=== PATIENT | male | born 1965 | race Caucasian/White ===

== ENCOUNTER 2020-07-18 07:54 | Emergency (ER) | payer OTHER, SELFPAY ==
--- NOTE | 2020-07-18 08:00 | PC.NURSE ---
awaiting barrel cutter for assist
[2020-07-18 08:05] VITALS: BP 145/79; PULSE 71; RESP 16; TEMP 35.9; O2SAT 97; BMI 26.5
--- NOTE | 2020-07-18 08:33 | ED.EXTPRO ---
HPI - Extremity Problem General Chief complaint: Extremity Problem Stated complaint: R ARM PAIN Time Seen by Provider: 07/18/20 08:12 Source: patient Mode of arrival: ambulatory History of Present Illness HPI Narrative: 54-year-old male with a PMHx right elbow bursitis currently on Bactrim c/o continued right elbow pain radiating to right shoulder/ right hand x2 weeks. Reports symptoms started after multiple repetitive motion/ lifting at work. admits pain with range of motion. Denies direct trauma/ falls, fever, chills, numbness /tingling Complaint: extremity pain Onset (ago): week(s) Pain Consistency: constant Location: right and upper extremity Radiation: proximal and distal Exacerbating factors: range of motion Related Data Home Medications Medication Instructions Recorded Confirmed aspirin 81 mg tablet,delayed 81 mg PO DAILY 07/13/20 release Previous Rx's Medication Instructions Recorded prednisone 20 mg tablet 20 mg PO DAILY 9 Days #9 tab 07/13/20 sulfamethoxazole 800 1 tab PO BID 10 Days #20 tab 07/13/20 mg-trimethoprim 160 mg tablet acetaminophen [Tylenol Extra 500 mg PO Q6H PRN 10 Days #20 tab 07/18/20 Strength] cyclobenzaprine 5 mg PO TID PRN #14 tab 07/18/20 lidocaine [Lidoderm] 1 patch TOPICAL DAILY #30 ea 07/18/20 naproxen 500 mg PO BID 7 Days #14 tab 07/18/20 Allergies Allergy/AdvReac Type Severity Reaction Status Date / Time tramadol [TRAMADOL] Allergy Unknown DIZZINESS, Verified 07/18/20 08:02 joint stiffness Review of Systems Review of Systems: Yes all other systems are reviewed and are negative Constitutional: Constitutional: Reports as per HPI, Denies chills and Denies fever(s) Cardiovascular: Cardiovascular: Reports as per HPI Respiratory: Respiratory: Reports no additional respiratory complaints Musculoskeletal: Musculoskeletal: Reports arthralgias, Reports muscle cramps, Reports muscle weakness, Denies numbness and Denies tingling Neurologic: Denies numbness and Denies tingling PMFSH Past Medical History Attestation statement: The following information was validated with the patient. Medical History (Updated 07/18/20 @ 08:41 by VICKIE Gauthier) No known health problems Surgical History (Updated 07/18/20 @ 08:11 by Peyton Jamison) H/O hemorrhoidectomy H/O lateral meniscus repair of left knee Social History Social History Smoking Status: Never smoker Use of substances other than those prescribed or required for medical reasons: No Advance Directives: No Advance Directives Information Provided: Yes Physical Exam Vital Signs and I&O and Narrative: Vital Signs and I&O: Vital Signs Temp 96.6 F L 07/18/20 08:05 Pulse 71 07/18/20 08:05 Resp 16 07/18/20 08:05 BP 145/79 H 07/18/20 08:05 Pulse Ox 97 07/18/20 08:05 Intake & Output 07/17/20 07/18/20 07/18/20 18:59 06:59 18:59 Weight 83.915 kg Body Mass Index 26.5 Const: General: cooperative and healthy appearing Chest: Chest palpation & inspection: normal inspection of the chest Resp: Effort & Inspection: normal respiratory effort and able to speak in complete sentences Cardio: Peripheral pulses: radial pulses present Extrem: Other: Right elbow tender to palpation. No erythema or swelling. no evidence of bursitis. Full range of motion intact. NV intact General: Yes full ROM Right upper extremity: shoulder/upper arm ( Right trapezius tenderness. No midline cervical spinous tenderness) MDM - Extremity (Nontraumatic) MDM Narrative Medical decision making narrative: likely MSK/ tendinitis. Low concern for fracture. Exam not consistent with bursitis at this time. Discussed with patient he should continue taking previously prescribed Bactrim to completion will give orthopedic follow-up for potential cortisone injections/if pain does not improve Discharge Plan Discharge Clinical Impression: Elbow pain, right Patient Disposition: Home, Self-Care Instructions: Arthralgia (ED) Additional Instructions: you likely have tendinitis of her elbow. Naproxen as an anti-inflammatory/pain medication, take with food. Flexeril as a muscle relaxer, take at night as it makes you drowsy, do not drive, drink alcohol, or operate machinery while taking it In addition Lidoderm patches or numbing patches, apply to painful area Follow-up with your doctor, as well you may follow-up with Orthopedics if pain persists and or worsens If you develop fever, redness, swelling, weakness, numbness/ tingling return to the ED Prescriptions: New cyclobenzaprine 5 mg tablet 5 mg PO TID PRN (Reason: pain) Qty: 14 RF: 0 naproxen 500 mg tablet 500 mg PO BID 7 Days Qty: 14 RF: 0 acetaminophen [Tylenol Extra Strength] 500 mg tablet 500 mg PO Q6H PRN (Reason: pain) 10 Days Qty: 20 RF: 0 lidocaine [Lidoderm] 5 % adhesive patch,medicated 1 patch topical DAILY Qty: 30 RF: 0 No Action sulfamethoxazole-trimethoprim [Bactrim DS] 800-160 mg tablet 1 tab PO BID 10 Days Qty: 20 RF: 0 prednisone 20 mg tablet 20 mg PO DAILY 9 Days Qty: 9 RF: 0 Referrals: Rustam Nascimento MD [Physician] - 1 week Stand Alone Forms: Work/School Release Print Language: Singaporean
== END 2020-07-18 08:56 | disposition home or self-care (01) ==
PROVIDERS: Emergency Provider Emergency Medicine; PCP Internal Medicine
DX: M25.521 Pain in right elbow (principal)
CPT/HCPCS: 99283; 99284

== ENCOUNTER 2020-08-02 15:13 | Outpatient (REF) | payer OTHER, SELFPAY ==
--- NOTE | 2020-08-02 15:20 | XR_ITS ---
EXAMINATION: XR CERVICAL SPINE CLINICAL INFORMATION: Pain right elbow. COMPARISON: None. TECHNIQUE: Cervical spine is imaged in 6 views: AP, odontoid, lateral, Fuchs, and bilateral oblique. FINDINGS: The cervical vertebral bodies are normal in height. There is no vertebral compression, spondylolisthesis, destructive process, or prevertebral soft tissue swelling. The odontoid appears intact. There is no focal disc narrowing or erosive changes. No cervical rib. Oblique views show no definite spurring towards the neural foramina. IMPRESSION: Unremarkable examination.
--- NOTE | 2020-08-02 15:21 | XR_ITS ---
EXAMINATION: XR ELBOW, RIGHT CLINICAL INFORMATION: Pain COMPARISON: None TECHNIQUE: AP, lateral, and oblique views of the right elbow. FINDINGS: The bones and soft tissues are normal. No fracture or joint effusion. Alignment is anatomic. Joint spaces are maintained. IMPRESSION: Normal radiograph.
== END 2020-08-02 15:14 | disposition home or self-care (01) ==
LOC: HO.XRAY 15:13
PROVIDERS: PCP Internal Medicine; Visit Provider Chiropractor
DX: M25.521 Pain in right elbow (principal)
CPT/HCPCS: 72040; 73080

== ENCOUNTER 2020-08-18 18:11 | Emergency (ER) | payer OTHER, SELFPAY ==
[2020-08-18 19:36] VITALS: BP 143/81; PULSE 69; RESP 16; TEMP 36.4; O2SAT 98; BMI 25.8
--- NOTE | 2020-08-18 19:56 | ED_ITS ---
HPI - Extremity Problem General Chief complaint: Extremity Injury, Upper Stated complaint: RIGHT ARM PAIN Time Seen by Provider: 08/18/20 19:30 Source: patient Mode of arrival: ambulatory Limitations: no limitations History of Present Illness HPI Narrative: Continuous pain on the right upper shoulder area neck area radiating down to the elbow and wrist for the past month and half for so seen in emergency room as well as primary care and now seeing physical therapy/binding folder machine had imaging done. Pain Consistency: intermittent Location: right Radiation: distal Relieving factors: nothing Exacerbating factors: nothing Associated symptoms: denies other symptoms Context: recent travel Related Data Home Medications Medication Instructions Recorded Confirmed aspirin 81 mg tablet,delayed 81 mg PO DAILY 07/13/20 release Previous Rx's Medication Instructions Recorded acetaminophen [Tylenol Extra 500 mg PO Q6H PRN 10 Days #20 tab 07/18/20 Strength] cyclobenzaprine 5 mg PO TID PRN #14 tab 07/18/20 lidocaine [Lidoderm] 1 patch TOPICAL DAILY #30 ea 07/18/20 naproxen 500 mg PO BID 7 Days #14 tab 07/18/20 cyclobenzaprine 10 mg PO TID PRN #20 tab 08/18/20 oxycodone 5 mg PO BID PRN #7 tab 08/18/20 prednisone 40 mg PO DAILY #7 tab 08/18/20 Allergies Allergy/AdvReac Type Severity Reaction Status Date / Time tramadol [TRAMADOL] Allergy Unknown DIZZINESS, Verified 07/18/20 08:02 joint stiffness Review of Systems Review of Systems: Constitutional: No Weight loss, No Fever, No Chills, No Night Sweats, No Fatigue, No Malaise ENT/Mouth: No Hearing loss, No Ear Pain, No Nasal Congestion, No Sinus Pain, No Hoarseness, No sore throat, No Rhinorrhea, No Swallowing Difficulty Eyes: No Eye Pain, No Swelling, No Redness, No Foreign Body, No Discharge, No Vision Changes Cardiovascular: No Chest Pain, No SOB, No Dyspnea on Exertion, No Orthopnea, No Edema, No Palpitations Respiratory: No Cough, No Sputum, No Wheezing, No Dyspnea Gastrointestinal: No Nausea, No Vomiting, No Diarrhea, No Constipation, No abdominal Pain, No Hematochezia, No Melena Genitourinary: no irregular bleeding, No Dysuria, No Urinary Frequency, No Hematuria, No Urinary Incontinence, No Urgency, No Flank Pain, No Urinary Flow Changes, No Hesitancy Musculoskeletal: No joint pain, No Myalgias, No Joint Swelling Skin: No Skin Lesions, No rash Neuro: No Weakness, No Numbness, No Paresthesias, No Loss of Consciousness, No Dizziness, No Headache Psych: No Anxiety/Panic, No Depression, No SI/HI/AH/VH, No Social Issues Heme/Lymph: No Bruising, No Bleeding,No Lymphadenopathy Endocrine: No Polyuria, No Polydipsia, No Temperature Intolerance Yes all other systems are reviewed and are negative [facility] Past Medical History Medical History (Updated 08/18/20 @ 20:02 by Cy Verdin NP) No known health problems Surgical History (Updated 07/18/20 @ 08:11 by Peyton Jamison) H/O hemorrhoidectomy H/O lateral meniscus repair of left knee Social History Social History Smoking Status: Never smoker Use of substances other than those prescribed or required for medical reasons: No Advance Directives: No Advance Directives Information Provided: No Physical Exam Vital Signs: Vital Signs: Last Vital Signs Temp 97.6 F 08/18/20 19:36 Pulse 69 08/18/20 19:36 Resp 16 08/18/20 19:36 BP 143/81 H 08/18/20 19:36 Pulse Ox 98 08/18/20 19:36 Body Mass Index 25.8 Reviewed Const: General: cooperative and healthy appearing; No acute distress or intoxicated appearing Nutritional Appearance: average body habitus Orientation/consciousness: patient oriented x3 HENMT: Head: Yes normal to inspection Ears: hearing grossly normal bilaterally Eyes: General: appearance normal, both eyes and all related structures Visual Nelson: normal visual nelson by confrontation Neck: Other: Negative Spurling test Neck: Yes normal visual inspection, No positive Brudzinski's sign, No positive Kernig's sign and No tender Thyroid: Thyroid normal Chest: Chest palpation & inspection: normal inspection of the chest Resp: Effort & Inspection: normal respiratory effort Cardio: Jugular venous distension: no JVD : General: Yes no CVA tenderness Back/Spine/Pelvis: Back: no CVA tenderness Skin: General skin exam: no rashes or lesions noted Neuro: General: patient oriented x3 Extrem: General: Yes normal to inspection Discharge Plan Discharge Clinical Impression: Radiculopathy affecting upper extremity Patient Disposition: Home, Self-Care Instructions: Cervical Radiculopathy (ED) Prescriptions: New prednisone 20 mg tablet 40 mg PO DAILY Qty: 7 RF: 0 oxycodone 5 mg tablet 5 mg PO BID PRN (Reason: pain) Qty: 7 RF: 0 cyclobenzaprine 10 mg tablet 10 mg PO TID PRN (Reason: muscle spasm) Qty: 20 RF: 0 No Action cyclobenzaprine 5 mg tablet 5 mg PO TID PRN (Reason: pain) Qty: 14 RF: 0 naproxen 500 mg tablet 500 mg PO BID 7 Days Qty: 14 RF: 0 acetaminophen [Tylenol Extra Strength] 500 mg tablet 500 mg PO Q6H PRN (Reason: pain) 10 Days Qty: 20 RF: 0 lidocaine [Lidoderm] 5 % adhesive patch,medicated 1 patch topical DAILY Qty: 30 RF: 0 Referrals: Luzma Marcelo MD [Primary Care Provider] - 3 days
[2020-08-18] MEDS: Lidocaine 4 % Patch ADH..PATCH 1 PATCH TRANSDERMA (20:27)
[2020-08-18] MEDS: Ketorolac Tromethamine 60 MG/2 ML VIAL IM (20:28)
== END 2020-08-18 20:55 | disposition home or self-care (01) ==
PROVIDERS: Emergency Provider Internal Medicine; PCP Internal Medicine
DX: M54.10 Radiculopathy, site unspecified (principal); M54.2 Cervicalgia; M79.601 Pain in right arm; Z79.899 Other long term (current) drug therapy; Z79.82 Long term (current) use of aspirin
CPT/HCPCS: 96372; 99283; 99284; J1885

== ENCOUNTER 2020-08-26 23:05 | Inpatient (IN) | payer OTHER, SELFPAY ==
[2020-08-26 23:10] VITALS: BP 118/83; PULSE 69; RESP 14; TEMP 35.7; O2SAT 100; BMI 25.9
--- NOTE | 2020-08-26 23:37 | ED.ABDPAIN ---
HPI - Abdominal Pain General Chief Complaint: Abdominal Pain Stated Complaint: Abd pain Time Seen by Provider: 08/26/20 23:25 Source: patient Mode of arrival: ambulatory Limitations: no limitations History of Present Illness HPI narrative: Patient comes to emergency room complaining of epigastric pain starting approximately 6 hours ago. Patient states earlier today he had a large breakfast consisting of mostly fruits. then at 17:00 he started having epigastric pain. Patient states this pain is familiar to him, he has a prescription for Bentyl, patient took 2 tablets with no relief. Patient states it is sharp, nonradiating, initially the pain was intermittent but this time it is constant. Related Data Home Medications Medication Instructions Recorded Confirmed aspirin 81 mg tablet,delayed 81 mg PO DAILY 07/13/20 release Previous Rx's Medication Instructions Recorded acetaminophen [Tylenol Extra 500 mg PO Q6H PRN 10 Days #20 tab 07/18/20 Strength] cyclobenzaprine 5 mg PO TID PRN #14 tab 07/18/20 lidocaine [Lidoderm] 1 patch TOPICAL DAILY #30 ea 07/18/20 naproxen 500 mg PO BID 7 Days #14 tab 07/18/20 cyclobenzaprine 10 mg PO TID PRN #20 tab 08/18/20 oxycodone 5 mg PO BID PRN #7 tab 08/18/20 prednisone 40 mg PO DAILY #7 tab 08/18/20 Allergies Allergy/AdvReac Type Severity Reaction Status Date / Time tramadol [TRAMADOL] Allergy Unknown DIZZINESS, Verified 07/18/20 08:02 joint stiffness Review of Systems Review of Systems Constitutional : No Weight loss, No Fever, No Chills, No Night Sweats, No Fatigue, No Malaise ENT/Mouth : No Hearing loss, No Ear Pain, No Nasal Congestion, No Sinus Pain, No Hoarseness, No sore throat, No Rhinorrhea, No Swallowing Difficulty Eyes: No Eye Pain, No Swelling, No Redness, No Foreign Body, No Discharge, No Vision Changes Cardiovascular : No Chest Pain, No SOB, No Dyspnea on Exertion, No Orthopnea, No Edema, No Palpitations Respiratory : No Cough, No Sputum, No Wheezing, No Smoke Exposure, No Dyspnea Gastrointestinal : No Nausea, No Vomiting, patient complaining of epigastric pain, nonradiating Genitourinary : no irregular bleeding, No Dysuria, No Urinary Frequency, No Hematuria, No Urinary Incontinence, No Urgency, No Flank Pain, No Urinary Flow Changes, No Hesitancy Musculoskeletal : No joint pain, No Myalgias, No Joint Swelling Skin : No Skin Lesions, No rash Neuro : No Weakness, No Numbness, No Paresthesias, No Loss of Consciousness, No Dizziness, No Headache Psych : No Anxiety/Panic, No Depression, No SI/HI/AH/VH, No Social Issues, Heme/Lymph: No Bruising, No Bleeding,No Lymphadenopathy Endocrine : No Polyuria, No Polydipsia, No Temperature Intolerance Physical Exam Vital Signs: Vital Signs: Last Vital Signs Temp 96.2 F L 08/26/20 23:10 Pulse 60 08/27/20 00:17 Resp 18 08/27/20 00:17 BP 119/82 08/27/20 00:17 Pulse Ox 8 L 08/27/20 00:17 Body Mass Index 25.9 Course Course Course Narrative: patient's pain is not relieved with morphine. I discussed with the patient that his CT scan showed an early small bowel 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 Patient agrees to plan to be hospitalized. I discussed the patient with our hospitalist, patient being admitted. MDM - Abdominal Pain Lab Data Result diagrams: 08/26/20 23:43 08/26/20 23:43 Labs: Lab Results 08/26/20 08/26/20 08/26/20 Range/Units 23:43 23:43 23:43 WBC 8.7 (4.8-10.8) X10*3/uL RBC 5.76 (4.60-5.80) X10*6/uL Hgb 16.2 (14.0-18.0) g/dl Hct 48.2 (42-52) % MCV 83.7 (80-98) fL MCH 28.1 (27.0-33.0) pg MCHC 33.6 (31.0-36.0) g/dl RDW 13.1 (11.0-16.0) % Plt Count 215 (160-400) X10*3/uL MPV 9.3 L (9.4-12.4) fL Immature Gran % (Auto) 0.3 (0.0-0.4) % Neut % (Auto) 57.9 (45-73) % Lymph % (Auto) 33.2 (20-40) % [place] % (Auto) 5.7 (2-11) % Eos % (Auto) 2.4 (0-4) % Baso % (Auto) 0.5 (0-2) % Lymph # (Auto) 2.9 (1.2-4.9) X10*3/uL [place] # (Auto) 0.5 (0.1-1.2) X10*3/uL Eos # (Auto) 0.2 (0.0-0.4) X10*3/uL Baso # (Auto) 0.0 (0.0-0.2) X10*3/uL Abs Immat Gran (auto) 0.03 (0.00-0.03) X10*3/uL Absolute Neuts (auto) 5.1 (2.0-8.3) X10*3/uL Absolute Nucleated RBC 0.000 (0.0-0.012) X10*3/uL Nucleated RBC % (auto) 0.0 (0.0-0.2) /100WBC Sodium 140 (135-145) mmol/L Potassium 4.6 (3.3-5.1) mmol/l Chloride 102 (96-108) mmol/L Carbon Dioxide 29 (22-29) mmol/L Anion Gap 14 (12-20) BUN 19 H (9-16) mg/dL Creatinine 0.87 (0.5-1.4) mg/dL Estim Creat Clear Calc 97.8 Estimated GFR > 60 Random Glucose 90 (60-115) mg/dL Calcium 9.0 (8.4-10.2) mg/dL Total Bilirubin 0.9 (0.0-1.0) mg/dL Direct Bilirubin 0.3 (0.0-0.5) mg/dL AST 24 (5-37) U/L ALT 32 (0-40) U/L Alkaline Phosphatase 49 (39-117) U/L Troponin I High Sens < 3.5 (<3.5-35.0) ng/L Total Protein 6.6 (6.5-8.0) g/dL Albumin 4.3 (3.5-5.0) g/dL Lipase 11 (8-78) U/L Imaging Data CT scan - abdomen: Radiologist's impression: The visualized lung bases are clear. The visualized portions of the heart are unremarkable. The liver is of normal size and attenuation without focal lesions nor intrahepatic biliary ductal dilation. There is a calculus within the gallbladder lumen. There is no wall thickening or discernible pericholecystic fluid. The spleen, pancreas, adrenal glands are unremarkable. Both kidneys are of normal size and attenuation without hydronephrosis or nephrolithiasis. Following the administration of IV contrast, prompt symmetric nephrograms are displayed. There is no abdominal free fluid. There is neither mesenteric nor retroperitoneal lymphadenopathy. There are moderately dilated loops of mid small bowel, some contain stool. There is a distal small bowel transition point to decompressed small bowel. Otherwise, unremarkable unopacified loops of small and large bowel are identified. A normal appendix is identified. There is no pelvic free fluid. The urinary bladder is unremarkable. There is neither pelvic nor inguinal lymphadenopathy. Bone windows: Neither sclerotic nor lytic bone lesions are identified. CT/CT abdomen pelvis w con IMPRESSION: Moderately dilated loops of mid small bowel territory service representative of a partial small bowel 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 Discharge Plan Discharge Clinical Impression: Small bowel obstruction Patient Disposition: Admitted As Inpatient Prescriptions: No Action cyclobenzaprine 5 mg tablet 5 mg PO TID PRN (Reason: pain) Qty: 14 RF: 0 naproxen 500 mg tablet 500 mg PO BID 7 Days Qty: 14 RF: 0 acetaminophen [Tylenol Extra Strength] 500 mg tablet 500 mg PO Q6H PRN (Reason: pain) 10 Days Qty: 20 RF: 0 lidocaine [Lidoderm] 5 % adhesive patch,medicated 1 patch topical DAILY Qty: 30 RF: 0 prednisone 20 mg tablet 40 mg PO DAILY Qty: 7 RF: 0 oxycodone 5 mg tablet 5 mg PO BID PRN (Reason: pain) Qty: 7 RF: 0 cyclobenzaprine 10 mg tablet 10 mg PO TID PRN (Reason: muscle spasm) Qty: 20 RF: 0 PMFSH Past Medical History Medical History (Updated 08/27/20 @ 01:21 by Nohemy Currie MD) No known health problems Surgical History (Updated 07/18/20 @ 08:11 by Peyton Jamison) H/O hemorrhoidectomy H/O lateral meniscus repair of left knee Social History Social History Alcohol intake: never Smoking Status: Never smoker Use of substances other than those prescribed or required for medical reasons: No Advance Directives: No Advance Directives Information Provided: No
[2020-08-26 23:48] LABS: Basophils Percent Auto 0.5 % (0-2); Eosinophils Absolute Auto 0.2 X10*3/uL (0.0-0.4); Eosinophils Percent Auto 2.4 % (0-4); Hematocrit 48.2 % (42-52); Hemoglobin 16.2 g/dl (14.0-18.0); Imm Gran Abs Auto 0.03 X10*3/uL (0.00-0.03); Imm Gran Pct Auto 0.3 % (0.0-0.4); Lymphocytes Absolute Auto 2.9 X10*3/uL (1.2-4.9); Lymphocytes Percent Auto 33.2 % (20-40); MANUAL DIFF FLAG NO; Mean Corpuscular HGB Conc 33.6 g/dl (31.0-36.0); Mean Corpuscular Hemoglobin 28.1 pg (27.0-33.0); Mean Corpuscular Volume 83.7 fL (80-98); Mean Platelet Volume 9.3 fL (9.4-12.4); Monocytes Absolute Auto 0.5 X10*3/uL (0.1-1.2); Monocytes Percent Auto 5.7 % (2-11); Neutrophils Absolute Auto 5.1 X10*3/uL (2.0-8.3); Neutrophils Percent Auto 57.9 % (45-73); Platelet Count 215 X10*3/uL (160-400); Red Blood Count 5.76 X10*6/uL (4.60-5.80); Red Cell Distribution Width 13.1 % (11.0-16.0); White Blood Count 8.7 X10*3/uL (4.8-10.8)
--- NOTE | 2020-08-26 23:53 | PC.NURSE ---
20g right ac pt briseida well no complications labs drawn and sent.
[2020-08-26 23:55] VITALS: RESP 18
[2020-08-26] MEDS: Morphine Sulfate 2 MG/ML CARTRIDGE IVPUSH (23:55)
[2020-08-26 23:59] VITALS: BP 131/83; PULSE 60; RESP 18; O2SAT 97
[2020-08-27] VITALS (12 sets, daily range): BP systolic 90–142; BP diastolic 50–84; PULSE 48–88; RESP 16–20; TEMP 36.2–36.7; O2SAT 8–100
--- NOTE | 2020-08-27 | CT_ITS ---
EXAMINATION: CT ABDOMEN AND PELVIS WITH CONTRAST CLINICAL INFORMATION: Epigastric pain. COMPARISON: Multiple prior exams are reviewed. The most recent is from 04/22/2020. TECHNIQUE: Contiguous axial thin section helical images of the abdomen and pelvis were performed following the administration of 85 mL of intravenous Omnipaque 350. The data set was reformatted in the coronal and sagittal planes and reviewed on an independent workstation. DLP: 566 mGy-cm. FINDINGS: The visualized lung bases are clear. The visualized portions of the heart are unremarkable. The liver is of normal size and attenuation without focal lesions nor intrahepatic biliary ductal dilation. There is a calculus within the gallbladder lumen. There is no wall thickening or discernible pericholecystic fluid. The spleen, pancreas, adrenal glands are unremarkable. Both kidneys are of normal size and attenuation without hydronephrosis or nephrolithiasis. Following the administration of IV contrast, prompt symmetric nephrograms are displayed. There is no abdominal free fluid. There is neither mesenteric nor retroperitoneal lymphadenopathy. There are moderately dilated loops of mid small bowel, some contain stool. There is a distal small bowel transition point to decompressed small bowel. Otherwise, unremarkable unopacified loops of small and large bowel are identified. A normal appendix is identified. There is no pelvic free fluid. The urinary bladder is unremarkable. There is neither pelvic nor inguinal lymphadenopathy. Bone windows: Neither sclerotic nor lytic bone lesions are identified. CT/CT abdomen pelvis w con IMPRESSION: Moderately dilated loops of mid small bowel inbound sales representative of a partial small bowel 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 Automated exposure control (Care Dose) Adjustment of the mA and/or kv according to patient size (this includes techniques or standardized protocols for targeted exams where dose is matched to indication / reason for exam; i.e. extremities or head).
--- NOTE | 2020-08-27 00:04 | PC.NURSE ---
pt resting comfortably waiting ct and urine results.
[2020-08-27 00:14] LABS: Alanine Aminotransferase 32 U/L (0-40); Albumin Level 4.3 g/dL (3.5-5.0); Alkaline Phosphatase 49 U/L (39-117); Anion Gap 14 (12-20); Aspartate Amino Transferase 24 U/L (5-37); Bilirubin Direct 0.3 mg/dL (0.0-0.5); Bilirubin Total 0.9 mg/dL (0.0-1.0); Blood Urea Nitrogen 19 mg/dL (9-16); Carbon Dioxide 29 mmol/L (22-29); Chloride 102 mmol/L (96-108); Creatinine Clr Calc Pharmacy 97.8; Estimated Glomerular Filt Rate > 60; Glucose Random 90 mg/dL (60-115); Lipase 11 U/L (8-78); Potassium 4.6 mmol/l (3.3-5.1); Sodium 140 mmol/L (135-145); Total Protein 6.6 g/dL (6.5-8.0)
[2020-08-27 00:20] LABS: Troponin-I High Sensitivity < 3.5 ng/L (<3.5-35.0)
--- NOTE | 2020-08-27 00:20 | PC.NURSE ---
PT TAKEN TO CT VIA STRETCHER,
[2020-08-27] MEDS: iohexoL 350 MG/ML 100 ML INFUS..BTL 85 ML IV (00:25)
--- NOTE | 2020-08-27 01:29 | PC.NURSE ---
pt sleeping sitter present, needs met. skin pink warm and dry.
[2020-08-27] MEDS: Morphine Sulfate 4 MG/ML CARTRIDGE IVPUSH (01:35)
--- NOTE | 2020-08-27 02:24 | PC.NURSE ---
pt had a brief period of nausea that resolved on its own, vitals stable. skin warm and dry.
--- NOTE | 2020-08-27 02:36 | P.HPHOSP_ITS ---
History of Present Illness Date of Service: 08/27/20 Chief Complaint: Abdominal pain 54 y/o male who presents from home due to abdominal pain. Per history provided by the patient, since 5 pm yesterday afternoon, has been having an on and off severe discomfort in the epigastric region, 10/10 in intensity, pressure like, none radiating, relieved by over the counter anti-spasmodic and rest. Patient denies any chest pain, SOB, nausea, vomiting, diarrhea or constipation. On presentation to the ED, vitals show BP mildly elevated, Blood work unremarkable. CT abdomen consistent with partial SBO. Given ongoing pain with minimal relieve on IV pain meds, decision for admission given. Patient seen and evaluated at the bedside, laying down in bed in no acute distress. ROS as above otherwise negative. Physical exam unremarkable. PMHX: Diverticulosis, gastritis, cellulitis, anxiety, abdominal pain, colitis, vomiting, tinea capitis, Dizziness PSx: none Toxic habits: No hx of alcohol abuse, smoking or IVDA Review of Systems Gastrointestinal: Gastrointestinal: Reports abdominal pain [facility] Medical History (Updated 08/27/20 @ 01:21 by Nohemy Currie MD) No known health problems Functional capacity: independent ambulation Family history: reviewed and not pertinent Surgical History H/O hemorrhoidectomy H/O lateral meniscus repair of left knee Social History Alcohol intake: never Smoking Status: Never smoker Use of substances other than those prescribed or required for medical reasons: No Advance Directives: No Advance Directives Information Provided: No Meds Allergies Allergy/AdvReac Type Severity Reaction Status Date / Time tramadol [TRAMADOL] Allergy Unknown DIZZINESS, Verified 07/18/20 08:02 joint stiffness Home Medications Medication Instructions Recorded Confirmed Type No Known Home Meds 08/27/20 08/27/20 History Physical Exam Vital Signs and Narrative: Vital Signs: Last Vital Signs Temp 96.2 F L 08/26/20 23:10 Pulse 48 L 08/27/20 01:52 Resp 18 08/27/20 01:52 BP 142/84 H 08/27/20 01:52 Pulse Ox 99 08/27/20 01:52 Body Mass Index 25.9 Const: General: cooperative, comfortable and no acute distress Orientation/consciousness: oriented to person, oriented to place and oriented to time HENMT: Head: Yes normal to inspection Eyes: General: appearance normal, both eyes and all related structures Neck: Yes normal visual inspection Chest: Chest palpation & inspection: normal inspection of the chest Resp: Effort & Inspection: normal respiratory effort Cardio: Jugular venous distension: no JVD Rate: regular rate Rhythm: regular rhythm Heart sounds: S1 normal heart sound present and S2 normal heart sound present GI: Inspection: Yes normal to inspection Percussion: Yes normal to percussion Auscultation: normal bowel sounds Skin: General skin exam: no rashes or lesions noted Neuro: General: oriented to person, oriented to place and oriented to time Cognition (Neuro): normal cognition Gait exam (Neuro): Normal gait present Motor exam (neuro): 5/5 motor strength present throughout Extrem: General: Yes normal to inspection Psych: Appearance: grossly normal Results Labs CBC and Chem 7: 08/26/20 23:43 08/26/20 23:43 Labs: Laboratory Results - last 24 hr 08/26/20 08/26/20 08/26/20 23:43 23:43 23:43 MCV 83.7 MCH 28.1 MCHC 33.6 RDW 13.1 Plt Count 215 MPV 9.3 L Immature Gran % (Auto) 0.3 Neut % (Auto) 57.9 Lymph % (Auto) 33.2 [place] % (Auto) 5.7 Eos % (Auto) 2.4 Baso % (Auto) 0.5 Lymph # (Auto) 2.9 [place] # (Auto) 0.5 Eos # (Auto) 0.2 Baso # (Auto) 0.0 Abs Immat Gran (auto) 0.03 Absolute Neuts (auto) 5.1 Absolute Nucleated RBC 0.000 Nucleated RBC % (auto) 0.0 Anion Gap 14 Estim Creat Clear Calc 97.8 Estimated GFR > 60 Random Glucose 90 Calcium 9.0 Total Bilirubin 0.9 Direct Bilirubin 0.3 AST 24 ALT 32 Alkaline Phosphatase 49 Troponin I High Sens < 3.5 Total Protein 6.6 Albumin 4.3 Lipase 11 Imaging Radiologist's Impressions: Impressions Abdomen/Pelvis CT 08/27/20 00:00 IMPRESSION: 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 Automated exposure control (Care Dose) Adjustment of the mA and/or kv according to patient size (this includes techniques or standardized protocols for targeted exams where dose is matched to indication / reason for exam; i.e. extremities or head). Assessment and Plan (1) Small bowel obstruction: Status: Acute Observation Advance diet as tolerated Keep Mag >2 and K>4 Pain control Serial abdominal exams General surgery consult in the am
[2020-08-27 04:08] LABS: COVID-19 Test Negative (Negative)
--- NOTE | 2020-08-27 04:11 | PC.NURSE ---
pt blood pressure is 92/53. pt head of bed lowered and pt felt nausea and upon rising hob pt nausea resolved. pt denies pain abd soft and non tender to touch.
--- NOTE | 2020-08-27 04:18 | PC.NURSE ---
hospitalist made aware of pt soft blood pressures and intermittent nausea. orders received.
[2020-08-27] MEDS: 0.9 % Sodium Chloride 500 ML 999 ML IVCONT (04:39)
--- NOTE | 2020-08-27 07:08 | PC.NURSE ---
report taken from [facility]os [facility] pt awaiting inpt admission, dx w sbo on ct scan. pt sts having 5/10 pain to abd att. provider aware.
[2020-08-27] MEDS: fentaNYL citrate/PF 100 MCG/2 ML VIAL 25 MCG IVPUSH (07:22)
--- NOTE | 2020-08-27 11:32 | PM.CNGS ---
History of Present Illness Consult details Consult date: 08/27/20 <VICKIE Peoples Last Filed: 08/27/20 12:28> Reason for consult: abdominal pain <VICKIE Peoples Last Filed: 08/27/20 12:28> Requesting physician: Elizabeth Cool <VICKIE Peoples - Last Filed: 08/27/20 12:28> Narrative: 54 yo somali speaking male with no PMHX, surgical hx of colon polyps, hemrroidectomy and umbilical hernia repair presents for 1 day of ABD pain. He states that he has chronic ABD pain like this that has been episodic for ~20 years. Usually the pain resolves in a day or so. He recently had similar pain about 2-3 months ago and presented to the [place] ED. He was treated for pain and was discharge, no admission. He states that this current pain felt worsen and did not improve with home medication. He states the pain is sharp and cholicky. In the ED he received pain medication and this helps however once it wears off his pain returns. He also reports nausea but no vomiting. He states he continues to pass gas. CT perfromed while in the ED showed evidence of a partial SBO. VSS. Labs He was examineed at bed-side in the ED. He is sitting up in no acute distress. Currently having a NGT placed. <VICKIE Peoples Last Filed: 08/27/20 12:28> Review of Systems Review of Systems: Yes all other systems are reviewed and are negative <VICKIE Peoples Last Filed: 08/27/20 12:28> Gastrointestinal: Gastrointestinal: Reports abdominal pain and Reports nausea <VICKIE Peoples Last Filed: 08/27/20 12:28> [facility] Past Medical History Medical History: Medical History (Updated 08/27/20 @ 01:21 by Nohemy Currie MD) No known health problems <VICKIE Peoples Last Filed: 08/27/20 12:28> Functional capacity: independent ambulation <VICKIE Peoples Last Filed: 08/27/20 12:28> Family History Family history: reviewed and not pertinent <VICKIE Peoples Last Filed: 08/27/20 12:28> Surgical History Surgical History: Surgical History H/O hemorrhoidectomy H/O lateral meniscus repair of left knee <VICKIE Peoples - Last Filed: 08/27/20 12:28> Social History Social History: Social History Alcohol intake: never Smoking Status: Never smoker Use of substances other than those prescribed or required for medical reasons: No Advance Directives: No Advance Directives Information Provided: No <VICKIE Peoples - Last Filed: 08/27/20 12:28> Meds Allergies/Adverse reactions: Allergies Allergy/AdvReac Type Severity Reaction Status Date / Time tramadol [TRAMADOL] Allergy Unknown DIZZINESS, Verified 07/18/20 08:02 joint stiffness <VICKIE Peoples - Last Filed: 08/27/20 12:28> Home medications: Home Medications Medication Instructions Recorded Confirmed Type No Known Home Meds 08/27/20 08/27/20 History <VICKIE Peoples - Last Filed: 08/27/20 12:28> Physical Exam Vital Signs: Vital Signs: Last Vital Signs Temp 96.2 F L 08/26/20 23:10 Pulse 63 08/27/20 05:19 Resp 16 08/27/20 04:49 BP 91/50 L 08/27/20 05:19 Pulse Ox 98 08/27/20 05:19 Body Mass Index 25.9 <VICKIE Peoples - Last Filed: 08/27/20 12:28> Const: General: healthy appearing and no acute distress <VICKIE Peoples - Last Filed: 08/27/20 12:28> Resp: Effort & Inspection: normal respiratory effort <VICKIE Peoples - Last Filed: 08/27/20 12:28> Auscultation: clear to auscultation bilaterally <VICKIE Peoples - Last Filed: 08/27/20 12:28> GI: Inspection: Yes normal to inspection <VICKIE Peoples - Last Filed: 08/27/20 12:28> Palpation (GI): Soft to palpation and Tenderness to palpation present (GI) in the epigastrum <VICKIE Peoples - Last Filed: 08/27/20 12:28> Auscultation: normal bowel sounds <VICKIE Peoples Last Filed: 08/27/20 12:28> Results Labs Result diagrams: : 08/26/20 23:43 08/26/20 23:43 <VICKIE Peoples - Last Filed: 08/27/20 12:28> Labs: Abnormal lab results 08/26/20 08/26/20 Range/Units 23:43 23:43 MPV 9.3 L (9.4-12.4) fL BUN 19 H (9-16) mg/dL Short CBC 08/26/20 Range/Units 23:43 WBC 8.7 (4.8-10.8) X10*3/uL Hgb 16.2 (14.0-18.0) g/dl Hct 48.2 (42-52) % Plt Count 215 (160-400) X10*3/uL BMP 08/26/20 23:43 Sodium 140 Potassium 4.6 Chloride 102 Carbon Dioxide 29 BUN 19 H Creatinine 0.87 Calcium 9.0 Liver Function 08/26/20 Range/Units 23:43 Total Bilirubin 0.9 (0.0-1.0) mg/dL Direct Bilirubin 0.3 (0.0-0.5) mg/dL AST 24 (5-37) U/L ALT 32 (0-40) U/L Alkaline Phosphatase 49 (39-117) U/L Albumin 4.3 (3.5-5.0) g/dL All other labs normal. <VICKIE Peoples - Last Filed: 08/27/20 12:28> Imaging Abdomen CT scan report/results: report reviewed and image reviewed <VICKIE Peoples - Last Filed: 08/27/20 12:28> Assessment and Plan (1) Small bowel obstruction: Status: Acute <VICKIE Peoples Last Filed: 08/27/20 12:28> 54 yo male with 1 day of ABD pain and evidence or PSBO. No emergent surgical intervention needed at this time as he continue to pass flatus. His ABD exam is also benign >> Patient being admitted to Medicine Service >> NGT >> Pain mgmt >> Surgery will follow along. >> GI consult <VICKIE Peoples - Last Filed: 08/27/20 12:28> . General Surgery Attending - Peggy Steve M.D. Patient was evaluated and examined at the bedside with Mr. Michael Roberson PA-C. I confirm above findings and plan as documented. He has a long history of similar abdominal pain. He is currently passing flatus. CT shows SB distension with transition point in ileum. Based on above, he has partial SBO and should be managed with NGT, IVF. We will follow. <Darius Steve MD - Last Filed: 08/27/20 13:38> Procedures Abscess I/D Date of Service: 08/27/20 <Darius Steve MD - Last Filed: 08/27/20 13:38>
[2020-08-27] MEDS: Lactated Ringers 1,000 ML 100 ML IVCONT ×2 (11:49→23:59)
[2020-08-27] MEDS: Lidocaine HCl 4 % Laryng-O-Jet 4 ML 1 APPL TOPICAL (11:49)
[2020-08-27] MEDS: Famotidine/PF 20 MG/2 ML VIAL IVPUSH ×2 (11:49→19:37)
--- NOTE | 2020-08-27 11:57 | PC.NURSE ---
ng tube placed, no significant drainage noted at this time. general sx at bedside w interpretter for consult.
--- NOTE | 2020-08-27 12:51 | PC.NURSE ---
medicated for nausea. awaiting bed assignment.
--- NOTE | 2020-08-27 15:08 | PC.NURSE ---
PT REPORT GIVEN TO OMAYRA MCGREGOR
--- NOTE | 2020-08-27 15:13 | PM.EVENT ---
Event Note Date of Service: 08/27/20 Event Note: 54-year-old Togolese-speaking gentleman with past medical history significant for umbilical hernia repair in [place] long-time ago with history of recurrent abdominal pain, presented to [facility] with abdominal pain without associated fever chills his last bowel movement was 24 hours ago normal he has been passing flatus in the ER a CT scan of the abdomen showed partial small-bowel obstruction patient admitted to our service for further monitoring and treatment. On exam patient awake alert in no distress is still complaining of persistent mild abdominal discomfort abdomen soft nontender bowel sounds are audible extremities without edema assessment and plan partial small-bowel obstruction with chronic intermittent abdominal pain resolved by itself but pain persists during this episode and NG tube placed in the emergency room had no output since patient is having difficulty keeping with the NG tube will remove it will treat patient with IV fluid, IV morphine and IV Pepcid, patient evaluated by surgery no surgical intervention plan will continue current management monitor electrolytes and renal function and follow clinical course.
[2020-08-27] MEDS: 0.9 % Sodium Chloride Flush 3 ML SYRINGE IVFLUSH ×2 (17:48→23:58)
[2020-08-27] MEDS: Heparin Sodium,Porcine 5,000 UNIT/ML VIAL 5000 UNIT SUBCUT (17:49)
[2020-08-27 18:11] LABS: MANUAL DIFF FLAG NO
[2020-08-27 18:16] LABS: Basophils Percent Auto 0.2 % (0-2); Eosinophils Percent Auto 0.4 % (0-4); Hematocrit 48.6 % (42-52); Imm Gran Abs Auto 0.02 X10*3/uL (0.00-0.03); Imm Gran Pct Auto 0.2 % (0.0-0.4); Lymphocytes Absolute Auto 1.7 X10*3/uL (1.2-4.9); Lymphocytes Percent Auto 18.1 % (20-40); Mean Corpuscular HGB Conc 32.9 g/dl (31.0-36.0); Mean Corpuscular Hemoglobin 27.9 pg (27.0-33.0); Mean Corpuscular Volume 84.7 fL (80-98); Mean Platelet Volume 9.4 fL (9.4-12.4); Monocytes Absolute Auto 0.5 X10*3/uL (0.1-1.2); Monocytes Percent Auto 4.8 % (2-11); Neutrophils Absolute Auto 7.1 X10*3/uL (2.0-8.3); Neutrophils Percent Auto 76.3 % (45-73); Platelet Count 196 X10*3/uL (160-400); Red Blood Count 5.74 X10*6/uL (4.60-5.80); Red Cell Distribution Width 13.5 % (11.0-16.0); White Blood Count 9.3 X10*3/uL (4.8-10.8)
[2020-08-27 18:36] LABS: Anion Gap 14 (12-20); Blood Urea Nitrogen 18 mg/dL (9-16); Calcium 8.5 mg/dL (8.4-10.2); Carbon Dioxide 23 mmol/L (22-29); Chloride 106 mmol/L (96-108); Creatinine Clr Calc Pharmacy 110.6; Estimated Glomerular Filt Rate > 60; Glucose Random 80 mg/dL (60-115); Potassium 4.1 mmol/l (3.3-5.1); Sodium 139 mmol/L (135-145)
[2020-08-28] VITALS (7 sets, daily range): BP systolic 113–153; BP diastolic 71–85; PULSE 65–92; RESP 16–20; TEMP 36.2–37; O2SAT 97–99
[2020-08-28] MEDS: Heparin Sodium,Porcine 5,000 UNIT/ML VIAL 5000 UNIT SUBCUT ×3 (00:03→18:50)
--- NOTE | 2020-08-28 07:36 | P.CNGI_ITS ---
History of Present Illness Data of Consult Service Date: 08/28/20 Requesting physician: Elizabeth Cool Primary Care Provider: Luzma Riddle MD HPI Reason for consult: small bowel obstruction 54 y/o male who I am asked to see for assessment for SBO. He presented from home due to sudden onset abdominal pain after he had been having an on and off severe discomfort in the epigastric region, 10/10 in intensity, pressure like, none radiating, relieved by over the counter anti- spasmodic and rest. He has bouts of similar episodic pain for ~20 years with pain usu spontaneously resolving within 1-2 days. Patient denies any chest pain, SOB, nausea, vomiting, diarrhea or constipation. Labs were unremarkable. CT abdomen consistent with partial SBO with distal small bowel transition point. Today he is keen to eat and feels much better, not passed any stool but passing flatus. Minimal abdominal pain compared to admission. Denies nausea. He had EGD,colonoscopy 11/2019 for abdo pain, bloating and constipation revealed gastritis and several polyps removed, ileum was not intubated. path with h pylori gastritis and tubular adenomas. he was given triple therapy for h pylori by dr Mayorga (amoxil,clarithro and PPI) Review of Systems Review of Systems: Yes all other systems are reviewed and are negative PMFSH Past Medical History Medical History (Updated 08/28/20 @ 12:52 by Elizabeth Cool MD) No known health problems Functional capacity: independent ambulation Family History Family history: reviewed and not pertinent Surgical History Surgical History (Updated 08/28/20 @ 20:31 by Yolanda Loomis MD) H/O hemorrhoidectomy H/O lateral meniscus repair of left knee H/O umbilical hernia repair Social History Social History Alcohol intake: never Smoking Status: Never smoker Use of substances other than those prescribed or required for medical reasons: No Advance Directives: No Advance Directives Information Provided: No service: No Current occupational status: employed Meds Allergies Allergy/AdvReac Type Severity Reaction Status Date / Time tramadol [TRAMADOL] Allergy Unknown DIZZINESS, Verified 07/18/20 08:02 joint stiffness Home Medications Medication Instructions Recorded Confirmed Type ascorbic acid (vitamin C) [Vitamin 500 mg PO DAILY 08/27/20 08/27/20 History C] aspirin 81 mg PO DAILY 08/27/20 08/27/20 History omega-3 fatty acids [[place]-3] 1,000 mg PO DAILY 08/27/20 08/27/20 History Physical Exam Vital Signs: Vital Signs: Last Vital Signs Temp 98.6 F 08/28/20 06:57 Pulse 78 08/28/20 06:57 Resp 18 08/28/20 06:57 BP 132/72 08/28/20 06:57 Pulse Ox 99 08/28/20 06:57 Body Mass Index 25.9 Const: General: cooperative, healthy appearing, comfortable and no acute distress Orientation/consciousness: oriented to person, oriented to place and oriented to time HENMT: Head: Yes normal to inspection Eyes: General: appearance normal, both eyes and all related structures Neck: Neck: Yes normal visual inspection Chest: Chest palpation & inspection: normal inspection of the chest Resp: Effort & Inspection: normal respiratory effort Auscultation: clear to auscultation bilaterally Cardio: Other: Last Vital Signs Temp 97.9 F 08/28/20 10:59 Pulse 92 08/28/20 10:59 Resp 18 08/28/20 10:59 BP 153/82 H 08/28/20 10:59 Pulse Ox 99 08/28/20 10:59 Body Mass Index 25.9 Jugular venous distension: no JVD Rate: regular rate Rhythm: regular rhythm Heart sounds: S1 normal heart sound present and S2 normal heart sound present GI: Other: nondistended, no guarding or rebound Inspection: Yes normal to inspection Palpation (GI): Soft to palpation and Tenderness to palpation present (GI) in the epigastrum Percussion: Yes normal to percussion Auscultation: normal bowel sounds Skin: General skin exam: no rashes or lesions noted Neuro: General: oriented to person, oriented to place and oriented to time Cognition (Neuro): normal cognition Gait exam (Neuro): Normal gait present Motor exam (neuro): 5/5 motor strength present throughout Extrem: General: Yes normal to inspection Psych: Appearance: grossly normal Results Labs CBC & Chem 7: 08/27/20 18:06 08/28/20 13:38 Labs: Short CBC 08/27/20 Range/Units 18:06 WBC 9.3 (4.8-10.8) X10*3/uL Hgb 16.0 (14.0-18.0) g/dl Hct 48.6 (42-52) % Plt Count 196 (160-400) X10*3/uL BMP 08/27/20 18:06 Sodium 139 Potassium 4.1 Chloride 106 Carbon Dioxide 23 BUN 18 H Creatinine 0.77 Calcium 8.5 Assessment and Plan (1) Small bowel obstruction: Status: Acute (2) Abdominal pain: Status: Acute 1/ Partial SBO, resolving, may be due to adhesions from prior umbilical hernia repair, ddx; small bowel mass, polyp, stricture or ulcer, 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 if he regresses prior to discharge then would do inpatient assessment, can give trial of clears and advance diet. 2/ Unclear if has had test of cure for h pylori again can be done as o/p Procedures Abscess I/D Date of Service: 08/28/20
--- NOTE | 2020-08-28 08:53 | PM.PNGS ---
Subjective Subjective Interval history: says he does not have pain anymore passing flatus feels well Physical Exam Vital Signs: Vital Signs: Last Vital Signs Temp 98.6 F 08/28/20 06:57 Pulse 78 08/28/20 06:57 Resp 18 08/28/20 06:57 BP 132/72 08/28/20 06:57 Pulse Ox 99 08/28/20 06:57 Body Mass Index 25.9 Const: General: comfortable and no acute distress Cardio: Rhythm: regular rhythm GI: Other: nondistended, no guarding or rebound Progress Note: A&P Assessment and plan (1) Small bowel obstruction: Status: Acute Assessment and Plan: CT scan does not show incision point Currently asymptomatic No tenderness, no pain Abdomen soft nondistended Passing flatus Symptoms completely resolved Clear liquids, advance diet as tolerated Fall Risk Details Current Medications: Current Medications Generic Name Dose Route Start Last Admin Trade Name Freq PRN Reason Stop Dose Admin Famotidine 20 mg 08/27/20 10:45 08/27/20 19:37 Famotidine/Pf 20 Mg/2 Ml Vial IVPUSH 20 mg BID VANCE Administration Heparin Sodium (Porcine) 5,000 unit 08/27/20 18:00 08/28/20 00:03 Heparin Sodium,Porcine 5,000 Unit/Ml Vial SUBCUT 5,000 unit Q8H VANCE Administration Lactated Ringer's 1,000 mls @ 100 mls/hr 08/27/20 10:34 08/28/20 05:04 Lr IVCONT Not Given .Q10H VANCE Morphine Sulfate 3 mg 08/27/20 10:34 Morphine Sulfate 4 Mg/Ml Cartridge IVPUSH Q4H PRN pain Sodium Chloride 3 ml 08/27/20 16:02 08/27/20 23:58 0.9 % Sodium Chloride Flush 3 Ml Syringe IVFLUSH 3 ml QSHIFT VANCE Administration Time Spent With Patient Time: Total time spent is greater than 50% in coordination of care (as documented) at patient's floor/unit and/or counseling patient: Time with patient: 15 - 24 minutes Procedures Abscess I/D Date of Service: 08/28/20
[2020-08-28] MEDS: Lactated Ringers 1,000 ML 100 ML IVCONT ×2 (09:09→18:50)
[2020-08-28] MEDS: Famotidine/PF 20 MG/2 ML VIAL IVPUSH ×2 (09:09→21:17)
[2020-08-28] MEDS: 0.9 % Sodium Chloride Flush 3 ML SYRINGE IVFLUSH (09:10)
--- NOTE | 2020-08-28 12:48 | P.PNIM_ITS ---
Subjective Subjective Date of Service: 08/28/20 Interval History: admitted with abdominal pain and diagnosed to have partial small-bowel obstruction this a.m. patient offers no complaints of abdominal pain no nausea no vomiting passing flatus had no bowel movement since admission. Patient wishes to eat. Review of Systems General no headache, no dizziness no fever chills. CVS no chest pain, no palpitation. Respiratory no cough , no shortness of breath. Gastrointestinal no nausea no vomiting, no abdominal pain Physical Exam Vital Signs: Vital Signs: Last Vital Signs Temp 97.9 F 08/28/20 10:59 Pulse 92 08/28/20 10:59 Resp 18 08/28/20 10:59 BP 153/82 H 08/28/20 10:59 Pulse Ox 99 08/28/20 10:59 Body Mass Index 25.9 General patient resting comfortably in no acute distress. Neck supple no JVD. CVS regular rate rhythm, Respiratory lungs clear to auscultation, no respiratory distress, no wheeze, no rhonchi. Gastrointestinal abdomen soft, nontender, bowel sounds audible, no guarding , no rigidity. Extremities no clubbing ,cyanosis or edema. Neuro nonfocal . Skin no rash Objective Data Current Medications Generic Name Dose Route Start Last Admin Trade Name Freq PRN Reason Stop Dose Admin Famotidine 20 mg 08/27/20 10:45 08/28/20 09:09 Famotidine/Pf 20 Mg/2 Ml Vial IVPUSH 20 mg BID VANCE Administration Heparin Sodium (Porcine) 5,000 unit 08/27/20 18:00 08/28/20 09:09 Heparin Sodium,Porcine 5,000 Unit/Ml Vial SUBCUT 5,000 unit Q8H VANCE Administration Lactated Ringer's 1,000 mls @ 100 mls/hr 08/27/20 10:34 08/28/20 09:09 Lr IVCONT 100 mls/hr .Q10H VANCE Administration Morphine Sulfate 3 mg 08/27/20 10:34 Morphine Sulfate 4 Mg/Ml Cartridge IVPUSH Q4H PRN pain Ondansetron HCl 4 mg 08/28/20 12:47 Ondansetron Hcl 4 Mg/2 Ml Vial IVPUSH Q6H PRN Nausea Sodium Chloride 3 ml 08/27/20 16:02 08/28/20 09:10 0.9 % Sodium Chloride Flush 3 Ml Syringe IVFLUSH 3 ml QSHIFT VANCE Administration Labs CBC & Chem 7: 08/27/20 18:06 08/27/20 18:06 Assessment and Plan (1) Small bowel obstruction: Status: Acute (2) Abdominal pain: Status: Acute Assessment and Plan: Abdominal pain/Partial small-bowel obstruction abdominal pain completely resolved this a.m., passing flatus, no nausea no vomiting patient seen by General surgery they recommend to start clear liquid diet and advanced diet as tolerated, case discussed with Dr. Chambers from Gastroenterology he agreed with clear liquid diet and advanced as tolerated but if patient is unable to tolerate diet than he recommend small-bowel follow-through started clear liquids,continue IV fluid, IV morphine ,IV Pepcid, and IV antiemetics stable electrolytes, magnesium and renal function will discontinue IV fluid if tolerating diet, observe patient closely. 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
[2020-08-28] MEDS: ondansetron HCL 4 MG/2 ML VIAL IVPUSH (13:13)
[2020-08-28] MEDS: Morphine Sulfate 4 MG/ML CARTRIDGE 3 MG IVPUSH (13:13)
[2020-08-28 14:27] LABS: Anion Gap 13 (12-20); Blood Urea Nitrogen 16 mg/dL (9-16); Calcium 8.1 mg/dL (8.4-10.2); Carbon Dioxide 24 mmol/L (22-29); Chloride 104 mmol/L (96-108); Creatinine Clr Calc Pharmacy 103.8; Estimated Glomerular Filt Rate > 60; Glucose Random 121 mg/dL (60-115); Potassium 3.6 mmol/l (3.3-5.1); Sodium 137 mmol/L (135-145)
--- NOTE | 2020-08-28 14:43 | PM.EVENT ---
Event Note Date of Service: 08/28/20 Event Note: Patient seen on afternoon rounds Says he had some pain when drinking liquids earlier Abdomen remained soft, nondistended Exam benign CT reviewed -question of transition point in mid abdomen small bowel but note of good air distally Patient passing flatus If he continues to have symptoms -well order for small-bowel series
--- NOTE | 2020-08-28 16:29 | MHC.CM.PN ---
CM met with pt with the assistance of a jewel stripper. Pt reports he lives at home with his and is fully independent with all care and mobility. Pt does not have services or DME in the home. Pt has a HCP that he reports the nurse made a copy of on admission. Pt confirms his PCP is Luzma Riddle. Obs notice delivered current DC plan is home with no services pt to self arrange transport
--- NOTE | 2020-08-28 23:29 | ECG_ITS ---
Test Reason : EPIGASTRIC PAIN Blood Pressure : / mmHG Vent. Rate : 066 BPM Atrial Rate : 066 BPM P-R Int : 166 ms QRS Dur : 142 ms QT Int : 408 ms P-R-T Axes : 017 -26 035 degrees QTc Int : 427 ms Normal sinus rhythm Right bundle branch block Abnormal ECG When compared with ECG of 21-OCT-2019 19:38, No significant change was found Referred By: Nohemy Currie Electronically Signed By:THIEN VERMA MD
[2020-08-29] MEDS: Heparin Sodium,Porcine 5,000 UNIT/ML VIAL 5000 UNIT SUBCUT ×3 (03:10→17:29)
[2020-08-29 03:18] VITALS: BP 114/70; PULSE 61; RESP 16; TEMP 36.4; O2SAT 98
[2020-08-29] MEDS: Lactated Ringers 1,000 ML 100 ML IVCONT ×3 (04:49→23:27)
[2020-08-29 07:21] LABS: Thyroid Stimulating Hormone 2.13 uIU/mL (0.32-4.0)
[2020-08-29 08:00] VITALS: BP 134/71; PULSE 75; RESP 19; TEMP 36.2; O2SAT 99
[2020-08-29] MEDS: Famotidine/PF 20 MG/2 ML VIAL IVPUSH ×2 (08:04→20:27)
--- NOTE | 2020-08-29 08:14 | PM.PNGS ---
Subjective Subjective Interval history: says he feels better passing flatus denies abdl pain Physical Exam Vital Signs: Vital Signs: Last Vital Signs Temp 97.6 F 08/29/20 03:18 Pulse 61 08/29/20 03:18 Resp 16 08/29/20 03:18 BP 114/70 08/29/20 03:18 Pulse Ox 98 08/29/20 03:18 Body Mass Index 25.9 Chemistry 08/26/20 08/27/20 08/28/20 23:43 18:06 13:38 Sodium 140 139 137 Potassium 4.6 4.1 3.6 Carbon Dioxide 29 23 24 BUN 19 H 18 H 16 Creatinine 0.87 0.77 0.82 Calcium 9.0 8.5 8.1 L Hematology 08/26/20 08/27/20 23:43 18:06 WBC 8.7 9.3 Hgb 16.2 16.0 Plt Count 215 196 Const: General: comfortable and no acute distress Cardio: Rhythm: regular rhythm GI: Other: soft, nondistended, no guarding or rebound, nontender Progress Note: A&P Assessment and plan (1) Small bowel obstruction: Status: Acute Assessment and Plan: looks well much improved seems to be asymptomatic tolerating clears possibly advance diet later Fall Risk Details Current Medications: Current Medications Generic Name Dose Route Start Last Admin Trade Name Freq PRN Reason Stop Dose Admin Famotidine 20 mg 08/27/20 10:45 08/29/20 08:04 Famotidine/Pf 20 Mg/2 Ml Vial IVPUSH 20 mg BID VANCE Administration Heparin Sodium (Porcine) 5,000 unit 08/27/20 18:00 08/29/20 03:10 Heparin Sodium,Porcine 5,000 Unit/Ml Vial SUBCUT 5,000 unit Q8H VANCE Administration Lactated Ringer's 1,000 mls @ 100 mls/hr 08/27/20 10:34 08/29/20 04:49 Lr IVCONT 100 mls/hr .Q10H VANCE Administration Morphine Sulfate 3 mg 08/27/20 10:34 08/28/20 13:13 Morphine Sulfate 4 Mg/Ml Cartridge IVPUSH 3 mg Q4H PRN Administration pain Ondansetron HCl 4 mg 08/28/20 12:47 08/28/20 13:13 Ondansetron Hcl 4 Mg/2 Ml Vial IVPUSH 4 mg Q6H PRN Administration Nausea Sodium Chloride 3 ml 08/27/20 16:02 08/29/20 08:07 0.9 % Sodium Chloride Flush 3 Ml Syringe IVFLUSH Not Given QSHIFT [facility] Time Spent With Patient Time: Total time spent is greater than 50% in coordination of care (as documented) at patient's floor/unit and/or counseling patient: Time with patient: 15 - 24 minutes Procedures Abscess I/D Date of Service: 08/29/20
--- NOTE | 2020-08-29 09:08 | P.PNIM_ITS ---
Subjective Subjective Date of Service: 08/29/20 Interval History: seen and examined this AM doing better this AM denies pain, denies n/v no BM but passing flatus General - no fevers or chills Cardiovascular - no chest pain Respiratory - no shortness of breath or cough Abdominal- no abdominal pain, nausea, vomiting, no BM, +Flatus Physical Exam Vital Signs: Vital Signs: Last Vital Signs Temp 97.1 F 08/29/20 08:00 Pulse 75 08/29/20 08:00 Resp 19 08/29/20 08:00 BP 134/71 08/29/20 08:00 Pulse Ox 99 08/29/20 08:00 Body Mass Index 25.9 General - no acute distress, appears comfortable Cardiovascular - regular rate and rhythm, S1-S2 Lungs - normal respiratory effort, clear to auscultation bilaterally, no wh eezing Abdomen - soft, nontender, no rebound regarding Extremities - no edema bilaterally Neuro - awake and alert, no focal deficits Objective Data Current Medications Generic Name Dose Route Start Last Admin Trade Name Jorge Aq PRN Reason Stop Dose Admin Famotidine 20 mg 08/27/20 10:45 08/29/20 08:04 Famotidine/Pf 20 Mg/2 Ml Vial IVPUSH 20 mg BID VANCE Administration Heparin Sodium (Porcine) 5,000 unit 08/27/20 18:00 08/29/20 03:10 Heparin Sodium,Porcine 5,000 Unit/Ml Vial SUBCUT 5,000 unit Q8H VANCE Administration Lactated Ringer's 1,000 mls @ 100 mls/hr 08/27/20 10:34 08/29/20 04:49 Lr IVCONT 100 mls/hr .Q10H VANCE Administration Morphine Sulfate 3 mg 08/27/20 10:34 08/28/20 13:13 Morphine Sulfate 4 Mg/Ml Cartridge IVPUSH 3 mg Q4H PRN Administration pain Ondansetron HCl 4 mg 08/28/20 12:47 08/28/20 13:13 Ondansetron Hcl 4 Mg/2 Ml Vial IVPUSH 4 mg Q6H PRN Administration Nausea Sodium Chloride 3 ml 08/27/20 16:02 08/29/20 08:07 0.9 % Sodium Chloride Flush 3 Ml Syringe IVFLUSH Not Given QSHIFT [facility] Labs CBC & Chem 7: 08/27/20 18:06 08/28/20 13:38 Assessment and Plan (1) Small bowel obstruction: Status: Acute Assessment and Plan: This is a 54 yo M who presented with abodminal pain and was dignosed with PSBO. 1. PSBO clinically resolving tolerating clears, passing flatus but no BM continue other supportive care advance diet per gent surg recs continue IVF monitor lytes Full Code DVT pptx, subcut. heparin
[2020-08-29 11:14] VITALS: BP 148/89; PULSE 64; RESP 18; TEMP 36; O2SAT 99
[2020-08-29 16:00] VITALS: BP 131/82; PULSE 71; RESP 18; TEMP 35.7; O2SAT 99
[2020-08-29 19:18] VITALS: BP 141/90; PULSE 69; RESP 17; TEMP 35.6; O2SAT 98
[2020-08-29] MEDS: 0.9 % Sodium Chloride Flush 3 ML SYRINGE IVFLUSH (20:28)
[2020-08-29] MEDS: ondansetron HCL 4 MG/2 ML VIAL IVPUSH (20:28)
[2020-08-29 23:47] VITALS: BP 117/69; PULSE 56; RESP 16; TEMP 36.4; O2SAT 97
[2020-08-30] MEDS: Heparin Sodium,Porcine 5,000 UNIT/ML VIAL 5000 UNIT SUBCUT ×2 (01:53→15:47)
[2020-08-30 03:32] VITALS: BP 126/77; PULSE 60; RESP 16; TEMP 35.9; O2SAT 97
[2020-08-30 07:12] VITALS: BP 140/92; PULSE 69; RESP 18; TEMP 35.9; O2SAT 98
--- NOTE | 2020-08-30 08:04 | PM.PNGS ---
Subjective Subjective Interval history: Continues to feel well Denies abdominal pain Passing flatus Says he tolerated full liquids last night Physical Exam Vital Signs: Vital Signs: Last Vital Signs Temp 96.7 F L 08/30/20 07:12 Pulse 69 08/30/20 07:12 Resp 18 08/30/20 07:12 BP 140/92 H 08/30/20 07:12 Pulse Ox 98 08/30/20 07:12 Body Mass Index 25.9 Chemistry 08/27/20 08/28/20 18:06 13:38 Sodium 139 137 Potassium 4.1 3.6 Carbon Dioxide 23 24 BUN 18 H 16 Creatinine 0.77 0.82 Calcium 8.5 8.1 L Hematology 08/27/20 18:06 WBC 9.3 Hgb 16.0 Plt Count 196 Const: General: comfortable and no acute distress Cardio: Rhythm: regular rhythm GI: Other: Abdomen soft, no guarding, no rebound, no tenderness, nondistended Progress Note: A&P Assessment and plan (1) Partial small bowel obstruction: Status: Acute Assessment and Plan: Continues to feel well Currently asymptomatic Good GI function Looks well Regular diet for lunch If he tolerates this, okay to DC home Fall Risk Details Current Medications: Current Medications Generic Name Dose Route Start Last Admin Trade Name Freq PRN Reason Stop Dose Admin Famotidine 20 mg 08/27/20 10:45 08/29/20 20:27 Famotidine/Pf 20 Mg/2 Ml Vial IVPUSH 20 mg BID VANCE Administration Heparin Sodium (Porcine) 5,000 unit 08/27/20 18:00 08/30/20 01:53 Heparin Sodium,Porcine 5,000 Unit/Ml Vial SUBCUT 5,000 unit Q8H VANCE Administration Lactated Ringer's 1,000 mls @ 100 mls/hr 08/27/20 10:34 08/29/20 23:27 Lr IVCONT 100 mls/hr .Q10H VANCE Administration Morphine Sulfate 3 mg 08/27/20 10:34 08/28/20 13:13 Morphine Sulfate 4 Mg/Ml Cartridge IVPUSH 3 mg Q4H PRN Administration pain Ondansetron HCl 4 mg 08/28/20 12:47 08/29/20 20:28 Ondansetron Hcl 4 Mg/2 Ml Vial IVPUSH 4 mg Q6H PRN Administration Nausea Sodium Chloride 3 ml 08/27/20 16:02 08/30/20 07:29 0.9 % Sodium Chloride Flush 3 Ml Syringe IVFLUSH Not Given QSHIFT [facility] Time Spent With Patient Time: Total time spent is greater than 50% in coordination of care (as documented) at patient's floor/unit and/or counseling patient: Time with patient: 15 - 24 minutes Procedures Abscess I/D Date of Service: 08/30/20
[2020-08-30] MEDS: Famotidine/PF 20 MG/2 ML VIAL IVPUSH (08:06)
[2020-08-30] MEDS: Lactated Ringers 1,000 ML 100 ML IVCONT (08:11)
[2020-08-30] MEDS: ondansetron HCL 4 MG/2 ML VIAL IVPUSH (09:23)
--- NOTE | 2020-08-30 10:03 | HO.PM.IMPN ---
Subjective Subjective Date of Service: 08/30/20 Interval History: seen and examined tolerating solids for bfast this AM passing flatus no pain, nvd General - no fevers or chills Cardiovascular - no chest pain Respiratory - no shortness of breath or cough Abdominal- no abdominal pain, nausea, vomiting, diarrhea Physical Exam Vital Signs: Vital Signs: Last Vital Signs Temp 97.1 F 08/29/20 08:00 Pulse 75 08/29/20 08:00 Resp 19 08/29/20 08:00 BP 134/71 08/29/20 08:00 Pulse Ox 99 08/29/20 08:00 Body Mass Index 25.9 General - no acute distress, appears comfortable Cardiovascular - regular rate and rhythm, S1-S2 Lungs - normal respiratory effort, clear to auscultation bilaterally, no wheezing Abdomen - soft, nontender, no rebound regarding Extremities - no edema bilaterally Neuro - awake and alert, no focal deficits Objective Data Current Medications Generic Name Dose Route Start Last Admin Trade Name Freq PRN Reason Stop Dose Admin Famotidine 20 mg 08/27/20 10:45 08/30/20 08:06 Famotidine/Pf 20 Mg/2 Ml Vial IVPUSH 20 mg BID VANCE Administration Heparin Sodium (Porcine) 5,000 unit 08/27/20 18:00 08/30/20 08:12 Heparin Sodium,Porcine 5,000 Unit/Ml Vial SUBCUT Not Given Q8H [facility] Lactated Ringer's 1,000 mls @ 100 mls/hr 08/27/20 10:34 08/30/20 08:11 Lr IVCONT 100 mls/hr .Q10H VANCE Administration Morphine Sulfate 3 mg 08/27/20 10:34 08/28/20 13:13 Morphine Sulfate 4 Mg/Ml Cartridge IVPUSH 3 mg Q4H PRN Administration pain Ondansetron HCl 4 mg 08/28/20 12:47 08/30/20 09:23 Ondansetron Hcl 4 Mg/2 Ml Vial IVPUSH 4 mg Q6H PRN Administration Nausea Sodium Chloride 3 ml 08/27/20 16:02 08/30/20 07:29 0.9 % Sodium Chloride Flush 3 Ml Syringe IVFLUSH Not Given QSHIFT [facility] Labs CBC & Chem 7: 08/27/20 18:06 08/28/20 13:38 Assessment and Plan (1) Small bowel obstruction: Status: Acute Assessment and Plan: This is a 54 yo M who presented with abodminal pain and was dignosed with PSBO. 1. PSBO clinically resolving tolerated full liquids, no on regular diet -- d/c home per gen surg recs continue other supportive care stop iv pepcid and ivf Full Code DVT pptx, subcut. heparin dispo: anticipate home this afternoon
[2020-08-30 11:43] VITALS: BP 119/86; PULSE 63; RESP 16; TEMP 36.3; O2SAT 99
[2020-08-30] MEDS: 0.9 % Sodium Chloride Flush 3 ML SYRINGE IVFLUSH (14:28)
[2020-08-30 15:14] VITALS: BP 140/78; PULSE 59; RESP 17; TEMP 36; O2SAT 100
--- NOTE | 2020-08-30 15:49 | MHC.CM.NN ---
PER CONVERSATION WITH PHYSICIAN, NO PLAN FOR DISCHARGE TODAY. DIET DOWNGRADED. CASE MANAGEMENT FOLLOWING FOR ANY DISCHARGE NEEDS.
[2020-08-30] MEDS: Morphine Sulfate 4 MG/ML CARTRIDGE 3 MG IVPUSH (15:51)
--- NOTE | 2020-08-30 15:56 | PM.EVENT ---
Event Note Date of Service: 08/30/20 Event Note: Patient seen on afternoon rounds He says he has had nausea after breakfast Passing flatus A little bit of epigastric pain Abdomen remained soft nondistended no guarding or rebound I put him back on clear liquids Re-evaluate tomorrow If he remains symptomatic -possible small bowel series or CT scan Patient aware of plan
[2020-08-30] MEDS: Dextrose 5 % and 0.9 % NaCl 1,000 ML 80 ML IVCONT (19:26)
[2020-08-30 19:57] VITALS: BP 120/73; PULSE 66; RESP 17; TEMP 36.4; O2SAT 96
[2020-08-30 23:17] VITALS: BP 92/65; PULSE 54; RESP 16; TEMP 36.2; O2SAT 99
--- NOTE | 2020-08-31 | FL_ITS ---
EXAMINATION: FL SMALL BOWEL SERIES CLINICAL INFORMATION: Partial small bowel obstruction COMPARISON: CT 08/27/2020 TECHNIQUE: Following a cook dessert image of the abdomen, contrast was administered orally, and interval abdominal radiographs were performed to assess for contrast progression through the small bowel. FINDINGS: Real Estate Teacher image of the abdomen demonstrates a normal bowel gas pattern. Stool throughout the colon. There is normal transit time of contrast material through the small bowel, with contrast present in the colon by 75 minutes. Small bowel loops are of normal caliber throughout the abdomen and pelvis. The jejunal and ileal fold patterns are normal, without evidence of abnormal thickening. No fixed regions of luminal narrowing are seen to suggest stricturing. The distal ileum demonstrates a normal appearance. FLUOROSCOPY TIME: None DOSE AREA PRODUCT: No fluoroscopy FL/FL small bowel follow through IMPRESSION: Normal small bowel series. Normal transit to the colon with no bowel dilatation.
[2020-08-31] MEDS: Heparin Sodium,Porcine 5,000 UNIT/ML VIAL 5000 UNIT SUBCUT ×2 (02:38→11:03)
[2020-08-31 04:07] VITALS: BP 116/76; PULSE 54; RESP 16; TEMP 36.7; O2SAT 98
[2020-08-31] MEDS: Dextrose 5 % and 0.9 % NaCl 1,000 ML 80 ML IVCONT ×2 (07:11→19:40)
[2020-08-31 07:35] VITALS: BP 137/89; PULSE 59; RESP 18; TEMP 36.3; O2SAT 98
--- NOTE | 2020-08-31 08:00 | P.PNGS_ITS ---
Subjective Subjective Interval history: feels ok today but says he has some epig pain mild nausea passing flatus he states he did not want to advance diet - very anxious about recurrent nausea yesterday Physical Exam Vital Signs: Vital Signs: Last Vital Signs Temp 97.3 F 08/31/20 07:35 Pulse 59 08/31/20 07:35 Resp 18 08/31/20 07:35 BP 137/89 08/31/20 07:35 Pulse Ox 98 08/31/20 07:35 Body Mass Index 25.9 Const: General: comfortable, alert and awake Cardio: Rhythm: regular rhythm GI: Other: abd soft, nondistended, no guarding or rebound, mild tenderness epig area Progress Note: A&P Assessment and plan (1) Partial small bowel obstruction: Status: Acute Assessment and Plan: looks well pt very anxious about having recurrence of nausea - does not want to advance diet will order for small bowel series - if this is good, ok for regular diet exam otherwise very benign Fall Risk Details Current Medications: Current Medications Generic Name Dose Route Start Last Admin Trade Name Freq PRN Reason Stop Dose Admin Heparin Sodium (Porcine) 5,000 unit 08/27/20 18:00 08/31/20 02:38 Heparin Sodium,Porcine 5,000 Unit/Ml Vial SUBCUT 5,000 unit Q8H VANCE Administration Dextrose/Sodium Chloride 1,000 mls @ 80 mls/hr 08/30/20 18:45 08/31/20 07:11 D5ns IVCONT 80 mls/hr .[id number] VANCE Administration Morphine Sulfate 3 mg 08/27/20 10:34 08/30/20 15:51 Morphine Sulfate 4 Mg/Ml Cartridge IVPUSH 3 mg Q4H PRN Administration pain Ondansetron HCl 4 mg 08/28/20 12:47 08/30/20 09:23 Ondansetron Hcl 4 Mg/2 Ml Vial IVPUSH 4 mg Q6H PRN Administration Nausea Sodium Chloride 3 ml 08/27/20 16:02 08/31/20 07:11 0.9 % Sodium Chloride Flush 3 Ml Syringe IVFLUSH Not Given QSHIFT [facility] Time Spent With Patient Time: Total time spent is greater than 50% in coordination of care (as documented) at patient's floor/unit and/or counseling patient: Time with patient: 15 - 24 minutes Procedures Abscess I/D Date of Service: 08/31/20
[2020-08-31 11:35] VITALS: BP 133/92; PULSE 71; RESP 18; TEMP 36.9; O2SAT 99
--- NOTE | 2020-08-31 13:19 | HO.PM.IMPN ---
Subjective Subjective Date of Service: 08/31/20 Interval History: seen and examine anxious about his abdominal symptoms passing flatus no abd pain or nausea at this time ROS General - no fevers or chills Cardiovascular - no chest pain Respiratory - no shortness of breath or cough Abdominal- no abdominal pain, nausea, vomiting, diarrhea Physical Exam Vital Signs: Vital Signs: Last Vital Signs Temp 97.1 F 08/29/20 08:00 Pulse 75 08/29/20 08:00 Resp 19 08/29/20 08:00 BP 134/71 08/29/20 08:00 Pulse Ox 99 08/29/20 08:00 Body Mass Index 25.9 General - no acute distress, appears comfortable Cardiovascular - regular rate and rhythm, S1-S2 Lungs - normal respiratory effort, clear to auscultation bilaterally, no wheezing Abdomen - soft, nontender, no rebound regarding Extremities - no edema bilaterally Neuro - awake and alert, no focal deficits Objective Data Current Medications Generic Name Dose Route Start Last Admin Trade Name Freq PRN Reason Stop Dose Admin Heparin Sodium (Porcine) 5,000 unit 08/27/20 18:00 08/31/20 11:03 Heparin Sodium,Porcine 5,000 Unit/Ml Vial SUBCUT 5,000 unit Q8H VANCE Administration Dextrose/Sodium Chloride 1,000 mls @ 80 mls/hr 08/30/20 18:45 08/31/20 07:11 D5ns IVCONT 80 mls/hr .[id number] VANCE Administration Morphine Sulfate 3 mg 08/27/20 10:34 08/30/20 15:51 Morphine Sulfate 4 Mg/Ml Cartridge IVPUSH 3 mg Q4H PRN Administration pain Ondansetron HCl 4 mg 08/28/20 12:47 08/30/20 09:23 Ondansetron Hcl 4 Mg/2 Ml Vial IVPUSH 4 mg Q6H PRN Administration Nausea Sodium Chloride 3 ml 08/27/20 16:02 08/31/20 07:11 0.9 % Sodium Chloride Flush 3 Ml Syringe IVFLUSH Not Given QSHIFT [facility] Labs CBC & Chem 7: 08/27/20 18:06 08/28/20 13:38 Assessment and Plan (1) Small bowel obstruction: Status: Acute Assessment and Plan: This is a 54 yo M who presented with abodminal pain and was dignosed with PSBO. 1. PSBO Small Bowel series done -- normal d/w surgery -- diet advanced Patient anxious about advancing his diet -- reassured continue pepcid and ivf for the time being if tolerates today, d/c home this evening or early tomorrow AM Full Code DVT pptx, subcut. heparin
[2020-08-31 15:45] VITALS: BP 133/83; PULSE 67; RESP 18; TEMP 36.1; O2SAT 99
--- NOTE | 2020-08-31 15:59 | MHC.CM.PN ---
Met with patient. Feels well. All testing negative. MD will increase diet. Pt concerned about eating and resumption of nausea and pain. Dr. Cuello to see patient again this afternoon. Pt has some questions for MD. Transportation home from neighbor. Pt. to arrange. D/C plan is home without services. Will follow for D/C needs.
[2020-08-31] MEDS: Docusate Sodium 100 MG CAPSULE PO (19:41)
[2020-08-31 19:50] VITALS: BP 151/98; PULSE 70; RESP 18; TEMP 36; O2SAT 97
[2020-08-31 23:26] VITALS: BP 111/84; PULSE 67; RESP 14; TEMP 36.4; O2SAT 99
[2020-09-01] MEDS: Heparin Sodium,Porcine 5,000 UNIT/ML VIAL 5000 UNIT SUBCUT (02:14)
[2020-09-01 03:48] VITALS: BP 125/81; PULSE 69; RESP 14; TEMP 36.9; O2SAT 97
[2020-09-01] MEDS: Dextrose 5 % and 0.9 % NaCl 1,000 ML 80 ML IVCONT (06:36)
[2020-09-01 07:52] VITALS: BP 118/82; PULSE 85; RESP 18; O2SAT 97
--- NOTE | 2020-09-01 08:36 | PM.PNGS ---
Subjective Subjective Interval history: feels well tolerating diet good BMs and flatus denies abdl pain small bowel series - no obstruction Physical Exam Vital Signs: Vital Signs: Last Vital Signs Temp 98.5 F 09/01/20 03:48 Pulse 85 09/01/20 07:52 Resp 18 09/01/20 07:52 BP 118/82 09/01/20 07:52 Pulse Ox 97 09/01/20 07:52 Body Mass Index 25.9 Laboratory Results WBC 9.3 X10*3/uL (4.8 -10.8) 08/27/20 18:06 RBC 5.74 X10*6/uL (4. 60-5.80) 08/27/20 18:06 Hgb 16.0 g/dl (14.0-1 8.0) 08/27/20 18:06 Hct 48.6 % (42-52) 08/27/20 18:06 MCV 84.7 fL (80-98) 08/27/20 18:06 MCH 27.9 pg (27.0-33. 0) 08/27/20 18:06 MCHC 32.9 g/dl (31.0-3 6.0) 08/27/20 18:06 RDW 13.5 % (11.0-16.0 ) 08/27/20 18:06 Plt Count 196 X10*3/uL (160 -400) 08/27/20 18:06 MPV 9.4 fL (9.4-12.4) 08/27/20 18:06 Immature Gran % (A uto) 0.2 % (0.0-0.4) 08/27/20 18:06 Neut % (Auto) 76.3 % (45-73) H 08/27/20 18:06 Lymph % (Auto) 18.1 % (20-40) L 08/27/20 18:06 [place] % (Auto) 4.8 % (2-11) 08/27/20 18:06 Eos % (Auto) 0.4 % (0-4) 08/27/20 18:06 Baso % (Auto) 0.2 % (0-2) 08/27/20 18:06 Lymph # (Auto) 1.7 X10*3/uL (1.2 -4.9) 08/27/20 18:06 [place] # (Auto) 0.5 X10*3/uL (0.1 -1.2) 08/27/20 18:06 Eos # (Auto) 0.0 X10*3/uL (0.0 -0.4) 08/27/20 18:06 Baso # (Auto) 0.0 X10*3/uL (0.0 -0.2) 08/27/20 18:06 Abs Immat Gran (au to) 0.02 X10*3/uL (0. 00-0.03) 08/27/20 18:06 Absolute Neuts (au to) 7.1 X10*3/uL (2.0 -8.3) 08/27/20 18:06 Absolute Nucleated RBC 0.000 X10*3/uL (0 .0-0.012) 08/27/20 18:06 Nucleated RBC % (a uto) 0.0 /100WBC (0.0- 0.2) 08/27/20 18:06 Sodium 137 mmol/L (135-1 45) 08/28/20 13:38 Potassium 3.6 mmol/l (3.3-5 .1) 08/28/20 13:38 Chloride 104 mmol/L (96-10 8) 08/28/20 13:38 Carbon Dioxide 24 mmol/L (22-29) 08/28/20 13:38 Anion Gap 13 (12-20) 08/28/20 13:38 BUN 16 mg/dL (9-16) 08/28/20 13:38 Creatinine 0.82 mg/dL (0.5-1 .4) 08/28/20 13:38 Estim Creat Clear Calc 103.8 08/28/20 13:38 Estimated GFR > 60 08/28/20 13:38 Random Glucose 121 mg/dL (60-115 ) H D 08/28/20 13:38 Calcium 8.1 mg/dL (8.4-10 .2) L 08/28/20 13:38 Total Bilirubin 0.9 mg/dL (0.0-1. 0) 08/26/20 23:43 Direct Bilirubin 0.3 mg/dL (0.0-0. 5) 08/26/20 23:43 AST 24 U/L (5-37) 08/26/20 23:43 ALT 32 U/L (0-40) 08/26/20 23:43 Alkaline Phosphata se 49 U/L (39-117) 08/26/20 23:43 Troponin I High Se ns < 3.5 ng/L (<3.5- 35.0) 08/26/20 23:43 Total Protein 6.6 g/dL (6.5-8.0 ) 08/26/20 23:43 Albumin 4.3 g/dL (3.5-5.0 ) 08/26/20 23:43 Lipase 11 U/L (8-78) 08/26/20 23:43 TSH 2.13 uIU/mL (0.32 -4.0) 08/29/20 06:07 COVID-19 (OLY) Negative (Negati ve) 08/27/20 03:49 COVID-19 Clin Com See Note 08/27/20 03:49 Impressions Abdomen/Pelvis CT 08/27/20 00:00 IMPRESSION: Moderately dilated loops of mid small bowel ocean import representative of a partial small bowel 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 Automated exposure control (Care Dose) Adjustment of the mA and/or kv according to patient size (this includes techniques or standardized protocols for targeted exams where dose is matched to indication / reason for exam; i.e. extremities or head). Upper GI and Small Bowel X-Ray 08/31/20 00:00 IMPRESSION: Normal small bowel series. Normal transit to the colon with no bowel dilatation. Const: General: comfortable and no acute distress Cardio: Rate: regular rate Rhythm: regular rhythm GI: Inspection: No distended Palpation (GI): Soft to palpation, nontender and no guarding Progress Note: A&P Assessment and plan (1) Partial small bowel obstruction: Status: Acute Assessment and Plan: clinically resolved no pain or tenderness good GI function small bowel series - no eveidence of obstruction pt ready to go home note for work given to pt Fall Risk Details Current Medications: Current Medications Generic Name Dose Route Start Last Admin Trade Name Freq PRN Reason Stop Dose Admin Docusate Sodium 100 mg 08/31/20 21:00 08/31/20 19:41 Docusate Sodium 100 Mg Capsule PO 100 mg BID VANCE Administration Heparin Sodium (Porcine) 5,000 unit 08/27/20 18:00 09/01/20 02:14 Heparin Sodium,Porcine 5,000 Unit/Ml Vial SUBCUT 5,000 unit Q8H [facility] Administration Dextrose/Sodium Chloride 1,000 mls @ 80 mls/hr 08/30/20 18:45 09/01/20 06:36 D5ns IVCONT 80 mls/hr .[id number] VANCE Administration Morphine Sulfate 3 mg 08/27/20 10:34 08/30/20 15:51 Morphine Sulfate 4 Mg/Ml Cartridge IVPUSH 3 mg Q4H PRN Administration pain Ondansetron HCl 4 mg 08/28/20 12:47 08/30/20 09:23 Ondansetron Hcl 4 Mg/2 Ml Vial IVPUSH 4 mg Q6H PRN Administration Nausea Sodium Chloride 3 ml 08/27/20 16:02 09/01/20 07:08 0.9 % Sodium Chloride Flush 3 Ml Syringe IVFLUSH Not Given QSHIFT [facility] Time Spent With Patient Time: Total time spent is greater than 50% in coordination of care (as documented) at patient's floor/unit and/or counseling patient: Time with patient: 15 - 24 minutes Procedures Abscess I/D Date of Service: 09/01/20
--- NOTE | 2020-09-01 09:28 | PM.DS ---
DS: Providers Provider Date of admission: 08/29/20 10:33 Primary care physician: Luzma Riddle MD Consults: 08/27/20 10:34 Consult to General Surgery Routine Consulting Provider: [facility] [place] General Surgeons Reason for consultation: partial SBO Has provider been notified: No 08/27/20 12:28 Consult to Gastroenterology Routine Consulting Provider: [facility] [place] Gastroenterology Services Reason for consultation: Recurrent ABD pain. PSBO DS: Diagnosis Discharge Diagnosis (1) Partial small bowel obstruction: Status: Acute (2) Abdominal pain: Status: Acute DS: Medications Discharge Medications Home Medications: Home Medications Medication Instructions Recorded Confirmed ascorbic acid (vitamin C) [Vitamin 500 mg PO DAILY 08/27/20 08/27/20 C] aspirin 81 mg PO DAILY 08/27/20 08/27/20 omega-3 fatty acids 1,000 mg PO DAILY 08/27/20 08/27/20 Previous Rx's Medication Instructions Recorded docusate sodium 100 mg PO BID #60 cap 09/01/20 DS: Summary Hospital Course Hospital Course: patient's CT scan in the emergency room was consistent with partial small-bowel 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 An NG tube was placed for decompression but did not have any output and the patient was unable to tolerate this so it was subsequently removed. He was admitted under medicine and was treated conservatively. He was made NPO and general surgery was consulted. Over the course of his 1st few days of hospitalization his symptoms subsided and his diet was slowly advanced from clears to the solids. However with solids he had some nausea and subsequently underwent a small bowel series which did not show any signs of 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 He was treated with clear liquids for an additional 24 hours and again subsequently advanced the solids. This time, fortunately patient was able to tolerate solid food. He had his 1st bowel movement and after 24 more hours of observation he was discharged home in stable condition. Time Spent with Patient Time attestation: Total time spent providing and/or coordinating discharge services: Physical Exam Vital Signs: Vital Signs: Last Vital Signs Temp 98.5 F 09/01/20 03:48 Pulse 85 09/01/20 07:52 Resp 18 09/01/20 07:52 BP 118/82 09/01/20 07:52 Pulse Ox 97 09/01/20 07:52 Body Mass Index 25.9 General - no acute distress, appears comfortable Cardiovascular - regular rate and rhythm, S1-S2 Lungs - normal respiratory effort, clear to auscultation bilaterally, no wheezing Abdomen - soft, nontender, no rebound or guarding Extremities - no edema bilaterally Neuro - awake and alert, no focal deficits DS: Data Data Completed and Pending Labs on day of discharge: Laboratory Last Values WBC 9.3 X10*3/uL (4.8-10.8) 08/27/20 18:06 RBC 5.74 X10*6/uL (4.60-5.80) 08/27/20 18:06 Hgb 16.0 g/dl (14.0-18.0) 08/27/20 18:06 Hct 48.6 % (42-52) 08/27/20 18:06 MCV 84.7 fL (80-98) 08/27/20 18:06 MCH 27.9 pg (27.0-33.0) 08/27/20 18:06 MCHC 32.9 g/dl (31.0-36.0) 08/27/20 18:06 RDW 13.5 % (11.0-16.0) 08/27/20 18:06 Plt Count 196 X10*3/uL (160-400) 08/27/20 18:06 MPV 9.4 fL (9.4-12.4) 08/27/20 18:06 Immature Gran % (Auto) 0.2 % (0.0-0.4) 08/27/20 18:06 Neut % (Auto) 76.3 % (45-73) H 08/27/20 18:06 Lymph % (Auto) 18.1 % (20-40) L 08/27/20 18:06 Hale % (Auto) 4.8 % (2-11) 08/27/20 18:06 Eos % (Auto) 0.4 % (0-4) 08/27/20 18:06 Baso % (Auto) 0.2 % (0-2) 08/27/20 18:06 Lymph # (Auto) 1.7 X10*3/uL (1.2-4.9) 08/27/20 18:06 Hale # (Auto) 0.5 X10*3/uL (0.1-1.2) 08/27/20 18:06 Eos # (Auto) 0.0 X10*3/uL (0.0-0.4) 08/27/20 18:06 Baso # (Auto) 0.0 X10*3/uL (0.0-0.2) 08/27/20 18:06 Abs Immat Gran (auto) 0.02 X10*3/uL (0.00-0.03) 08/27/20 18:06 Absolute Neuts (auto) 7.1 X10*3/uL (2.0-8.3) 08/27/20 18:06 Absolute Nucleated RBC 0.000 X10*3/uL (0.0-0.012) 08/27/20 18:06 Nucleated RBC % (auto) 0.0 /100WBC (0.0-0.2) 08/27/20 18:06 Sodium 137 mmol/L (135-145) 08/28/20 13:38 Potassium 3.6 mmol/l (3.3-5.1) 08/28/20 13:38 Chloride 104 mmol/L (96-108) 08/28/20 13:38 Carbon Dioxide 24 mmol/L (22-29) 08/28/20 13:38 Anion Gap 13 (12-20) 08/28/20 13:38 BUN 16 mg/dL (9-16) 08/28/20 13:38 Creatinine 0.82 mg/dL (0.5-1.4) 08/28/20 13:38 Estim Creat Clear Calc 103.8 08/28/20 13:38 Estimated GFR > 60 08/28/20 13:38 Random Glucose 121 mg/dL (60-115) H D 08/28/20 13:38 Calcium 8.1 mg/dL (8.4-10.2) L 08/28/20 13:38 Total Bilirubin 0.9 mg/dL (0.0-1.0) 08/26/20 23:43 Direct Bilirubin 0.3 mg/dL (0.0-0.5) 08/26/20 23:43 AST 24 U/L (5-37) 08/26/20 23:43 ALT 32 U/L (0-40) 08/26/20 23:43 Alkaline Phosphatase 49 U/L (39-117) 08/26/20 23:43 Troponin I High Sens < 3.5 ng/L (<3.5-35.0) 08/26/20 23:43 Total Protein 6.6 g/dL (6.5-8.0) 08/26/20 23:43 Albumin 4.3 g/dL (3.5-5.0) 08/26/20 23:43 Lipase 11 U/L (8-78) 08/26/20 23:43 TSH 2.13 uIU/mL (0.32-4.0) 08/29/20 06:07 COVID-19 (OLY) Negative (Negative) 08/27/20 03:49 COVID-19 Clin Com See Note 08/27/20 03:49 Discharge Plan Discharge Patient Disposition: Home, Self-Care Referrals: Luzma Marcelo MD [Primary Care Provider] - Discharge Medications: New docusate sodium 100 mg Capsule 100 mg PO BID Qty: 60 RF: 0 Continued ascorbic acid (vitamin C) [Vitamin C] 500 mg Tablet 500 mg PO DAILY RF: 0 aspirin 81 mg Tablet 81 mg PO DAILY RF: 0 omega-3 fatty acids Capsule 1,000 mg PO DAILY RF: 0 Discharge Orders: Discharge Order (Routine); Ordered 09/01/20 Ordered By: Gama Gonzales Diet: advance to usual diet Activity on Discharge: As tolerated Visit Report Forms: Patient Portal Discharge page Care Plan Goals: To stay healthy and out of the hospital. Health Concerns: Bowel Obstruction Plan of Treatment: Bowel Obstruction - this has resolved. If you starting have symptoms (Nausea/vomiting/ not passing gas/not moving bowel/abdominal pain) please return to the emergency room.
--- NOTE | 2020-09-01 09:36 | MHC.CM.PN ---
nurse child care ntoe electronic medical record reviewed along with case discussed with staff nurse , met with patient he is to be discharged home today discharge p[michael home no services 'pcp patient instructed to call pcp for follow up post hospital discharge transportation patient to self arrange
== END 2020-09-01 09:41 | disposition home or self-care (01) | DRG 247 ==
LOC: HO.ED 08-27 01:21 → HO.S3 08-27 15:00
PROVIDERS: Hospitalist; Admitting Provider Internal Medicine; Emergency Provider Emergency Medicine; PCP Internal Medicine; Visit Provider Family Medicine
DX: K56.600 Partial intestinal obstruction, unspecified as to cause (principal); Z20.828 Contact with and (suspected) exposure to other viral communicable diseases; Z79.82 Long term (current) use of aspirin; Z88.5 Allergy status to narcotic agent; Z79.899 Other long term (current) drug therapy
CPT/HCPCS: 36415; 74177; 74250; 80048; 80076; 83690; 84443; 84484; 85025; 87635; 93005; 96374; 96375; 96376; 99282; 99285; J2270; J2405; J3010; Q9967

== ENCOUNTER 2020-10-21 06:59 | Outpatient (REF) | payer OTHER, SELFPAY ==
[2020-10-21 07:37] LABS: Basophils Percent Auto 0.4 % (0-2); Eosinophils Absolute Auto 0.2 X10*3/uL (0.0-0.4); Eosinophils Percent Auto 3.5 % (0-4); Hematocrit 48.1 % (42-52); Hemoglobin 16.2 g/dl (14.0-18.0); Imm Gran Abs Auto 0.01 X10*3/uL (0.00-0.03); Imm Gran Pct Auto 0.2 % (0.0-0.4); Lymphocytes Percent Auto 35.2 % (20-40); Mean Corpuscular HGB Conc 33.7 g/dl (31.0-36.0); Mean Corpuscular Hemoglobin 28.1 pg (27.0-33.0); Mean Corpuscular Volume 83.4 fL (80-98); Mean Platelet Volume 9.3 fL (9.4-12.4); Monocytes Absolute Auto 0.4 X10*3/uL (0.1-1.2); Monocytes Percent Auto 6.3 % (2-11); Neutrophils Absolute Auto 3.1 X10*3/uL (2.0-8.3); Neutrophils Percent Auto 54.4 % (45-73); Platelet Count 205 X10*3/uL (160-400); Red Blood Count 5.77 X10*6/uL (4.60-5.80); White Blood Count 5.7 X10*3/uL (4.8-10.8)
[2020-10-21 07:38] LABS: MANUAL DIFF FLAG NO
[2020-10-21 07:48] LABS: Estimated Average Glucose 108 mg/dL; Hemoglobin A1c % 5.4 %
[2020-10-21 07:59] LABS: Alanine Aminotransferase 40 U/L (0-40); Aspartate Amino Transferase 27 U/L (5-37); C Reactive Protein 0.16 mg/dL (< or = 0.50); Estimated Glomerular Filt Rate > 60
[2020-10-21 08:19] LABS: TSH reflex Free T4 2.28 mIU/mL (0.32-4.0)
[2020-10-21 08:51] LABS: Erythrocyte Sedimentation Rate 2 MM/HR (0-15)
[2020-10-23 04:03] LABS: Syphilis Screen Nonreactive (Nonreactive)
[2020-10-23 04:07] LABS: ~HepC Num1 0.07 S/CO (0.00-0.79); ~Hepatitis C Antibody Nonreactive (Nonreactive)
[2020-10-23 04:21] LABS: HBsAGNum1 0.16 S/CO (0.00-0.99); Hepatitis B Surface Antigen Negative (Negative)
== END 2020-10-21 07:00 | disposition home or self-care (01) ==
LOC: HO.LAB 06:59
PROVIDERS: PCP Internal Medicine; Visit Provider Internal Medicine Infectious Disease
DX: M25.521 Pain in right elbow (principal); R53.83 Other fatigue
CPT/HCPCS: 36415; 82565; 83036; 84443; 84450; 84460; 85025; 85652; 86140; 86780; 86803; 87040; 87340

== ENCOUNTER → 2020-11-03 10:28 | Outpatient (BNVA) | payer OTHER, SELFPAY | PROVIDERS: PCP Internal Medicine; Visit Provider Surgery | DX: M19.021 Primary osteoarthritis, right elbow (principal); M77.8 Other enthesopathies, not elsewhere classified; M70.30 Other bursitis of elbow, unspecified elbow | CPT/HCPCS: 99202 ==

== ENCOUNTER → 2020-11-06 15:01 | Outpatient (BNVA) | payer OTHER, SELFPAY | PROVIDERS: PCP Internal Medicine; Visit Provider Internal Medicine Cardiovascular Disease | DX: R07.9 Chest pain, unspecified (principal) | CPT/HCPCS: 93005; 99212 ==

== ENCOUNTER → 2020-11-07 13:05 | Outpatient (BNVA) | payer OTHER, SELFPAY | PROVIDERS: PCP Internal Medicine; Visit Provider Orthopaedic Surgery | DX: M77.11 Lateral epicondylitis, right elbow (principal) | CPT/HCPCS: 20551; 99202; J1020 ==

== ENCOUNTER → 2021-04-10 10:04 | Outpatient (BNVA) | payer OTHER, SELFPAY | PROVIDERS: Visit Provider Orthopaedic Surgery | DX: M77.11 Lateral epicondylitis, right elbow (principal) | CPT/HCPCS: 99212 ==

== ENCOUNTER → 2021-04-30 11:14 | Outpatient (BNVA) | payer OTHER, SELFPAY | PROVIDERS: Visit Provider Internal Medicine Gastroenterology | DX: R10.10 Upper abdominal pain, unspecified (principal); R14.0 Abdominal distension (gaseous); K59.09 Other constipation; Z87.19 Personal history of other diseases of the digestive system; Z86.010 Personal history of colon polyps | CPT/HCPCS: 99212 ==

== ENCOUNTER 2021-05-18 08:39 | Outpatient (REF) | payer OTHER, SELFPAY ==
--- NOTE | ~2021-05-18 | MR_ITS ---
EXAMINATION: MR ABDOMEN WITHOUT AND WITH CONTRAST MR PELVIS WITHOUT AND WITH CONTRAST CLINICAL INFORMATION: Z87.19 - Personal history of other diseases of the digestive tract. R14.0 - Abdominal distension (gaseous). Question of partial distal small bowel obstruction on CT 08/27/2020. Normal subsequent small bowel series. COMPARISON: CT abdomen and pelvis 08/27/2020, 04/22/2020, small bowel series 08/31/2020 TECHNIQUE: MR abdomen and MR pelvis are performed without and with use of 8.5 mL intravenous Gadavist gadolinium contrast. Imaging is performed in 3 planes. Patient had 1.5L of oral Breeza prior to imaging. FINDINGS: LUNG BASES: The visualized lung bases are unremarkable. LIVER, GALLBLADDER, AND BILIARY TREE: The liver is normal in size, smooth in contour, and normal in signal. There is no signal loss on out of phase imaging to suggest hepatic steatosis. A subcentimeter cyst is present in the inferior right lobe segment 6, uniform high signal on T2 and without enhancement following contrast. There is no enhancing hepatic parenchymal lesion. No intrahepatic ductal dilatation. There is a solitary gallstone 0.6 cm again seen similar to prior CT. There is no gallbladder dilatation or wall thickening or pericholecystic inflammatory changes. Common duct unremarkable. PANCREAS: Unremarkable. SPLEEN: Normal. ADRENAL GLANDS: Normal. KIDNEYS AND URETERS: The kidneys are normal in size and contour and enhance symmetrically. There is incidental cyst upper pole left kidney measuring 2.1 cm, uniformly high signal on T2 and with no enhancement. No additional follow-up required. GASTROINTESTINAL TRACT: There is no bowel obstruction or inflammatory changes present in the bowel or mesentery. No bowel focal wall thickening or abnormal enhancement. The appendix is normal. There is no ascites or fluid collection. ABDOMINAL WALL: Small fat-containing umbilical hernia, or approximately 2 cm. LYMPH NODES: There is a 0.5 cm node medial to the proximal ascending colon, stable. No mesenteric, retroperitoneal, or pelvic lymphadenopathy. VASCULAR: Unremarkable. PELVIS: Unremarkable. No additional findings. OSSEOUS STRUCTURES: Marrow signal normal. MR/MR abdomen wo/w con IMPRESSION: 1. No bowel obstruction or focal inflammatory changes in bowel or mesentery. 2. Incidental cyst upper pole left kidney 2.1 cm. No additional imaging required. 3. Tiny cyst right hepatic lobe 0.6 cm. 4. Small solitary gallstone. No gallbladder wall thickening or ductal dilatation..
== END 2021-05-18 08:40 | disposition home or self-care (01) ==
LOC: HO.MRI 08:39
PROVIDERS: Visit Provider Internal Medicine Gastroenterology
DX: R14.0 Abdominal distension (gaseous) (principal); R10.10 Upper abdominal pain, unspecified; Z87.19 Personal history of other diseases of the digestive system
CPT/HCPCS: 72197; 74183; A9585

== ENCOUNTER 2021-05-21 10:30 | Outpatient (RCR) | payer OTHER, SELFPAY ==
--- NOTE | 2021-05-24 08:18 | MHC.OT.DC ---
[address] [phone] F: [phone] Occupational Therapy Discharge Note Provider: Dr Peterson Diagnosis: Right Lateral Epicondylitis Date of Surgery: 05/21/21 Date of Evaluation: 04/26/21 Treatments to Date: 7 Discharge Status: Recommend MD Follow-up Discharge Summary: Tanner continues to report pain in right lateral elbow, he has decreased home activities and wears CFB, and has god follow through w/ joint protection recommendations and HEP. He does report some relief w/ tape to lateral epicondyle. S+S of possible anconeus compression syndrome, may benefit from elbow rest at 90 deg. We have given nighttime resting wrist orthosis in the meantime to decrease stress on extensors. Will benefit from re assessment by MD. Electronically Signed By: YVES Sewell/Kendal Reviewed/agree with student documentation: N/A Therapist: Please Sign and return to therapist, thank you for your referral.
== END 2021-05-21 15:00 | disposition home or self-care (01) ==
LOC: HO.OT 10:30
PROVIDERS: PCP Internal Medicine; Visit Provider Orthopaedic Surgery
DX: M77.11 Lateral epicondylitis, right elbow (principal)
CPT/HCPCS: 29125; 97033; 97035; 97110; 97140; 97165; 97760

== ENCOUNTER → 2021-05-23 09:28 | Outpatient (BNVA) | payer OTHER, SELFPAY | PROVIDERS: Visit Provider Orthopaedic Surgery | DX: M77.11 Lateral epicondylitis, right elbow (principal) | CPT/HCPCS: 20605; 99212; J1020 ==

== ENCOUNTER 2021-06-13 07:48 | Outpatient (REF) | payer OTHER, SELFPAY ==
--- NOTE | ~2021-06-13 | MM_ITS ---
EXAMINATION: MM DIAGNOSTIC DIGITAL BREAST TOMOSYNTHESIS, BILATERAL US DIAGNOSTIC ULTRASOUND BREAST, LEFT CLINICAL INFORMATION: 55-year-old male with palpable area 7:00 position left breast 2 cm from nipple, present for approximately 5 months. No discharge. Family history breast cancer, mother. No prior breast imaging. No history left breast trauma. COMPARISON: None (current study represents initial baseline exam). TECHNIQUE: Digital breast tomosynthesis is performed in both the craniocaudal and mediolateral oblique views along with computer-aided detection (CAD). Synthesized 2D images are generated from the tomosynthesis. Additional left MLO and exaggerated left CC views are obtained. Ultrasound left breast is targeted to the area of clinical concern using grayscale imaging and color Doppler without and with harmonics. Patient is able to directly point to the area of palpable concern at time of imaging. FINDINGS: The breasts are almost entirely fatty (ACR BI-RADS breast composition Category a). There is no mass or architectural abnormality. No abnormal calcifications. No duct ectasia. The skin contours are smooth. No skin thickening. No coarsening of the stromal markings. There is uniform fatty attenuation in the area of palpable concern, due noted by symptom marker. Some deodorant artifact is present as well as a fine linear artifact on the skin left axilla, not present on repeat MLO view after washing axilla. Ultrasound left breast demonstrates oval hyperechoic fat lobule just beneath the skin at site of palpable concern, 7:00 position 2 cm from nipple with overall dimensions 0.5 x 1.3 x 1.5 cm. There is no corresponding claw skin or overlying skin thickening or edema in the soft tissue planes. This area shows normal fatty attenuation on mammography. Lipoma may have similar appearance, although no circumferential capsule is visible on mammography. There is no cystic or solid mass. No duct ectasia. No architectural abnormality. Results are discussed with the patient at time of visit, using an official court interpreter. Patient should be managed based on the clinical impression. If clinically indicated, further evaluation may be considered with surgical consult. Decision to proceed with biopsy should be based on clinical grounds and degree of clinical concern. MM/MM tomosynthesis diagnostic BI IMPRESSION: 1. No mammographic evidence of malignancy. 2. Ultrasound demonstrates oval fat lobule just beneath skin 7:00 position left breast at site of palpable concern measuring 0.5 x 1.3 x 1.5 cm. Lipoma may have similar appearance, although no visible circumferential capsule is visible on mammography. ASSESSMENT: BI-RADS 2: Benign RECOMMENDATION: Patient should be managed based on the clinical impression. If clinically indicated, further evaluation may be considered with surgical consult. Decision to proceed with biopsy should be based on clinical grounds and degree of clinical concern. .
== END 2021-06-13 07:49 | disposition home or self-care (01) ==
LOC: HO.MAMMO 07:48
PROVIDERS: Visit Provider Internal Medicine
DX: N63.25 Unspecified lump in the left breast, overlapping quadrants (principal)
CPT/HCPCS: 76642; 77062; 77066

== ENCOUNTER → 2021-06-21 09:03 | Outpatient (BNVA) | payer OTHER, SELFPAY | PROVIDERS: PCP Internal Medicine; Visit Provider Internal Medicine Gastroenterology ==

== ENCOUNTER → 2021-10-09 09:56 | Outpatient (BNVA) | payer OTHER, SELFPAY | PROVIDERS: PCP Internal Medicine; Referring Provider Internal Medicine; Visit Provider Surgery | DX: L72.0 Epidermal cyst (principal) | CPT/HCPCS: 99212 ==

== ENCOUNTER 2021-10-19 07:25 | Outpatient (REF) | payer OTHER, SELFPAY ==
--- NOTE | ~2021-10-19 | US_ITS ---
EXAMINATION: US RETROPERITONEAL LIMITED (RENAL ONLY) CLINICAL INFORMATION: Calculus of kidney. COMPARISON: MR abdomen without and with contrast 05/18/2021. CT abdomen and pelvis 08/27/2020. Renal ultrasound 04/01/2018. TECHNIQUE: Real-time imaging of the kidneys. FINDINGS: RIGHT KIDNEY: 10.2 x 4.5 x 5.0 cm (SAG x AP x TRV). The kidney is normal in size, contour, and echogenicity. Renal cortical thickness is normal. 2 mm nonobstructing lower pole calculus. No hydronephrosis. LEFT KIDNEY: 11.8 x 5.6 x 6.1 cm (SAG x AP x TRV). The kidney is normal in size, contour, and echogenicity. Renal cortical thickness is normal. 2.4 cm midpole cyst which contains a possible thin septation. 3 mm echogenic focus within the midpole is nonspecific but may represent a vascular calcification. There is no hydronephrosis. US/US renal BI IMPRESSION: -2 mm nonobstructing right renal calculus. -No hydronephrosis of either kidney.
== END 2021-10-19 07:26 | disposition home or self-care (01) ==
LOC: HO.US 07:25
PROVIDERS: PCP Internal Medicine; Visit Provider Internal Medicine
DX: N20.0 Calculus of kidney (principal)
CPT/HCPCS: 76775

== ENCOUNTER 2021-10-23 03:17 | Emergency (ER) | payer OTHER, SELFPAY ==
--- NOTE | ~2021-10-23 | CT_ITS ---
EXAMINATION: CT ABDOMEN AND PELVIS WITHOUT CONTRAST CLINICAL INFORMATION: Left lower quadrant pain. COMPARISON: None TECHNIQUE: Multidetector volumetric imaging was performed from the superior aspect of the liver through the pubic symphysis. Sagittal and coronal reformatted images were obtained on the technologist's workstation. This CT examination was performed using dose optimization techniques as appropriate, variously including the following: *Automated exposure control *Adjustment of mA and/or kV according to patient size (this includes techniques or standardized protocols for targeted exams where dose is matched to indication/reason for exam; i.e. extremities or head) *Use of iterative reconstruction technique DLP: 592 mGy-cm FINDINGS: LUNG BASES: There is dependent bibasilar atelectasis. The heart size is normal. LIVER, GALLBLADDER, AND BILIARY TREE: The liver is normal in size, shape, and attenuation. No focal hepatic lesion or biliary ductal dilatation is present. There is an 8 mm radiopaque gallstone without any wall thickening. PANCREAS: Unremarkable. SPLEEN: Unremarkable. ADRENAL GLANDS: Unremarkable. KIDNEYS AND URETERS: The kidneys are normal in size, shape, and attenuation. There are tumor punctate radiopaque calculi mid pole and lower pole right kidney without caliectasis. There is no hydronephrosis. No radiopaque calculus seen in left kidney. BLADDER: Unremarkable. GASTROINTESTINAL TRACT: There is scattered stool and gas seen throughout the colon without any significant distention. The small bowel loops are normal caliber. Appendix is normal caliber. There is no free air or free fluid. ABDOMINAL WALL: A small umbilical hernia containing fat is noted. LYMPH NODES: Normal. VASCULAR: Unremarkable. PELVIC VISCERA: The prostate gland is mildly enlarged with central gland calcification. The periprostatic fat planes are preserved. OSSEOUS STRUCTURES: No lytic or sclerotic process seen. CT/CT abdomen pelvis wo con IMPRESSION: No acute intra-abdominal process seen. Nonobstructive radiopaque calculi mid pole and lower pole left kidney. Mild prostate enlargement with central gland calcification. Small umbilical hernia containing fat. Fleischner guidelines were followed.
[2021-10-23 03:23] VITALS: BP 155/98; PULSE 71; RESP 16; TEMP 35.6; O2SAT 96; BMI 27.2
[2021-10-23 03:41] LABS: Basophils Percent Auto 0.4 % (0-2); Eosinophils Absolute Auto 0.3 X10*3/uL (0.0-0.4); Eosinophils Percent Auto 3.5 % (0-4); Hemoglobin 15.1 g/dl (14.0-18.0); Imm Gran Abs Auto 0.03 X10*3/uL (0.00-0.03); Imm Gran Pct Auto 0.4 % (0.0-0.4); Lymphocytes Percent Auto 42.4 % (20-40); MANUAL DIFF FLAG NO; Mean Corpuscular HGB Conc 33.6 g/dl (31.0-36.0); Mean Corpuscular Hemoglobin 27.9 pg (27.0-33.0); Mean Corpuscular Volume 83.2 fL (80.0-98.0); Monocytes Absolute Auto 0.6 X10*3/uL (0.1-1.2); Monocytes Percent Auto 8.1 % (2-11); Neutrophils Absolute Auto 3.2 x10*3/uL (2.0-8.3); Neutrophils Percent Auto 45.2 % (45-73); Platelet Count 251 X10*3/uL (160-400); Red Blood Count 5.41 X10*6/uL (4.60-5.80); White Blood Count 7.2 X10*3/uL (4.8-10.8)
[2021-10-23 03:44] LABS: Appearance Urine CLEAR; Color Urine YELLOW; Glucose Urine UA NEG (NEG); Leukocyte Esterase Urine NEG (NEG); Nitrite Urine NEG (NEG); Specific Gravity - Urine 1.025 (1.005-1.025); Urine Blood NEG (NEG); Urine Ketones NEG (NEG); Urine Protein NEG (NEG-TRACE)
[2021-10-23 04:04] LABS: Alanine Aminotransferase 44 U/L (0-40); Alkaline Phosphatase 56 U/L (39-117); Anion Gap 11 (12-20); Aspartate Amino Transferase 23 U/L (5-37); Bilirubin Total 0.6 mg/dL (0.0-1.0); Blood Urea Nitrogen 19 mg/dL (9-16); Calcium 9.4 mg/dL (8.4-10.2); Carbon Dioxide 27 mmol/L (22-29); Chloride 106 mmol/L (96-108); Creatinine Clr Calc Pharmacy 83.1; Estimated Glomerular Filt Rate > 60; Glucose Random 96 mg/dL (60-115); Lipase 17 U/L (8-78); Potassium 4.1 mmol/L (3.3-5.1); Sodium 140 mmol/L (135-145)
[2021-10-23 04:13] LABS: Total Protein 6.5 g/dL (6.5-8.0)
--- NOTE | 2021-10-23 07:23 | ED_ITS ---
HPI - Abdominal Pain General Chief Complaint: Abdominal Pain Stated Complaint: abd pain Time Seen by Provider: 10/23/21 06:59 Source: patient Mode of arrival: ambulatory Limitations: no limitations History of Present Illness HPI narrative: THE PT PRESENTED TO THE ED C/O LEFT FLANK PAIN SINCE LAST NIGH,DENIES FEVE ,VOMITING,HE HAS NO COMORBIDITY HE DOES NOT TAKE ANY MEDS MD elicited complaint: flank pain Onset (ago): day(s) (1) Pain Consistency: constant Location: L flank Severity: moderate Migration to: no migration Exacerbating factors: nothing Relieving factors: nothing Associated symptoms: denies other symptoms Related Data Home Medications Medication Instructions Recorded Confirmed ascorbic acid (vitamin C) 500 mg 500 mg PO DAILY 08/27/20 06/21/21 tablet (Vitamin C) aspirin 81 mg tablet 81 mg PO DAILY 08/27/20 06/21/21 omega-3 fatty acids 1,000 mg PO DAILY 08/27/20 06/21/21 Previous Rx's Medication Instructions Recorded sennosides 8.6 mg-docusate sodium 1 tab-cap PO BEDTIME 60 Days #60 04/30/21 50 mg tablet (Senna with Docusate tab Sodium) omeprazole 20 mg capsule,delayed 20 mg PO DAILY 90 Days #90 cap 07/24/21 release oxycodone 5 mg tablet 5 mg PO BID PRN #10 tab 10/23/21 Allergies Allergy/AdvReac Type Severity Reaction Status Date / Time tramadol [From Ultram] Allergy Mild nervous Verified 10/23/21 03:29 system Review of Systems Review of Systems Yes all other systems are reviewed and are negative Constitutional: Reports no additional constitutional complaints Reports system reviewed and no additional complaints, except as documented Cardiovascular: Reports no additional cardiovascular complaints Musculoskeletal: Reports no additional musculoskeletal complaints Physical Exam Vital Signs: Vital Signs: Last Vital Signs Temp 97.5 F 10/23/21 07:28 Pulse 61 10/23/21 07:28 Resp 18 10/23/21 07:28 BP 133/83 10/23/21 07:28 Pulse Ox 96 10/23/21 07:28 BMI result Body Mass Index 27.2 LOOKS WELL NON TOXIC Const: General: cooperative and comfortable HENMT: Head: Yes normal to inspection Face and sinus: Yes normal facial exam Neck: Neck: Yes normal visual inspection and Yes full ROM Chest: Chest palpation & inspection: normal inspection of the chest Resp: Effort & Inspection: normal respiratory effort Auscultation: clear to auscultation bilaterally Cardio: Jugular venous distension: no JVD Rate: regular rate Rhythm: regular rhythm GI: Inspection: Yes normal to inspection Palpation (GI): Soft to palpation and Tenderness to palpation present (GI) (LEFT LOWER QUADRANT) Skin: General skin exam: no rashes or lesions noted Course Reevaluation(s) Reevaluation #1: labs wnl,ua normal,ct stone left pole kidney but no uretheral stone,no hematuria,i do not think the stone is the reason of the pain. Anyway is pain free now OK to d/c home MDM - Abdominal Pain Lab Data Result diagrams: 10/23/21 03:35 10/23/21 03:35 Labs: Lab Results 10/23/21 10/23/21 10/23/21 Range/Units 03:35 03:35 03:35 WBC 7.2 (4.8-10.8) X10*3/uL RBC 5.41 (4.60-5.80) X10*6/uL Hgb 15.1 (14.0-18.0) g/dl Hct 45.0 (42.0-52.0) % MCV 83.2 (80.0-98.0) fL MCH 27.9 (27.0-33.0) pg MCHC 33.6 (31.0-36.0) g/dl RDW 13.0 (11.0-16.0) % Plt Count 251 (160-400) X10*3/uL MPV 9.0 L (9.4-12.4) fL Immature Gran % (Auto) 0.4 (0.0-0.4) % Neut % (Auto) 45.2 (45-73) % Lymph % (Auto) 42.4 H (20-40) % Hampton % (Auto) 8.1 (2-11) % Eos % (Auto) 3.5 (0-4) % Baso % (Auto) 0.4 (0-2) % Lymph # (Auto) 3.0 (1.2-4.9) X10*3/uL [place] # (Auto) 0.6 (0.1-1.2) X10*3/uL Eos # (Auto) 0.3 (0.0-0.4) X10*3/uL Baso # (Auto) 0.0 (0.0-0.2) X10*3/uL Abs Immat Gran (auto) 0.03 (0.00-0.03) X10*3/uL Absolute Neuts (auto) 3.2 (2.0-8.3) x10*3/uL Absolute Nucleated RBC 0.000 (0.0-0.012) X10*3/uL Nucleated RBC % (auto) 0.0 (0.0-0.2) /100WBC Sodium 140 (135-145) mmol/L Potassium 4.1 (3.3-5.1) mmol/L Chloride 106 (96-108) mmol/L Carbon Dioxide 27 (22-29) mmol/L Anion Gap 11 L (12-20) BUN 19 H (9-16) mg/dL Creatinine 1.00 (0.5-1.4) mg/dL Estim Creat Clear Calc 83.1 Estimated GFR > 60 Random Glucose 96 (60-115) mg/dL Calcium 9.4 D (8.4-10.2) mg/dL Total Bilirubin 0.6 (0.0-1.0) mg/dL AST 23 (5-37) U/L ALT 44 H (0-40) U/L Alkaline Phosphatase 56 (39-117) U/L Total Protein 6.5 (6.5-8.0) g/dL Albumin 4.0 (3.5-5.0) g/dL Lipase 17 (8-78) U/L Urine Color YELLOW Urine Appearance CLEAR Urine pH 6.0 (5.0-8.0) Ur Specific Rodney 1.025 (1.005-1.025) Urine Protein NEG (NEG-TRACE) MG/DL Urine Glucose (UA) NEG (NEG) MG/DL Urine Ketones NEG (NEG) MG/DL Urine Blood NEG (NEG) Urine Nitrite NEG (NEG) Ur Leukocyte Esterase NEG (NEG) Imaging Data CT scan - abdomen: Radiologist's impression: ABDOMINAL WALL: A small umbilical hernia containing fat is noted.? LYMPH NODES: Normal. VASCULAR: Unremarkable. PELVIC VISCERA: The prostate gland is mildly enlarged with central gland calcification. The periprostatic fat planes are preserved.? OSSEOUS STRUCTURES: No lytic or sclerotic process seen.? CT/CT abdomen pelvis wo con IMPRESSION: No acute intra-abdominal process seen. ? Nonobstructive radiopaque calculi mid pole and lower pole left kidney. ? Mild prostate enlargement with central gland calcification. ? Small umbilical hernia containing fat.? ? Fleischner guidelines were followed. Dictated By: Sohail Bernabe MD Signed By: <Electronically signed by Sohail Bernabe MD in OV> 10/23/21843 DD/ 4 TD/TT:? 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: [facility] [place] Discharge Plan Discharge Clinical Impression: Acute flank pain Patient Disposition: Home, Self-Care Instructions: Flank Pain (ED) Prescriptions: New oxycodone 5 mg tablet 5 mg PO BID PRN (Reason: pain) Qty: 10 RF: 0 No Action omeprazole 20 mg capsule,delayed release(DR/EC) 20 mg PO DAILY 90 Days Qty: 90 RF: 1 ascorbic acid (vitamin C) [Vitamin C] 500 mg Tablet 500 mg PO DAILY RF: 0 aspirin 81 mg Tablet 81 mg PO DAILY RF: 0 omega-3 fatty acids Capsule 1,000 mg PO DAILY RF: 0 sennosides-docusate sodium [Senna with Docusate Sodium] 8.6-50 mg tablet 1 tab-cap PO BEDTIME 60 Days Qty: 60 RF: 1 Referrals: Luzma Marcelo MD [Primary Care Provider] - 2 days [facility] Past Medical History Medical History Left breast mass Mass of right elbow No known health problems Partial small bowel obstruction Renal calculi Surgical History H/O hemorrhoidectomy H/O lateral meniscus repair of left knee H/O umbilical hernia repair History of esophagogastroduodenoscopy (EGD) Hx of colonoscopy Family History Family History Father CAD (coronary artery disease) Mother Breast cancer Social History Social History Alcohol intake: current Alcohol intake frequency: does not drink Alcohol type: beer and wine Patient Tobacco Use Status: Never used Tobacco e-Cigarette/Vaping Use: Never Used Second Hand Smoke Exposure: No Use of substances other than those prescribed or required for medical reasons: No Advance Directives: Yes Advance Directives on File: Yes Advance Directives Date on File: 09/02/20 service: No Current occupational status: employed Current occupation: [employer]
[2021-10-23 07:28] VITALS: BP 133/83; PULSE 61; RESP 18; TEMP 36.4; O2SAT 96
== END 2021-10-23 09:29 | disposition home or self-care (01) ==
PROVIDERS: Emergency Provider Emergency Medicine; PCP Internal Medicine
DX: R10.9 Unspecified abdominal pain (principal); Z79.899 Other long term (current) drug therapy
CPT/HCPCS: 36415; 74176; 80053; 81003; 83690; 85025; 99284

== ENCOUNTER 2021-10-25 10:48 | Outpatient (REF) | payer OTHER, SELFPAY ==
[2021-10-25 10:57] VITALS: BP 165/94; PULSE 79; RESP 18; TEMP 36.3; O2SAT 97; BMI 25.8
[2021-10-25 11:46] VITALS: BP 129/88; PULSE 75; RESP 16; O2SAT 99
--- NOTE | 2021-10-25 11:48 | P.OP_ITS ---
Operative Note Operative Note Date of Service: 10/25/21 Narrative: Preoperative diagnosis: Lipoma right upper arm, left forearm Postoperative diagnosis: Same Procedure: Excision of lipoma right upper arm, left forearm Surgeon: Junior Tello MD Aircraft Technician: None Anesthesia: Local Indications for procedure: Enlarging soft tissue mass in the right upper arm and left forearm Operative findings: 2 cm lipoma right upper arm, 1 cm lipoma left forearm Specimen: Lipoma x2 Estimated blood loss: 2 mL Complications: None Procedure details: Patient was brought to the minor surgery suite placed in a supine position. After assuring informed consent and confirming the site of surgery in the right upper arm and left forearm skin was prepped with Betadine and draped in a sterile fashion on both sides. Beginning on the right upper arm skin was anesthetized using lidocaine 1% with epinephrine. A longitudinal incision was then created with a scalpel carried out through subcutaneous tissue. A lipoma was easily identified and grasped with an Allis clamp. The lipoma was easily removed with blunt dissection. Dermis was then reapproximated using interrupted 3-0 Polysorb sutures. Skin was closed using a running subcuticular 4-0 Polysorb suture. Attention was then directed to the left forearm which again was anesthetized using the lidocaine 1% with epi. Incision was then made with a scalpel carried out through subcutaneous tissue. Lipoma was grasped with an Allis clamp and gently dissected free using a Metzenbaum scissors. This was passed off table to pathology for further examination. Skin was then closed using interrupted subcuticular 4-0 Polysorb sutures. Both incisions were dressed with Steri-Strips 2 x 2 gauze and Tegaderm. The patient tolerated the procedure well and was discharged to home in stable condition.
== END 2021-10-25 10:49 | disposition home or self-care (01) ==
LOC: HO.MS 10:48
PROVIDERS: PCP Internal Medicine; Visit Provider Surgery
PROC: (CPT 24075; principal; 2021-10-25 11:20)
DX: D17.21 Benign lipomatous neoplasm of skin and subcutaneous tissue of right arm (principal); D17.22 Benign lipomatous neoplasm of skin and subcutaneous tissue of left arm
CPT/HCPCS: 24075; 25075; 88304

== ENCOUNTER 2021-10-25 19:08 | Emergency (ER) | payer OTHER, SELFPAY ==
[2021-10-25 20:34] VITALS: BP 149/109; PULSE 65; RESP 19; TEMP 36.4; O2SAT 100; BMI 27.2
[2021-10-25 21:01] LABS: MANUAL DIFF FLAG NO
[2021-10-25 21:02] LABS: Basophils Percent Auto 0.4 % (0-2); Eosinophils Absolute Auto 0.2 X10*3/uL (0.0-0.4); Hemoglobin 15.6 g/dl (14.0-18.0); Imm Gran Abs Auto 0.02 X10*3/uL (0.00-0.03); Imm Gran Pct Auto 0.3 % (0.0-0.4); Lymphocytes Absolute Auto 2.8 X10*3/uL (1.2-4.9); Lymphocytes Percent Auto 35.8 % (20-40); Mean Corpuscular HGB Conc 33.9 g/dl (31.0-36.0); Mean Corpuscular Hemoglobin 28.3 pg (27.0-33.0); Mean Corpuscular Volume 83.5 fL (80.0-98.0); Monocytes Absolute Auto 0.6 X10*3/uL (0.1-1.2); Monocytes Percent Auto 7.5 % (2-11); Neutrophils Absolute Auto 4.1 x10*3/uL (2.0-8.3); Platelet Count 244 X10*3/uL (160-400); Red Blood Count 5.51 X10*6/uL (4.60-5.80); White Blood Count 7.7 X10*3/uL (4.8-10.8)
[2021-10-25 21:19] LABS: Alanine Aminotransferase 38 U/L (0-40); Albumin Level 4.3 g/dL (3.5-5.0); Alkaline Phosphatase 59 U/L (39-117); Anion Gap 10 (12-20); Aspartate Amino Transferase 25 U/L (5-37); Bilirubin Total 0.3 mg/dL (0.0-1.0); Blood Urea Nitrogen 16 mg/dL (9-16); Calcium 9.4 mg/dL (8.4-10.2); Carbon Dioxide 28 mmol/L (22-29); Chloride 105 mmol/L (96-108); Creatinine Clr Calc Pharmacy 89.3; Estimated Glomerular Filt Rate > 60; Glucose Random 107 mg/dL (60-115); Potassium 4.1 mmol/L (3.3-5.1); Sodium 139 mmol/L (135-145); Total Protein 7.1 g/dL (6.5-8.0)
--- NOTE | 2021-10-26 03:48 | ED_ITS ---
HPI - General Adult General Chief complaint: General Medical Stated complaint: surgery 10/25 left arm is swollen Time Seen by Provider: 10/26/21 03:48 History of Present Illness HPI narrative: Patient had surgery to left and right arm. Now with left forearm swelling. Onset (ago): hour(s) Severity: mild Pain Consistency: constant Relieving factors: none Exacerbating factors: none Associated symptoms: denies other symptoms Related Data Home Medications Medication Instructions Recorded Confirmed ascorbic acid (vitamin C) 500 mg 500 mg PO DAILY 08/27/20 06/21/21 tablet (Vitamin C) aspirin 81 mg tablet 81 mg PO DAILY 08/27/20 06/21/21 omega-3 fatty acids 1,000 mg PO DAILY 08/27/20 06/21/21 Previous Rx's Medication Instructions Recorded sennosides 8.6 mg-docusate sodium 1 tab-cap PO BEDTIME 60 Days #60 04/30/21 50 mg tablet (Senna with Docusate tab Sodium) omeprazole 20 mg capsule,delayed 20 mg PO DAILY 90 Days #90 cap 07/24/21 release oxycodone 5 mg tablet 5 mg PO BID PRN #10 tab 10/23/21 Allergies Allergy/AdvReac Type Severity Reaction Status Date / Time tramadol [From Ultram] Allergy Mild nervous Verified 10/23/21 03:29 system Review of Systems Constitutional: Constitutional: Reports no additional constitutional complaints Eyes: Eyes: Reports no additional eye complaints ENT: Denies dizziness Cardiovascular: Cardiovascular: Reports no additional cardiovascular complaints Respiratory: Respiratory: Reports as per HPI Gastrointestinal: Gastrointestinal: Reports no additional gastrointestinal complaints Musculoskeletal: Musculoskeletal: Reports no additional musculoskeletal complaints Integumentary/Breasts: Skin/Breast: Denies rash Neurologic: Reports system reviewed and no additional complaints, except as documented, Denies dizziness and Denies Sensory deficit (Neuro) Psychiatric: Psychiatric: Denies anxiety [facility] Past Medical History Medical History Left breast mass Mass of right elbow No known health problems Partial small bowel obstruction Renal calculi Surgical History H/O hemorrhoidectomy H/O lateral meniscus repair of left knee H/O umbilical hernia repair History of esophagogastroduodenoscopy (EGD) Hx of colonoscopy Family History Family History Father CAD (coronary artery disease) Mother Breast cancer Social History Social History Alcohol intake: current Alcohol intake frequency: does not drink Alcohol type: beer and wine Patient Tobacco Use Status: Never used Tobacco e-Cigarette/Vaping Use: Never Used Second Hand Smoke Exposure: No Advance Directives: Yes Advance Directives on File: Yes Advance Directives Date on File: 09/02/20 service: No Current occupational status: employed Current occupation: [employer] - Right Handed Physical Exam Vital Signs: Vital Signs: Last Vital Signs Temp 97.6 F 10/25/21 20:34 Pulse 65 10/25/21 20:34 Resp 19 10/25/21 20:34 BP 149/109 H 10/25/21 20:34 Pulse Ox 100 10/25/21 20:34 BMI result Body Mass Index 27.2 Const: General: healthy appearing Nutritional Appearance: average body habitus Orientation/consciousness: oriented to person and patient oriented x3 Limitations: no limitations HENMT: Head: Yes normal to inspection Ears: external ears normal General nose exam: Normal external nose present Mouth: Normal oral and palatal mucosa present and oropharynx normal Throat: Yes posterior oropharynx normal Eyes: General: appearance normal, both eyes and all related structures Neck: Other: supple Neck: Yes normal visual inspection Chest: Chest palpation & inspection: normal inspection of the chest Resp: Auscultation: clear to auscultation bilaterally Cardio: Jugular venous distension: no JVD Rate: regular rate Rhythm: regular rhythm Heart sounds: S1 normal heart sound present and S2 normal heart sound present GI: Inspection: Yes normal to inspection Palpation (GI): Soft to palpation, nontender and No hepatosplenomegaly present Auscultation: normal bowel sounds : General: Yes no CVA tenderness Back/Spine/Pelvis: Back: no CVA tenderness Skin: Other: left forearm with swelling and ecchymosis, right bicep with slight swelling Neuro: General: oriented to person and patient oriented x3 Cranial nerves: Yes CN's II-XII intact bilaterally Motor exam (neuro): 5/5 motor strength present throughout Sensory Exam: No Sensory deficit (Neuro) Extrem: General: Yes normal to inspection Psych: Appearance: grossly normal Course Reevaluation(s) Reevaluation #1: patient with normal hematoma developement after surgery, no evidence of infection or abnormal bleeding Time: 04:46 Medical Decision Making Lab Data Result diagrams: 10/25/21 20:57 10/25/21 20:57 Labs: Lab Results 10/25/21 10/25/21 Range/Units 20:57 20:57 WBC 7.7 (4.8-10.8) X10*3/uL RBC 5.51 (4.60-5.80) X10*6/uL Hgb 15.6 (14.0-18.0) g/dl Hct 46.0 (42.0-52.0) % MCV 83.5 (80.0-98.0) fL MCH 28.3 (27.0-33.0) pg MCHC 33.9 (31.0-36.0) g/dl RDW 13.0 (11.0-16.0) % Plt Count 244 (160-400) X10*3/uL MPV 9.0 L (9.4-12.4) fL Immature Gran % (Auto) 0.3 (0.0-0.4) % Neut % (Auto) 53.0 (45-73) % Lymph % (Auto) 35.8 (20-40) % Bradford % (Auto) 7.5 (2-11) % Eos % (Auto) 3.0 (0-4) % Baso % (Auto) 0.4 (0-2) % Lymph # (Auto) 2.8 (1.2-4.9) X10*3/uL Bradford # (Auto) 0.6 (0.1-1.2) X10*3/uL Eos # (Auto) 0.2 (0.0-0.4) X10*3/uL Baso # (Auto) 0.0 (0.0-0.2) X10*3/uL Abs Immat Gran (auto) 0.02 (0.00-0.03) X10*3/uL Absolute Neuts (auto) 4.1 (2.0-8.3) x10*3/uL Absolute Nucleated RBC 0.000 (0.0-0.012) X10*3/uL Nucleated RBC % (auto) 0.0 (0.0-0.2) /100WBC Sodium 139 (135-145) mmol/L Potassium 4.1 (3.3-5.1) mmol/L Chloride 105 (96-108) mmol/L Carbon Dioxide 28 (22-29) mmol/L Anion Gap 10 L (12-20) BUN 16 (9-16) mg/dL Creatinine 0.93 (0.5-1.4) mg/dL Estim Creat Clear Calc 89.3 Estimated GFR > 60 Random Glucose 107 (60-115) mg/dL Calcium 9.4 (8.4-10.2) mg/dL Total Bilirubin 0.3 (0.0-1.0) mg/dL AST 25 (5-37) U/L ALT 38 (0-40) U/L Alkaline Phosphatase 59 (39-117) U/L Total Protein 7.1 (6.5-8.0) g/dL Albumin 4.3 (3.5-5.0) g/dL Discharge Plan Discharge Clinical Impression: Hematoma Patient Disposition: Home, Self-Care Additional Instructions: watchout for redness, swelling or pus and fever Prescriptions: No Action omeprazole 20 mg capsule,delayed release(DR/EC) 20 mg PO DAILY 90 Days Qty: 90 RF: 1 ascorbic acid (vitamin C) [Vitamin C] 500 mg Tablet 500 mg PO DAILY RF: 0 aspirin 81 mg Tablet 81 mg PO DAILY RF: 0 omega-3 fatty acids Capsule 1,000 mg PO DAILY RF: 0 oxycodone 5 mg tablet 5 mg PO BID PRN (Reason: pain) Qty: 10 RF: 0 sennosides-docusate sodium [Senna with Docusate Sodium] 8.6-50 mg tablet 1 tab-cap PO BEDTIME 60 Days Qty: 60 RF: 1 Referrals: Junior Tello MD [Physician] - 5 days
--- NOTE | 2021-10-26 04:52 | PC.NURSE ---
provider in to assess area of concern. positive cms , a marked for future assessment. pt reports improvement since he got here. Plan is for patient to be discharge home. reviewed discharge plan. Pt verbalized understanding.
== END 2021-10-26 05:00 | disposition home or self-care (01) ==
PROVIDERS: Emergency Provider Emergency Medicine; PCP Internal Medicine
DX: L76.32 Postprocedural hematoma of skin and subcutaneous tissue following other procedure (principal)
CPT/HCPCS: 36415; 80053; 85025; 99283; 99284

== ENCOUNTER → 2021-11-02 10:55 | Outpatient (BNVA) | payer OTHER, SELFPAY | PROVIDERS: PCP Internal Medicine; Visit Provider Surgery | DX: Z48.817 Encounter for surgical aftercare following surgery on the skin and subcutaneous tissue (principal); Z87.2 Personal history of diseases of the skin and subcutaneous tissue | CPT/HCPCS: 99212 ==

== ENCOUNTER → 2021-11-06 14:55 | Outpatient (BNVA) | payer OTHER, SELFPAY | PROVIDERS: PCP Internal Medicine; Referring Provider Internal Medicine; Visit Provider Surgery | DX: Z48.817 Encounter for surgical aftercare following surgery on the skin and subcutaneous tissue (principal); Z87.2 Personal history of diseases of the skin and subcutaneous tissue | CPT/HCPCS: 99212 ==

== ENCOUNTER → 2021-11-07 15:00 | Outpatient (BNVA) | payer OTHER, SELFPAY | PROVIDERS: PCP Internal Medicine; Referring Provider Internal Medicine; Visit Provider Internal Medicine Cardiovascular Disease | DX: R07.9 Chest pain, unspecified (principal) | CPT/HCPCS: 99212 ==

== ENCOUNTER 2021-12-18 06:03 | Outpatient (REF) | payer OTHER, SELFPAY ==
[2021-12-18 08:03] LABS: Alanine Aminotransferase 53 U/L (0-40); Albumin Level 4.2 g/dL (3.5-5.0); Alkaline Phosphatase 55 U/L (39-117); Anion Gap 9 (12-20); Aspartate Amino Transferase 30 U/L (5-37); Bilirubin Total 0.6 mg/dL (0.0-1.0); Blood Urea Nitrogen 17 mg/dL (9-16); Calcium 9.3 mg/dL (8.4-10.2); Carbon Dioxide 31 mmol/L (22-29); Chloride 104 mmol/L (96-108); Cholesterol 187 mg/dL; Estimated Glomerular Filt Rate > 60; Glucose Fasting 92 mg/dL (60-99); HDL Cholesterol 40 mg/dL; LDL Cholesterol Calculated 127 mg/dl; Potassium 4.4 mmol/L (3.3-5.1); Sodium 140 mmol/L (135-145); Total Protein 6.5 g/dL (6.5-8.0); Triglycerides 104 mg/dL
[2021-12-22 13:26] LABS: Vitamin D 25-OH, D2 <4 ng/mL; Vitamin D 25-OH, D3 51 ng/mL; Vitamin D 25-OH, Total 51 ng/mL (30-100)
== END 2021-12-18 06:04 | disposition home or self-care (01) ==
LOC: HO.LAB 06:03
PROVIDERS: PCP Internal Medicine; Visit Provider Internal Medicine
DX: E78.5 Hyperlipidemia, unspecified (principal); R14.0 Abdominal distension (gaseous); E55.9 Vitamin D deficiency, unspecified
CPT/HCPCS: 36415; 80053; 80061; 82306

== ENCOUNTER → 2021-12-24 13:27 | Outpatient (BNVA) | payer OTHER, SELFPAY | PROVIDERS: PCP Internal Medicine; Visit Provider Physician Assistant | DX: M77.11 Lateral epicondylitis, right elbow (principal) | CPT/HCPCS: 20551; 99212; J1020 ==

== ENCOUNTER 2022-01-21 09:04 | Outpatient (REF) | payer OTHER, SELFPAY ==
--- NOTE | ~2022-01-21 | XR_ITS ---
EXAMINATION: XR knee LT 2V, XR knee standing BI CLINICAL INFORMATION: Pain COMPARISON: None TECHNIQUE: 2 views of the left knee: Standing view of the bilateral knees XR/XR knee standing BI FINDINGS/IMPRESSION: No acute fracture or dislocation. Joint spaces are maintained bilaterally. No left suprapatellar joint effusion. Soft tissues are unremarkable.
--- NOTE | ~2022-01-21 | XR_ITS ---
EXAMINATION: XR knee LT 2V, XR knee standing BI CLINICAL INFORMATION: Pain COMPARISON: None TECHNIQUE: 2 views of the left knee: Standing view of the bilateral knees XR/XR knee LT 2V FINDINGS/IMPRESSION: No acute fracture or dislocation. Joint spaces are maintained bilaterally. No left suprapatellar joint effusion. Soft tissues are unremarkable.
== END 2022-01-21 09:05 | disposition home or self-care (01) ==
LOC: HO.HOSX 09:04
PROVIDERS: Visit Provider Physician Assistant
DX: M17.12 Unilateral primary osteoarthritis, left knee (principal); S83.8X2D Sprain of other specified parts of left knee, subsequent encounter
CPT/HCPCS: 20610; 73560; 73565; 99212; J1040

== ENCOUNTER → 2022-02-12 14:30 | Outpatient (BNVA) | payer OTHER, SELFPAY | PROVIDERS: PCP Internal Medicine | DX: N20.0 Calculus of kidney (principal) | CPT/HCPCS: 99202 ==

== ENCOUNTER → 2022-02-14 14:49 | Outpatient (BNVA) | payer OTHER, SELFPAY | PROVIDERS: PCP Internal Medicine; Referring Provider Internal Medicine; Visit Provider Surgery | DX: K42.9 Umbilical hernia without obstruction or gangrene (principal); D17.1 Benign lipomatous neoplasm of skin and subcutaneous tissue of trunk | CPT/HCPCS: 99212 ==

== ENCOUNTER 2022-03-07 07:41 | Outpatient (REF) | payer OTHER, SELFPAY ==
[2022-03-07 07:43] VITALS: BP 157/99; PULSE 87; RESP 16; TEMP 36.8; O2SAT 98
[2022-03-07 07:44] VITALS: BMI 26.8
[2022-03-07 08:35] VITALS: BP 125/91; PULSE 72; RESP 16; O2SAT 98
--- NOTE | 2022-03-07 10:02 | W.PM.OPN ---
Operative Note Operative Note Date of Service: 03/07/22 Narrative: Preoperative diagnosis: Lipoma right flank x3 Postoperative diagnosis: Lipoma right flank x3 Procedure: Excision of lipoma right flank x3 Surgeon: Junior Tello MD Window Shade Ring Coverer: None Anesthesia: Local Indications for procedure: 56-year-old male patient with multiple lipomas presenting for excision of 3 lipomas of the right flank. Operative findings: Lipoma x3 measuring approximately 2 cm Specimen: Lipoma x3 Estimated blood loss: Less than 1 mL Complications: None Procedure details: Patient was brought to the minor surgery suite and placed in a supine position. He was then placed in a left lateral decubitus position. Two lipomas or located in the posterior right flank in the 3rd is located anterior right flank. The skin was prepped with Betadine and draped in a sterile fashion. After assuring confirming the site of surgery and assuring informed consent, the skin over each lesion was anesthetized using lidocaine 1% with epinephrine. Beginning in the most posterior lesion incision was made with a scalpel carried out through subcutaneous tissue. Lipomas was immediately identified. A combination of sharp and blunt dissection was then used to dissect the lipoma free from the surrounding subcutaneous tissue. This was passed off the table and sent to pathology for further examination. Skin was then closed using a running subcuticular 4-0 Polysorb suture. And is similar fashion the more anterior posterior flank lipoma was incised in a transverse fashion directly over the lipoma. This was carried out through subcutaneous tissue up to the upper surface of the lipoma. Sharp dissection was then used to dissect the lesion from the surrounding subcutaneous tissue. Skin was then closed using a running subcuticular 4-0 Polysorb suture. Attention was then directed to the anterior right flank lipoma. Once again this was anesthetized using lidocaine 1% with epinephrine. Incision was then made a transverse fashion directly over the lipoma. The lipoma was then dissected free from the surrounding subcutaneous tissue using Metzenbaum scissors. Skin was then closed using a running subcuticular 4-0 Polysorb suture. Sterile dressings consisting of Steri-Strips, 2 x 2 gauze and Tegaderm were then applied to all 3 lesions. The patient tolerated the procedure well was discharged to home in stable condition.
== END 2022-03-07 07:42 | disposition home or self-care (01) ==
LOC: HO.MS 07:41
PROVIDERS: PCP Internal Medicine; Visit Provider Surgery
PROC: (CPT 11402; principal; 2022-03-07 08:00)
DX: D17.1 Benign lipomatous neoplasm of skin and subcutaneous tissue of trunk (principal); Z87.19 Personal history of other diseases of the digestive system; N40.0 Benign prostatic hyperplasia without lower urinary tract symptoms; Z79.899 Other long term (current) drug therapy; Z88.8 Allergy status to other drugs, medicaments and biological substances
CPT/HCPCS: 11402 ×3; 88304

== ENCOUNTER → 2022-03-14 14:25 | Outpatient (BNVA) | payer OTHER, SELFPAY | PROVIDERS: PCP Internal Medicine; Visit Provider Surgery | DX: Z09 Encounter for follow-up examination after completed treatment for conditions other than malignant neoplasm (principal); D17.1 Benign lipomatous neoplasm of skin and subcutaneous tissue of trunk | CPT/HCPCS: 99212 ==

== ENCOUNTER 2022-03-14 15:04 | Emergency (ER) | payer OTHER, SELFPAY ==
--- NOTE | ~2022-03-14 | CT_ITS ---
EXAMINATION: CT ABDOMEN AND PELVIS WITHOUT CONTRAST CLINICAL INFORMATION: Pain and bloating. COMPARISON: None TECHNIQUE: Multidetector volumetric imaging was performed from the superior aspect of the liver through the pubic symphysis. Sagittal and coronal reformatted images were obtained on the technologist's workstation. This CT examination was performed using dose optimization techniques as appropriate, variously including the following: *Automated exposure control *Adjustment of mA and/or kV according to patient size (this includes techniques or standardized protocols for targeted exams where dose is matched to indication/reason for exam; i.e. extremities or head) *Use of iterative reconstruction technique DLP: 565 mGy-cm FINDINGS: LUNG BASES: There is bibasilar atelectasis. The heart size is normal. LIVER, GALLBLADDER, AND BILIARY TREE: The liver is normal in size, shape, and attenuation. No focal hepatic lesion or biliary ductal dilatation is present. There are radiopaque gallstones without wall thickening. PANCREAS: Unremarkable. SPLEEN: Unremarkable. ADRENAL GLANDS: Unremarkable. KIDNEYS AND URETERS: The kidneys are normal in size, shape, and attenuation. There is a 2 mm radiopaque calculi upper/midpole and 3 mm radiopaque calculi lower pole calyx right kidney. There is a 1 minute nonobstructive calculi lower pole calyx left kidney. BLADDER: Unremarkable. GASTROINTESTINAL TRACT: There is scattered stool and gas seen throughout the colon without significant distention. The small bowel loops are normal caliber. Appendix is normal caliber. No free air or free fluid seen. ABDOMINAL WALL: There is a small umbilical hernia containing fat. LYMPH NODES: Normal. VASCULAR: Unremarkable. PELVIC VISCERA: The prostate gland is mildly prominent with central gland calcification. No abnormal size inguinal or pelvic lymph nodes seen. OSSEOUS STRUCTURES: Unremarkable. CT/CT abdomen pelvis wo con IMPRESSION: No acute intra-abdominal process seen. Normal appendix. 2 mm upper/midpole and 3 mm lower pole radiopaque calculi right kidney without caliectasis or hydronephrosis. Fleischner guidelines were followed.
[2022-03-14 15:22] VITALS: BP 138/91; PULSE 76; RESP 18; TEMP 36.8; O2SAT 98; BMI 26.4
[2022-03-14] MEDS: Ondansetron ODT 4 MG TAB.RAPDIS TRANSLINGU (15:25)
[2022-03-14 15:34] LABS: Hematocrit 45.6 % (42.0-52.0); Hemoglobin 15.3 g/dl (14.0-18.0); Mean Corpuscular HGB Conc 33.6 g/dl (31.0-36.0); Mean Corpuscular Volume 83.5 fL (80.0-98.0); Mean Platelet Volume 9.4 fL (9.4-12.4); Platelet Count 223 X10*3/uL (160-400); Red Blood Count 5.46 X10*6/uL (4.60-5.80); Red Cell Distribution Width 13.7 % (11.0-16.0)
[2022-03-14 15:54] LABS: Anion Gap 11 (12-20); Blood Urea Nitrogen 16 mg/dL (9-16); Calcium 9.6 mg/dL (8.4-10.2); Carbon Dioxide 26 mmol/L (22-29); Chloride 104 mmol/L (96-108); Creatinine Clr Calc Pharmacy 93.4; Estimated Glomerular Filt Rate > 60; Glucose Random 103 mg/dL (60-115); Lipase 9 U/L (8-78); Potassium 3.9 mmol/L (3.3-5.1); Sodium 137 mmol/L (135-145)
--- NOTE | 2022-03-14 20:54 | ED_ITS ---
HPI - General Adult General Chief complaint: Abdominal Pain Stated complaint: abd pain Time Seen by Provider: 03/14/22 20:29 Source: patient Limitations: no limitations History of Present Illness HPI narrative: This is a 56-year-old male with history of known gallstones, who complains of abdominal discomfort and bloating for a few weeks, worse recently. The patient has seen his measurement department chief clerk who is going to do some tests. The patient has tried Zofran and Bentyl. The patient denies any fever. The pain is constant, not worse after eating. He denies any constipation or diarrhea, last had a bowel movement yesterday. He denies any urinary symptoms. Pain does not radiate through to his back. He does not use alcohol. He notes he has not have much appetite, has not eaten much today Related Data Home Medications Medication Instructions Recorded Confirmed ascorbic acid (vitamin C) 500 mg 500 mg PO DAILY 08/27/20 03/07/22 tablet (Vitamin C) omega-3 fatty acids 1,000 mg PO DAILY 08/27/20 03/07/22 cholecalciferol (vitamin D3) 25 25 mcg PO DAILY 01/21/22 03/07/22 mcg (1,000 unit) capsule Previous Rx's Medication Instructions Recorded pyridoxine (vitamin B6) 50 mg 50 mg PO DAILY 90 Days #90 cap 02/12/22 capsule dicyclomine 20 mg tablet 20 mg PO TID PRN 30 Days #60 tab 03/07/22 ondansetron 4 mg disintegrating 4 mg PO Q8H PRN 30 Days #60 tab 03/07/22 tablet polyethylene glycol 3350 17 17 g PO .COMPLEX 30 Days #238 g 03/07/22 gram/dose oral powder (Miralax) Allergies Allergy/AdvReac Type Severity Reaction Status Date / Time tramadol [From Ultram] Allergy Mild nervous Verified 03/14/22 14:52 system Review of Systems Review of Systems: Yes all other systems are reviewed and are negative Constitutional: Constitutional: Reports as per HPI and Denies fever(s) Eyes: Eyes: Reports as per HPI and Reports no additional eye complaints ENT: Reports system reviewed and no additional complaints, except as documented, Reports as per HPI, Denies nasal congestion, Denies nasal discharge and Denies sore throat Cardiovascular: Cardiovascular: Reports as per HPI, Denies chest pain and De nies dyspnea Respiratory: Respiratory: Reports as per HPI, Denies cough and Denies dyspnea Gastrointestinal: Gastrointestinal: Reports as per HPI, Reports abdominal pain, Reports bloating, Denies diarrhea, Reports nausea and Denies vomiting Genitourinary: Genitourinary: Reports as per HPI, Denies hematuria, Denies dysuria and Denies urinary frequency Musculoskeletal: Musculoskeletal: Reports no additional musculoskeletal complaints and Denies numbness Integumentary/Breasts: Skin/Breast: Reports as per HPI and Denies rash Neurologic: Reports as per HPI, Denies focal weakness and Denies numbness Psychiatric: Psychiatric: Reports no additional psychiatric complaints and Reports as per HPI Endocrine: Endocrine: Reports no additional endocrine complaints and Reports as per HPI Hematologic/Lymphatic: Hematologic/Lymphatic: Reports no additional hematologic/lymphatic complaints, Reports as per HPI and Reports other (No peripheral edema) [facility] Past Medical History Medical History (Updated 03/15/22 @ 00:03 by Eugene Durham) BPH without urinary obstruction Left breast mass Left knee pain Mass of right elbow Nephrolithiasis No known health problems Partial small bowel obstruction Physical exam Renal calculi Umbilical hernia Surgical History H/O hemorrhoidectomy H/O lateral meniscus repair of left knee H/O umbilical hernia repair History of esophagogastroduodenoscopy (EGD) History of excision of mass (03/07/22) Hx of colonoscopy Family History Family History Father CAD (coronary artery disease) Mother Breast cancer Social History Social History Housing: House Alcohol intake: current Alcohol intake frequency: does not drink Alcohol type: beer and wine Patient Tobacco Use Status: Never used Tobacco e-Cigarette/Vaping Use: Never Used Second Hand Smoke Exposure: No Advance Directives: Yes Advance Directives on File: Yes Advance Directives Date on File: 09/02/20 service: No Current occupational status: employed Current occupation: [employer] - Right Handed Physical Exam ED Vital Signs: Vital Signs - 24 hr 03/14/22 15:22 03/14/22 21:47 03/14/22 23:42 Temperature 98.2 F 98.4 F Pulse Rate 76 64 Respiratory Rate 18 16 18 Blood Pressure 138/91 H 135/84 Pulse Oximetry 98 99 BMI result Body Mass Index 26.4 Const General: no acute distress Orientation/consciousness: patient oriented x3 HENMT Head: Yes normal to inspection General nose exam: Normal external nose present Mouth: moist mucous membranes Throat: Yes posterior oropharynx normal, Yes tonsils normal and Yes uvula midline Eyes Eyelids: Yes eyelids normal Conjunctivae: conjunctivae normal Pupils: Equal, round and reactive pupils present Neck Neck: Yes supple Resp Effort & Inspection: normal respiratory effort Auscultation: clear to auscultation bilaterally Cardio Rate: regular rate Rhythm: regular rhythm Heart sounds: S1 normal heart sound present, S2 normal heart sound present, no gallops, no murmurs and no rubs GI Inspection: No distended (No increased tympany to percussion) Palpation (GI): Soft to palpation and nontender Auscultation: normal bowel sounds Skin General skin exam: other (Warm and dry) Neuro General: patient oriented x3 and CN's II-XI intact bilaterally Cranial nerves: Yes Equal, round and reactive pupils present Extrem General: Yes no pedal edema Psych Affect: normal affect Attitude: cooperative Medical Decision Making [facility] Narrative Medical decision making narrative: Patient with abdominal discomfort and bloating for a few weeks. Patient not ill appearing. Only mild tenderness on exam. Labs unremarkable. CT scan of the abdomen and pelvis without IV contrast showed no concerning findings. Patient is safe for outpatient follow-up with his measurement department chief clerk Lab Data Lab results reviewed: Yes I reviewed the patient's lab results. Result diagrams: 03/14/22 15:27 03/14/22 15:27 Labs: Lab Results 03/14/22 03/14/22 Range/Units 15:27 15:27 WBC 9.0 (4.8-10.8) X10*3/uL RBC 5.46 (4.60-5.80) X10*6/uL Hgb 15.3 (14.0-18.0) g/dl Hct 45.6 (42.0-52.0) % MCV 83.5 (80.0-98.0) fL MCH 28.0 (27.0-33.0) pg MCHC 33.6 (31.0-36.0) g/dl RDW 13.7 (11.0-16.0) % Plt Count 223 (160-400) X10*3/uL MPV 9.4 (9.4-12.4) fL Absolute Nucleated RBC 0.000 (0.0-0.012) X10*3/uL Nucleated RBC % (auto) 0.0 (0.0-0.2) /100WBC Sodium 137 (135-145) mmol/L Potassium 3.9 (3.3-5.1) mmol/L Chloride 104 (96-108) mmol/L Carbon Dioxide 26 (22-29) mmol/L Anion Gap 11 L (12-20) BUN 16 (9-16) mg/dL Creatinine 0.89 (0.5-1.4) mg/dL Estim Creat Clear Calc 93.4 Estimated GFR > 60 Random Glucose 103 (60-115) mg/dL Calcium 9.6 (8.4-10.2) mg/dL Lipase 9 (8-78) U/L Imaging Data CT abdomen and pelvis without contrast: Radiologist's impression: IMPRESSION: No acute intra-abdominal process seen. ? Normal appendix. ? 2 mm upper/midpole and 3 mm lower pole radiopaque calculi right kidney without caliectasis or hydronephrosis.? ? Discharge Plan Discharge Clinical Impression: Abdominal discomfort Patient Disposition: Home, Self-Care Instructions: Abdominal Pain (ED) Additional Instructions: Follow-up with your primary care physician or measurement department chief clerk. Continue current medicines. Return for any new or worsened symptoms Prescriptions: No Action ascorbic acid (vitamin C) [Vitamin C] 500 mg Tablet 500 mg PO DAILY 0RF omega-3 fatty acids Capsule 1,000 mg PO DAILY 0RF pyridoxine (vitamin B6) 50 mg capsule 50 mg PO DAILY 90 Days Qty: 90 0RF dicyclomine 20 mg tablet 20 mg PO TID PRN (Reason: abdominal pain) 30 Days Qty: 60 3RF ondansetron 4 mg tablet,disintegrating 4 mg PO Q8H PRN (Reason: nausea and vomiting) 30 Days Qty: 60 3RF polyethylene glycol 3350 [Miralax] 17 gram/dose powder 17 g PO .COMPLEX 30 Days Qty: 238 3RF Rx Instructions: 17 grams PO three times a week; cholecalciferol (vitamin D3) 25 mcg (1,000 unit) capsule 25 mcg PO DAILY 0RF Interventions: ED Discharge Assessment Last Done: 03/14/22 23:42 Discharge Date/Time: 03/14/22 23:43
[2022-03-14 21:47] VITALS: RESP 16
[2022-03-14] MEDS: ondansetron HCL 4 MG/2 ML VIAL IVPUSH (21:47)
[2022-03-14] MEDS: Morphine Sulfate 4 MG/ML CARTRIDGE IVPUSH (21:47)
[2022-03-14] MEDS: 0.9 % Sodium Chloride 1,000 ML 999 ML IV (21:47)
[2022-03-14 23:42] VITALS: BP 135/84; PULSE 64; RESP 18; TEMP 36.9; O2SAT 99
== END 2022-03-14 23:43 | disposition home or self-care (01) ==
PROVIDERS: Emergency Provider Emergency Medicine; PCP Internal Medicine
DX: R10.9 Unspecified abdominal pain (principal); R14.0 Abdominal distension (gaseous)
CPT/HCPCS: 36415; 74176; 80048; 83690; 85027; 96361; 96374; 96375; 99283; 99284; J2270; J2405

== ENCOUNTER 2022-04-09 07:45 | Outpatient (REF) | payer OTHER, SELFPAY ==
--- NOTE | ~2022-04-09 | US_ITS ---
EXAMINATION: US RETROPERITONEAL LIMITED (RENAL ONLY) CLINICAL INFORMATION: Calculus of kidney. COMPARISON: CT abdomen and pelvis without contrast 03/14/2022. US retroperitoneal limited (renal only) 10/19/2021 and 04/01/2018. MR abdomen without and with contrast 05/18/2021. TECHNIQUE: Real-time imaging of the kidneys. FINDINGS: RIGHT KIDNEY: 9.8 x 5.0 x 5.6 cm (SAG x AP x TRV). The kidney is normal in size, contour, and echogenicity. Renal cortical thickness is normal. There is a 1.5 x 1.9 x 1.5 cm cyst in the midpole. There is a 4 mm stone in the midpole. No hydronephrosis. LEFT KIDNEY: 12.1 x 5.2 x 7.1 cm (SAG x AP x TRV). The kidney is normal in size, contour, and echogenicity. Renal cortical thickness is normal. There is a 1.8 x 2.4 x 2 cm cyst in the upper pole. No renal calculi or hydronephrosis. US/US renal BI IMPRESSION: Small right renal stone. Bilateral renal cysts.
[2022-04-09 09:37] LABS: Prostate Specific Antigen 0.22 ng/mL (<0.05-4.0)
== END 2022-04-09 07:46 | disposition home or self-care (01) ==
LOC: HO.US 07:45
PROVIDERS: PCP Internal Medicine
DX: N40.0 Benign prostatic hyperplasia without lower urinary tract symptoms (principal); N20.0 Calculus of kidney; Z12.5 Encounter for screening for malignant neoplasm of prostate
CPT/HCPCS: 36415; 76775; 84153

== ENCOUNTER → 2022-05-02 07:31 | Outpatient (REF) | payer OTHER, SELFPAY ==
--- NOTE | ~2022-05-02 | NM_ITS ---
EXAMINATION: NM RADIONUCLIDE SOLID FOOD GASTRIC EMPTYING 4-HOUR STUDY CLINICAL INFORMATION: Abdominal distention. Nausea. COMPARISON: None TECHNIQUE: A standard meal consisting of 4 oz of Egg Beaters brand tagged with 1000 microcuries Tc-99m Sulfur Colloid, 8 oz water and 2 slices of toast with jelly was administered orally to the patient. Images were obtained using a dual head gamma camera in the anterior and posterior projections over of the stomach immediately post ingestion and at hourly intervals up to 4 hours post ingestion. The anterior and posterior counts at each time interval were averaged using the geometric mean and expressed as percentage of the immediate post ingestion counts. FINDINGS: There is good visualization of activity in the stomach immediately post ingestion. As the study progresses, there is good clearance of activity from the stomach and visualization of progressively increasing small bowel activity. By the end of the study, there is almost no retention noted in the stomach. Retention in the stomach at each time interval was: 1 hour 63% (normal 37%-90%) 2 hours 28% (normal 30%-60%) 3 hours 5% 4 hours 0% (normal 0%-10%) NM/OH gastric emptying study IMPRESSION: Normal 4-hour solid food gastric emptying study.
== END ==
LOC: HO.NUCMED 07:31
PROVIDERS: PCP Internal Medicine; Visit Provider Internal Medicine Gastroenterology
DX: R14.0 Abdominal distension (gaseous) (principal); R11.0 Nausea
CPT/HCPCS: 78264; A9541

== ENCOUNTER 2022-08-08 08:58 | Outpatient (AMB) | payer OTHER, SELFPAY ==
--- NOTE | 2022-08-08 09:40 | MHC.OFFVIS ---
Intake Vital Signs 08/08/22 09:42 Height 5 ft 10 in Weight 179 lb BMI 25.7 BP 107/76 Blood Pressure Location Lt brachial Position Sitting Pulse 61 Intake Visit Reasons: 5 month follow up Intake Note: Patient follow up for abdominal bloating and Gastric emptying test results. Patient cc: nauseas, abdominal pain on and off. Denies any other GI issues. 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 Patient was hospitalized with small bowel obstruction in 08/2020 which resolved with conservative management. IMAGING STUDIES:? 05/18/21 MR ENTEROGRAPHY SHOWED: 1. No bowel obstruction or focal inflammatory changes in bowel or mesentery. 2. Incidental cyst upper pole left kidney 2.1 cm. No additional imaging required. 3. Tiny cyst right hepatic lobe 0.6 cm. 4. Small solitary gallstone. No gallbladder wall thickening or ductal dilatation..? 08/26/[address] SCAN SHOWED: There are moderately dilated loops of mid small bowel, some contain stool. There is a distal small bowel transition point to decompressed small bowel. Otherwise, unremarkable unopacified loops of small and large bowel are identified. A normal appendix is identified. There is no pelvic free fluid. The urinary bladder is unremarkable. There is neither pelvic nor inguinal lymphadenopathy. Bone windows: Neither sclerotic nor lytic bone lesions are identified. IMPRESSION: ? 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 08/31/21 UGI WITH SBFT SHOWED: There is normal transit time of contrast material through the small bowel, with contrast present in the colon by 75 minutes. Small bowel loops are of normal caliber throughout the abdomen and pelvis. The jejunal and ileal fold patterns are normal, without evidence of abnormal thickening. No fixed regions of luminal narrowing are seen to suggest stricturing. The distal ileum demonstrates a normal appearance. ENDOSCOPIC STUDIES:? 11/26/19 EGD AND COLONOSCOPY SHOWED: ? STOMACH: Diffuse gastritis with prominent and hemorrhagic appearing folds ? Colonoscopy Findings: Three polyps removed. ? Patchy erythema from 50 to 65 cms likely resolving ischemic or infectious colitis - biopsied ? Moderate diverticulosis seen in the sigmoid colon ? Moderate hemorrhoids on retroflexed exam. ? Rectal bleeding likely self limited diverticular bleed or from ischemic colitis - appears to be resolving. ? Plan: ? Await pathology results ? Patient has an appointment on 12/30/19 in the GI Clinic with Turner Mayorga M.D.- ? Repeat Colonoscopy interval based on path results - in 3-5 years if ? polyps are adenomatous and 10 years if polyps are hyperplastic. ? Above findings were reviewed with the patient and Gastritis, Colon polyps and ? Diverticulosis handouts were provided to the patient ? BIOPSIES SHOWED: ? A. Small bowel, biopsy: Small intestinal mucosa within normal limits. ? B. Stomach, antrum, biopsy: ? - Antral-type mucosa with severe chronic active inflammation. ? - Positive for H. pylori. ? C. Stomach, folds, biopsy: ? - Oxyntic mucosa with moderate chronic active inflammation. ? - No atrophy seen. ? - Positive for H. pylori. ? D. Colon, ascending, polypectomies: ? - Tubular adenoma(s); no high grade dysplasia or carcinoma seen. ? - Colonic mucosa with prominent lymphoid aggregate; no dysplasia seen. ? E. Colon, descending, polypectomies: Hyperplastic mucosal polyps with inflammatory changes. ? F. Rectum, polypectomy: Hyperplastic mucosal polyp. TODAY'S VISIT: Patient cc: nauseas on and off and abdominal bloating. Denies any other GI issues. 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 Notes intense nausea after eating certain foods - greasy foods. Noted upper abdominal pain with nausea a week ago and concerned if his symptoms are related to gallstones. Denies radiation to the back or shoulder. Pain resolved after an hour. Bloating has improved. Has a good BM once a day - usually in the morning PAST VISITS: Even if I dont eat much, I feel like I am bloated. I have been having nausea - mostly when I eat Has a BM at least once a day. BMs are soft and without straining. Takes Bentyl 20 mg prn for intestinal spasms and is requesting a refill. MRE results were reviewed with the patient. Notes post prandial nausea which is rare. Complains of post prandial upper abdominal pain, nausea and burning sensation for the past 2 months. When I eat my stomach feels full My digestion seems to be very slow. Notes abdominal pain 5 to 10 min after he starts eating, also notes abd bloating, distension and excessive gas. Feels full for several hrs after he eats breakfast. Admits to heartburn and denies dysphagia. Decreased appetite since he feels full for several hours. Wt loss of 2-3 lbs.? Has a BM every with passage of small amounts of stools with incomplete evacuation. Taking an enema once a week for the past 2 weeks with good results and is feeling a little better. Denies diarrhea, black stools or rectal bleeding. Denies problems with anesthesia in the past, loud snoring or sleep apnea (has intermittent mild snoring). ? Denies major cardiac or pulmonary problems. ? Seen by Cardiographer 2 months ago for chest pain and had a stress test which was negative. ? Denies known FH of colon polyps or colon cancer or GI malignancy. ? Mom had breast cancer. ? Dad had skin ca [facility] Medical History (Updated 08/14/23 @ 08:47 by Turner Mayorga MD) Gallstones BPH without urinary obstruction Nephrolithiasis Umbilical hernia Left knee pain Renal calculi Left breast mass Mass of right elbow Partial small bowel obstruction Surgical History H/O lithotripsy History of laparoscopic cholecystectomy (10/16/22) History of excision of mass (03/07/22) History of esophagogastroduodenoscopy (EGD) Hx of colonoscopy H/O umbilical hernia repair H/O hemorrhoidectomy H/O lateral meniscus repair of left knee Family History Father CAD (coronary artery disease) Mother Breast cancer Social History Household Members: Spouse Housing: House Do you presently have visiting nurse or other home services: No Alcohol intake: never Patient Tobacco Use Status: Never used Tobacco e-Cigarette/Vaping Use: Never Used Second Hand Smoke Exposure: No Advance Directives Date on File: 09/02/20 service: No Current occupational status: employed Current occupation: [employer] - Right Handed Current occupational exposures/hazards: No Cognitive needs: No Hearing needs: No Vision needs: Yes Review of Systems Const All systems reviewed & are unremarkable except as noted in HPI and below Physical Exam Vital Signs: Last Vital Signs Pulse 61 08/08/22 09:42 BP 107/76 08/08/22 09:42 BMI result Body Mass Index 25.7 Const General: healthy appearing and no acute distress Nutritional Appearance: average body habitus Orientation/consciousness: patient oriented x3 Limitations: language barrier HEENT Head: Yes normal to inspection Ears: hearing grossly normal bilaterally Eyes Sclerae: sclerae normal Pupils: Equal, round and reactive pupils present Neck Neck: Yes normal visual inspection Chest Chest palpation & inspection: normal inspection of the chest Resp Effort & Inspection: normal respiratory effort Auscultation: clear to auscultation bilaterally Cardio Palpation: normal PMI Rate: regular rate Rhythm: regular rhythm Heart sounds: S1 normal heart sound present, S2 normal heart sound present and no murmurs GI Palpation (GI): Soft to palpation, nontender and No hepatosplenomegaly present Auscultation: normal bowel sounds Rectal Exam - Male: Yes deferred Skin General skin exam: no rashes or lesions noted Neuro General: patient oriented x3, gait normal and moves all extremities Cranial nerves: Yes Equal, round and reactive pupils present Psych Appearance: grossly normal Mental Status: mental status grossly normal Assessment & Plan Assessment & Plan (1) Abdominal bloating: Code(s): R14.0 - Abdominal distension (gaseous) (2) Nausea: Code(s): R11.0 - Nausea (3) History of colon polyps: Comment: Colonoscopy in December 02 showed diverticulosis and a 10 mm adenomatous polyp was removed from the ascending colon. 05/06/23 colonoscopy was performed and two polyps were removed. Repeat colon advised in 3 years. (due 04/2026). Code(s): Z86.010 - Personal history of colonic polyps (4) Hx of small bowel obstruction: Code(s): Z87.19 - Personal history of other diseases of the digestive system (5) Chronic constipation: Code(s): K59.09 - Other constipation (6) Upper abdominal pain: Code(s): R10.10 - Upper abdominal pain, unspecified (7) Abdominal bloating: Code(s): R14.0 - Abdominal distension (gaseous) (8) Gallstones: Code(s): K80.20 - Calculus of gallbladder without cholecystitis without obstruction Plan 56 YM with hyperlipidemia, kidney stones and lumbar spine disc herniation in [place] 10 yrs ago seen for evaluation nausea and left-sided abdominal pain for the past month. Patient has noted recent constipation followed by rectal bleeding after taking a laxative. 10/21/[address] scan showed moderate to large volume of stool in the colon, cholelithiasis and bilateral small nonobstructing renal stones. Patient is on a baby aspirin daily. Nausea and left upper quadrant pain can be related to peptic ulcer disease, gastritis or erosive esophagitis. Symptoms of constipation are more recent and likely related to decreased p.o. intake due to nausea. Rectal bleeding is likely due to rectal irritation from passage of hard stools after patient took a laxative. EGD showed Diffuse gastritis with prominent and hemorrhagic appearing folds, gastric biopsies were positive for Helicobacter pylori and patient was treated with triple therapy. He notes resolution of nausea and improvement in abdominal pain. A stool test for H pylori antigen was ordered and pt did not complete it. Same-day colonoscopy showed: Three polyps removed. Patchy erythema from 50 to 65 cms likely resolving ischemic or infectious colitis - biopsied Moderate diverticulosis seen in the sigmoid colon Moderate hemorrhoids on retroflexed exam. Past episode of small-bowel obstruction can be related to adhesions from prior hernia surgery.? MR enterography was normal. Patient was advised to take Zofran for nausea and Miralax three times a week for abdominal bloating 08/08/23 Continues to have nausea Abdominal bloating is better. Notes intense nausea after eating certain foods - greasy foods. Noted upper abdominal pain with nausea a week ago and concerned if his symptoms are related to gallstones. Pt scheduled for a HIDA scan and referred to general surgery to discuss lap huseyin Orders: Orders NM hepatobiliary w pharm 08/08/22 R10.10 - Upper abdominal pain, unspecified, K80.20 - Calculus of gallbladder without cholecystitis without obstruction Referrals General Surgery Referral K80.20 - Calculus of gallbladder without cholecystitis without obstruction, R10.10 - Upper abdominal pain, unspecified Coding Level of Care Code Est Pt Level 4 (48313) Diagnoses Abdominal bloating R14.0 Nausea R11.0 History of colon polyps Z86.010 Hx of small bowel obstruction Z87.19 Chronic constipation K59.09 Upper abdominal pain R10.10 Gallstones K80.20 Time Spent (min) 20
[2022-08-08 09:42] VITALS: BP 107/76; PULSE 61; BMI 25.7
== END 2022-08-08 10:17 | disposition home or self-care (01) ==
LOC: HO.HGI 08:58
PROVIDERS: PCP Internal Medicine; Visit Provider Internal Medicine Gastroenterology
DX: R14.0 Abdominal distension (gaseous) (principal); R11.0 Nausea; Z86.010 Personal history of colon polyps; Z87.19 Personal history of other diseases of the digestive system; K59.09 Other constipation; R10.10 Upper abdominal pain, unspecified; K80.20 Calculus of gallbladder without cholecystitis without obstruction
CPT/HCPCS: 99214

== ENCOUNTER → 2022-08-08 08:58 | Outpatient (BNVA) | payer OTHER, SELFPAY | PROVIDERS: PCP Internal Medicine; Visit Provider Internal Medicine Gastroenterology | DX: R14.0 Abdominal distension (gaseous) (principal); R11.0 Nausea; R10.10 Upper abdominal pain, unspecified; K59.09 Other constipation; K80.20 Calculus of gallbladder without cholecystitis without obstruction; Z87.19 Personal history of other diseases of the digestive system; Z86.010 Personal history of colon polyps | CPT/HCPCS: 99212 ==

== ENCOUNTER → 2022-08-23 07:26 | Outpatient (REF) | payer OTHER, SELFPAY ==
--- NOTE | ~2022-08-23 | NM_ITS ---
EXAMINATION: BILIARY TRACT IMAGING STUDY WITH CCK CLINICAL INFORMATION: Upper abdominal pain, calculus of gallbladder.. COMPARISON: No previous biliary scan is available for comparison. The diagnostic CT scan of the abdomen and pelvis, dated 03/14/2022, is available for comparison.. TECHNIQUE: Serial gamma scintillation camera images were obtained over the abdomen for a total observation period of 90 minutes following the intravenous administration of 5 mCi Tc-99m Mebrofenin. FINDINGS: There is good concentration of activity in the liver by 5 minutes post injection. Biliary activity is visualized by 10 minutes. The gallbladder is well visualized by 25 minutes. Small bowel is well visualized by 77 minutes. At 60 minutes post radiopharmaceutical injection, a 30-minute infusion of 1.6 micrograms Sincalide was then begun and an additional 30 minutes of images were obtained. There is prompt and good gallbladder emptying following the sincalide infusion. At the end of the study some activity is still seen within the gallbladder but this is much less intense than initial activity. There is also essentially complete clearance of activity from the liver and visualization of diffuse small bowel activity. The calculated gallbladder ejection fraction is 63% (normal gallbladder ejection fraction is greater than 35%). NM/NM hepatobiliary w pharm IMPRESSION: Visualization of the gallbladder is evidence of a patent cystic duct and strong evidence against the diagnosis of acute cholecystitis. The common bile duct is patent. Gallbladder emptying and ejection fraction are normal. Liver function appears normal.
== END ==
LOC: HO.NUCMED 07:26
PROVIDERS: Visit Provider Internal Medicine Gastroenterology
DX: R10.10 Upper abdominal pain, unspecified (principal); K80.20 Calculus of gallbladder without cholecystitis without obstruction
CPT/HCPCS: 78227; A9537; J2805

== ENCOUNTER 2022-08-28 11:19 | Outpatient (REF) | payer OTHER, SELFPAY ==
--- NOTE | ~2022-08-28 | MR_ITS ---
EXAMINATION: MR BRAIN WITHOUT CONTRAST CLINICAL INFORMATION: Headache COMPARISON: CT head without contrast 06/11/2018 TECHNIQUE: Multiplanar multisequence MR imaging of the brain was obtained without intravenous contrast. FINDINGS: There is no acute infarct on diffusion-weighted imaging. There is no intracranial hemorrhage on iron-sensitive imaging. No extra-axial collection or mass effect/herniation. Normal parenchymal signal characteristics. No hydrocephalus. The ventricles are normal in morphology and size. The major flow voids at the skull base are preserved. The midline structures are normal. The cerebellar tonsils are normally positioned. The craniocervical junction is normal. Marrow signal is within normal limits. The visualized soft tissues are without significant abnormality. No signal abnormality within the paranasal sinuses or within the mastoid air cells. MR/MR head/brain wo con IMPRESSION: Unremarkable noncontrast MRI of the brain.
== END 2022-08-28 11:20 | disposition home or self-care (01) ==
LOC: HO.MRI 11:19
PROVIDERS: Visit Provider Internal Medicine
DX: R51.9 Headache, unspecified (principal)
CPT/HCPCS: 70551

== ENCOUNTER → 2022-09-12 14:15 | Outpatient (BNVA) | payer OTHER, SELFPAY | PROVIDERS: PCP Internal Medicine; Visit Provider Surgery | DX: K80.20 Calculus of gallbladder without cholecystitis without obstruction (principal); K80.50 Calculus of bile duct without cholangitis or cholecystitis without obstruction | CPT/HCPCS: 99212 ==

== ENCOUNTER 2022-10-16 08:02 | Day surgery (SDC) | payer OTHER, SELFPAY ==
[2022-10-10 10:02] VITALS: BMI 26.5
--- NOTE | 2022-10-15 10:12 | HO.ANESPROP2 ---
Documented by User: Tory Zheng NP 10/15/22 10:15 HPI - Anesthesia Eval Consult details Narrative: 57yo M for Cholecystectomy Laparoscopic,possible open PMFSH Active Problems Active Problems: All Active Problems (Updated 09/12/22 @ 15:13 by Junior Tello MD) Bursitis of elbow (Acute) Right elbow tendinitis (Acute) Arthritis of right elbow (Acute) Chest pain (Acute) Lateral epicondylitis, right elbow (Acute) Upper abdominal pain (Acute) Chronic constipation (Acute) Abdominal bloating (Acute) Hx of small bowel obstruction (Acute) History of colon polyps (Acute) Epidermal inclusion cyst (Acute) Osteoarthritis of right knee (Acute) Acute lateral meniscal injury of left knee (Acute) Acute lateral meniscal injury of right knee (Acute) Osteoarthritis of left knee (Acute) Lipoma of torso (Acute) Nausea (Acute) Abdominal bloating (Acute) Gallstones (Acute) Frequent headaches (Acute) Biliary colic (Acute) BPH without urinary obstruction (Acute) Physical exam (Acute) Nephrolithiasis (Acute) Umbilical hernia (Acute) Left knee pain (Acute) Renal calculi (Acute) Left breast mass (Acute) Past Medical History Medical History BPH without urinary obstruction Left breast mass Left knee pain Mass of right elbow Nephrolithiasis No known health problems Partial small bowel obstruction Physical exam Renal calculi Umbilical hernia Family History Family History Father CAD (coronary artery disease) Mother Breast cancer Surgical History Surgical History H/O hemorrhoidectomy H/O lateral meniscus repair of left knee H/O umbilical hernia repair History of esophagogastroduodenoscopy (EGD) History of excision of mass (03/07/22) Hx of colonoscopy Social History Social History Housing: House Alcohol intake: current Alcohol intake frequency: does not drink Alcohol type: beer and wine Patient Tobacco Use Status: Never used Tobacco e-Cigarette/Vaping Use: Never Used Second Hand Smoke Exposure: No Are you DNR?: No Advance Directives: Yes Advance Directives on File: Yes Advance Directives Date on File: 09/02/20 Recently lost weight without trying: No service: No Current occupational status: employed Current occupation: [email or web address] - Right Handed Meds Allergies Allergy/AdvReac Type Severity Reaction Status Date / Time tramadol [From Ultram] Allergy Mild nervous Verified 09/12/22 14:46 system Active Medications: Current Medications Lactated Ringer's (Lr) 1,000 mls @ 100 mls/hr IVCONT .Q10H VANCE Cefotetan Disodium 2 gm/ (Sodium Chloride) 50 mls @ 100 mls/hr IV PREOP ONE Stop: 10/15/22 10:39 Home Medications Medication Instructions Recorded Confirmed Last Taken Type ascorbic acid (vitamin C) 500 mg 500 mg PO DAILY 08/27/20 09/12/22 08/26/20 History tablet (Vitamin C) omega-3 fatty acids 1,000 mg PO DAILY 08/27/20 09/12/22 08/26/20 History cholecalciferol (vitamin D3) 25 25 mcg PO DAILY 01/21/22 09/12/22 Unknown History mcg (1,000 unit) capsule Exam Exam Date and Time: October 15, 2022 1013 Height,Weight and Vital Signs: Height 5 ft 10 in Weight 83.915 kg Pertinent Lab Results Pertinent Lab Results: Laboratory Tests 03/14/22 03/14/22 15:27 15:27 WBC 9.0 Hgb 15.3 Hct 45.6 Plt Count 223 Sodium 137 Potassium 3.9 Chloride 104 Carbon Dioxide 26 BUN 16 Creatinine 0.89 Assessment and Plan Assessment Anesthesia Assessment: Chart Reviewed Documented by User: Deanna Bowser MD 10/16/22 10:36 [facility] Past Medical History Medical History BPH without urinary obstruction Left breast mass Left knee pain Mass of right elbow Nephrolithiasis No known health problems Partial small bowel obstruction Physical exam Renal calculi Umbilical hernia Family History Family History Father CAD (coronary artery disease) Mother Breast cancer Surgical History Surgical History H/O hemorrhoidectomy H/O lateral meniscus repair of left knee H/O umbilical hernia repair History of esophagogastroduodenoscopy (EGD) History of excision of mass (03/07/22) Hx of colonoscopy History of Problems with Anesthesia: No Social History Social History Housing: House Alcohol intake: current Alcohol intake frequency: does not drink Alcohol type: beer and wine Patient Tobacco Use Status: Never used Tobacco e-Cigarette/Vaping Use: Never Used Second Hand Smoke Exposure: No Are you DNR?: No Advance Directives: Yes Advance Directives on File: Yes Advance Directives Date on File: 09/02/20 Recently lost weight without trying: No service: No Current occupational status: employed Current occupation: [email or web address] - Right Handed Meds Allergies Allergy/AdvReac Type Severity Reaction Status Date / Time tramadol [From Ultram] Allergy Mild nervous Verified 09/12/22 14:46 system Home Medications Medication Instructions Recorded Confirmed Last Taken Type ascorbic acid (vitamin C) 500 mg 500 mg PO DAILY 08/27/20 09/12/22 08/26/20 History tablet (Vitamin C) omega-3 fatty acids 1,000 mg PO DAILY 08/27/20 09/12/22 08/26/20 History cholecalciferol (vitamin D3) 25 25 mcg PO DAILY 01/21/22 09/12/22 Unknown History mcg (1,000 unit) capsule Exam Airway Mallampati Class: II TM Dist: >3cm Neck ROM: Full Loose/Missing/Broken Teeth: No Heart: RRR Lungs: CTA Assessment and Plan Assessment Anesthesia Assessment: Anesthesia Plan Discussed Final Anesthetic Review History of Problems with Anesthesia: No NPO: Yes ASA Class: II Final Preanesthetic Review: Meds/Allgs Chart Reviewed, Consent Obtained/Reviewed and Anes Risks/Benef Reviewed Patient Risk: Low Procedure Risk: Intermediate Anesthetic Plan Anesthetic Plan: GA Disposition: Standard PACU
[2022-10-16] VITALS (11 sets, daily range): BP systolic 105–127; BP diastolic 65–78; PULSE 67–92; RESP 15–20; TEMP 36.3–36.6; O2SAT 95–100
--- NOTE | 2022-10-16 08:16 | PC.NURSE ---
no meds taken today
[2022-10-16] MEDS: Acetaminophen 325 MG TABLET 650 MG PO (08:27)
[2022-10-16] MEDS: Lactated Ringers 1,000 ML 100 ML IVCONT (08:27)
--- NOTE | 2022-10-16 09:44 | MHC.SHP ---
Pre-Procedural Eval Section A Date of Service: 10/16/22 The patient is an INPATIENT: No Changes since office visit: Yes Patient answered all questions; No Cold of Flu in the past 2 weeks, No New Medical Problems and No Changes in Medication The History & Physical has been completed within 30 days and I have reviewed it.: No Section B Chief Complaint: Calculus of gallbladder,Calculus of bile duct Details of Present Illness: Abdominal pain has improved since his last visit to the office. Relevant Family History (Specify if Yes): No Relevant Social History: None Present Medications: see Short Stay Collaborative assessment Medical History: No relevant PMH History of Previous Operations: No relevant previous surgery Allergies: Allergies Allergy/AdvReac Type Severity Reaction Status Date / Time tramadol [From Ultram] Allergy Mild nervous Verified 09/12/22 14:46 system Review of Systems Sugical H&P ROS: Negative: Constitution, Cardiovascular, Respiratory, Neurological, Psychiatric, Hem-Onc, Allergic/Immunologic, Gastrointestinal, Genitourinary, Musculoskeletal, Integumentary, Endocrine and Eyes/Ears/Nose/Throat Exam Surgical H&P Exam: Normal: HEENT, Normal: Heart, Normal: Lungs, Normal: Extremities, Normal: Abdomen, Normal: Skin and Normal: Neurological Plan Diagnosis/Plan: Unchanged I have reviewed the history and physical and performed a pertinent physical examination on my patient. No changes have occurred unless specified. Time Spent With Patient Time: Total time managing care of this patient today __5__ minutes.
--- NOTE | 2022-10-16 11:08 | P.OP_ITS ---
Operative Note Operative Note Date of Service: 10/16/22 Narrative: Preoperative diagnosis: Chronic cholecystitis, cholelithiasis Postoperative diagnosis: Same Procedure: Laparoscopic cholecystectomy Surgeon: Junior Tello MD Career Coach: ARTUR Stephens Anesthesia: General endotracheal Indications for procedure: 57-year-old patient presenting with recurring episodes of abdominal pain epigastrium right upper quadrant regions found to have gallstones within the gallbladder. Operative findings: Chronically inflamed gallbladder with dense adhesions to the undersurface of the gallbladder and gallstones within the gallbladder. Specimen: gallbladder Estimated blood loss: Less than 2 mL Complications: none Procedure details: Patient was brought to the OR and placed in a supine position. After administering general anesthesia the patient's abdomen was p repped with ChloraPrep and draped in a sterile fashion. Local anesthesia consisting of 0.5% Sensorcaine without epinephrine was infiltrated in a periumbilical region. A 5 mm incision was made above the umbilicus in a transverse fashion. The Veress needle was then inserted while elevating abdominal cavity with towel clips. After positive drop test the abdomen was insufflated to a pressure of 15 mm of mercury. The Veress needle was then removed and a 5 mm trocar inserted. The camera was inserted in the abdomen explored. A 12 mm trocar was then placed in the epigastrium. Two 5 mm trocars placed in the right upper quadrant by the human services assistant. The patient was placed in reverse Trendelenburg positioning and rotated to the left. The gallbladder was grasped with the fundus and retracted cephalad by the human services assistant. The infundibulum was then grasped and retracted away from the liver bed, also by the human services assistant. The Dolphin dissected was then used by the surgeon to dissect the peritoneum off the infundibulum to reveal the junction with the cystic duct. Cystic artery was noted slightly medial and posterior to the cystic duct. After obtaining a critical view the cystic duct was doubly clipped and divided. The cystic artery was then doubly clipped and divided. The gallbladder was then dissected off the liver bed using electrocautery with an L hook. Hemostasis was assured all times using the electrocautery. When the gallbladder is completely dissected off the liver bed was placed in an Endo-Catch bag and brought out through the epigastric incision. The gallbladder was sent to pathology for further examination. The abdomen was then re-examined. The liver bed was irrigated and suctioned dry. No bleeding or bile leak could be identified. CO2 was then evacuated and all trocars removed. Fascia was closed at the epigastric incision using a [id number] 0 Polysorb suture. Skin was closed in all incisions using a subcuticular 4 0 Polysorb suture by both the surgeon and human services assistant. Sterile dressings consisting of Steri-Strips, 2 x 2 gauze, and Tegaderm were then applied. The patient tolerated the procedure well. Sponge instrument and needle counts reported as correct. The patient was transferred to PACU in stable condition.
[2022-10-16] MEDS: ondansetron HCL 4 MG/2 ML VIAL IVPUSH (12:00)
[2022-10-16] MEDS: oxyCODONE HCl Immed Release 5 MG TABLET PO (12:01)
[2022-10-16] MEDS: fentaNYL citrate/PF 100 MCG/2 ML VIAL 50 MCG IVPUSH (12:02)
== END 2022-10-16 13:25 | disposition home or self-care (01) ==
PROVIDERS: PCP Internal Medicine; Visit Provider Surgery
PROC: 0FT44ZZ Resection of Gallbladder, Percutaneous Endoscopic Approach (ICD-10-PCS; CPT 47562; principal; 2022-10-16 10:00)
DX: K80.20 Calculus of gallbladder without cholecystitis without obstruction (principal); K80.10 Calculus of gallbladder with chronic cholecystitis without obstruction; K82.8 Other specified diseases of gallbladder; N40.0 Benign prostatic hyperplasia without lower urinary tract symptoms; Z87.442 Personal history of urinary calculi; Z79.899 Other long term (current) drug therapy; Z88.8 Allergy status to other drugs, medicaments and biological substances
CPT/HCPCS: 47562; 88304; J1100; J2250; J2405; J3010

== ENCOUNTER → 2022-10-24 08:59 | Outpatient (BNVA) | payer OTHER, SELFPAY | PROVIDERS: PCP Internal Medicine; Visit Provider Surgery | DX: Z13.89 Encounter for screening for other disorder (principal) ==

== ENCOUNTER 2023-01-22 05:46 | Emergency (ER) | payer OTHER, SELFPAY ==
--- NOTE | ~2023-01-22 | CT_ITS ---
EXAMINATION: CT HEAD WITHOUT CONTRAST CLINICAL INFORMATION: Headache COMPARISON: Previous brain MRI August [address] May 2018 TECHNIQUE: Contiguous axial imaging was performed from the skull base to vertex without intravenous administration of contrast. This CT examination was performed using dose optimization techniques as appropriate, variously including the following: *Automated exposure control *Adjustment of mA and/or kV according to patient size (this includes techniques or standardized protocols for targeted exams where dose is matched to indication/reason for exam; i.e. extremities or head) *Use of iterative reconstruction technique DLP: 802 mGy-cm FINDINGS: There is no evidence of an extra-axial collection. There is no evidence of intra or extra-axial hemorrhage. The ventricles and extra-axial CSF spaces are appropriate. Guo-white matter differentiation is normal. No mass, mass effect or infarct. Review of bone windows is normal. No skull fracture. Visualized paranasal sinuses, mastoid air cells and middle ears are clear. CT/CT head/brain wo IV con IMPRESSION: Unremarkable exam.
[2023-01-22 05:52] VITALS: BP 128/95; PULSE 81; RESP 16; BMI 25.8
[2023-01-22 06:19] VITALS: BP 156/82; PULSE 70; RESP 18; TEMP 36.7; O2SAT 94
[2023-01-22 06:24] LABS: Baso%MD 0.4 %; Eos%MD 2.8 %; Hematocrit 45.8 % (42.0-52.0); Hemoglobin 15.6 g/dl (14.0-18.0); IG%MD 0.3 %; Lymph%MD 22.9 %; Mean Corpuscular HGB Conc 34.1 g/dl (31.0-36.0); Mean Corpuscular Hemoglobin 27.9 pg (27.0-33.0); Mean Corpuscular Volume 81.9 fL (80.0-98.0); Mean Platelet Volume 9.3 fL (9.4-12.4); Mono%MD 6.7 %; Neut%MD 66.9 %; Platelet Count 207 X10*3/uL (160-400); Red Blood Count 5.59 X10*6/uL (4.60-5.80); Red Cell Distribution Width 13.2 % (11.0-16.0); White Blood Count 7.8 X10*3/uL (4.8-10.8)
[2023-01-22 06:37] LABS: Anion Gap 10 (12-20); Blood Urea Nitrogen 14 mg/dL (9-16); Calcium 9.1 mg/dL (8.4-10.2); Carbon Dioxide 28 mmol/L (22-29); Chloride 107 mmol/L (96-108); Creatinine Clr Calc Pharmacy 102.6; Estimated Glomerular Filt Rate > 60; Glucose Random 97 mg/dL (60-115); Potassium 4.4 mmol/L (3.3-5.1); Sodium 141 mmol/L (135-145)
[2023-01-22 07:02] LABS: Band Neutrophils Percent 0 % (3-5); Eosinophils Absolute Manual 0.6 X10*3/uL (0.0-0.4); Eosinophils Percent Manual 8 % (0-4); Lymphocytes Absolute Manual 2.1 X10*3/uL (1.2-4.9); Lymphocytes Percent Manual 27 % (20-40); Monocytes Absolute Manual 0.3 X10*3/uL (0.1-1.2); Monocytes Percent Manual 4 % (2-11); Neutrophils Absolute Manual 4.8 X10*3/uL (2.0-8.3); Neutrophils Percent Manual 61 % (45-73)
[2023-01-22 07:04] LABS: Platelet Estimate NORMAL (NORMAL); Platelet Morphology Comment NORMAL; RBC Morphology NORMAL
--- NOTE | 2023-01-22 07:51 | ED.EPISTAXIS ---
History of Present Illness General Chief Complaint: Epistaxis Stated Complaint: Nosebleeds/Headache Time Seen by Provider: 01/22/23 07:34 Source: patient and family History of Present Illness HPI Narrative: Lesion with epistaxis intermittently over the last year so. He complains of some headaches and some general sinus pressure which is constant. Recently he has had an increase an URI symptoms with increased rhinorrhea, cough, sore throat. No fevers or chills however. He states over the last few days he has had multiple episodes of bleeding sometimes copious. Typically spontaneous. He is seen your nose and throat several times over the past year. He has been cauterized once. He has never had his nose packed. He is concerned he may have a tumor. Bleeding is always from his left naris Related Data Home Medications Medication Instructions Recorded Confirmed ascorbic acid (vitamin C) 500 mg 500 mg PO DAILY 08/27/20 10/24/22 tablet (Vitamin C) omega-3 fatty acids 1,000 mg PO DAILY 08/27/20 10/24/22 cholecalciferol (vitamin D3) 25 25 mcg PO DAILY 01/21/22 10/24/22 mcg (1,000 unit) capsule Previous Rx's Medication Instructions Recorded ondansetron 4 mg disintegrating 4 mg PO Q8H PRN nausea and 03/07/22 tablet vomiting 30 days #60 tabs dicyclomine 20 mg tablet 20 mg PO TID PRN for abdominal 06/04/22 pain #180 tabs amoxicillin 500 mg tablet 500 mg PO TID #15 tabs 01/22/23 Allergies Allergy/AdvReac Type Severity Reaction Status Date / Time tramadol [From Ultra] Allergy Mild nervous Verified 10/24/22 09:20 system Review of Systems Constitutional: Comments: No fevers or chills ENT: Comments: Epistaxis and. Rhinorrhea. Sinus congestion. Cardiovascular: Comments: No chest pain. Respiratory: Comments: Cough without sputum Gastrointestinal: Comments: No nausea vomiting diarrhea constipation PMFSH Past Medical History Medical History BPH without urinary obstruction Left breast mass Left knee pain Mass of right elbow Nephrolithiasis No known health problems Partial small bowel obstruction Physical exam Renal calculi Umbilical hernia Surgical History H/O hemorrhoidectomy H/O lateral meniscus repair of left knee H/O umbilical hernia repair History of esophagogastroduodenoscopy (EGD) History of excision of mass (03/07/22) History of laparoscopic cholecystectomy (10/16/22) Hx of colonoscopy Family History Family History Father CAD (coronary artery disease) Mother Breast cancer Social History Social History Housing: House Alcohol intake: never Patient Tobacco Use Status: Never used Tobacco Smoked in Last 30 Days: No e-Cigarette/Vaping Use: Never Used Second Hand Smoke Exposure: No Use of substances other than those prescribed or required for medical reasons: No Advance Directives: Yes Advance Directives on File: Yes Advance Directives Date on File: 09/02/20 service: No Current occupational status: employed Current occupation: [employer] - Right Handed Physical Exam Vital Signs: Vital Signs: Last Vital Signs Temp 98.1 F 01/22/23 06:19 Pulse 66 01/22/23 08:26 Resp 14 01/22/23 08:26 BP 123/81 01/22/23 08:26 Pulse Ox 96 01/22/23 08:26 O2 Del Method Room Air 01/22/23 08:26 BMI result Body Mass Index 25.8 Const: Other: Awake alert, no acute distress HEENT: Other: No active bleeding. Right near normal. Left knee err with adhered scab approximately 4 x 5 mm. No polyps or other abnormalities noted. Oropharynx with mild erythema but without exudate Neck: Other: No lymphadenopathy Resp: Other: Or respiratory distress Skin: Other: Warm pink and dry Medications Administered Discontinued Medications Generic Name Dose Route Start Last Admin Trade Name Freq PRN Reason Stop Dose Admin Oxymetazoline HCl 2 spray 01/22/23 07:50 01/22/23 08:10 Oxymetazoline Hcl 0.05 % Nasal 15 Ml [place] NOSTRIL-B 01/22/23 07:51 2 spray ONCE ONE Administration Medical Decision Making Medical Decision Making MDM Narrative: Patient with epistaxis, intermittent for over a year. Likely with vessel or AVM. Areas too large to cauterize and has well adhered scab at the moment. Symptoms are probably were secondary to viral URI symptoms. Symptoms may also be allergic, environmental. Discussed treatment options including rhino rocket packing. Patient would like to proceed with packing as he is very concerned the bleeding will return which is very likely. Oxymetazoline ordered and will pre treat. Will also order CT scan secondary to patient's headaches and sinus pressure. 09:17. Patient tolerated rhino rocket packing well. Gription sent. CT scan of head shows no evidence of intracranial abnormalities or significant sinusitis. Lab work shows normal CBC. Normal chemistries. Anion gap is 10 but this is at his baseline. Stable for discharge home Lab Data 01/22/23 06:19 01/22/23 06:19 Labs: Lab Results 01/22/23 01/22/23 Range/Units 06:19 06:19 WBC 7.8 (4.8-10.8) X10*3/uL RBC 5.59 (4.60-5.80) X10*6/uL Hgb 15.6 (14.0-18.0) g/dl Hct 45.8 (42.0-52.0) % MCV 81.9 (80.0-98.0) fL MCH 27.9 (27.0-33.0) pg MCHC 34.1 (31.0-36.0) g/dl RDW 13.2 (11.0-16.0) % Plt Count 207 (160-400) X10*3/uL MPV 9.3 L (9.4-12.4) fL Absolute Nucleated RBC 0.000 (0.0-0.012) X10*3/uL Nucleated RBC % (auto) 0.0 (0.0-0.2) /100WBC Neutrophils % (Manual) 61 (45-73) % Band Neutrophils % 0 L (3-5) % Lymphocytes % (Manual) 27 (20-40) % Monocytes % (Manual) 4 (2-11) % Eosinophils % (Manual) 8 H (0-4) % Abs Neuts (Manual) 4.8 (2.0-8.3) X10*3/uL Lymphocytes # (Manual) 2.1 (1.2-4.9) X10*3/uL Monocytes # (Manual) 0.3 (0.1-1.2) X10*3/uL Eosinophils # (Manual) 0.6 H (0.0-0.4) X10*3/uL Platelet Estimate NORMAL (NORMAL) Plt Morphology Comment NORMAL RBC Morphology NORMAL Sodium 141 (135-145) mmol/L Potassium 4.4 (3.3-5.1) mmol/L Chloride 107 (96-108) mmol/L Carbon Dioxide 28 (22-29) mmol/L Anion Gap 10 L (12-20) BUN 14 (9-16) mg/dL Creatinine 0.80 (0.5-1.4) mg/dL Estim Creat Clear Calc 102.6 Estimated GFR > 60 Random Glucose 97 (60-115) mg/dL Calcium 9.1 (8.4-10.2) mg/dL Procedures Epistaxis Control Time Out Performed: Yes Nostril: Yes left Nose prepped with: Yes oxymetazoline Direct inspection: Yes anterior source identified Direct inspection method: Yes otoscope Epistaxis treatment: Yes inflatable pack Results of treatment: Yes bleeding controlled Complications: Yes none Discharge Plan Discharge Clinical Impression: Anterior epistaxis Patient Disposition: Home, Self-Care Instructions: Nosebleed (ED) Additional Instructions: Call your here Nose and Throat office today to arrange follow-up within the next 2-3 days. Return if worse Taken oxacillin to prevent sinus infection Prescriptions: New amoxicillin 500 mg tablet 500 mg PO TID Qty: 15 0RF No Action dicyclomine 20 mg tablet 20 mg PO TID PRN (Reason: for abdominal pain) Qty: 180 1RF ascorbic acid (vitamin C) [Vitamin C] 500 mg Tablet 500 mg PO DAILY omega-3 fatty acids Capsule 1,000 mg PO DAILY ondansetron 4 mg tablet,disintegrating 4 mg PO Q8H PRN (Reason: nausea and vomiting) 30 Days Qty: 60 3RF cholecalciferol (vitamin D3) 25 mcg (1,000 unit) capsule 25 mcg PO DAILY Referrals: Kevin Savage MD [Physician] - Stand Alone Forms: Work/School Release
[2023-01-22] MEDS: Oxymetazoline HCl 0.05 % Nasal 15 ML SPRAY 2 SPRAY NOSTRIL-B (08:10)
[2023-01-22 08:26] VITALS: BP 123/81; PULSE 66; RESP 14; O2SAT 96
[2023-01-22 09:26] VITALS: BP 145/97; PULSE 63; RESP 18; O2SAT 98
[2023-01-22] MEDS: Amoxicillin 500 MG CAPSULE PO (09:28)
== END 2023-01-22 09:31 | disposition home or self-care (01) ==
PROVIDERS: Emergency Provider Emergency Medicine; PCP Internal Medicine
DX: R04.0 Epistaxis (principal); R51.9 Headache, unspecified
CPT/HCPCS: 36415; 70450; 80048; 85007; 85027; 99284

== ENCOUNTER 2023-01-22 12:17 | Emergency (ER) | payer OTHER, SELFPAY ==
[2023-01-22 12:34] VITALS: BP 138/88; PULSE 87; RESP 20; TEMP 36.4; O2SAT 98; BMI 27.8
--- NOTE | 2023-01-22 12:34 | ED.EPISTAXIS ---
History of Present Illness General Chief Complaint: Epistaxis <Sharla Ames NP - Last Filed: 01/22/23 12:38> Stated Complaint: Nose Pain S/P Procedure 01/22/23 <Sharla Ames NP - Last Filed: 01/22/23 12:38> Time Seen by Provider: 01/22/23 13:34 <Sharla Ames NP - Last Filed: 01/22/23 12:38> Source: patient <VICKIE Martell - Last Filed: 01/22/23 14:38> Mode of arrival: ambulatory <VICKIE Martell Last Filed: 01/22/23 14:38> History of Present Illness HPI Narrative: 57-year-old male with a past medical history renal stones, left nare epistaxis s/p rhinorocket placement this morning in our ED presenting to the ED for packing removal due to discomfort. Denies bleeding around the rhino rocket, fever/chills, nausea/vomiting lightheadedness, dizziness. Packing was removed in triage by triage provider, sprayed with Afrin now to be observed <VICKIE Martell Last Filed: 01/22/23 14:38> Location: Yes left naris <VICKIE Martell Last Filed: 01/22/23 14:38> Related Data Home Medications: Home Medications Medication Instructions Recorded Confirmed ascorbic acid (vitamin C) 500 mg 500 mg PO DAILY 08/27/20 10/24/22 tablet (Vitamin C) omega-3 fatty acids 1,000 mg PO DAILY 08/27/20 10/24/22 cholecalciferol (vitamin D3) 25 25 mcg PO DAILY 01/21/22 10/24/22 mcg (1,000 unit) capsule Previous Rx's Medication Instructions Recorded ondansetron 4 mg disintegrating 4 mg PO Q8H PRN nausea and 03/07/22 tablet vomiting 30 days #60 tabs dicyclomine 20 mg tablet 20 mg PO TID PRN for abdominal 06/04/22 pain #180 tabs amoxicillin 500 mg tablet 500 mg PO TID #15 tabs 01/22/23 <JALYN Griffin Last Filed: 01/22/23 12:38> Allergies/Adverse Reactions: Allergies Allergy/AdvReac Type Severity Reaction Status Date / Time tramadol [From Ultram] Allergy Mild nervous Verified 10/24/22 09:20 system <Sharla Ames NP - Last Filed: 01/22/23 12:38> Review of Systems Review of Systems: Constitutional: No Fever, No Chills ENT/Mouth: + epistaxis, No Ear Pain, No Nasal Congestion, No Sinus Pain, No sore throat, No Rhinorrhea, No Swallowing Difficulty Cardiovascular: No Chest Pain, No SOB Respiratory: No Cough, No Sputum Gastrointestinal: No Nausea, No Vomiting, No Diarrhea, No Constipation, No Abdominal pain Musculoskeletal: No joint pain, No Myalgias, No Joint Swelling Skin: No Skin Lesions, No rash Neuro: No Weakness, No Numbness, No Paresthesias <VICKIE Martell - Last Filed: 01/22/23 14:38> Yes all other systems are reviewed and are negative <VICKIE Martell - Last Filed: 01/22/23 14:38> Constitutional: Constitutional: Reports as per HPI <VICKIE Martell - Last Filed: 01/22/23 14:38> [facility] Past Medical History Attestation statement: The following information was validated with the patient. <VICKIE Martell - Last Filed: 01/22/23 14:38> Medical History: Medical History BPH without urinary obstruction Left breast mass Left knee pain Mass of right elbow Nephrolithiasis No known health problems Partial small bowel obstruction Physical exam Renal calculi Umbilical hernia <Sharla Ames NP - Last Filed: 01/22/23 12:38> Surgical History: Surgical History H/O hemorrhoidectomy H/O lateral meniscus repair of left knee H/O umbilical hernia repair History of esophagogastroduodenoscopy (EGD) History of excision of mass (03/07/22) History of laparoscopic cholecystectomy (10/16/22) Hx of colonoscopy <JALYN Griffin Last Filed: 01/22/23 12:38> Family History Family History: Family History Father CAD (coronary artery disease) Mother Breast cancer <Sharla Ames NP - Last Filed: 01/22/23 12:38> Social History Social History: Social History Housing: House Alcohol intake: never Patient Tobacco Use Status: Never used Tobacco e-Cigarette/Vaping Use: Never Used Second Hand Smoke Exposure: No Advance Directives: Yes Advance Directives on File: Yes Advance Directives Date on File: 09/02/20 service: No Current occupational status: employed Current occupation: [employer] - Right Handed <Sharla Ames NP - Last Filed: 01/22/23 12:38> Physical Exam Vital Signs: Vital Signs: Last Vital Signs Temp 97.6 F 01/22/23 12:34 Pulse 87 01/22/23 12:34 Resp 20 01/22/23 12:34 BP 138/88 01/22/23 12:34 Pulse Ox 98 01/22/23 12:34 O2 Del Method Room Air 01/22/23 12:34 BMI result Body Mass Index 27.8 <Sharla Ames NP - Last Filed: 01/22/23 12:38> Vital Signs: Last Vital Signs Temp 97.6 F 01/22/23 12:34 Pulse 87 01/22/23 12:34 Resp 20 01/22/23 12:34 BP 138/88 01/22/23 12:34 Pulse Ox 98 01/22/23 12:34 O2 Del Method Room Air 01/22/23 12:34 BMI result Body Mass Index 27.8 <VICKIE Martell - Last Filed: 01/22/23 14:38> Const: General: cooperative, healthy appearing and no acute distress <VICKIE Martell - Last Filed: 01/22/23 14:38> Orientation/consciousness: patient oriented x3 <VICKIE Martell - Last Filed: 01/22/23 14:38> Limitations: no limitations <VICKIE Martell - Last Filed: 01/22/23 14:38> HEENT: Other: No septal hematoma <VICKIE Martell - Last Filed: 01/22/23 14:38> Head: Yes normal to inspection and Yes atraumatic <Samantha Claudio PA - Last Filed: 01/22/23 14:38> Ears: hearing grossly normal bilaterally <Samantha Claudio PA - Last Filed: 01/22/23 14:38> General nose exam: Normal external nose present, Normal nares present, Normal septum present, nasal discharge present, no epistaxis and no foreign body in nares <Samantha Claudio PA - Last Filed: 01/22/23 14:38> Face and sinus: Yes normal facial exam <Samantha Claudio PA - Last Filed: 01/22/23 14:38> Throat: Yes posterior oropharynx normal, Yes tonsils normal and No uvula laterally displaced <Samantha Claudio PA - Last Filed: 01/22/23 14:38> Eyes: General: appearance normal, both eyes and all related structures <Samantha Claudio PA - Last Filed: 01/22/23 14:38> EOM: EOMs intact bilaterally <Samantha Claudio PA - Last Filed: 01/22/23 14:38> Neck: Neck: Yes normal visual inspection and Yes no meningeal signs <Samantha Claudio PA - Last Filed: 01/22/23 14:38> Resp: Effort & Inspection: normal respiratory effort and no respiratory distress <Samantha Claudio PA - Last Filed: 01/22/23 14:38> Cardio: Rate: regular rate <Samantha Claudio PA - Last Filed: 01/22/23 14:38> Skin: Rashes: no rashes <Samantha Claudio PA - Last Filed: 01/22/23 14:38> Wounds: no wounds <Samantha Claudio PA - Last Filed: 01/22/23 14:38> Neuro: General: patient oriented x3, tone normal and no meningeal signs <Samantha Claudio PA - Last Filed: 01/22/23 14:38> Gait exam (Neuro): Normal gait present <Samantha Claudio PA - Last Filed: 01/22/23 14:38> Extrem: General: Yes normal to inspection <VICKIE Martell - Last Filed: 01/22/23 14:38> Course Course Course Narrative: This is a rapid medical exam. Defer additional HPI, ROS, PE primary provider. Patient was seen here this morning for epistaxis. He had nasal packing placed. He was discharged home on amoxicillin with recommendations to follow-up with your nose and throat. Patient returns today because he would like the packing removed due to discomfort. I removed the packing from the left nare per the patient's wishes. There was some slight bleeding noted along the septal wall anteriorly. This was sprayed with Afrin. Patient will be monitored in the waiting room and reassessed to see if there is any resumption of bleeding. He is aware he may need to have packing replaced if there is continued bleeding. VSS <Sharla Ames NP - Last Filed: 01/22/23 12:38> Medications Administered Discontinued Medications Generic Name Dose Route Start Last Admin Trade Name Freq PRN Reason Stop Dose Admin Oxymetazoline HCl 2 spray 01/22/23 12:37 01/22/23 12:39 Oxymetazoline Hcl 0.05 % Nasal 15 Ml [place] NOSTRIL-B 01/22/23 12:38 2 spray ONCE ONE Administration <Sharla Ames NP - Last Filed: 01/22/23 12:38> Medications Administered Discontinued Medications Generic Name Dose Route Start Last Admin Trade Name Freq PRN Reason Stop Dose Admin Oxymetazoline HCl 2 spray 01/22/23 12:37 01/22/23 12:39 Oxymetazoline Hcl 0.05 % Nasal 15 Ml [place] NOSTRIL-B 01/22/23 12:38 2 spray ONCE ONE Administration <VICKIE Martell - Last Filed: 01/22/23 14:38> Medical Decision Making Medical Decision Making MDM Narrative: 57-year-old male with a past medical history renal stones, left nare epistaxis s/p rhinorocket placement this morning in our ED presenting to the ED for packing removal due to discomfort. On exam vital signs stable, NAD, nontoxic appearing, rhino rocket removed in triage, patient has been in the ED for over 2 hours without evidence of rebleed. No appreciable septal hematoma Discussed with patient strict return precautions. Reports he has follow-up with ENT in 5 days Please refer to course for remaining clinical decision making, interpretation of labs/imaging results, and discussions with consultants and/or family members. <VICKIE Martell - Last Filed: 01/22/23 14:38> Differential Diagnosis Differential Diagnoses: The differential diagnosis associated with the presentation includes <VICKIE Martell - Last Filed: 01/22/23 14:38> As above <VICKIE Martell - Last Filed: 01/22/23 14:38> Admission/Observation Consideration of admission/observation: Escalation of care including admission/observation considered <VICKIE Martell - Last Filed: 01/22/23 14:38> Lab Data MDM Lab Attestation statement: I reviewed the patient's lab results. <VICKIE Martell - Last Filed: 01/22/23 14:38> Radiology Impression Discussion of test interpretation with radiology: I have reviewed the radiologist's reading. <VICKIE Martell - Last Filed: 01/22/23 14:38> External Record Review External record reviewed: Inpatient record, Office record, Outpatient record, Prior outpatient labs, Prior outpatient radiology, Primary care record and Outside ED record <VICKIE Martell - Last Filed: 01/22/23 14:38> Discharge Plan Discharge Clinical Impression: Encounter for removal of nasal packing <Sharla Ames NP - Last Filed: 01/22/23 12:38> Patient Disposition: Home, Self-Care <Sharla Ames NP - Last Filed: 01/22/23 12:38> Instructions: Nosebleed (ED) <Sharla Ames NP - Last Filed: 01/22/23 12:38> Additional Instructions: Avoid increased pressure to her face. Do not blow your nose. Please follow-up with ENT specialist. Do not pick her nose. If symptoms persist/worsen, he developed nose bleed again 1st hold direct pressure for 15 straight minutes without letting go you may try Afrin at home if pressure doesn't work, if these do not work return to the ED <Sharla Ames NP - Last Filed: 01/22/23 12:38> Prescriptions: No Action dicyclomine 20 mg tablet 20 mg PO TID PRN (Reason: for abdominal pain) Qty: 180 1RF ascorbic acid (vitamin C) [Vitamin C] 500 mg Tablet 500 mg PO DAILY omega-3 fatty acids Capsule 1,000 mg PO DAILY amoxicillin 500 mg tablet 500 mg PO TID Qty: 15 0RF ondansetron 4 mg tablet,disintegrating 4 mg PO Q8H PRN (Reason: nausea and vomiting) 30 Days Qty: 60 3RF cholecalciferol (vitamin D3) 25 mcg (1,000 unit) capsule 25 mcg PO DAILY <Sharla Ames NP - Last Filed: 01/22/23 12:38> Referrals: Hipolito Moreno [Physician] - Luzma Marcelo MD [Primary Care Provider] - <Sharla Ames NP - Last Filed: 01/22/23 12:38>
[2023-01-22] MEDS: Oxymetazoline HCl 0.05 % Nasal 15 ML SPRAY 2 SPRAY NOSTRIL-B (12:39)
--- NOTE | 2023-01-22 13:32 | PC.NURSE ---
PT AMBULATORY TO EXAM ROOM WITH SON AT BEDSIDE, NO RHINO ROCKET PRESENT, PT STS THAT HIS NOSE HAS NOT BEEN BLEEDING WHILE IN WAITING ROOM- PT A&O X3 ESTONIAN SPEAKING
== END 2023-01-22 14:40 | disposition home or self-care (01) ==
PROVIDERS: Emergency Provider Emergency Medicine; PCP Internal Medicine
DX: R04.0 Epistaxis (principal)
CPT/HCPCS: 99283

== ENCOUNTER → 2023-02-03 07:10 | Outpatient (BNVA) | payer OTHER, SELFPAY | PROVIDERS: PCP Internal Medicine; Visit Provider Internal Medicine Gastroenterology | DX: K59.09 Other constipation (principal); K80.20 Calculus of gallbladder without cholecystitis without obstruction; R10.10 Upper abdominal pain, unspecified; R14.0 Abdominal distension (gaseous); Z87.19 Personal history of other diseases of the digestive system; Z86.010 Personal history of colon polyps | CPT/HCPCS: 99212 ==

== ENCOUNTER 2023-04-07 07:43 | Outpatient (REF) | payer OTHER, SELFPAY ==
--- NOTE | ~2023-04-07 | US_ITS ---
EXAMINATION: US RETROPERITONEAL LIMITED (RENAL ONLY) CLINICAL INFORMATION: Calculus of kidney. COMPARISON: Ultrasound retroperitoneal limited (renal only) 04/09/2022. CT abdomen and pelvis without contrast 03/14/2022. Ultrasound retroperitoneal limited (renal only) 10/19/2021. MR abdomen without and with contrast 05/18/2021. TECHNIQUE: Real-time imaging of the kidneys. FINDINGS: RIGHT KIDNEY: 11.1 x 5.2 x 4.7 cm (SAG x AP x TRV). The kidney is normal in size, contour, and echogenicity. Renal cortical thickness is normal. No focal parenchymal lesions. There is pelviectasis, without idalmis hydronephrosis. At the interpolar aspect, a 3 mm nonobstructing calculus is seen. LEFT KIDNEY: 12.1 x 5.5 x 5.4 cm (SAG x AP x TRV). The kidney is normal in size, contour, and echogenicity. Renal cortical thickness is normal. No hydronephrosis. At the lower pole, a 2 mm nonobstructing calculus is seen. At the upper pole, a 2.5 cm benign, simple cyst is seen. US/US renal BI IMPRESSION: 1. There are nonobstructing bilateral renal calculi. There is right pelviectasis. No idalmis hydronephrosis is seen bilaterally. 2. A 2.5 cm benign, simple left renal upper pole cyst is seen, for which no imaging follow-up is recommended.
== END 2023-04-07 07:44 | disposition home or self-care (01) ==
LOC: HO.US 07:43
PROVIDERS: PCP Internal Medicine; Visit Provider Urology
DX: N20.0 Calculus of kidney (principal)
CPT/HCPCS: 76775

== ENCOUNTER 2023-04-29 22:49 | Emergency (ER) | payer OTHER, SELFPAY ==
--- NOTE | ~2023-04-29 | CT_ITS ---
EXAMINATION: CT ABDOMEN AND PELVIS WITHOUT CONTRAST CLINICAL INFORMATION: Left flank pain, blood in urine, rule out ureter stone COMPARISON: 03/14/2022 TECHNIQUE: Multidetector volumetric imaging was performed from the superior aspect of the liver through the pubic symphysis. Sagittal and coronal reformatted images were obtained on the technologist's workstation. This CT examination was performed using dose optimization techniques as appropriate, variously including the following: *Automated exposure control *Adjustment of mA and/or kV according to patient size (this includes techniques or standardized protocols for targeted exams where dose is matched to indication/reason for exam; i.e. extremities or head) *Use of iterative reconstruction technique DLP: 570 mGy-cm FINDINGS: LUNG BASES: The visualized lung bases are unremarkable. LIVER, GALLBLADDER, AND BILIARY TREE: The liver is normal in size, shape, and attenuation. No focal hepatic lesion or biliary ductal dilatation is identified on this noncontrast exam. Patient is status post cholecystectomy. PANCREAS: Unremarkable. SPLEEN: Unremarkable. ADRENAL GLANDS: Unremarkable. KIDNEYS AND URETERS: There is a 6 mm mid right ureteral calculus with mild hydronephrosis. No left hydronephrosis. A few tiny bilateral renal calculi are noted measuring up to 3 mm. There is a left upper pole renal cyst; no follow-up recommended. BLADDER: Minimally distended and grossly unremarkable. GASTROINTESTINAL TRACT: No evidence of bowel obstruction or significant wall thickening. The appendix is unremarkable. No free fluid or free air is seen. ABDOMINAL WALL: No significant hernia is appreciated. LYMPH NODES: Normal. VASCULAR: Unremarkable. PELVIC VISCERA: Unremarkable. OSSEOUS STRUCTURES: Unremarkable. CT/CT abdomen pelvis wo IV con IMPRESSION: 1. Mid right ureteral calculus measuring 6 mm with mild hydronephrosis. 2. Few tiny bilateral renal calculi.
[2023-04-29 22:59] VITALS: BP 150/83; PULSE 66; RESP 18; TEMP 36.9; O2SAT 99; BMI 26.1
--- NOTE | 2023-04-29 23:23 | MHC.EDTECH ---
This tech obtained labs and a urine in triage and sent to lab
[2023-04-29 23:30] LABS: Basophils Percent Auto 0.3 % (0-2); Eosinophils Absolute Auto 0.2 X10*3/uL (0.0-0.4); Eosinophils Percent Auto 3.1 % (0-4); Hematocrit 43.8 % (42.0-52.0); Hemoglobin 14.7 g/dl (14.0-18.0); Imm Gran Abs Auto 0.03 X10*3/uL (0.00-0.03); Imm Gran Pct Auto 0.5 % (0.0-0.4); Lymphocytes Absolute Auto 2.1 X10*3/uL (1.2-4.9); Lymphocytes Percent Auto 34.9 % (20-40); MANUAL DIFF FLAG NO; Mean Corpuscular HGB Conc 33.6 g/dl (31.0-36.0); Mean Corpuscular Hemoglobin 27.5 pg (27.0-33.0); Mean Corpuscular Volume 81.9 fL (80.0-98.0); Mean Platelet Volume 9.4 fL (9.4-12.4); Monocytes Absolute Auto 0.4 X10*3/uL (0.1-1.2); Neutrophils Absolute Auto 3.3 x10*3/uL (2.0-8.3); Neutrophils Percent Auto 54.2 % (45-73); Platelet Count 205 X10*3/uL (160-400); Red Blood Count 5.35 X10*6/uL (4.60-5.80); Red Cell Distribution Width 13.2 % (11.0-16.0)
[2023-04-29 23:39] LABS: Appearance Urine Clear; Color Urine Yellow; Glucose Urine UA Negative (Negative); Leukocyte Esterase Urine Negative (Negative); Nitrite Urine Negative (Negative); UMIC TRIGGER UACC YES; Urine Blood Moderate (2+) (Negative); Urine Ketones Negative (Negative); Urine Protein Negative (Neg-Trace)
[2023-04-29 23:44] LABS: Alanine Aminotransferase 33 U/L (0-40); Alkaline Phosphatase 57 U/L (39-117); Anion Gap 11 (12-20); Aspartate Amino Transferase 23 U/L (5-37); Bilirubin Total 0.4 mg/dL (0.0-1.0); Blood Urea Nitrogen 18 mg/dL (9-16); Calcium 9.6 mg/dL (8.4-10.2); Carbon Dioxide 26 mmol/L (22-29); Chloride 102 mmol/L (96-108); Creatinine Clr Calc Pharmacy 78.2; Estimated Glomerular Filt Rate > 60; Glucose Random 133 mg/dL (60-115); Sodium 135 mmol/L (135-145); Total Protein 6.6 g/dL (6.5-8.0)
[2023-04-29 23:44] LABS: Bacteria Urine None Seen (None Seen); Hyaline Casts Urine 0-2 /LPF (0-2); RBC Urine >20 /HPF (0-2); Squamous Epithelial Cell Urine 0-2 /HPF (0-2); WBC Urine 0-5 /HPF (0-5)
[2023-04-30] MEDS: Ketorolac Tromethamine 30 MG/ML VIAL IVPUSH (00:59)
--- NOTE | 2023-04-30 01:46 | ED.ABDPAIN ---
HPI - Abdominal Pain General Chief Complaint: Abdominal Pain Stated Complaint: kidney pain/abd pain Time Seen by Provider: 04/30/23 00:45 Source: patient and family Mode of arrival: ambulatory Limitations: no limitations History of Present Illness HPI narrative: Patient comes to the emergency room accompanied by his son. Patient states that since this morning, patient has been having right-sided flank pain intermittently. Patient denies hematuria or dysuria. Patient states that he has history of kidney stones on the left side which occurred +10 years ago. Patient denies fever chills Related Data Home Medications Medication Instructions Recorded Confirmed ascorbic acid (vitamin C) 500 mg 500 mg PO DAILY 08/27/20 02/03/23 tablet (Vitamin C) omega-3 fatty acids 1,000 mg PO DAILY 08/27/20 02/03/23 cholecalciferol (vitamin D3) 25 25 mcg PO DAILY 01/21/22 02/03/23 mcg (1,000 unit) capsule Previous Rx's Medication Instructions Recorded dicyclomine 20 mg tablet 20 mg PO TID PRN for abdominal 06/04/22 pain #180 tabs bisacodyl 5 mg tablet,delayed 10 mg PO ONCE 1 day #2 tabs 02/03/23 release (Dulcolax (bisacodyl)) polyethylene glycol 3350 17 17 g PO DAILY 1 day #238 grams 02/03/23 gram/dose oral powder (Miralax) polyethylene glycol 3350 17 238 g PO ONCE 1 day #238 grams 04/29/23 gram/dose oral powder (Miralax) ketorolac 10 mg tablet 10 mg PO TID PRN pain #10 tabs 04/30/23 ondansetron HCl 4 mg tablet 4 mg PO Q6H PRN nausea and 04/30/23 vomiting #14 tabs oxycodone 5 mg tablet 5 mg PO BID PRN pain #4 tabs 04/30/23 tamsulosin 0.4 mg capsule (Flomax) 0.4 mg PO DAILY #14 caps 04/30/23 Allergies Allergy/AdvReac Type Severity Reaction Status Date / Time tramadol [From Ultram] Allergy Mild nervous Verified 02/03/23 07:15 system Review of Systems Review of Systems Constitutional : No Weight loss, No Fever, No Chills, No Night Sweats, No Fatigue, No Malaise ENT/Mouth : No Hearing loss, No Ear Pain, No Nasal Congestion, No Sinus Pain, No Hoarseness, No sore throat, No Rhinorrhea, No Swallowing Difficulty Eyes: No Eye Pain, No Swelling, No Redness, No Foreign Body, No Discharge, No Vision Changes Cardiovascular : No Chest Pain, No SOB, No Dyspnea on Exertion, No Orthopnea, No Edema, No Palpitations Respiratory : No Cough, No Sputum, No Wheezing, No Smoke Exposure, No Dyspnea Gastrointestinal : No Nausea, No Vomiting, No Diarrhea, No Constipation, No abdominal Pain, No Hematochezia, No Melena Genitourinary : no irregular bleeding, No Dysuria, No Urinary Frequency, No Hematuria, No Urinary Incontinence, No Urgency, complaining of right-sided Flank Pain, No Urinary Flow Changes, No Hesitancy Musculoskeletal : No joint pain, No Myalgias, No Joint Swelling Skin : No Skin Lesions, No rash Neuro : No Weakness, No Numbness, No Paresthesias, No Loss of Consciousness, No Dizziness, No Headache Psych : No Anxiety/Panic, No Depression, No SI/HI/AH/VH, No Social Issues, Heme/Lymph: No Bruising, No Bleeding,No Lymphadenopathy Endocrine : No Polyuria, No Polydipsia, No Temperature Intolerance PMFSH Past Medical History Medical History BPH without urinary obstruction Left breast mass Left knee pain Mass of right elbow Nephrolithiasis No known health problems Partial small bowel obstruction Physical exam Renal calculi Umbilical hernia Surgical History H/O hemorrhoidectomy H/O lateral meniscus repair of left knee H/O umbilical hernia repair History of esophagogastroduodenoscopy (EGD) History of excision of mass (03/07/22) History of laparoscopic cholecystectomy (10/16/22) Hx of colonoscopy Family History Family History Father CAD (coronary artery disease) Mother Breast cancer Social History Social History Housing: House Alcohol intake: never Patient Tobacco Use Status: Never used Tobacco Smoked in Last 30 Days: No e-Cigarette/Vaping Use: Never Used Second Hand Smoke Exposure: No Use of substances other than those prescribed or required for medical reasons: No Advance Directives: Yes Advance Directives on File: Yes Advance Directives Date on File: 09/02/20 service: No Current occupational status: employed Current occupation: [employer] - Right Handed Physical Exam ED Vital Signs: Vital Signs - 24 hr 04/29/23 22:59 Temperature 98.4 F Pulse Rate 66 Respiratory Rate 18 Blood Pressure 150/83 H Pulse Oximetry 99 Oxygen Delivery Method Room Air BMI result Body Mass Index 26.1 Const Other: Appearance: Alert. Oriented X3. Seems uncomfortable Eyes: Pupils equal, round and reactive to light. ENT: Pharynx normal. Neck: Normal inspection. Neck supple. No lymph nodes noted. No crepitus CVS: Normal heart rate and rhythm. Pulses normal. Normal S1 and S2 Respiratory: No respiratory distress. Breath sounds normal. No Wheezing. No rales Abdomen: Soft and nontender. No rigidity. No distention. Positive CVA tenderness on the right Skin: Skin warm and dry. Normal skin color. Normal skin turgor. Extremities: No lower extremity edema. No Lacerations. No Rash Neuro: Oriented X 3. No motor deficit. No sensory deficit. Moving all extremities. No slurred speech. CN 2 through 12 grossly intact Psych: calm, cooperative, normal affect Medical Decision Making Medical Decision Making [facility] Narrative: -my interpretation of CT scan of the abdomen pelvis: There is approximately a 5 mm kidney stone in the right ureter approximately midway between the kidney and the bladder -patient was giving IV ketorolac. Patient states that he feels much better but would like a bit more pain medication, then patient was given a dose of morphine. -I discussed with the patient that this kidney stone is 6 mm and there is a chance that it might not pass by itself and might need lithotripsy. Differential Diagnosis Differential Diagnoses: The differential diagnosis associated with the presentation includes (Kidney stone, diverticulitis, functional abdominal pain, SBO) Admission/Observation Consideration of admission/observation: Escalation of care including admission/observation considered (Patient has a 6 mm stone. Initially in significant pain, after couple of doses of medication patient feeling better) Lab Data [facility] Lab Attestation statement: I reviewed the patient's lab results. (White blood cell count normal, creatinine normal) 04/29/23 23:23 04/29/23 23:23 Labs: Lab Results 04/29/23 04/29/2323 Range/Units 23:13 23:23 23:23 WBC 6.0 (4.8-10.8) X10*3/uL RBC 5.35 (4.60-5.80) X10*6/uL Hgb 14.7 (14.0-18.0) g/dl Hct 43.8 (42.0-52.0) % MCV 81.9 (80.0-98.0) fL MCH 27.5 (27.0-33.0) pg MCHC 33.6 (31.0-36.0) g/dl RDW 13.2 (11.0-16.0) % Plt Count 205 (160-400) X10*3/uL MPV 9.4 (9.4-12.4) fL Immature Gran % (Auto) 0.5 H (0.0-0.4) % Neut % (Auto) 54.2 (45-73) % Lymph % (Auto) 34.9 (20-40) % [place] % (Auto) 7.0 (2-11) % Eos % (Auto) 3.1 (0-4) % Baso % (Auto) 0.3 (0-2) % Lymph # (Auto) 2.1 (1.2-4.9) X10*3/uL [place] # (Auto) 0.4 (0.1-1.2) X10*3/uL Eos # (Auto) 0.2 (0.0-0.4) X10*3/uL Baso # (Auto) 0.0 (0.0-0.2) X10*3/uL Abs Immat Gran (auto) 0.03 (0.00-0.03) X10*3/uL Absolute Neuts (auto) 3.3 (2.0-8.3) x10*3/uL Absolute Nucleated RBC 0.000 (0.0-0.012) X10*3/uL Nucleated RBC % (auto) 0.0 (0.0-0.2) /100WBC Sodium 135 (135-145) mmol/L Potassium 4.0 (3.3-5.1) mmol/L Chloride 102 (96-108) mmol/L Carbon Dioxide 26 (22-29) mmol/L Anion Gap 11 L (12-20) BUN 18 H (9-16) mg/dL Creatinine 1.05 (0.5-1.4) mg/dL Estim Creat Clear Calc 78.2 Estimated GFR > 60 Random Glucose 133 H (60-115) mg/dL Calcium 9.6 (8.4-10.2) mg/dL Total Bilirubin 0.4 (0.0-1.0) mg/dL AST 23 (5-37) U/L ALT 33 (0-40) U/L Alkaline Phosphatase 57 (39-117) U/L Total Protein 6.6 (6.5-8.0) g/dL Albumin 4.0 (3.5-5.0) g/dL Urine Color Yellow Urine Appearance Clear Urine pH 6.0 (5.0-9.0) Ur Specific [place] 1.020 (1.005-1.025) Urine Protein Negative (Neg-Trace) mg/dL Urine Glucose (UA) Negative (Negative) mg/dL Urine Ketones Negative (Negative) mg/dL Urine Blood Moderate (2+) H (Negative) Urine Nitrite Negative (Negative) Ur Leukocyte Esterase Negative (Negative) Urine RBC >20 H (0-2) /HPF Urine WBC 0-5 (0-5) /HPF Ur Squamous Epith Cells 0-2 (0-2) /HPF Urine Bacteria None Seen (None Seen) Hyaline Casts 0-2 (0-2) /LPF Independent Interpretation I performed an independent interpretation of an: CT Scan Radiology Impression Discussion of test interpretation with radiology: I have reviewed the radiologist's reading. Radiologist Impression: FINDINGS: LUNG BASES: The visualized lung bases are unremarkable.? LIVER, GALLBLADDER, AND BILIARY TREE: The liver is normal in size, shape, and attenuation. No focal hepatic lesion or biliary ductal dilatation is identified on this noncontrast exam. Patient is status post cholecystectomy.? PANCREAS: Unremarkable.? SPLEEN: Unremarkable.? ADRENAL GLANDS: Unremarkable.? KIDNEYS AND URETERS: There is a 6 mm mid right ureteral calculus with mild hydronephrosis. No left hydronephrosis. A few tiny bilateral renal calculi are noted measuring up to 3 mm. There is a left upper pole renal cyst; no follow-up recommended. BLADDER: Minimally distended and grossly unremarkable.? GASTROINTESTINAL TRACT: No evidence of bowel obstruction or significant wall thickening. The appendix is unremarkable. No free fluid or free air is seen.? ABDOMINAL WALL: No significant hernia is appreciated.? LYMPH NODES: Normal. VASCULAR: Unremarkable. PELVIC VISCERA: Unremarkable.? OSSEOUS STRUCTURES: Unremarkable.? CT/CT abdomen pelvis wo IV con IMPRESSION: 1.? Mid right ureteral calculus measuring 6 mm with mild hydronephrosis. 2.? Few tiny bilateral renal calculi. ? Independent Historian Clinical information obtained from an independent historian. History obtained from or confirmed by: Other (Son) Medications Administered Discontinued Medications Generic Name Dose Route Start Last Admin Trade Name Freq PRN Reason Stop Dose Admin Ketorolac Tromethamine 30 mg 04/30/23 00:57 04/30/23 00:59 Ketorolac Tromethamine 30 Mg/Ml Vial IVPUSH 04/30/23 00:58 30 mg ONCE ONE Administration Critical Care Time Critical Care Time Critical Care Time: Yes Total Critical Care Time: 30 Attestation: I have personally provided critical care time. Time includes review of lab data, radiology results, discussion with consultants, and monitoring for potential decompensation. Intervention performed as documented. Discharge Plan Discharge Clinical Impression: Ureterolithiasis Patient Disposition: Home, Self-Care Instructions: Kidney Stones (ED) Additional Instructions: Please follow-up with your primary care physician tomorrow. If you have any worsening or new symptoms, please return to the emergency room or call 911 Prescriptions: New tamsulosin [Flomax] 0.4 mg capsule 0.4 mg PO DAILY Qty: 14 0RF ketorolac 10 mg tablet 10 mg PO TID PRN (Reason: pain) Qty: 10 0RF Rx Instructions: Do not use this medication with ibuprofen ondansetron HCl 4 mg tablet 4 mg PO Q6H PRN (Reason: nausea and vomiting) Qty: 14 0RF oxycodone 5 mg tablet 5 mg PO BID PRN (Reason: pain) Qty: 4 0RF Rx Instructions: Partial Fill upon patient request. P.r.n. severe pain No Action dicyclomine 20 mg tablet 20 mg PO TID PRN (Reason: for abdominal pain) Qty: 180 1RF polyethylene glycol 3350 [Miralax] 17 gram/dose powder 238 g PO ONCE 1 Days Qty: 238 0RF Rx Instructions: Take as directed by mouth the day before your procedure. ascorbic acid (vitamin C) [Vitamin C] 500 mg Tablet 500 mg PO DAILY omega-3 fatty acids Capsule 1,000 mg PO DAILY bisacodyl [Dulcolax (bisacodyl)] 5 mg tablet,delayed release (DR/EC) 10 mg PO ONCE 1 Days Qty: 2 0RF Rx Instructions: Take 2 tablets at 12 pm daily starting 1 day before colonoscopy appointment polyethylene glycol 3350 [Miralax] 17 gram/dose powder 17 g PO DAILY 1 Days Qty: 238 0RF Rx Instructions: Mix Miralax with 64 oz(8 cups) of Crystal light. Take 2 tablets of Dulcolax qt 12 pm. Wait to have your 1st bowel movement, then begin drinking Miralax. Drink a glass of Miralax every 10-15 minutes until you are finished. You will drink at least another 4 cups of clear liquid of your choice over the next 2 hours. Please drink as many clear liquids as possible You may have clear liquids up to four hours before your procedure cholecalciferol (vitamin D3) 25 mcg (1,000 unit) capsule 25 mcg PO DAILY Referrals: Manuel Owens MD [Physician] - 05/05/23
[2023-04-30 01:47] VITALS: BP 125/80; PULSE 60; RESP 16; TEMP 36.6; O2SAT 93
[2023-04-30] MEDS: Morphine Sulfate 4 MG/ML CARTRIDGE IVPUSH (01:50)
[2023-04-30] MEDS: Mag&Al/Sim/Diphenhyd/Lidocaine 10 ML ORAL.SUSP PO (01:51)
== END 2023-04-30 02:14 | disposition home or self-care (01) ==
PROVIDERS: Emergency Provider Emergency Medicine; PCP Internal Medicine
DX: N13.2 Hydronephrosis with renal and ureteral calculous obstruction (principal); R10.9 Unspecified abdominal pain; Z79.899 Other long term (current) drug therapy; Z87.442 Personal history of urinary calculi
CPT/HCPCS: 36415; 74176; 80053; 81001; 85025; 96374; 96375; 99284; J1885; J2270

== ENCOUNTER 2023-05-06 11:06 | Day surgery (SDC) | payer OTHER, SELFPAY ==
--- NOTE | 2023-05-05 10:47 | P.CONAN_ITS ---
Documented by User: Tory Zheng NP 05/05/23 10:48 HPI - Anesthesia Eval Consult details Narrative: 57yo [place] [facility] [place]29/23 [facility] Active Problems Active Problems: All Active Problems (Updated 05/01/23 @ 00:03 by Eugene Durham) Blurry vision (Acute) Bursitis of elbow (Acute) Right elbow tendinitis (Acute) Arthritis of right elbow (Acute) Chest pain (Acute) Lateral epicondylitis, right elbow (Acute) Upper abdominal pain (Acute) Chronic constipation (Acute) Abdominal bloating (Acute) Hx of small bowel obstruction (Acute) History of colon polyps (Acute) Epidermal inclusion cyst (Acute) Osteoarthritis of right knee (Acute) Acute lateral meniscal injury of left knee (Acute) Acute lateral meniscal injury of right knee (Acute) Osteoarthritis of left knee (Acute) Lipoma of torso (Acute) Nausea (Acute) Abdominal bloating (Acute) Gallstones (Acute) Frequent headaches (Acute) Biliary colic (Acute) BPH without urinary obstruction (Acute) Physical exam (Acute) Nephrolithiasis (Acute) Umbilical hernia (Acute) Left knee pain (Acute) Renal calculi (Acute) Left breast mass (Acute) Past Medical History Medical History (Updated 05/06/23 @ 13:40 by Gin Palma MD) BPH without urinary obstruction Left breast mass Left knee pain Mass of right elbow Nephrolithiasis Partial small bowel obstruction Renal calculi Umbilical hernia Family History Family History Father CAD (coronary artery disease) Mother Breast cancer Surgical History Surgical History H/O hemorrhoidectomy H/O lateral meniscus repair of left knee H/O umbilical hernia repair History of esophagogastroduodenoscopy (EGD) History of excision of mass (03/07/22) History of laparoscopic cholecystectomy (10/16/22) Hx of colonoscopy History of Problems with Anesthesia: No Social History Social History Housing: House Alcohol intake: never Patient Tobacco Use Status: Never used Tobacco e-Cigarette/Vaping Use: Never Used Second Hand Smoke Exposure: No Use of substances other than those prescribed or required for medical reasons: No Are you DNR?: No Advance Directives: No Advance Directives Information Provided: Yes Advance Directives Date on File: 09/02/20 service: No Current occupational status: employed Current occupation: [employer] - Right Handed Meds Allergies Allergy/AdvReac Type Severity Reaction Status Date / Time tramadol [From Ultram] Allergy Mild nervous Verified 02/03/23 07:15 system Home Medications Medication Instructions Recorded Confirmed Last Taken Type ascorbic acid (vitamin C) 500 mg 500 mg PO DAILY 08/27/20 05/06/23 08/26/20 History tablet (Vitamin C) omega-3 fatty acids 1,000 mg PO DAILY 08/27/20 05/06/23 04/28/23 History cholecalciferol (vitamin D3) 25 25 mcg PO DAILY 01/21/22 05/06/23 Unknown History mcg (1,000 unit) capsule Exam Exam Date and Time: May 05, 2023 1047 Pertinent Lab Results Pertinent Lab Results: Laboratory Tests 04/29/23 04/29/23 23:23 23:23 WBC 6.0 Hgb 14.7 Hct 43.8 Plt Count 205 Sodium 135 Potassium 4.0 Chloride 102 Carbon Dioxide 26 BUN 18 H Creatinine 1.05 Assessment and Plan Assessment Anesthesia Assessment: Chart Reviewed Final Anesthetic Review History of Problems with Anesthesia: No Documented by User: Gin Palma MD 05/06/23 14:49 [facility] Active Problems Active Problems: All Active Problems (Updated 05/06/23 @ 13:38 by Gin Palma MD) Blurry vision (Acute) Bursitis of elbow (Acute) Right elbow tendinitis (Acute) Arthritis of right elbow (Acute) Chest pain (Acute)- patient denies Lateral epicondylitis, right elbow (Acute) Upper abdominal pain (Acute) Chronic constipation (Acute) Abdominal bloating (Acute) Hx of small bowel obstruction (Acute) History of colon polyps (Acute) Epidermal inclusion cyst (Acute) Osteoarthritis of right knee (Acute) Acute lateral meniscal injury of left knee (Acute) Acute lateral meniscal injury of right knee (Acute) Osteoarthritis of left knee (Acute) Lipoma of torso (Acute) Nausea (Acute) Abdominal bloating (Acute) Gallstones (Acute) Frequent headaches (Acute) Biliary colic (Acute) BPH without urinary obstruction (Acute) Nephrolithiasis (Acute) Umbilical hernia (Acute) Left knee pain (Acute) Renal calculi (Acute) Left breast mass (Acute) Past Medical History Medical History (Updated 05/06/23 @ 13:40 by Gin Palma MD) BPH without urinary obstruction Left breast mass Left knee pain Mass of right elbow Nephrolithiasis Partial small bowel obstruction Renal calculi Umbilical hernia Family History Family History Father CAD (coronary artery disease) Mother Breast cancer Family history of problems with anesthesia: No Surgical History Surgical History H/O hemorrhoidectomy H/O lateral meniscus repair of left knee H/O umbilical hernia repair History of esophagogastroduodenoscopy (EGD) History of excision of mass (03/07/22) History of laparoscopic cholecystectomy (10/16/22) Hx of colonoscopy Social History Social History Housing: House Alcohol intake: never Patient Tobacco Use Status: Never used Tobacco e-Cigarette/Vaping Use: Never Used Second Hand Smoke Exposure: No Use of substances other than those prescribed or required for medical reasons: No Are you DNR?: No Advance Directives: No Advance Directives Information Provided: Yes Advance Directives Date on File: 09/02/20 service: No Current occupational status: employed Current occupation: [employer] - Right [employer] Meds Allergies Allergy/AdvReac Type Severity Reaction Status Date / Time tramadol [From Ultra] Allergy Mild nervous Verified 02/03/23 07:15 system Home Medications Medication Instructions Recorded Confirmed Last Taken Type ascorbic acid (vitamin C) 500 mg 500 mg PO DAILY 08/27/20 05/06/23 08/26/20 History tablet (Vitamin C) omega-3 fatty acids 1,000 mg PO DAILY 08/27/20 05/06/23 04/28/23 History cholecalciferol (vitamin D3) 25 25 mcg PO DAILY 01/21/22 05/06/23 Unknown History mcg (1,000 unit) capsule Exam Height,Weight and Vital Signs: Height 5 ft 10 in Weight 82.554 kg Vital Signs Temp Pulse Resp BP Pulse Ox O2 Del Method 05/06/23 12:06 97.0 F 69 18 144/96 H 97 Room Air Airway Mallampati Class: II TM Dist: >3cm Neck ROM: Full Loose/Missing/Broken Teeth: Yes (Missing 1 tooth left back) Heart: RRR Lungs: CTAB Assessment and Plan Assessment Anesthesia Assessment: Anesthesia Plan Discussed Final Anesthetic Review Family History of Problems with Anesthesia: No NPO: Yes ASA Class: II Final Preanesthetic Review: No Changes in Pt Med Stat, Meds/Allgs Chart Reviewed, Consent Obtained/Reviewed and Anes Risks/Benef Reviewed Patient Risk: Low Procedure Risk: Low Assessment/Block/Sedation in SS: Assess/Block/Sedation-SS Anesthetic Plan Anesthetic Plan: MAC: Disposition: Standard PACU
[2023-05-06 11:54] VITALS: BMI 26.1
[2023-05-06 12:06] VITALS: BP 144/96; PULSE 69; RESP 18; TEMP 36.1; O2SAT 97
[2023-05-06] MEDS: Lactated Ringers 1,000 ML 100 ML IVCONT (12:07)
--- NOTE | 2023-05-06 13:07 | MHC.SHP ---
Pre-Procedural Eval Section A Date of Service: 05/06/23 The patient is an INPATIENT: No The History & Physical has been completed within 30 days and I have reviewed it.: No Section B Chief Complaint: Screening, hx of colon polyps, constipation Relevant Family History (Specify if Yes): No Relevant Social History: None Present Medications: see Short Stay Collaborative assessment Medical History: Significant History (Left breast mass Left knee pain Mass of right elbow Nephrolithiasis No known health problems Partial small bowel obstruction Physical exam Renal calculi Umbilical hernia) History of Previous Operations: Relevant previous surgery/procedure and date(s) (H/O hemorrhoidectomy H/O lateral meniscus repair of left knee H/O umbilical hernia repair History of esophagogastroduodenoscopy (EGD) History of excision of mass (03/07/22) History of laparoscopic cholecystectomy (10/16/22) Hx of colonoscopy) Allergies: Allergies Allergy/AdvReac Type Severity Reaction Status Date / Time tramadol [From Ultram] Allergy Mild nervous Verified 02/03/23 07:15 system Review of Systems Sugical H&P ROS: Negative: Constitution, Cardiovascular, Respiratory and Gastrointestinal Exam Surgical H&P Exam: Normal: Heart, Normal: Lungs, Normal: Extremities and Normal: Abdomen Plan Diagnosis/Plan: Unchanged I have reviewed the history and physical and performed a pertinent physical examination on my patient. No changes have occurred unless specified. Time Spent With Patient Time: Total time managing care of this patient today ____ minutes.
--- NOTE | 2023-05-06 14:02 | W.PM.OPN ---
Operative Note Operative Note Date of Service: 05/06/23 Narrative: COLONOSCOPY TILL CECUM WITH BIOPSIES AND SNARE POLYPECTOMY Pre-op diagnosis: colon cancer screening, history of colon polyps Post-op diagnosis:? colon polyps, diverticulosis, hemorrhoids Endoscopist:? Turner Mayorga MD Anesthesia:?MAC Consent: Indications for the procedure and potential complications of bleeding, perforation, reaction to medications and missed diagnosis were discussed with the patient and informed consent was obtained. Instrument: Olympus PCF H 190 L variable stiffness pediatric colonoscope Monitoring: Vital signs and clinical assessment, intermittent blood pressure monitoring, continuous EKG monitoring, Pulse oximetry and Carbon Dioxide monitoring were done throughout the procedure. Please see anesthesia flowsheet. Colon withdrawl time was 23 minutes. Procedure: The patient was placed in the left lateral decubitis position and pre-procedure medications were administered. After a digital rectal examination of the ano-rectum, the video colonoscope was inserted into the rectum and advanced through the colon to the cecum. The colonoscope was slowly withdrawn in a retrograde panoramic fashion and the colon mucosa was carefully examined including a retroflexed view of the rectum. Findings and interventions are described below. Procedure Difficulty: Without difficulty Findings: Terminal Ileum: Not evaluated Cecum: Normal Ascending Colon: A 10-12 mm sessile polyp in the proximal AC - removed with a cold snare Transverse Colon: A 4-5 mm sessile polyp - removed with a cold bx Descending Colon: Normal Sigmoid Colon: Moderate diverticulosis Rectum: Normal Ano-rectum: Moderate internal hemorrhoids Colon preparation: Good Impression and Post Procedure Diagnosis: Colonoscopy Findings: One medium sized and one small polyps removed Moderate diverticulosis seen in the sigmoid colon Moderate hemorrhoids on retroflexed exam. Plan: Await pathology results Patient has an appointment on 08/14/23 in the [facility] with Turner Mayorga M.D.. Repeat Colonoscopy interval based on path results - in 3-5 years if polyps are adenomatous and 10 years if polyps are hyperplastic. Above findings were reviewed with the patient and colon polyps and diverticulosis handouts were given in the discharge area
[2023-05-06 15:05] VITALS: BP 117/79; PULSE 58; RESP 16; TEMP 36.3; O2SAT 98
[2023-05-06 15:20] VITALS: BP 127/83; PULSE 54; RESP 16; TEMP 36.2; O2SAT 99
== END 2023-05-06 15:29 | disposition home or self-care (01) ==
PROVIDERS: PCP Internal Medicine; Visit Provider Internal Medicine Gastroenterology
PROC: 0DJD8ZZ Inspection of Lower Intestinal Tract, Via Natural or Artificial Opening Endoscopic (ICD-10-PCS; CPT 45378; principal; 2023-05-06 15:30)
DX: Z12.11 Encounter for screening for malignant neoplasm of colon (principal); D12.2 Benign neoplasm of ascending colon; D12.3 Benign neoplasm of transverse colon; K57.30 Diverticulosis of large intestine without perforation or abscess without bleeding; K64.8 Other hemorrhoids; R14.0 Abdominal distension (gaseous); K59.09 Other constipation; R10.10 Upper abdominal pain, unspecified; Z86.010 Personal history of colon polyps; Z90.49 Acquired absence of other specified parts of digestive tract; E78.5 Hyperlipidemia, unspecified
CPT/HCPCS: 45380; 45385; 88305

== ENCOUNTER → 2023-05-06 11:06 | Outpatient (BNV) | payer OTHER, SELFPAY | PROVIDERS: PCP Internal Medicine; Visit Provider Internal Medicine Gastroenterology | DX: Z12.11 Encounter for screening for malignant neoplasm of colon (principal); Z86.010 Personal history of colon polyps; K57.30 Diverticulosis of large intestine without perforation or abscess without bleeding; K64.8 Other hemorrhoids; D12.2 Benign neoplasm of ascending colon; D12.3 Benign neoplasm of transverse colon | CPT/HCPCS: 45380; 45385 ==

== ENCOUNTER 2023-05-09 01:21 | Emergency (ER) | payer OTHER, SELFPAY ==
--- NOTE | ~2023-05-09 | CT_ITS ---
EXAMINATION: CT ABDOMEN AND PELVIS WITHOUT CONTRAST CLINICAL INFORMATION: Right mid ureteral stone. Flank pain. COMPARISON: 04/30/2023 TECHNIQUE: Multidetector volumetric imaging was performed from the superior aspect of the liver through the pubic symphysis. Sagittal and coronal reformatted images were obtained on the technologist's workstation. This CT examination was performed using dose optimization techniques as appropriate, variously including the following: *Automated exposure control *Adjustment of mA and/or kV according to patient size (this includes techniques or standardized protocols for targeted exams where dose is matched to indication/reason for exam; i.e. extremities or head) *Use of iterative reconstruction technique DLP: 601 mGy-cm FINDINGS: LUNG BASES: Bibasilar atelectasis. Normal heart size. LIVER, GALLBLADDER, AND BILIARY TREE: The liver is normal in size, shape, and attenuation. No focal hepatic lesion or biliary ductal dilatation is present. Cholecystectomy. PANCREAS: Unremarkable. SPLEEN: Unremarkable. ADRENAL GLANDS: Unremarkable. KIDNEYS AND URETERS: The kidneys are normal in size, shape, and attenuation. Mild right hydroureteronephrosis. This is similar to prior with increased perinephric and periureteral fat stranding. There is progression of the ureteral calculus into the distal ureter. The calculus measures 0.4 cm and is now approximately 2 cm proximal to the ureterovesicular junction. 0.2 cm right midpole renal calculus is 7.5 cm from the posterior axillary line. 0.2 cm left lower pole renal calculus is 9 cm from the posterior axillary line. BLADDER: Unremarkable. GASTROINTESTINAL TRACT: The stomach is unremarkable. Normal caliber small bowel. No 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 Normal appendix. No colonic wall thickening or acute inflammation. No free air or free fluid. ABDOMINAL WALL: No significant hernia is appreciated. LYMPH NODES: Normal. VASCULAR: Unremarkable. PELVIC VISCERA: The prostate and seminal vesicles are unremarkable. OSSEOUS STRUCTURES: No acute or suspicious osseous abnormality. Mild degenerative changes in the spine. CT/CT abdomen pelvis wo IV con IMPRESSION: 1. Mild right hydroureteronephrosis with increased perinephric and periureteral fat stranding. Progression of the distal ureteral calculus into the distal ureter. 2. Additional nonobstructing bilateral renal calculi. Fleischner guidelines were followed.
[2023-05-09 01:34] VITALS: BP 154/88; PULSE 70; RESP 17; TEMP 36.4; O2SAT 97; BMI 26.1
[2023-05-09 02:29] LABS: Basophils Percent Auto 0.3 % (0-2); Eosinophils Absolute Auto 0.2 X10*3/uL (0.0-0.4); Eosinophils Percent Auto 3.1 % (0-4); Hematocrit 42.7 % (42.0-52.0); Hemoglobin 14.4 g/dl (14.0-18.0); Imm Gran Abs Auto 0.01 X10*3/uL (0.00-0.03); Imm Gran Pct Auto 0.2 % (0.0-0.4); Lymphocytes Absolute Auto 2.1 X10*3/uL (1.2-4.9); Lymphocytes Percent Auto 31.8 % (20-40); MANUAL DIFF FLAG NO; Mean Corpuscular HGB Conc 33.7 g/dl (31.0-36.0); Mean Corpuscular Hemoglobin 27.8 pg (27.0-33.0); Mean Corpuscular Volume 82.4 fL (80.0-98.0); Mean Platelet Volume 8.9 fL (9.4-12.4); Monocytes Absolute Auto 0.4 X10*3/uL (0.1-1.2); Monocytes Percent Auto 6.5 % (2-11); Neutrophils Absolute Auto 3.7 x10*3/uL (2.0-8.3); Neutrophils Percent Auto 58.1 % (45-73); Platelet Count 180 X10*3/uL (160-400); Red Blood Count 5.18 X10*6/uL (4.60-5.80); White Blood Count 6.4 X10*3/uL (4.8-10.8)
[2023-05-09 02:45] LABS: Anion Gap 15 (12-20); Blood Urea Nitrogen 18 mg/dL (9-16); Calcium 9.1 mg/dL (8.4-10.2); Carbon Dioxide 22 mmol/L (22-29); Chloride 104 mmol/L (96-108); Creatinine Clr Calc Pharmacy 83.8; Estimated Glomerular Filt Rate > 60; Glucose Random 99 mg/dL (60-115); Potassium 4.3 mmol/L (3.3-5.1); Sodium 137 mmol/L (135-145)
--- NOTE | 2023-05-09 03:27 | ED.MALEGU ---
HPI - Male Genitourinary General Chief complaint: Urogenital-Male Stated complaint: Kidney Stone? Time Seen by Provider: 05/09/23 03:06 Source: patient Mode of arrival: ambulatory Limitations: no limitations History of Present Illness HPI Narrative: 57-year-old male was seen last week for right flank pain due to 5 mm med right ureter stone, patient was sent home on oxycodone, Flomax, prednisone, returned today for increased pain. No fever, no chills. Patient is scheduled to see urologist on 05/23. Related Data Home Medications Medication Instructions Recorded Confirmed ascorbic acid (vitamin C) 500 mg 500 mg PO DAILY 08/27/20 05/06/23 tablet (Vitamin C) omega-3 fatty acids 1,000 mg PO DAILY 08/27/20 05/06/23 cholecalciferol (vitamin D3) 25 25 mcg PO DAILY 01/21/22 05/06/23 mcg (1,000 unit) capsule Previous Rx's Medication Instructions Recorded dicyclomine 20 mg tablet 20 mg PO TID PRN for abdominal 06/04/22 pain #180 tabs ketorolac 10 mg tablet 10 mg PO TID PRN pain #10 tabs 04/30/23 ondansetron HCl 4 mg tablet 4 mg PO Q6H PRN nausea and 04/30/23 vomiting #14 tabs oxycodone 5 mg tablet 5 mg PO BID PRN pain #4 tabs 04/30/23 tamsulosin 0.4 mg capsule (Flomax) 0.4 mg PO DAILY #14 caps 04/30/23 Allergies Allergy/AdvReac Type Severity Reaction Status Date / Time tramadol [From Ultram] Allergy Mild nervous Verified 05/09/23 01:34 system Review of Systems Review of Systems: All other systems are reviewed and are negative Constitutional: Reports as per HPI and Reports no additional constitutional complaints Eyes: Reports as per HPI and Reports no additional eye complaints Reports system reviewed and no additional complaints, except as documented Cardiovascular: Reports as per HPI and Reports no additional cardiovascular complaints Respiratory: Reports as per HPI and Reports no additional respiratory complaints Gastrointestinal: Reports as per HPI and Reports no additional gastrointestinal complaints Genitourinary: Reports no additional female genitourinary complaints Musculoskeletal: Reports no additional musculoskeletal complaints Skin/Breast: Reports system reviewed and no additional complaints, except as docu Psychiatric: Reports no additional psychiatric complaints Endocrine: Reports no additional endocrine complaints Hematologic/Lymphatic: Reports no additional hematologic/lymphatic complaints Allergic/Immunologic: Reports no additional allergic/immunologic complaints Reports system reviewed and no additional complaints, except as documented and Reports Abnormal speech present [facility] Past Medical History Medical History BPH without urinary obstruction Left breast mass Left knee pain Mass of right elbow Nephrolithiasis Partial small bowel obstruction Renal calculi Umbilical hernia Surgical History H/O hemorrhoidectomy H/O lateral meniscus repair of left knee H/O umbilical hernia repair History of esophagogastroduodenoscopy (EGD) History of excision of mass (03/07/22) History of laparoscopic cholecystectomy (10/16/22) Hx of colonoscopy Family History Family History Father CAD (coronary artery disease) Mother Breast cancer Social History Social History Housing: House Alcohol intake: never Patient Tobacco Use Status: Never used Tobacco Smoked in Last 30 Days: No e-Cigarette/Vaping Use: Never Used Second Hand Smoke Exposure: No Use of substances other than those prescribed or required for medical reasons: No Advance Directives: Yes Advance Directives on File: Yes Advance Directives Date on File: 09/02/20 service: No Current occupational status: employed Current occupation: [employer] - Right Handed Physical Exam Vital Signs: Vital Signs: Last Vital Signs Temp 97.9 F 05/09/23 06:09 Pulse 55 05/09/23 06:09 Resp 14 05/09/23 06:09 BP 106/68 05/09/23 06:09 Pulse Ox 96 05/09/23 06:09 O2 Del Method Room Air 05/09/23 06:09 BMI result Body Mass Index 26.1 Vital signs have been reviewed as appeared to be correct. Blood pressure normal. Heart rate normal. Respiration rate normal. Temperature normal. Oxygen saturation normal. Appearance: Alert. Oriented X3. No acute distress. Head: Normal external exam. Normocephalic. Atraumatic. No Hidalgo signs noted. No raccoon eyes noted Eyes: PERRLA. EOMI. Conjunctiva and sclera normal. Eyelids normal. ENT: TM's Normal. Pharynx normal. Uvula midline. Moist mucous membranes. No trismus noted. No drooling noted. No muffled voice noted. Neck: Normal inspection. Neck supple. FROM. No adenopathy. Thyroid Normal. No meningeal signs. No neck mass noted. CVS: Normal heart rate and rhythm. Heart sound normal. No murmurs noted. Pulses normal throughout. Respiratory: No respiratory distress. Painless inspiration. Breath sounds normal. No wheezes/rales/rhonchi noted. Chest nontender. No accessory muscle usage noted or decreased air movement noted. Abdomen: Soft and nontender. Bowel sounds normal in all 4 quadrants. No distention noted. No organomegaly noted. No visible injury noted. Back: R CVA tenderness. Full range of motion noted. Skin: Skin warm and dry. Normal skin color. Normal skin turgor. No rashes/lesions/lacerations noted. Extremities: No lower extremity edema. Extremities exhibit normal range of motion. Extremities nontender. Neuro: Oriented X 3. Cranial nerve exam: II-XII are grossly intact No motor deficit. No sensory deficit. Reflexes normal. Course Course Course Narrative: Right ureteric stone that is moving from previous CT, patient's pain is under good control, no fever, no chills, no nausea, no vomiting. Patient was instructed to take her prednisone/Flomax/oxycodone and keep his appointment with Urology next week. Medications Administered Discontinued Medications Generic Name Dose Route Start Last Admin Trade Name Freq PRN Reason Stop Dose Admin Hydromorphone HCl 1 mg 05/09/23 03:25 05/09/23 04:10 Hydromorphone Hcl 1 Mg/Ml Syringe IVPUSH 05/09/23 03:26 1 mg ONCE ONE Administration Protocol Sodium Chloride 1,000 mls @ 999 mls/hr 05/09/23 03:25 05/09/23 05:39 Ns IV 05/09/23 04:25 Infused .Q1H1M ONE Infusion Ketorolac Tromethamine 15 mg 05/09/23 03:25 05/09/23 04:08 Ketorolac Tromethamine 15 Mg/Ml Vial IVPUSH 05/09/23 03:26 15 mg ONCE ONE Administration Medical Decision Making Differential Diagnosis Differential Diagnoses: The differential diagnosis associated with the presentation includes Admission/Observation Consideration of admission/observation: Escalation of care including admission/observation considered Lab Data MDM Lab Attestation statement: I reviewed the patient's lab results. 05/09/23 02:25 05/09/23 02:25 Labs: Lab Results 05/09/23 05/09/23 05/09/23 Range/Units 02:25 02:25 03:50 WBC 6.4 (4.8-10.8) X10*3/uL RBC 5.18 (4.60-5.80) X10*6/uL Hgb 14.4 (14.0-18.0) g/dl Hct 42.7 (42.0-52.0) % MCV 82.4 (80.0-98.0) fL MCH 27.8 (27.0-33.0) pg MCHC 33.7 (31.0-36.0) g/dl RDW 13.0 (11.0-16.0) % Plt Count 180 (160-400) X10*3/uL MPV 8.9 L (9.4-12.4) fL Immature Gran % (Auto) 0.2 (0.0-0.4) % Neut % (Auto) 58.1 (45-73) % Lymph % (Auto) 31.8 (20-40) % Burt % (Auto) 6.5 (2-11) % Eos % (Auto) 3.1 (0-4) % Baso % (Auto) 0.3 (0-2) % Lymph # (Auto) 2.1 (1.2-4.9) X10*3/uL Burt # (Auto) 0.4 (0.1-1.2) X10*3/uL Eos # (Auto) 0.2 (0.0-0.4) X10*3/uL Baso # (Auto) 0.0 (0.0-0.2) X10*3/uL Abs Immat Gran (auto) 0.01 (0.00-0.03) X10*3/uL Absolute Neuts (auto) 3.7 (2.0-8.3) x10*3/uL Absolute Nucleated RBC 0.000 (0.0-0.012) X10*3/uL Nucleated RBC % (auto) 0.0 (0.0-0.2) /100WBC Sodium 137 (135-145) mmol/L Potassium 4.3 (3.3-5.1) mmol/L Chloride 104 (96-108) mmol/L Carbon Dioxide 22 (22-29) mmol/L Anion Gap 15 (12-20) BUN 18 H (9-16) mg/dL Creatinine 0.98 (0.5-1.4) mg/dL Estim Creat Clear Calc 83.8 Estimated GFR > 60 Random Glucose 99 (60-115) mg/dL Calcium 9.1 (8.4-10.2) mg/dL Total Bilirubin 0.5 (0.0-1.0) mg/dL Direct Bilirubin 0.2 (0.0-0.5) mg/dL AST 24 (5-37) U/L ALT 28 (0-40) U/L Alkaline Phosphatase 57 (39-117) U/L Total Protein 6.6 (6.5-8.0) g/dL Albumin 4.1 (3.5-5.0) g/dL Lipase 20 (8-78) U/L Urine Color Yellow Urine Appearance Clear Urine pH 7.0 (5.0-9.0) Ur Specific Holliday 1.015 (1.005-1.025) Urine Protein Negative (Neg-Trace) mg/dL Urine Glucose (UA) Negative (Negative) mg/dL Urine Ketones Negative (Negative) mg/dL Urine Blood Small (1+) H (Negative) Urine Nitrite Negative (Negative) Ur Leukocyte Esterase Negative (Negative) Urine RBC >20 H (0-2) /HPF Urine WBC 0-5 (0-5) /HPF Ur Squamous Epith Cells 0-2 (0-2) /HPF Urine Bacteria None Seen (None Seen) Hyaline Casts 0-2 (0-2) /LPF Independent Interpretation I performed an independent interpretation of an: CT Scan (Right hydronephrosis) Radiology Impression Discussion of test interpretation with radiology: I have reviewed the radiologist's reading. (1. Mild right hydroureteronephrosis with increased perinephric and periureteral fat stranding. Progression of the distal ureteral calculus into the distal ureter. 2. Additional nonobstructing bilateral renal calculi. ) Discharge Plan Discharge Clinical Impression: Renal calculi, Renal colic Patient Disposition: Home, Self-Care Instructions: Renal Colic (ED) Additional Instructions: Drink plenty of water, take the medicine as prescribed to help the stone to moved down. Prescriptions: No Action dicyclomine 20 mg tablet 20 mg PO TID PRN (Reason: for abdominal pain) Qty: 180 1RF ascorbic acid (vitamin C) [Vitamin C] 500 mg Tablet 500 mg PO DAILY omega-3 fatty acids Capsule 1,000 mg PO DAILY tamsulosin [Flomax] 0.4 mg capsule 0.4 mg PO DAILY Qty: 14 0RF ketorolac 10 mg tablet 10 mg PO TID PRN (Reason: pain) Qty: 10 0RF Rx Instructions: Do not use this medication with ibuprofen ondansetron HCl 4 mg tablet 4 mg PO Q6H PRN (Reason: nausea and vomiting) Qty: 14 0RF oxycodone 5 mg tablet 5 mg PO BID PRN (Reason: pain) Qty: 4 0RF Rx Instructions: Partial Fill upon patient request. P.r.n. severe pain cholecalciferol (vitamin D3) 25 mcg (1,000 unit) capsule 25 mcg PO DAILY Referrals: Manuel Owens MD [Physician] - Luzma Marcelo MD [Primary Care Provider] -
[2023-05-09 03:57] LABS: Appearance Urine Clear; Color Urine Yellow; Glucose Urine UA Negative (Negative); Leukocyte Esterase Urine Negative (Negative); Nitrite Urine Negative (Negative); Specific Gravity - Urine 1.015 (1.005-1.025); UMIC TRIGGER UACC YES; Urine Blood Small (1+) (Negative); Urine Ketones Negative (Negative); Urine Protein Negative (Neg-Trace)
[2023-05-09 04:02] LABS: Bacteria Urine None Seen (None Seen); Hyaline Casts Urine 0-2 /LPF (0-2); RBC Urine >20 /HPF (0-2); Squamous Epithelial Cell Urine 0-2 /HPF (0-2); WBC Urine 0-5 /HPF (0-5)
[2023-05-09] MEDS: 0.9 % Sodium Chloride 1,000 ML 999 ML IV (04:03)
[2023-05-09 04:07] VITALS: BP 127/88; PULSE 65; RESP 16; O2SAT 95
[2023-05-09] MEDS: Ketorolac Tromethamine 15 MG/ML VIAL IVPUSH (04:08)
[2023-05-09] MEDS: HYDROmorphone HCl 1 MG/ML SYRINGE IVPUSH (04:10)
[2023-05-09 04:14] LABS: Alanine Aminotransferase 28 U/L (0-40); Albumin Level 4.1 g/dL (3.5-5.0); Alkaline Phosphatase 57 U/L (39-117); Aspartate Amino Transferase 24 U/L (5-37); Bilirubin Direct 0.2 mg/dL (0.0-0.5); Bilirubin Total 0.5 mg/dL (0.0-1.0); Lipase 20 U/L (8-78); Total Protein 6.6 g/dL (6.5-8.0)
--- NOTE | 2023-05-09 05:35 | PC.NURSE ---
Pt A&Ox4, reports 7/10 constant right flank pain, reports trouble with urination. Pt ambulated to BR with steady gait and reports urination with slight decrease pain. IV line placed and Pt medicated per DEC. Pt reports effectiveness to meds given.
[2023-05-09 06:09] VITALS: BP 106/68; PULSE 55; RESP 14; TEMP 36.6; O2SAT 96
== END 2023-05-09 06:34 | disposition home or self-care (01) ==
PROVIDERS: Emergency Provider Emergency Medicine; PCP Internal Medicine
DX: N20.0 Calculus of kidney (principal); N23 Unspecified renal colic; Z79.899 Other long term (current) drug therapy
CPT/HCPCS: 36415; 74176; 80048; 80076; 81001; 83690; 85025; 96361; 96374; 96375; 99284; 99285; J1170; J1885

== ENCOUNTER 2023-05-18 06:47 | Inpatient (IN) | payer OTHER, SELFPAY ==
[2023-05-18] VITALS (7 sets, daily range): BP systolic 109–166; BP diastolic 77–99; PULSE 59–76; RESP 16–18; TEMP 36.4–37.1; O2SAT 96–100; BMI 26.1
--- NOTE | ~2023-05-18 | CT_ITS ---
EXAMINATION: CT abdomen pelvis wo IV con CLINICAL INFORMATION: Reason for Exam flank pain r/o stone COMPARISON: Prior CT 05/09/2023 TECHNIQUE: Multidetector volumetric imaging was performed from the superior aspect of the liver through the pubic symphysis 100 mL of Omnipaque 350 injected Sagittal and coronal reformatted images were obtained on the technologist's workstation. This CT examination was performed using dose optimization techniques as appropriate, variously including the following: *Automated exposure control *Adjustment of mA and/or kV according to patient size (this includes techniques or standardized protocols for targeted exams where dose is matched to indication/reason for exam; i.e. extremities or head) *Use of iterative reconstruction technique DLP: 898 mGy-cm FINDINGS: LOWER THORAX: Included lung bases are clear. HEPATOBILIARY: No focal hepatic lesions. No biliary ductal dilatation. GALLBLADDER: Gallbladder has been removed. SPLEEN: Spleen is normal in size. PANCREAS: No focal mass or ductal dilatation. STOMACH AND GASTROINTESTINAL TRACT: Stomach is grossly unremarkable. There is no bowel distention or thickening. No CT evidence of appendicitis. ADRENALS: No adrenal nodules. KIDNEYS/URETERS: Redemonstration of right renal hydronephrosis and hydroureter, stones remained lodged at the ureterovesicular junction about 5 mm image 71 series of 3 unchanged. Perinephric fat stranding suggesting high degree of 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 There are additional bilateral tiny nonobstructing kidney stones 2 on the right and one on the left about 2 to 3 mm each. URINARY BLADDER: Partially decompressed. PELVIC VISCERA: There are varicose veins in the right inguinal canal paratesticular. PERITONEUM: No free air or fluid. LYMPH NODES: No lymphadenopathy. VASCULAR:Abdominal aorta normal in size, no aneurysm found. BONES, ABDOMINAL WALL AND SOFT TISSUES: Age-appropriate changes of the spine and skeletal system, no destructive osteolytic or osteosclerotic bone lesion found CT/CT abdomen pelvis wo IV con IMPRESSION: * Redemonstration of right renal hydronephrosis and hydroureter, obstructing stone lodged at the right ureterovesicular junction about 5 mm unchanged. Perinephric fat stranding suggesting high degree of 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 * There are additional tiny bilateral nonobstructing kidney stones. * Status post cholecystectomy. * Prominent likely Varicose veins in the right inguinal canal paratesticular.
--- NOTE | ~2023-05-18 | FL_ITS ---
EXAMINATION: XR FLUOROSCOPY WITH IMAGES CLINICAL INFORMATION: Cystoscopy, ureteroscopy, retrograde. COMPARISON: None available. TECHNIQUE: Fluoroscopy Supervised By: Dr. Manuel Owens. Fluoroscopy Time: 4.1 seconds. Cumulative Dose: 1.24 mGy. DAP: Gycm2. Images: 1. FINDINGS: Single image demonstrates a wire projecting over the expected course of the right distal ureter and bladder. FL/FL guidance in OR IMPRESSION: Fluoroscopic guidance for urology procedure.
[2023-05-18 07:38] LABS: Appearance Urine Clear; Color Urine Yellow; Glucose Urine UA Negative (Negative); Leukocyte Esterase Urine Negative (Negative); Nitrite Urine Negative (Negative); Specific Gravity - Urine <= 1.005 (1.005-1.025); UMIC TRIGGER UACC YES; Urine Blood Small (1+) (Negative); Urine Ketones Negative (Negative); Urine Protein Negative (Neg-Trace)
[2023-05-18 07:51] LABS: Bacteria Urine None Seen (None Seen); Hyaline Casts Urine 0-2 /LPF (0-2); RBC Urine 0-2 /HPF (0-2); Squamous Epithelial Cell Urine 0-2 /HPF (0-2); WBC Urine 0-5 /HPF (0-5)
[2023-05-18 08:49] LABS: MANUAL DIFF FLAG NO
[2023-05-18 08:50] LABS: Basophils Percent Auto 0.5 % (0-2); Eosinophils Absolute Auto 0.2 X10*3/uL (0.0-0.4); Hematocrit 43.3 % (42.0-52.0); Hemoglobin 14.5 g/dl (14.0-18.0); Imm Gran Abs Auto 0.02 X10*3/uL (0.00-0.03); Imm Gran Pct Auto 0.4 % (0.0-0.4); Lymphocytes Absolute Auto 1.7 X10*3/uL (1.2-4.9); Lymphocytes Percent Auto 29.7 % (20-40); Mean Corpuscular HGB Conc 33.5 g/dl (31.0-36.0); Mean Corpuscular Hemoglobin 27.7 pg (27.0-33.0); Mean Corpuscular Volume 82.6 fL (80.0-98.0); Mean Platelet Volume 9.4 fL (9.4-12.4); Monocytes Absolute Auto 0.4 X10*3/uL (0.1-1.2); Monocytes Percent Auto 7.3 % (2-11); Neutrophils Absolute Auto 3.3 x10*3/uL (2.0-8.3); Neutrophils Percent Auto 59.1 % (45-73); Platelet Count 205 X10*3/uL (160-400); Red Blood Count 5.24 X10*6/uL (4.60-5.80); Red Cell Distribution Width 13.2 % (11.0-16.0); White Blood Count 5.6 X10*3/uL (4.8-10.8)
--- NOTE | 2023-05-18 08:58 | ED.GENADULT ---
HPI - General Adult General Chief complaint: General Medical Stated complaint: gallbladder stone? pain Time Seen by Provider: 05/18/23 08:58 Source: patient Mode of arrival: ambulatory Limitations: no limitations History of Present Illness HPI narrative: This is a 57-year-old male presenting to the emergency department for evaluation of right-sided back/flank pain for the past few days worsening. Patient also reports associated urinary frequency, urgency, hesitancy, decreased urinary stream, dysuria and reports that he has also seen some blood in his urine. He reports that his right flank feels sore/tender. At times it is worse with movement. Patient does have a history of kidney stones, currenetly taking flomax. Patient denies fevers, chills, nausea, vomiting, abdominal pain, headache, vision changes, dizziness, jaundice, skin changes, chest pain, shortness of breath, no urinary/bowel incontinence or retention, saddle paresthesias, weakness. Related Data Home Medications Medication Instructions Recorded Confirmed ascorbic acid (vitamin C) 500 mg 500 mg PO DAILY 08/27/20 05/06/23 tablet (Vitamin C) omega-3 fatty acids 1,000 mg PO DAILY 08/27/20 05/06/23 cholecalciferol (vitamin D3) 25 25 mcg PO DAILY 01/21/22 05/06/23 mcg (1,000 unit) capsule Previous Rx's Medication Instructions Recorded dicyclomine 20 mg tablet 20 mg PO TID PRN for abdominal 06/04/22 pain #180 tabs ketorolac 10 mg tablet 10 mg PO TID PRN pain #10 tabs 04/30/23 ondansetron HCl 4 mg tablet 4 mg PO Q6H PRN nausea and 04/30/23 vomiting #14 tabs oxycodone 5 mg tablet 5 mg PO BID PRN pain #4 tabs 04/30/23 tamsulosin 0.4 mg capsule (Flomax) 0.4 mg PO DAILY #14 caps 04/30/23 Allergies Allergy/AdvReac Type Severity Reaction Status Date / Time tramadol [From Ultram] Allergy Mild nervous Verified 05/18/23 07:04 system Review of Systems Review of Systems: Constitutional : No Weight loss, No Fever, No Chills, No Fatigue, No Malaise ENT/Mouth : No sore throat, No Rhinorrhea Eyes: No Eye Pain, No Swelling, No Redness Cardiovascular : No Chest Pain, No SOB, No Dyspnea on Exertion, No Orthopnea, No Edema, No Palpitations Respiratory : No Cough, No Sputum, No Wheezing Gastrointestinal : No Nausea, No Vomiting, No Diarrhea, No Constipation, No abdominal Pain, No Hematochezia, No Melena Genitourinary : + Dysuria, + Urinary Frequency, No Hematuria, Musculoskeletal : No joint pain, No Myalgias, No Joint Swelling, + flank pain Skin : No Skin Lesions, No rash Neuro : No Weakness, No Numbness, No Dizziness, No Headache Psych : No Anxiety/Panic, No Depression All other systems reviewed and are negative Yes all other systems are reviewed and are negative [facility] Past Medical History Attestation statement: The following information was validated with the patient. Source: old records reviewed and nursing notes reviewed Medical History BPH without urinary obstruction Left breast mass Left knee pain Mass of right elbow Nephrolithiasis Partial small bowel obstruction Renal calculi Umbilical hernia Surgical History H/O hemorrhoidectomy H/O lateral meniscus repair of left knee H/O umbilical hernia repair History of esophagogastroduodenoscopy (EGD) History of excision of mass (03/07/22) History of laparoscopic cholecystectomy (10/16/22) Hx of colonoscopy Family History Family History Father CAD (coronary artery disease) Mother Breast cancer Social History Social History Housing: House Alcohol intake: never Patient Tobacco Use Status: Never used Tobacco e-Cigarette/Vaping Use: Never Used Second Hand Smoke Exposure: No Advance Directives: Yes Advance Directives on File: Yes Advance Directives Date on File: 09/02/20 service: No Current occupational status: employed Current occupation: [email or web address] - Right Handed Physical Exam ED Vital Signs: Vital Signs - 24 hr 05/18/23 07:00 05/18/23 10:20 Temperature 98.8 F 97.9 F Pulse Rate 72 67 Respiratory Rate 18 16 Blood Pressure 166/99 H 137/90 H Pulse Oximetry 98 100 Oxygen Delivery Method Room Air Room Air BMI result Body Mass Index 26.1 vss Appearance: Alert.? Oriented X3.? No acute distress.? Head: Normocephalic, atraumatic, no step-offs or deformities Eyes: Pupils equal, round and reactive to light.? ENT: Pharynx normal.? Neck: Normal inspection.? Neck supple.? CVS: Normal heart rate and rhythm.? Pulses normal.? Respiratory: No respiratory distress.? Breath sounds normal.? Abdomen: Soft and nontender.? Skin: Skin warm and dry.? Normal skin color.? Normal skin turgor.? Extremities: No lower extremity edema.? No calf ttp. 5/5 strength to bilateral upper and lower extremities Back: No midline tenderness, no C-spine tenderness, full range of motion, no CVA tenderness bilaterally, + discomfort w/ palpation overlying right upper lumbar region/ flank. Neuro: Oriented X 3.? No motor deficit.? No sensory deficit. CN 2-12 intact . Patient ambulating with steady gait normal coordination. No saddle paresthesias. Course Reevaluation(s) Reevaluation #1: CBC with no acute finding. Chemistry unremarkable. Urine with small amount of blood, CT scan read demonstrating a 5 mm obstructing stone with associated right renal hydronephrosis and hydroureter, patient very uncomfortable this is patient's 3rd visit to the hospital for same complaint, will reach out to Dr. Owens urology did discuss case. Likely hospital admission. Time: 10:56 Reevaluation #2: Spoke to Dr. Owens who agrees with plan, patient to be admitted to the urology service, NPO after midnight. Time: 11:01 Medications Administered Discontinued Medications Generic Name Dose Route Start Last Admin Trade Name Freq PRN Reason Stop Dose Admin Sodium Chloride 1,000 mls @ 999 mls/hr 05/18/23 09:15 05/18/23 10:44 Ns IV 05/18/23 10:15 999 mls/hr .Q1H1M VANCE Administration Ketorolac Tromethamine 30 mg 05/18/23 09:06 05/18/23 10:43 Ketorolac Tromethamine 15 Mg/Ml Vial IVPUSH 05/18/23 09:07 30 mg ONCE ONE Administration Lidocaine 1 patch 05/18/23 09:06 05/18/23 10:43 Lidocaine 4 % Patch Adh..Patch TRANSDERMA 05/18/23 09:07 1 patch ONCE ONE Administration Protocol Medical Decision Making Medical Decision Making [facility] Narrative: [id number] 57-year-old male presents with right-sided lumbar/flank discomfort for the past few days with associated urinary frequency, hematuria, hesitancy, decreased urinary stream, and dysuria Physical exam significant for discomfort w/ palpation overlying right upper lumbar region/ flank. Patient appears uncomfortable Will rule out kidney stone, UTI, pyelonephritis, obstructing uropathy. No signs of acute abdomen, cholecystitis, appendicitis, pancreatitis, diverticulitis. Will rule out electrolyte abnormalities. Other differentials include musculoskeletal. No signs of cauda equina, epidural abscess or cord compression Plan at this time labs, urine, imaging Differential Diagnosis Differential Diagnoses: The differential diagnosis associated with the presentation includes Will rule out kidney stone, UTI, pyelonephritis, obstructing uropathy. No signs of acute abdomen, cholecystitis, appendicitis, pancreatitis, diverticulitis. Will rule out electrolyte abnormalities. Other differentials include musculoskeletal. No signs of cauda equina, epidural abscess or cord compression Admission/Observation Consideration of admission/observation: Escalation of care including admission/observation considered Unlikely Consult Healthcare Provider Management of the patient was discussed with: Order Checker (urology ) Lab Data [facility] Lab Attestation statement: I reviewed the patient's lab results. 05/18/23 08:43 05/18/23 08:43 Labs: Lab Results 05/18/23 05/18/23 05/18/23 Range/Units 07:17 08:43 08:43 WBC 5.6 (4.8-10.8) X10*3/uL RBC 5.24 (4.60-5.80) X10*6/uL Hgb 14.5 (14.0-18.0) g/dl Hct 43.3 (42.0-52.0) % MCV 82.6 (80.0-98.0) fL MCH 27.7 (27.0-33.0) pg MCHC 33.5 (31.0-36.0) g/dl RDW 13.2 (11.0-16.0) % Plt Count 205 (160-400) X10*3/uL MPV 9.4 (9.4-12.4) fL Immature Gran % (Auto) 0.4 (0.0-0.4) % Neut % (Auto) 59.1 (45-73) % Lymph % (Auto) 29.7 (20-40) % Amelia % (Auto) 7.3 (2-11) % Eos % (Auto) 3.0 (0-4) % Baso % (Auto) 0.5 (0-2) % Lymph # (Auto) 1.7 (1.2-4.9) X10*3/uL Amelia # (Auto) 0.4 (0.1-1.2) X10*3/uL Eos # (Auto) 0.2 (0.0-0.4) X10*3/uL Baso # (Auto) 0.0 (0.0-0.2) X10*3/uL Abs Immat Gran (auto) 0.02 (0.00-0.03) X10*3/uL Absolute Neuts (auto) 3.3 (2.0-8.3) x10*3/uL Absolute Nucleated RBC 0.000 (0.0-0.012) X10*3/uL Nucleated RBC % (auto) 0.0 (0.0-0.2) /100WBC Sodium 137 (135-145) mmol/L Potassium 4.7 (3.3-5.1) mmol/L Chloride 104 (96-108) mmol/L Carbon Dioxide 24 (22-29) mmol/L Anion Gap 14 (12-20) BUN 16 (9-16) mg/dL Creatinine 1.02 (0.5-1.4) mg/dL Estim Creat Clear Calc 80.5 Estimated GFR > 60 Random Glucose 91 (60-115) mg/dL Calcium 9.1 (8.4-10.2) mg/dL Urine Color Yellow Urine Appearance Clear Urine pH 7.0 (5.0-9.0) Ur Specific [place] <= 1.005 (1.005-1.025) Urine Protein Negative (Neg-Trace) mg/dL Urine Glucose (UA) Negative (Negative) mg/dL Urine Ketones Negative (Negative) mg/dL Urine Blood Small (1+) H (Negative) Urine Nitrite Negative (Negative) Ur Leukocyte Esterase Negative (Negative) Urine RBC 0-2 (0-2) /HPF Urine WBC 0-5 (0-5) /HPF Ur Squamous Epith Cells 0-2 (0-2) /HPF Urine Bacteria None Seen (None Seen) Hyaline Casts 0-2 (0-2) /LPF Independent Interpretation I performed an independent interpretation of an: CT Scan Radiology Impression Discussion of test interpretation with radiology: I have reviewed the radiologist's reading. Core Measures AMI core measures followed: Yes Measure exclusions: not indicated Critical Care Time Critical Care Time Critical Care Time: Yes Total Critical Care Time: 35 Attestation: I attest to this time spent taking care of the patient, obtaining history, physical, reviewing labs, imaging, speaking to specialist. Discharge Plan Discharge Clinical Impression: Hematuria, Flank pain Patient Disposition: Admitted As Inpatient Instructions: Hematuria (ED), Flank Pain (ED) Additional Instructions: Take your medications as prescribed. If you were prescribed antibiotics today, it is important that you take your medication to their entirety, do not skip any doses, do not finish them early. Follow-up with your primary care provider this week. Return to the emergency department with new or worsening symptoms. Such as fevers, chills, chest pain, shortness of breath, nausea, vomiting, dizziness, headache, vision changes, lethargy In case of emergency call 911 Toradol has been sent to your pharmacy, you tolerated this well in the department. Please take this as prescribed do not take this with ibuprofen, or other NSAIDs, do not mix this with alcohol. Side effects of this medication including increased risk for bleeding and possible kidney injury. Prescriptions: No Action dicyclomine 20 mg tablet 20 mg PO TID PRN (Reason: for abdominal pain) Qty: 180 1RF ascorbic acid (vitamin C) [Vitamin C] 500 mg Tablet 500 mg PO DAILY omega-3 fatty acids Capsule 1,000 mg PO DAILY tamsulosin [Flomax] 0.4 mg capsule 0.4 mg PO DAILY Qty: 14 0RF ketorolac 10 mg tablet 10 mg PO TID PRN (Reason: pain) Qty: 10 0RF Rx Instructions: Do not use this medication with ibuprofen ondansetron HCl 4 mg tablet 4 mg PO Q6H PRN (Reason: nausea and vomiting) Qty: 14 0RF oxycodone 5 mg tablet 5 mg PO BID PRN (Reason: pain) Qty: 4 0RF Rx Instructions: Partial Fill upon patient request. P.r.n. severe pain cholecalciferol (vitamin D3) 25 mcg (1,000 unit) capsule 25 mcg PO DAILY Referrals: Luzma Marcelo MD [Primary Care Provider] - 2 days
[2023-05-18 09:04] LABS: Anion Gap 14 (12-20); Blood Urea Nitrogen 16 mg/dL (9-16); Calcium 9.1 mg/dL (8.4-10.2); Carbon Dioxide 24 mmol/L (22-29); Chloride 104 mmol/L (96-108); Creatinine Clr Calc Pharmacy 80.5; Estimated Glomerular Filt Rate > 60; Glucose Random 91 mg/dL (60-115); Potassium 4.7 mmol/L (3.3-5.1); Sodium 137 mmol/L (135-145)
[2023-05-18] MEDS: Ketorolac Tromethamine 15 MG/ML VIAL 30 MG IVPUSH (10:43)
[2023-05-18] MEDS: Lidocaine 4 % Patch ADH..PATCH 1 PATCH TRANSDERMA (10:43)
[2023-05-18] MEDS: 0.9 % Sodium Chloride 1,000 ML 999 ML IV ×3 (10:44→14:29)
--- NOTE | 2023-05-18 11:04 | PC.NURSE ---
rn to rn with nitish
[2023-05-18] MEDS: predniSONE 20 MG TABLET PO (12:29)
[2023-05-18] MEDS: Tamsulosin HCL 0.4 MG CAPSULE PO (12:29)
[2023-05-18] MEDS: Morphine Sulfate 4 MG/ML CARTRIDGE IVPUSH (12:29)
--- NOTE | 2023-05-18 13:35 | PHA.MEDREC ---
Pharmacy Consult ? Medication Reconciliation Pharmacy has completed the medication reconciliation. spoke with patient through an auto slip cover installer. He took his last dose of tamsulosin yesterday. He has ketorolac at home as needed however patient states he hasn't been using it, last used it a week ago.
--- NOTE | 2023-05-18 16:04 | PC.NURSE ---
UPRIGHT EATING LUNCH WITH FAMILY. NAD.
[2023-05-18] MEDS: Magnesium Hydrox/Alum Hydrox 30 ML ORAL.SUSP PO (19:49)
--- NOTE | 2023-05-18 20:44 | PC.NURSE ---
pt c/o epigastric pain after eating. maalox given with good effect.
--- NOTE | 2023-05-18 21:07 | PM.UROCN ---
History of Present Illness Consult details Consult date: 05/18/23 Narrative: Right recurrent flank pain 57-year-old male presented to emergency room Right-sided flank pain over past 2 days Prior presentation to emergency room Presents with urinary frequency, urgency, hesitancy and decreased stream. Reports has had 1 episode of hematuria. Right flank pain. 05/22 with no modifiers Prior history kidney stones Creatinine 1.0, calcium 9.1 Imaging - CT - right renal hydronephrosis and hydroureter, stones remained lodged at the ureterovesicular junction Recommend intervention Review of Systems Constitutional: Constitutional: Reports as per HPI and Reports no additional constitutional complaints Cardiovascular: Cardiovascular: Reports as per HPI and Reports no additional cardiovascular complaints Respiratory: Respiratory: Reports as per HPI and Reports no additional respiratory complaints Gastrointestinal: Gastrointestinal: Reports as per HPI and Reports no additional gastrointestinal complaints Genitourinary: Genitourinary: Reports as per HPI Musculoskeletal: Musculoskeletal: Reports no additional musculoskeletal complaints and Reports as per HPI Neurologic: Reports system reviewed and no additional complaints, except as documented and Reports as per HPI PMFSH Past Medical History Medical History BPH without urinary obstruction Left breast mass Left knee pain Mass of right elbow Nephrolithiasis Partial small bowel obstruction Renal calculi Umbilical hernia Family History Family History Father CAD (coronary artery disease) Mother Breast cancer Surgical History Surgical History H/O hemorrhoidectomy H/O lateral meniscus repair of left knee H/O umbilical hernia repair History of esophagogastroduodenoscopy (EGD) History of excision of mass (03/07/22) History of laparoscopic cholecystectomy (10/16/22) Hx of colonoscopy Social History Social History Housing: House Alcohol intake: never Patient Tobacco Use Status: Never used Tobacco e-Cigarette/Vaping Use: Never Used Second Hand Smoke Exposure: No Use of substances other than those prescribed or required for medical reasons: No Advance Directives: Yes Advance Directives on File: Yes Advance Directives Date on File: 09/02/20 service: No Current occupational status: employed Current occupation: [employer] - Right Handed Meds Allergies Allergy/AdvReac Type Severity Reaction Status Date / Time tramadol [From Ultram] Allergy Mild nervous Verified 05/18/23 07:04 system Active Medications: Current Medications Pharmacy Consult (Consult Rx Perform Med Rec) 1 each MISCELLANE ONCE PRN PRN Reason: Consult order Home Medications Medication Instructions Recorded Confirmed Last Taken Type ascorbic acid (vitamin C) 500 mg 500 mg PO DAILY 08/27/20 05/18/23 08/26/20 History tablet (Vitamin C) omega-3 fatty acids 1,000 mg PO DAILY 08/27/20 05/18/23 04/28/23 History cholecalciferol (vitamin D3) 25 25 mcg PO DAILY 01/21/22 05/18/23 Unknown History mcg (1,000 unit) capsule sodium chloride-aloe vera nasal 1 spray intranasal QD-BID PRN Dry 05/18/23 05/18/23 Unknown History spray ([place] Saline Gel nasal spray) Nasal Passages Physical Exam Vital Signs: Vital Signs: Last Vital Signs Temp 98.0 F 05/18/23 18:52 Pulse 76 05/18/23 18:52 Resp 18 05/18/23 18:52 BP 132/80 05/18/23 18:52 Pulse Ox 96 05/18/23 18:52 O2 Del Method Room Air 05/18/23 18:52 BMI result Body Mass Index 26.1 Const: General: cooperative, healthy appearing, comfortable and no acute distress Orientation/consciousness: patient oriented x3 HEENT: Face and sinus: Yes normal facial exam Mouth: moist mucous membranes Neck: Neck: Yes normal visual inspection, Yes full ROM and Yes trachea midline Chest: Chest palpation & inspection: normal inspection of the chest Resp: Effort & Inspection: normal respiratory effort, able to speak in complete sentences and no respiratory distress GI: Inspection: Yes normal to inspection Back/Spine/Pelvis: Cervical Spine: normal cervical lordosis Thoracic/Lumbar Spine: thoracic and lumbar spine normal to inspection Skin: General skin exam: no rashes or lesions noted Neuro: General: patient oriented x3, tone normal and moves all extremities Extrem: General: Yes normal to inspection and Yes capillary refill normal Results Labs 05/18/23 08:43 05/18/23 08:43 Labs: Abnormal lab results 05/18/23 Range/Units 07:17 Urine Blood Small (1+) H (Negative) Short CBC 08/06/23 Range/Units 08:43 WBC 5.6 (4.8-10.8) X10*3/uL Hgb 14.5 (14.0-18.0) g/dl Hct 43.3 (42.0-52.0) % Plt Count 205 (160-400) X10*3/uL BMP 05/18/23 08:43 Sodium 137 Potassium 4.7 Chloride 104 Carbon Dioxide 24 BUN 16 Creatinine 1.02 Calcium 9.1 Urine 05/18/23 Range/Units 07:17 Urine Color Yellow Urine Appearance Clear Urine pH 7.0 (5.0-9.0) Ur Specific [place] <= 1.005 (1.005-1.025) Urine Protein Negative (Neg-Trace) mg/dL Urine Glucose (UA) Negative (Negative) mg/dL All other labs normal. Assessment and Plan (1) Hematuria: Status: Acute (2) Renal and ureteric calculus: Status: Acute Plan Ureteroscopy We discussed the nature of the decision and reasonable alternatives for performing ureteroscopy. Options such as medical therapy were discussed. Interventions include chemical dissolution, ESWL, ureteroscopy with laser lithotripsy and stent placement, PCNL. The relative uncertainties and benefits related to each alternate procedure were adequately discussed. General surgical risks including, but not limited to - pain, bleeding, infection, myocardial infarction, pulmonary embolus, deep vein thrombosis and cerebrovascular accident which may result in further hospitalization were discussed. Full disclosure of the procedure as well as all major risks, benefits and complications were discussed including but not limited to damage to the urethra, bladder and kidney infection, damage to the ureter, stent migration or malposition, scarring to the renal pelvis, remnant stone fragments, subsequent stone passage with need for secondary procedures. The overall secondary procedure rate is approximately 10-15%. The overall clearance rate is approximately 90-95%. Success of the procedure in the short-term does not necessarily guarantee that long-term success will be maintained. Suitable follow up will need to be maintained. The patient showed understanding of discussion and wishes to proceed with - cystoscopy, retrograde, ureteroscopy, possible lithotripsy/stone basketing and stent on the right side Time Spent With Patient Time: Total time managing care of this patient today ____ minutes. Procedures Date of Service Date of Service: 05/18/23
[2023-05-18] MEDS: 0.9 % Sodium Chloride 1,000 ML 80 ML IVCONT (22:37)
--- NOTE | 2023-05-18 23:31 | MHC.EDTECH ---
This tech assumed care of pt at 2300, hourly rounds completed vitals were taken and are within normal limits. Patient changed into hospital attire and belongings list completed and placed into chart. Call saldivar within reach.
[2023-05-19] VITALS (14 sets, daily range): BP systolic 107–154; BP diastolic 69–86; PULSE 53–66; RESP 14–18; TEMP 36.1–36.8; O2SAT 96–99; BMI 26.1
--- NOTE | 2023-05-19 01:35 | PC.NURSE ---
Patient ambulating to bathroom independently. Patient without complaints at this time. Patient is generally well appearing.
--- NOTE | 2023-05-19 04:23 | MHC.EDTECH ---
Hourly rounds completed and vitals were taken. Patient is resting comfortably at this time and call saldivar within reach.
--- NOTE | 2023-05-19 06:13 | MHC.EDTECH ---
Hourly rounds completed and vitals were taken. Call saldivar within reach
[2023-05-19] MEDS: 0.9 % Sodium Chloride 1,000 ML 80 ML IVCONT ×2 (07:46→22:48)
--- NOTE | 2023-05-19 07:48 | PC.NURSE ---
patient a&ox3, currently denying pain, vss, ivf running per order, pt awaiting or time, npo, call saldivar within reach, will continue to monitor
--- NOTE | 2023-05-19 09:46 | PC.NURSE ---
pt a&ox3, vss, pt verbalizing 0/10 pain in the flank area. pt resting comfortably watching tv with the lights dimmed. call saldivar placed within reach. will continue to monitor.
--- NOTE | 2023-05-19 10:16 | PC.NURSE ---
called [facility] to give report, RN unavailable. RN states that they will call back shortly.
--- NOTE | 2023-05-19 10:33 | PC.NURSE ---
report given to RN on [facility].
--- NOTE | 2023-05-19 10:57 | PC.NURSE ---
pt transported to assigned bed/unit.
[2023-05-19] MEDS: Acetaminophen 325 MG TABLET 975 MG PO ×2 (14:31→20:06)
--- NOTE | 2023-05-19 17:37 | MHC.SHP ---
Pre-Procedural Eval Section A Date of Service: 05/19/23 The patient is an INPATIENT: Yes Changes since office visit: No Cold of Flu in the past 2 weeks, No New Medical Problems, No Changes in Medication and No Patient answered all questions The History & Physical has been completed within 30 days and I have reviewed it.: Yes Section B Chief Complaint: Stone Details of Present Illness: distal right ureteric stone Allergies: Allergies Allergy/AdvReac Type Severity Reaction Status Date / Time tramadol [From Ultram] Allergy Mild nervous Verified 05/18/23 07:04 system Plan Diagnosis/Plan: Unchanged ( cystoscopy, right retrograde, right ureteroscopy with laser lithotripsy stent placement) I have reviewed the history and physical and performed a pertinent physical examination on my patient. No changes have occurred unless specified. Time Spent With Patient Time: Total time managing care of this patient today ____ minutes.
--- NOTE | 2023-05-19 18:29 | P.OP_ITS ---
Operative Note Operative Note Date of Service: 05/19/23 Narrative: PreOperative Diagnosis: right distal ureteric stone Post Operative Diagnosis: right distal ureteric stone Procedure: - cystoscopy, right retrograde - right dilatation of ureteric orifice under fluoroscopy - right ureteroscopy - right stent placement Surgeon: Dr Manuel Owens Anesthesia: General Indications for procedure: right distal ureteric stone with hydroureteronephrosis Procedure: After informed consent was verified the patient was brought to the operating room and placed in a supine position. Anesthesia was administered per protocol. The patient was placed in a modified dorsal lithotomy position and prepped and draped in a sterile fashion. Safety pause time-out and side of surgery were confirmed. Images were available for review. Antibiotic administration confirmed. A 22 [place] cystoscope was inserted per urethra. The urethra was without aabnormality. The bladder was normal in its entirety. Both ureteric orifices were seen in normal position right ureteric orifice seen to be inflamed. The right ureteric orifice was cannulated and a retrograde examination was performed. filling defects seen . A Sensor guidewire was placed up to the level of the renal pelvis under fluoroscopy. The rigid cystoscope was removed. A John dilator was placed over the Sensor guidewire and used to dilate the ureteric orifice under fluoroscopy. The dilator was removed. The semi rigid ureteral scope was placed alongside the Sensor guidewire. stone had apparently moved and had fallen out of the ureter into the bladder during dilatation. Decision made to place a stent secondary to edema Based on the height of the patient a 6 Fr x 26 stent was used. The string was removed from the stent prior to placement The rigid cystoscope was backloaded over the wire and advanced into the bladder. A 6 [place] by 26 cm double-J stent was placed into the renal pelvis and bladder under a combination of fluoroscopy and direct visualization. The bladder was emptied. The patient tolerated the procedure well and was ex tubated in the operating room. They were transferred in stable condition to the recovery area. Pathology: Drains: Double J stent as described above
--- NOTE | 2023-05-19 19:54 | P.CONAN_ITS ---
[facility] Active Problems Active Problems: All Active Problems (Updated 05/18/23 @ 21:13 by Manuel Owens MD) Renal and ureteric calculus (Acute) Hematuria (Acute) Flank pain (Acute) Blurry vision (Acute) Bursitis of elbow (Acute) Right elbow tendinitis (Acute) Arthritis of right elbow (Acute) Chest pain (Acute) Lateral epicondylitis, right elbow (Acute) Upper abdominal pain (Acute) Chronic constipation (Acute) Abdominal bloating (Acute) Hx of small bowel obstruction (Acute) History of colon polyps (Acute) Epidermal inclusion cyst (Acute) Osteoarthritis of right knee (Acute) Acute lateral meniscal injury of left knee (Acute) Acute lateral meniscal injury of right knee (Acute) Osteoarthritis of left knee (Acute) Lipoma of torso (Acute) Nausea (Acute) Abdominal bloating (Acute) Gallstones (Acute) Frequent headaches (Acute) Biliary colic (Acute) BPH without urinary obstruction (Acute) Physical exam (Acute) Nephrolithiasis (Acute) Umbilical hernia (Acute) Left knee pain (Acute) Renal calculi (Acute) Left breast mass (Acute) Past Medical History Medical History BPH without urinary obstruction Left breast mass Left knee pain Mass of right elbow Nephrolithiasis Partial small bowel obstruction Renal calculi Umbilical hernia Family History Family History Father CAD (coronary artery disease) Mother Breast cancer Family history of problems with anesthesia: No Surgical History Surgical History H/O hemorrhoidectomy H/O lateral meniscus repair of left knee H/O umbilical hernia repair History of esophagogastroduodenoscopy (EGD) History of excision of mass (03/07/22) History of laparoscopic cholecystectomy (10/16/22) Hx of colonoscopy History of Problems with Anesthesia: No Social History Social History Household Members: Spouse Housing: House Do you presently have visiting nurse or other home services: No Alcohol intake: never Patient Tobacco Use Status: Never used Tobacco e-Cigarette/Vaping Use: Never Used Second Hand Smoke Exposure: No Advance Directives Date on File: 09/02/20 service: No Current occupational status: employed Current occupation: [employer] - Right Handed Meds Allergies Allergy/AdvReac Type Severity Reaction Status Date / Time tramadol [From Ultram] Allergy Mild nervous Verified 05/18/23 07:04 system Active Medications: Current Medications Acetaminophen (Acetaminophen 325 Mg Tablet) 975 mg PO TID [facility] Last Admin: 05/19/23 14:31 Dose: 975 mg Sodium Chloride (Ns) 1,000 mls @ 80 mls/hr IVCONT .[id number] [facility] Last Infusion: 05/19/23 17:46 Dose: 0 mls/hr Ketorolac Tromethamine (Ketorolac Tromethamine 15 Mg/Ml Vial) 15 mg IVPUSH Q6H PRN PRN Reason: Pain, Moderate(Pain Scale 4-6) Oxycodone HCl (Oxycodone Hcl Immed Release 5 Mg Tablet) 5 mg PO Q4H PRN PRN Reason: [facility] Consult (Consult Rx Perform Med Rec) 1 each MISCELLANE ONCE PRN PRN Reason: Consult order Sodium Chloride (0.9 % Sodium Chloride Flush 3 Ml Syringe) 3 ml IVFLUSH QSHIFT [facility] Last Admin: 05/19/23 14:39 Dose: Not Given Home Medications Medication Instructions Recorded Confirmed Last Taken Type ascorbic acid (vitamin C) 500 mg 500 mg PO DAILY 08/27/20 05/18/23 08/26/20 History tablet (Vitamin C) omega-3 fatty acids 1,000 mg PO DAILY 08/27/20 05/18/23 04/28/23 History cholecalciferol (vitamin D3) 25 25 mcg PO DAILY 01/21/22 05/18/23 Unknown History mcg (1,000 unit) capsule sodium chloride-aloe vera nasal 1 spray intranasal QD-BID PRN Dry 05/18/23 05/18/23 Unknown History spray ([place] Saline Gel nasal spray) Nasal Passages Exam Exam Date and Time: May 19, [id number] Height,Weight and Vital Signs: Height 5 ft 10 in Weight 82.5 kg Last Vital Signs Temp 97.6 F 05/19/23 19:38 Pulse 62 05/19/23 19:38 Resp 18 05/19/23 19:38 BP 138/86 05/19/23 19:38 Pulse Ox 99 05/19/23 19:38 O2 Del Method Room Air 05/19/23 19:38 Pertinent Lab Results Pertinent Lab Results: Laboratory Tests 05/18/23 05/18/23 05/18/23 07:17 08:43 08:43 WBC 5.6 RBC 5.24 Hgb 14.5 Hct 43.3 MCV 82.6 MCH 27.7 MCHC 33.5 RDW 13.2 Plt Count 205 MPV 9.4 Immature Gran % (Auto) 0.4 Neut % (Auto) 59.1 Lymph % (Auto) 29.7 [place] % (Auto) 7.3 Eos % (Auto) 3.0 Baso % (Auto) 0.5 Lymph # (Auto) 1.7 [place] # (Auto) 0.4 Eos # (Auto) 0.2 Baso # (Auto) 0.0 Abs Immat Gran (auto) 0.02 Absolute Neuts (auto) 3.3 Absolute Nucleated RBC 0.000 Nucleated RBC % (auto) 0.0 Sodium 137 Potassium 4.7 Chloride 104 Carbon Dioxide 24 Anion Gap 14 BUN 16 Creatinine 1.02 Estim Creat Clear Calc 80.5 Estimated GFR > 60 Random Glucose 91 Calcium 9.1 Urine Color Yellow Urine Appearance Clear Urine pH 7.0 Ur Specific [place] <= 1.005 Urine Protein Negative Urine Glucose (UA) Negative Urine Ketones Negative Urine Blood Small (1+) H Urine Nitrite Negative Ur Leukocyte Esterase Negative Urine RBC 0-2 Urine WBC 0-5 Ur Squamous Epith Cells 0-2 Urine Bacteria None Seen Hyaline Casts 0-2 Airway Heart: RRR Lungs: CTA Assessment and Plan Final Anesthetic Review Family History of Problems with Anesthesia: No History of Problems with Anesthesia: No NPO: Yes ASA Class: II and Emergency Final Preanesthetic Review: Meds/Allgs Chart Reviewed, Consent Obtained/Reviewed and Anes Risks/Benef Reviewed Patient Risk: Low Procedure Risk: Low Anesthetic Plan Anesthetic Plan: GA Disposition: Standard PACU
[2023-05-19] MEDS: Ketorolac Tromethamine 15 MG/ML VIAL IVPUSH (19:57)
[2023-05-19] MEDS: 0.9 % Sodium Chloride Flush 3 ML SYRINGE IVFLUSH (20:07)
--- NOTE | 2023-05-19 20:15 | P.DS_ITS ---
DS: Providers Provider Date of Service: 05/19/23 Date of admission: 05/18/23 21:10 Primary care physician: Luzma Riddle MD DS: Diagnosis Discharge Diagnosis (1) Hematuria: Status: Acute (2) Renal and ureteric calculus: Status: Acute DS: Summary Hospital Course Hospital Course: admitted for pain management Underwent right-sided stone Procedure with stent placement Status at Discharge Functional status at discharge: independent ambulation Overall status at discharge: patient is back to baseline Time Spent with Patient Time attestation: Total time managing care of this patient today ____ minutes. Discharge coordination time: Less than 30 minutes Quality: Safe Use of Opioids Does Pt have an Active Cancer Diagnosis on the Problem List?: No Quality: Stroke Does the patient have a stroke diagnosis?: No Physical Exam Vital Signs: Vital Signs: Last Vital Signs Temp 97.6 F 05/19/23 19:38 Pulse 62 05/19/23 19:38 Resp 18 05/19/23 19:38 BP 138/86 05/19/23 19:38 Pulse Ox 99 05/19/23 19:38 O2 Del Method Room Air 05/19/23 19:38 BMI result Body Mass Index 26.1 DS: Data Imaging CT scan - abdomen: Radiologist's impression: ITS Impressions Abdomen/Pelvis CT 05/18/23 10:05 IMPRESSION: * Redemonstration of right renal hydronephrosis and hydroureter, obstructing stone lodged at the right ureterovesicular junction about 5 mm unchanged. Perinephric fat stranding suggesting high degree of 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 * There are additional tiny bilateral nonobstructing kidney stones. * Status post cholecystectomy. * Prominent likely Varicose veins in the right inguinal canal paratesticular. Discharge Plan Discharge Anticipated Discharge Date/Time: 05/19/23 18:32 Patient Disposition: Home, Self-Care Discharge Diagnosis: distal ureteric stone with hydronephrosis Referrals: Manuel Owens MD [Physician] - 2 Weeks Luzma Marcelo MD [Primary Care Provider] - None Discharge Medications: New oxycodone-acetaminophen 5-325 mg tablet 1 tab PO Q8H Qty: 4 0RF Rx Instructions: Partial Fill upon patient request. phenazopyridine [Pyridium] 100 mg tablet 100 mg PO TID PRN (Reason: Spasm) 4 Days Qty: 12 0RF Continued ascorbic acid (vitamin C) [Vitamin C] 500 mg Tablet 500 mg PO DAILY omega-3 fatty acids Capsule 1,000 mg PO DAILY [place] Saline Gel [place],Non-Aerosol 1 spray INTRANASAL QD-BID PRN (Reason: Dry Nasal Passages) tamsulosin [Flomax] 0.4 mg capsule 0.4 mg PO DAILY Qty: 14 0RF ketorolac 10 mg tablet 10 mg PO TID PRN (Reason: pain) Qty: 10 0RF Rx Instructions: Do not use this medication with ibuprofen oxycodone 5 mg tablet 5 mg PO BID PRN (Reason: pain) Qty: 4 0RF Rx Instructions: Partial Fill upon patient request. P.r.n. severe pain cholecalciferol (vitamin D3) 25 mcg (1,000 unit) capsule 25 mcg PO DAILY Discharge Orders: Discharge Order (Routine); Ordered 05/19/23 Ordered By: Manuel Owens Diet: Advance to usual diet Activity on Discharge: As tolerated Stand Alone Forms: Patient Portal Discharge page Activity Restrictions/Additional Instructions: Take your medications as prescribed. If you were prescribed antibiotics today, it is important that you take your medication to their entirety, do not skip any doses, do not finish them early. Follow-up with your primary care provider this week. Return to the emergency department with new or worsening symptoms. Such as fevers, chills, chest pain, shortness of breath, nausea, vomiting, dizziness, headache, vision changes, lethargy In case of emergency call 911 Toradol has been sent to your pharmacy, you tolerated this well in the department. Please take this as prescribed do not take this with ibuprofen, or other NSAIDs, do not mix this with alcohol. Side effects of this medication including increased risk for bleeding and possible kidney injury. Care Plan Goals: stones Health Concerns: stones Plan of Treatment: stones Assessment: stones Patient Instructions: Hematuria (ED), Flank Pain (ED)
--- NOTE | 2023-05-19 22:10 | PC.NURSE ---
Patient reported gas pain, Dr. Owens gave a Telephone read back order of ONE time dose of 20 mg of PO Famotidine. Medication given, will reassess.
[2023-05-19] MEDS: Famotidine 20 MG TABLET PO (22:48)
[2023-05-20 03:37] VITALS: BP 127/76; PULSE 55; RESP 18; TEMP 36.3; O2SAT 98
[2023-05-20] MEDS: Ketorolac Tromethamine 15 MG/ML VIAL IVPUSH (07:01)
[2023-05-20 07:34] VITALS: BP 122/78; PULSE 60; RESP 18; TEMP 36.1; O2SAT 97
[2023-05-20] MEDS: Acetaminophen 325 MG TABLET 975 MG PO (07:48)
--- NOTE | 2023-05-20 08:56 | MHC.CM.PN ---
DP: PT HAS BEEN MEDICALLY CLEARED FOR DC HOME, NO SERVICES. LIVES WITH SPOUSE, INDEPENDENT AT [place]. EMPLOYED F/T. +COVID [employer] PCP DR. RICCI AT [facility] [place]. SPOUSE WILL TRANSPORT HOME.
--- NOTE | 2023-05-20 09:13 | HO.POSTANES ---
Post Anesthesia Evaluation Post Anesthesia Evaluation Date of Service: 05/20/23 Vital Signs: Vital Signs Temp Pulse Resp BP Pulse Ox O2 Del Method 05/20/23 07:34 96.9 F 60 18 122/78 97 Room Air 05/20/23 03:37 97.3 F 55 18 127/76 98 Room Air 05/19/23 22:00 97.8 F 65 18 123/74 98 Room Air Anesthesia: General Mental Status: Awake Pain Control: Satisfactory Nausea/Vomiting: None Hydration: Adequate Anesthesia-Related Issues: No Anes. Related Issues
== END 2023-05-20 10:33 | disposition home or self-care (01) | DRG 465 ==
LOC: HO.ED 11:14 → HO.EDOVER 21:13 → HO.S3 05-19 10:03
PROVIDERS: Admitting Provider Urology; Emergency Provider Emergency Medicine; PCP Internal Medicine; Visit Provider Urology
PROC: 0T768DZ Dilation of Right Ureter with Intraluminal Device, Via Natural or Artificial Opening Endoscopic (ICD-10-PCS; principal; 2023-05-19 16:40)
DX: N13.2 Hydronephrosis with renal and ureteral calculous obstruction (principal); N40.0 Benign prostatic hyperplasia without lower urinary tract symptoms; R31.9 Hematuria, unspecified; Z79.899 Other long term (current) drug therapy
CPT/HCPCS: 36415; 74176; 80048; 81001; 85025; 99285; C1758; C1769; C2617; J1885; J1956; J2250; J2270; J2405; J3010; Q9967

== ENCOUNTER → 2023-05-18 21:10 | Outpatient (BNV) | payer OTHER, SELFPAY | PROVIDERS: Admitting Provider Urology; Emergency Provider Emergency Medicine; PCP Internal Medicine; Visit Provider Urology | DX: N13.2 Hydronephrosis with renal and ureteral calculous obstruction (principal) | CPT/HCPCS: 52332; 74420; 99222; 99238 ==

== ENCOUNTER 2023-05-29 09:36 | Outpatient (AMB) | payer OTHER, SELFPAY ==
--- NOTE | 2023-05-29 09:47 | A.OFFVIS_ITS ---
Intake Intake Visit Reasons: cysto stent removal Intake Note: Patient is present for Cystoscopy/Stent Removal Urology Med: Tamsulosin Antibiotic Allergy:None Blood Thinner: None Pharmacy: [email or web address] Disposable Cystoscope used during Procedure LOT#: [id number] EXP: 02/14/2025 Allergies tramadol [From Ultram] Allergy (Mild, Verified 05/29/23 09:52) nervous system HPI HPI Comments History of Present Illness Details Tanner is a pleasant Persian-speaking male. 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 Ocasio. He seen for the following urologic conditions - nephrolithiasis Recent hospital admission with ureteroscopy right side Here for stent removal Also mentions Peyronie's disease Will take photos for next visit Nephrolithiasis Recent hospital admission Intervention - 06/04 Right [facility] - 06/04 CT - right renal hydronephrosis and hydroureter, stones remained lodged at the ureterovesicular junction Recommendation - interval surveillance with fluid intake PFSH Medical History BPH without urinary obstruction Left breast mass Left knee pain Mass of right elbow Nephrolithiasis Partial small bowel obstruction Renal calculi Umbilical hernia Surgical History H/O hemorrhoidectomy H/O lateral meniscus repair of left knee H/O umbilical hernia repair History of esophagogastroduodenoscopy (EGD) History of excision of mass (03/07/22) History of laparoscopic cholecystectomy (10/16/22) Hx of colonoscopy Family History Father CAD (coronary artery disease) Mother Breast cancer Social History Household Members: Spouse Housing: House Do you presently have visiting nurse or other home services: No Alcohol intake: never Patient Tobacco Use Status: Never used Tobacco e-Cigarette/Vaping Use: Never Used Second Hand Smoke Exposure: No Advance Directives Date on File: 09/02/20 service: No Current occupational status: employed Current occupation: [employer] - Right Handed Office Procedures Cystoscopy Consent Discussed risk and benefit or proposed procedure with the patient. Information consent for procedure given to the patient. Discussed technical aspects, risks, benefits and alternatives in full. Addressed all of the patient's questions and concerns regarding the procedure. The patient demonstrated knowledge and understanding. They wish to proceed with this procedure. Preparation The patient was prepped in the usual manner. A siebel administrator was present and in the room. Genitalia was prepped with betadine solution in a sterile manner. Lidocaine Jelly 2% was placed into the urethra and 16Fr flexible Olympus cystoscope was inserted into the meatus after adequate lubrication. Procedure A well lubricated 16 [place] cystoscope was placed No abnormality noted of urethra during placement Indwelling stent seen within bladder emerging from right ureteric orifices The stent was grasped with a 3 prong grasper and removed without difficulty The patient tolerated the procedure well [id number] with stent removal DISPOSABLE SCOPE URO-G FLEXIBLE SCOPE Procedure code (CPT) selection complete Office Meds lidocaine HCl Performing Provider: Manuel Owens MD Administered by: Josselyn Bedoya RN on 05/29/23 10:03 Dose Route Admin Location Lot Number Expiration Date [employer] 10 mL intra-urethral nitrofurantoin monohyd/m-cryst 100 mg Performing Provider: Manuel Owens MD Administered by: Josselyn Bedoya RN on 05/29/23 10:03 Dose Route Admin Location Lot Number Expiration Date [place] [employer] Super[employer] 100 mg PO naproxen Performing Provider: Manuel Owens MD Administered by: Josselyn Bedoya RN on 05/29/23 10:03 Dose Route Admin Location Lot Number Expiration Date [employer] Supervisor 500 mg PO Results AMB Urinalysis, Automated UA Leukoctes 0 Maria/uL Last Edit by TANI Bass on 05/29/23 10:03 UA Nitrite Negative Last Edit by TANI Bass on 05/29/23 10:03 UA Urobilinogen 0.2 mg/dL Last Edit by TANI Bass on 05/29/23 10:0 3 UA Protein 15 mg/dL Last Edit by TANI Bass on 05/29/23 10:03 UA pH 7.5 Last Edit by TANI Bass on 05/29/23 10:03 UA Blood 200 Mario/uL Last Edit by TANI Bass on 05/29/23 10:03 UA Specific [place] 1.015 Last Edit by Elizabeth Rios RMA on 05/29/23 10: 03 UA Ketone Negative Last Edit by Elizabeth Rios, RMA on 05/29/23 10:03 UA Bilirubin 0 mg/dL Last Edit by Elizabeth Rios, RMA on 05/29/23 10:03 UA Glucose 0 mg/dL Last Edit by Elizabeth Rios, RMA on 05/29/23 10:03 Results Reviewed Results Reviewed: Laboratory Last Values Urine pH (Auto) 7.5 05/29/23 09:53 Specific [place] (Auto) 1.015 05/29/23 09:53 Urine Protein (Auto) 15 mg/dL 05/29/23 09:53 Glucose (UA)(Auto) 0 mg/dL 05/29/23 09:53 Urine Ketones (Auto) Negative 05/29/23 09:53 Urine Blood (Auto) 200 Mario/uL 05/29/23 09:53 Urine Nitrite (Auto) Negative 05/29/23 09:53 Urine Bilirubin (Auto) 0 mg/dL 05/29/23 09:53 Urine Urobilinogen (Auto) 0.2 mg/dL 05/29/23 09:53 Leukocyte Esterase (Auto) 0 Maria/uL 05/29/23 09:53 Assessment & Plan Assessment & Plan (1) Nephrolithiasis: Code(s): N20.0 - Calculus of kidney (2) Peyronie's disease: Code(s): N48.6 - Induration penis plastica Plan Two month follow-up imaging Orders: Orders US renal BI 2 Months N20.0 - Calculus of kidney AMB Cystoscopy Today N20.0 - Calculus of kidney AMB Urinalysis Automated Today Z13.9 - Encounter for screening, unspecified Medications: Discontinued dicyclomine 20 mg PO TID PRN 180 tabs 1RF for abdominal pain R10.10 - Upper abdominal pain, unspecified Patient Instructions: Imaging studies, laboratory and physical exam results were discussed and reviewed in detail. No major barriers to patient understanding were identified. An opportunity to ask questions regarding the treatment plan was provided. All questions were answered. The patient expressed understanding and agreement with the above treatment plan. The patient is aware they should contact our office by phone for worsening of their current condition or the appearance of new urologic symptoms. Compliance is encouraged with any medications and followup testing that is ordered. It is a privilege to participate in the urologic care of your patient. If you have any questions or concerns regarding treatment for the above conditions, or other urologic issues, please do not hesitate to contact me. The office telephone contact is [phone]. This note is constructed using voice recognition software. While every effort has been made to ensure accuracy clinic office assistant errors may have been included. Yours sincerely, Dr Manuel Owens MD, [facility] - Urology Providers of Expert, Compassionate Care for the Genitourinary System Coding Level of Care Code Est Pt Level 3 (52731) Diagnoses Nephrolithiasis N20.0 Peyronie's disease N48.6 CPT Codes Cystoscopy - CPT: 39036-[id number] with stent removal ([id number]) Cystoscopy - CPT: DISPOSABLE SCOPE URO-G FLEXIBLE SCOPE ([id number])
== END 2023-05-29 10:38 | disposition home or self-care (01) ==
PROVIDERS: PCP Internal Medicine; Visit Provider Urology
DX: N20.0 Calculus of kidney (principal); N48.6 Induration penis plastica; Z13.9 Encounter for screening, unspecified
CPT/HCPCS: 52310

== ENCOUNTER → 2023-05-29 09:36 | Outpatient (BNVA) | payer OTHER, SELFPAY | PROVIDERS: PCP Internal Medicine; Visit Provider Urology | DX: N20.0 Calculus of kidney (principal); N48.6 Induration penis plastica | CPT/HCPCS: 52310; 81003; C1747 ==

== ENCOUNTER 2023-06-10 16:48 | Outpatient (AMB) | payer OTHER, SELFPAY ==
--- NOTE | 2023-06-10 16:55 | MHC.PC.OV ---
Vital Signs 06/10/23 16:56 Height 5 ft 10 in Weight 183 lb BMI 26.3 BP 120/78 Blood Pressure Location Lt brachial Position Sitting Intake Visit Reasons: [facility] [place] 04/30 kidney/abd pain Intake Note: Patient here for [facility] [place] [facility] follow up Kidney/abdominal pain Transportation Agent Required: No Accompanied by: Self / Same As Patient Allergies tramadol [From Ultram] Allergy (Mild, Verified 06/10/23 17:31) nervous system Medication List - Last Reconciled 06/10/23 by Luzma Riddle MD ascorbic acid (vitamin C) (Vitamin C) 500 mg PO DAILY cholecalciferol (vitamin D3) 25 mcg PO DAILY omega-3 fatty acids 1,000 mg PO DAILY Tobacco use date assessed: 06/10/23 Dental Screening Dental Screen Date: 06/10/23 Did you have a dental visit in the last 12 months?: Yes Did you have a dental problem in the last 6 months where you did not have access to dental care?: No Was dental information given to patient?: Patient has dentist HPI HPI Comments History of Present Illness Details This is a 57-year-old male with nephrolithiasis that comes for follow-up of recent removal of kidney stone. Feels markedly improved. Was advised to hydrate to avoid kidney stones. No chest pain or shortness of breath. [facility] Medical History BPH without urinary obstruction Left breast mass Left knee pain Mass of right elbow Nephrolithiasis Partial small bowel obstruction Renal calculi Umbilical hernia Surgical History H/O hemorrhoidectomy H/O lateral meniscus repair of left knee H/O umbilical hernia repair History of esophagogastroduodenoscopy (EGD) History of excision of mass (03/07/22) History of laparoscopic cholecystectomy (10/16/22) Hx of colonoscopy Family History Father CAD (coronary artery disease) Mother Breast cancer Social History Household Members: Spouse Housing: House Do you presently have visiting nurse or other home services: No Alcohol intake: never Patient Tobacco Use Status: Never used Tobacco e-Cigarette/Vaping Use: Never Used Second Hand Smoke Exposure: No Advance Directives Date on File: 09/02/20 service: No Current occupational status: employed Current occupation: [employer] - Right Handed Current occupational exposures/hazards: No Cognitive needs: No Hearing needs: No Vision needs: Yes Questionnaire PHQ-9 Over the last 2 weeks, how often have you been bothered by any of the following problems? 1. Little interest or pleasure in doing things: not at all 2. Feeling down, depressed, or hopeless: not at all 3. Trouble falling or staying asleep, or sleeping too much: not at all 4. Feeling tired or having little energy: not at all 5. Poor appetite or overeating: not at all 6. Feeling bad about yourself - or that you are a failure or have let yourself or your family down: not at all 7. Trouble concentrating on things, such as reading the newspaper or watching television: not at all 8. Moving or speaking so slowly that other people could have noticed. Or the opposite - being so fidgety or restless that you have been moving around a lot more than usual: not at all 9. Thoughts that you would be better off or of hurting yourself in some way: not at all Total score: 0 Depression Screening Interpretation: Negative 90729 - PHQ-9 Billing: Yes Source: Developed by Drs. Augusto Raza, Laine Peck, Frank Parks and colleagues, with an educational viktoria from [employer]. Thrive Questionnaire Date Thrive assessed: 05/20/23 AUDIT C Alcohol Use Questionnaire (AUDIT-C) 1. How often do you have a drink containing alcohol?: Monthly or less 2. How many drinks containing alcohol do you have on a typical day when you are drinking?: 1 or 2 3. How often do you have six or more drinks on one occasion?: Never Total Score: 1 Score Reviewed/Action Taken: No PINA-7 AMB Questionnaire PINA-7 Date PINA - 7 assessed: 06/10/23 Feeling nervous, anxious, or on edge: 0 = Not at all Not being able to stop or control worryin = Not at all Worrying too much about different things: 0 = Not at all Trouble relaxin = Not at all Being so restless that it is hard to sit still: 0 = Not at all Becoming easily annoyed or irritable: 0 = Not at all Feeling afraid as if something awful might happen: 0 = Not at all Total PINA-7 score (0-4 normal; 5-9 mild; 10-14 moderate; 15-21 severe): 0 Source: Developed by Drs. Augusto Raza, Laine Peck, Frank Parks and colleagues, with an educational viktoria from [employer]. PINA-7 Assessment Billing PINA-7 Assessment Tool: PINA-7 Assessment 45900 Review of Systems Const All systems reviewed & are unremarkable except as noted in HPI and below Eyes Reports no additional complaints, Denies change in vision and Denies other visual disturbances Card Denies chest pain at rest, Denies chest pain with activity, Denies edema, Denies irregular heart rhythm, Denies claudication, Denies dyspnea, Denies dyspnea on exertion, Denies orthopnea, Denies paroxysmal nocturnal dyspnea and Denies slow heart rate Resp Denies cough, Denies dyspnea and Denies dyspnea on exertion GI Denies abdominal pain, Denies change in bowel habits, Denies excessive flatus, Denies nausea and Denies vomiting Denies urinary hesitancy, Denies urinary incontinence and Denies urinary urgency Musc Denies abnormal gait, Denies atrophy, Denies deformity and Denies limited range of motion Skin/Breast Denies bleeding lesions, Denies changing lesions and Denies rash Neuro Denies abnormal gait and Denies lack of coordination Physical exam (Primary Care) Vital Signs: Last Vital Signs BP 120/78 06/10/23 16:56 BMI result Body Mass Index 26.3 Tobacco/Smoking Status: Tobacco use Status Tobacco use date assessed 06/10/23 06/10/23 17:01 Patient Tobacco Use Status Never used Tobacco 06/10/23 17:01 e-Cigarette/Vaping Use Never Used 06/10/23 17:01 PHQ-9: PHQ-9 Score PHQ-9: Total score 0 06/10/23 17:33 Depression Screening Interpretation: Negative Thrive Assessment: Date of Thrive Assessment Date Thrive assessed 05/20/23 06/10/23 17:01 Eyes General: appearance normal, both eyes and all related structures Eyelids: Yes eyelids normal Conjunctivae: conjunctivae normal Neck Neck: Yes normal visual inspection and Yes supple Resp Effort & Inspection: normal respiratory effort Auscultation: clear to auscultation bilaterally Cardio Jugular venous distension: no JVD Rate: regular rate Rhythm: regular rhythm Heart sounds: S1 normal heart sound present and S2 normal heart sound present Extrem General: Yes full ROM Assessment and Plan Assessment & Plan (1) Nephrolithiasis: Code(s): N20.0 - Calculus of kidney Plan: Follow-up with Urology Medications: Discontinued dicyclomine 20 mg PO TID PRN 180 tabs 1RF for abdominal pain R10.10 - Upper abdominal pain, unspecified Coding Level of Care Code Est Pt Level 3 (06805) Diagnoses Nephrolithiasis N20.0 Additional Codes PINA-7 Assessment Billing - PINA-7 Assessment Tool: PINA-7 Assessment 61473 ([id number]) Time Spent (min) 19
[2023-06-10 16:56] VITALS: BP 120/78; BMI 26.3
== END 2023-06-10 17:51 | disposition home or self-care (01) ==
PROVIDERS: PCP Internal Medicine; Visit Provider Internal Medicine
DX: N20.0 Calculus of kidney (principal)
CPT/HCPCS: 99213

== ENCOUNTER 2023-07-16 14:58 | Outpatient (AMB) | payer OTHER, SELFPAY ==
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
[2023-07-16 15:04] VITALS: BP 120/82; PULSE 85; BMI 26.4
== END 2023-07-16 15:26 | disposition home or self-care (01) ==
PROVIDERS: PCP Internal Medicine; Visit Provider Internal Medicine
DX: Z00.00 Encounter for general adult medical examination without abnormal findings (principal); E55.9 Vitamin D deficiency, unspecified
CPT/HCPCS: 99396

== ENCOUNTER → 2023-07-17 12:19 | Outpatient (REF) | payer OTHER, SELFPAY | LOC: HO.CARD 12:19 | PROVIDERS: PCP Internal Medicine; Visit Provider Internal Medicine | DX: R07.9 Chest pain, unspecified (principal); R09.89 Other specified symptoms and signs involving the circulatory and respiratory systems; S83.8X2A Sprain of other specified parts of left knee, initial encounter; Z20.822 Contact with and (suspected) exposure to COVID-19 | CPT/HCPCS: 0241U; 73560; 93005 ==

== ENCOUNTER 2023-07-23 14:58 | Outpatient (AMB) | payer OTHER, SELFPAY ==
[2023-07-23 15:08] VITALS: BMI 26.4
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
== END 2023-07-23 15:39 | disposition home or self-care (01) ==
PROVIDERS: PCP Internal Medicine; Visit Provider Physician Assistant
DX: M17.12 Unilateral primary osteoarthritis, left knee (principal)
CPT/HCPCS: 20610; 99213

== ENCOUNTER 2023-07-23 16:03 | Outpatient (REF) | payer OTHER, SELFPAY ==
--- NOTE | ~2023-07-23 | XR_ITS ---
EXAMINATION: XR KNEE AP STANDING CLINICAL INFORMATION: Pain in left knee, COMPARISON: 07/17/2023 left knee. 01/21/2022 AP standing bilateral knees and left knee TECHNIQUE: AP standing view of bilateral knees and sunrise view of the left knee. FINDINGS: Mild narrowing of the medial compartment left knee. Tiny medial and lateral marginal osteophytes. Mild narrowing medial compartment of the right knee. Tiny medial and lateral marginal osteophytes. XR/XR knee LT 1V IMPRESSION: Mild degenerative changes in the bilateral knees.
--- NOTE | ~2023-07-23 | XR_ITS ---
EXAMINATION: XR KNEE AP STANDING CLINICAL INFORMATION: Pain in left knee, COMPARISON: 07/17/2023 left knee. 01/21/2022 AP standing bilateral knees and left knee TECHNIQUE: AP standing view of bilateral knees and sunrise view of the left knee. FINDINGS: Mild narrowing of the medial compartment left knee. Tiny medial and lateral marginal osteophytes. Mild narrowing medial compartment of the right knee. Tiny medial and lateral marginal osteophytes. XR/XR knee standing BI IMPRESSION: Mild degenerative changes in the bilateral knees.
== END 2023-07-23 16:04 | disposition home or self-care (01) ==
LOC: HO.HOSX 16:03
PROVIDERS: Visit Provider Physician Assistant
DX: M17.12 Unilateral primary osteoarthritis, left knee (principal); M25.561 Pain in right knee
CPT/HCPCS: 20610; 73560; 73565; 99212; J1040

== ENCOUNTER 2023-07-29 07:35 | Outpatient (REF) | payer OTHER, SELFPAY ==
--- NOTE | ~2023-07-29 | US_ITS ---
EXAMINATION: US RETROPERITONEAL LIMITED (RENAL ONLY) CLINICAL INFORMATION: Calculus of kidney. COMPARISON: CT abdomen and pelvis 05/18/2023. Renal ultrasound 04/07/2023 and 04/09/2022. MRI abdomen 05/18/2021. TECHNIQUE: Real-time imaging of the kidneys. Limited visualization due to bowel gas. FINDINGS: RIGHT KIDNEY: 11.3 x 5.0 x 5.4 cm (SAG x AP x TRV). Right extrarenal pelvis. No renal calculi. No hydronephrosis. Renal cortical thickness is normal. LEFT KIDNEY: 11.9 x 5.7 x 5.7 cm (SAG x AP x TRV). Lateral midpole 2.7 x 2.1 x 2.8 cm cyst with benign features. There is no indication for followup imaging. Renal cortical thickness is normal. No renal calculi or hydronephrosis. US/US renal BI IMPRESSION: Right extrarenal pelvis. No nephrolithiasis.
== END 2023-07-29 07:36 | disposition home or self-care (01) ==
LOC: HO.US 07:35
PROVIDERS: PCP Internal Medicine; Visit Provider Urology
DX: N20.0 Calculus of kidney (principal)
CPT/HCPCS: 76775

== ENCOUNTER 2023-08-06 10:05 | Outpatient (REF) | payer OTHER, SELFPAY ==
[2023-08-13 19:23] LABS: Stone Source KIDNEY
== END 2023-08-06 10:06 | disposition home or self-care (01) ==
LOC: HO.LAB 10:05
PROVIDERS: PCP Internal Medicine; Visit Provider Urology
DX: N20.0 Calculus of kidney (principal); N32.0 Bladder-neck obstruction; N52.01 Erectile dysfunction due to arterial insufficiency; N48.6 Induration penis plastica; Z79.899 Other long term (current) drug therapy
CPT/HCPCS: 82365; 88300; 99212

== ENCOUNTER 2023-08-06 10:05 | Outpatient (AMB) | payer OTHER, SELFPAY ==
--- NOTE | 2023-08-06 10:30 | A.OFFVIS_ITS ---
Intake Intake Visit Reasons: 2m/US(set) Intake Note: Patient is Present for Follow Up Urology Medication: None Antibiotic Allergies: None Blood Thinners: None Pharmacy: [facility] Allergies tramadol [From Ultram] Allergy (Mild, Verified 08/14/23 08:25) nervous system Medication List - Last Reconciled 08/06/23 by Manuel Owens MD ascorbic acid (vitamin C) (Vitamin C) 500 mg PO DAILY cholecalciferol (vitamin D3) 25 mcg PO DAILY omega-3 fatty acids 1,000 mg PO DAILY pentoxifylline ER 400 mg PO BID 90 days tadalafil 5 mg PO DAILY 90 days vitamin E (dl, acetate) 450 mg PO DAILY 90 days HPI HPI Comments History of Present Illness Details Tanner is a pleasant [place]uran-speaking male. 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 Ocasio. He seen for the following urologic conditions - nephrolithiasis - Peyronie's disease Full resolution of renal stone disease Peyronie's Disease Mild curvature No pain Trial antioxidants Nephrolithiasis Hospital admission 06/04 Intervention - 06/04 Right [facility] Imaging - 06/04 CT - right renal hydronephrosis a nd hydroureter, stones remained lodged at the ureterovesicular junction - 08/04 renal ultrasound hydronephrosis has resolved, cyst on left kidney Recommendation - 12 month follow-up imaging FOR[facility], [facility] Medical History (Updated 08/14/23 @ 08:47 by Turner Mayorga MD) Gallstones BPH without urinary obstruction Nephrolithiasis Umbilical hernia Left knee pain Renal calculi Left breast mass Mass of right elbow Partial small bowel obstruction Surgical History H/O lithotripsy History of laparoscopic cholecystectomy (10/16/22) History of excision of mass (03/07/22) History of esophagogastroduodenoscopy (EGD) Hx of colonoscopy H/O umbilical hernia repair H/O hemorrhoidectomy H/O lateral meniscus repair of left knee Family History Father CAD (coronary artery disease) Mother Breast cancer Social History Household Members: Spouse Housing: House Do you presently have visiting nurse or other home services: No Alcohol intake: never Patient Tobacco Use Status: Never used Tobacco e-Cigarette/Vaping Use: Never Used Second Hand Smoke Exposure: No Advance Directives Date on File: 09/02/20 service: No Current occupational status: employed Current occupation: [employer] - Right Handed Current occupational exposures/hazards: No Cognitive needs: No Hearing needs: No Vision needs: Yes Review of Systems Const Denies chills and Denies fever(s) Card Reports no additional complaints and Denies syncope Resp Denies cough GI Denies abdominal pain and Denies heartburn Reports as per HPI and Denies change in libido Neuro Denies syncope Psych Denies change in libido Endo Denies change in libido Physical Exam Const General: cooperative, healthy appearing, comfortable and no acute distress Orientation/consciousness: patient oriented x3 HEENT Face and sinus: Yes normal facial exam Mouth: moist mucous membranes Neck Neck: Yes normal visual inspection, Yes full ROM and Yes trachea midline Chest Chest palpation & inspection: normal inspection of the chest Resp Effort & Inspection: normal respiratory effort, able to speak in complete sentences and no respiratory distress GI Inspection: Yes normal to inspection Back/Spine/Pelvis Cervical Spine: normal cervical lordosis Thoracic/Lumbar Spine: thoracic and lumbar spine normal to inspection Skin General skin exam: no rashes or lesions noted Neuro General: patient oriented x3, gait normal, tone normal and moves all extremities Extrem General: Yes normal to inspection and Yes capillary refill normal Assessment & Plan Assessment & Plan (1) Peyronie's disease: Code(s): N48.6 - Induration penis plastica (2) Nephrolithiasis: Code(s): N20.0 - Calculus of kidney Plan Trial antioxidant medication Orders: Orders Surgical 08/06/23 N20.0 - Calculus of kidney Medications: New tadalafil 5 mg PO DAILY 90 tabs 1RF sexual activity 90 days N52.01 - Erectile dysfunction due to arterial insufficiency, N32.0 - Bladder-neck obstruction vitamin E (dl, acetate) 450 mg PO DAILY 90 caps 1RF 90 days N48.6 - Induration penis plastica pentoxifylline ER administer with meals 400 mg PO BID 180 tabs 1RF 90 days N48.6 - Induration penis plastica Patient Instructions: Imaging studies, laboratory and physical exam results were discussed and reviewed in detail. No major barriers to patient understanding were identified. An opportunity to ask questions regarding the treatment plan was provided. All questions were answered. The patient expressed understanding and agreement with the above treatment plan. The patient is aware they should contact our office by phone for worsening of their current condition or the appearance of new urologic symptoms. Compliance is encouraged with any medications and followup testing that is ordered. It is a privilege to participate in the urologic care of your patient. If you have any questions or concerns regarding treatment for the above conditions, or other urologic issues, please do not hesitate to contact me. The office telephone contact is [phone]. This note is constructed using voice recognition software. While every effort has been made to ensure accuracy supervisor engine assembly errors may have been included. Yours sincerely, Dr Manuel Owens MD, [facility] - Urology Providers of Expert, Compassionate Care for the Genitourinary System Coding Level of Care Code Est Pt Level 4 (50196) Diagnoses Peyronie's disease N48.6 Nephrolithiasis N20.0
== END 2023-08-06 10:57 | disposition home or self-care (01) ==
PROVIDERS: PCP Internal Medicine; Visit Provider Urology
DX: N48.6 Induration penis plastica (principal); N20.0 Calculus of kidney
CPT/HCPCS: 99214

== ENCOUNTER 2023-08-14 08:21 | Outpatient (AMB) | payer OTHER, SELFPAY ==
[2023-08-14 08:26] VITALS: BP 130/75; PULSE 78; BMI 25.4
--- NOTE | 2023-08-14 08:26 | MHC.OFFVIS ---
Intake Vital Signs 08/14/23 08:26 Height 5 ft 11 in Weight 182 lb BMI 25.4 BP 130/75 Blood Pressure Location Lt brachial Position Sitting Pulse 78 Intake Visit Reasons: S/p colon Intake Note: Patient follow up for Colonoscopy results. Patient denies any GI issues. Workforce Development Assistant Required: Yes Workforce Development Assistant Name: [facility] Accompanied by: Self / Same As Patient Allergies tramadol [From Ultram] Allergy (Mild, Verified 08/14/23 08:25) nervous system Medication List - Last Reconciled 08/14/23 by Turner Mayorga MD ascorbic acid (vitamin C) (Vitamin C) 500 mg PO DAILY cholecalciferol (vitamin D3) 25 mcg PO DAILY omega-3 fatty acids 1,000 mg PO DAILY pentoxifylline ER 400 mg PO BID 90 days tadalafil 5 mg PO DAILY 90 days vitamin E (dl, acetate) 450 mg PO DAILY 90 days HPI S/p colon HPI Details GI CLINIC VISIT for this 57-year-old Nauruan-speaking male for follow-up of abdominal pain. Patient was hospitalized with small bowel obstruction in 08/2020 which resolved with conservative management. IMAGING STUDIES:? 05/18/21 MR ENTEROGRAPHY SHOWED: 1. No bowel obstruction or focal inflammatory changes in bowel or mesentery. 2. Incidental cyst upper pole left kidney 2.1 cm. No additional imaging required. 3. Tiny cyst right hepatic lobe 0.6 cm. 4. Small solitary gallstone. No gallbladder wall thickening or ductal dilatation..? 08/26/[address] SCAN SHOWED: There are moderately dilated loops of mid small bowel, some contain stool. There is a distal small bowel transition point to decompressed small bowel. Otherwise, unremarkable unopacified loops of small and large bowel are identified. A normal appendix is identified. There is no pelvic free fluid. The urinary bladder is unremarkable. There is neither pelvic nor inguinal lymphadenopathy. Bone windows: Neither sclerotic nor lytic bone lesions are identified. IMPRESSION: ? Moderately dilated loops of mid small bowel account maintenance representative of a partial small bowel 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 08/31/21 UGI WITH SBFT SHOWED: There is normal transit time of contrast material through the small bowel, with contrast present in the colon by 75 minutes. Small bowel loops are of normal caliber throughout the abdomen and pelvis. The jejunal and ileal fold patterns are normal, without evidence of abnormal thickening. No fixed regions of luminal narrowing are seen to suggest stricturing. The distal ileum demonstrates a normal appearance. ENDOSCOPIC STUDIES:? 05/06/23 COLONOSCOPY SHOWED: One medium sized and one small polyps removed Moderate diverticulosis seen in the sigmoid colon Moderate hemorrhoids on retroflexed exam. Plan: Repeat Colonoscopy was advised in 3 years. 11/26/19 EGD AND COLONOSCOPY SHOWED: ? STOMACH: Diffuse gastritis with prominent and hemorrhagic appearing folds ? Colonoscopy Findings: Three polyps removed. ? Patchy erythema from 50 to 65 cms likely resolving ischemic or infectious colitis - biopsied ? Moderate diverticulosis seen in the sigmoid colon ? Moderate hemorrhoids on retroflexed exam. ? Rectal bleeding likely self limited diverticular bleed or from ischemic colitis - appears to be resolving. ? Plan: ? Await pathology results ? Patient has an appointment on 12/30/19 in the GI Clinic with Turner Mayorga M.D.- ? Repeat Colonoscopy interval based on path results - in 3-5 years if ? polyps are adenomatous and 10 years if polyps are hyperplastic. ? Above findings were reviewed with the patient and Gastritis, Colon polyps and ? Diverticulosis handouts were provided to the patient ? BIOPSIES SHOWED: ? A. Small bowel, biopsy: Small intestinal mucosa within normal limits. ? B. Stomach, antrum, biopsy: ? - Antral-type mucosa with severe chronic active inflammation. ? - Positive for H. pylori. ? C. Stomach, folds, biopsy: ? - Oxyntic mucosa with moderate chronic active inflammation. ? - No atrophy seen. ? - Positive for H. pylori. ? D. Colon, ascending, polypectomies: ? - Tubular adenoma(s); no high grade dysplasia or carcinoma seen. ? - Colonic mucosa with prominent lymphoid aggregate; no dysplasia seen. ? E. Colon, descending, polypectomies: Hyperplastic mucosal polyps with inflammatory changes. ? F. Rectum, polypectomy: Hyperplastic mucosal polyp. TODAY'S VISIT: [facility] interpreter translator, Lorene Pt states he has been doing well since he had a Lap Fidelia. Abdominal pain has resolved. Everything ios perfrect Notes heartburn once a week and takes Famotidine prn PAST VISITS: Nausea is better. He has noted two episodes of nausea after he ate in excess [place] digestion is slow Denies constipation or abdominal bloating. Has intermittent burping Continues to have nausea Abdominal bloating is better. Notes intense nausea after eating certain foods - greasy foods. Noted upper abdominal pain with nausea a week ago and concerned if his symptoms are related to gallstones. Denies radiation to the back or shoulder. Pain resolved after an hour. Bloating has improved. Has a good BM once a day - usually in the morning Even if I dont eat much, I feel like I am bloated. I have been having nausea - mostly when I eat Has a BM at least once a day. BMs are soft and without straining. Takes Bentyl 20 mg prn for intestinal spasms and is requesting a refill. MRE results were reviewed with the patient. Notes post prandial nausea which is rare. Complains of post prandial upper abdominal pain, nausea and burning sensation for the past 2 months. When I eat my stomach feels full My digestion seems to be very slow. Notes abdominal pain 5 to 10 min after he starts eating, also notes abd bloating, distension and excessive gas. Feels full for several hrs after he eats breakfast. Admits to heartburn and denies dysphagia. Decreased appetite since he feels full for several hours. Wt loss of 2-3 lbs.? Has a BM every with passage of small amounts of stools with incomplete evacuation. Taking an enema once a week for the past 2 weeks with good results and is feeling a little better. Denies diarrhea, black stools or rectal bleeding. Denies problems with anesthesia in the past, loud snoring or sleep apnea (has intermittent mild snoring). ? Denies major cardiac or pulmonary problems. ? Seen by Nuclear Control Operator 2 months ago for chest pain and had a stress test which was negative. ? Denies known FH of colon polyps or colon cancer or GI malignancy. ? Mom had breast cancer. ? Dad had skin cancer [facility] Medical History (Updated 08/14/23 @ 08:47 by Turner Mayorga MD) Gallstones BPH without urinary obstruction Nephrolithiasis Umbilical hernia Left knee pain Renal calculi Left breast mass Mass of right elbow Partial small bowel obstruction Surgical History H/O lithotripsy History of laparoscopic cholecystectomy (10/16/22) History of excision of mass (03/07/22) History of esophagogastroduodenoscopy (EGD) Hx of colonoscopy H/O umbilical hernia repair H/O hemorrhoidectomy H/O lateral meniscus repair of left knee Family History Father CAD (coronary artery disease) Mother Breast cancer Social History Household Members: Spouse Housing: House Do you presently have visiting nurse or other home services: No Alcohol intake: never Patient Tobacco Use Status: Never used Tobacco e-Cigarette/Vaping Use: Never Used Second Hand Smoke Exposure: No Advance Directives Date on File: 09/02/20 service: No Current occupational status: employed Current occupation: [employer] - Right Handed Current occupational exposures/hazards: No Cognitive needs: No Hearing needs: No Vision needs: Yes Review of Systems Const All systems reviewed & are unremarkable except as noted in HPI and below Physical Exam Vital Signs: BMI result Body Mass Index 25.4 Const General: healthy appearing and no acute distress Nutritional Appearance: average body habitus Orientation/consciousness: patient oriented x3 Limitations: language barrier HEENT Head: Yes normal to inspection Ears: hearing grossly normal bilaterally Eyes Sclerae: sclerae normal Pupils: Equal, round and reactive pupils present Neck Neck: Yes normal visual inspection Chest Chest palpation & inspection: normal inspection of the chest Resp Effort & Inspection: normal respiratory effort Auscultation: clear to auscultation bilaterally Cardio Palpation: normal PMI Rate: regular rate Rhythm: regular rhythm Heart sounds: S1 normal heart sound present, S2 normal heart sound present and no murmurs GI Palpation (GI): Soft to palpation, nontender and No hepatosplenomegaly present Auscultation: normal bowel sounds Rectal Exam - Male: Yes deferred Skin General skin exam: no rashes or lesions noted Neuro General: patient oriented x3, gait normal and moves all extremities Cranial nerves: Yes Equal, round and reactive pupils present Psych Appearance: grossly normal Mental Status: mental status grossly normal Assessment & Plan Assessment & Plan (1) Chronic constipation: Code(s): K59.09 - Other constipation (2) Abdominal bloating: Code(s): R14.0 - Abdominal distension (gaseous) (3) History of colon polyps: Comment: Colonoscopy in December 02 showed diverticulosis and a 10 mm adenomatous polyp was removed from the ascending colon. 05/06/23 colonoscopy was performed and two polyps were removed. Repeat colon advised in 3 years. (due 04/2026). Code(s): Z86.010 - Personal history of colonic polyps (4) Hx of small bowel obstruction: Code(s): Z87.19 - Personal history of other diseases of the digestive system (5) GERD (gastroesophageal reflux disease): Comment: Notes heartburn once a week - to continue Famotidine prn Code(s): K21.9 - Gastro-esophageal reflux disease without esophagitis Plan 57 YM with hyperlipidemia, kidney stones and lumbar spine disc herniation in [place] 10 yrs ago seen for evaluation nausea and left-sided abdominal pain for the past month. Patient has noted recent constipation followed by rectal bleeding after taking a laxative. 10/21/[address] scan showed moderate to large volume of stool in the colon, cholelithiasis and bilateral small nonobstructing renal stones. Patient is on a baby aspirin daily. Nausea and left upper quadrant pain can be related to peptic ulcer disease, gastritis or erosive esophagitis. Symptoms of constipation are more recent and likely related to decreased p.o. intake due to nausea. Rectal bleeding is likely due to rectal irritation from passage of hard stools after patient took a laxative. EGD showed Diffuse gastritis with prominent and hemorrhagic appearing folds, gastric biopsies were positive for Helicobacter pylori and patient was treated with triple therapy. He notes resolution of nausea and improvement in abdominal pain. A stool test for H pylori antigen was ordered and pt did not complete it. Same-day colonoscopy showed: Three polyps removed. Patchy erythema from 50 to 65 cms likely resolving ischemic or infectious colitis - biopsied Moderate diverticulosis seen in the sigmoid colon Moderate hemorrhoids on retroflexed exam. Past episode of small-bowel obstruction can be related to adhesions from prior hernia surgery.? MR enterography was normal. Patient was advised to take Zofran for nausea and Miralax three times a week for abdominal bloating 02/03/23 Abd pain and constipation has resolved and nausea improved since pt had GB surgery. 05/06/23 colonoscopy was performed and two polyps were removed. Repeat colon advised in 3 years. Coding Level of Care Code Est Pt Level 3 (38559) Diagnoses Chronic constipation K59.09 Abdominal bloating R14.0 History of colon polyps Z86.010 Hx of small bowel obstruction Z87.19 GERD (gastroesophageal reflux disease) K21.9 Time Spent (min) 18
== END 2023-08-14 09:27 | disposition home or self-care (01) ==
PROVIDERS: PCP Internal Medicine; Visit Provider Internal Medicine Gastroenterology
DX: K59.09 Other constipation (principal); R14.0 Abdominal distension (gaseous); Z86.010 Personal history of colon polyps; Z87.19 Personal history of other diseases of the digestive system; K21.9 Gastro-esophageal reflux disease without esophagitis
CPT/HCPCS: 99213

== ENCOUNTER → 2023-08-14 08:21 | Outpatient (BNVA) | payer OTHER, SELFPAY | PROVIDERS: PCP Internal Medicine; Visit Provider Internal Medicine Gastroenterology | DX: K59.09 Other constipation (principal); K21.9 Gastro-esophageal reflux disease without esophagitis; R14.0 Abdominal distension (gaseous); Z86.010 Personal history of colon polyps; Z87.19 Personal history of other diseases of the digestive system | CPT/HCPCS: 99212 ==

== ENCOUNTER 2023-09-06 07:11 | Outpatient (REF) | payer OTHER, SELFPAY ==
[2023-09-06 08:18] LABS: Cholesterol 170 mg/dL (<200); HDL Cholesterol 42 mg/dL (>40); LDL Cholesterol Calculated 104 mg/dL (<100); Triglycerides 124 mg/dL (<150)
[2023-09-06 08:35] LABS: Vitamin D 25-OH Total 30.6 ng/mL (>30)
== END 2023-09-06 07:12 | disposition home or self-care (01) ==
LOC: HO.LAB 07:11
PROVIDERS: PCP Internal Medicine; Visit Provider Internal Medicine
DX: Z00.00 Encounter for general adult medical examination without abnormal findings (principal); E55.9 Vitamin D deficiency, unspecified
CPT/HCPCS: 36415; 80061; 82306

== ENCOUNTER 2024-01-18 10:22 | Emergency (ER) | payer OTHER, SELFPAY ==
--- NOTE | 2024-01-18 | ECG_ITS ---
Test Reason : HIGH BP Blood Pressure : / mmHG Vent. Rate : 077 BPM Atrial Rate : 077 BPM P-R Int : 152 ms QRS Dur : 138 ms QT Int : 402 ms P-R-T Axes : 016 -37 011 degrees QTc Int : 454 ms Normal sinus rhythm Left axis deviation Right bundle branch block Abnormal ECG When compared with ECG of 17-JUL-2023 12:50, No significant change was found Referred By: Generic ED Physician Electronically Signed By:BAN JESUS MD
--- NOTE | ~2024-01-18 | CT_ITS ---
EXAMINATION: CT head/brain wo IV con CLINICAL INFORMATION: Reason for Exam new onset headaches COMPARISON: CT head without contrast 01/22/2023 TECHNIQUE: Contiguous axial imaging was performed from the skull base to vertex without intravenous contrast. Sagittal and coronal reformatted images were obtained. This CT examination was performed using dose optimization techniques as appropriate, variously including the following: * Automated exposure control * Adjustment of mA and/or kV according to patient size (this includes techniques or standardized protocols for targeted exams where dose is matched to indication/reason for exam; i.e. extremities or head) Use of iterative reconstruction technique DLP: 826 mGy-cm FINDINGS: No acute osseous or soft tissue abnormality. The mastoid air cells and visualized portions of the paranasal sinuses are well aerated. There is no evidence of acute intracranial hemorrhage or territorial infarction. No abnormal mass effect or midline shift is seen. Guo to white matter differentiation is well preserved. No extra-axial fluid collections are identified. No hydrocephalus. No significant volume loss. There is no abnormal attenuation within the brain parenchyma. CT/CT head/brain wo IV con IMPRESSION: No acute intracranial abnormality including hemorrhage, mass effect, hydrocephalus, or acute territorial edematous infarction.
[2024-01-18 10:37] VITALS: BP 161/128; PULSE 93; RESP 20; TEMP 36.1; O2SAT 100; BMI 26.6
[2024-01-18 11:00] LABS: MANUAL DIFF FLAG NO
[2024-01-18 11:02] LABS: Basophils Percent Auto 0.5 % (0-2); Eosinophils Absolute Auto 0.1 X10*3/uL (0.0-0.4); Eosinophils Percent Auto 2.1 % (0-4); Hematocrit 44.8 % (42.0-52.0); Hemoglobin 15.4 g/dl (14.0-18.0); Imm Gran Abs Auto 0.03 X10*3/uL (0.00-0.03); Imm Gran Pct Auto 0.5 % (0.0-0.4); Lymphocytes Absolute Auto 1.7 X10*3/uL (1.2-4.9); Mean Corpuscular HGB Conc 34.4 g/dl (31.0-36.0); Mean Corpuscular Hemoglobin 27.8 pg (27.0-33.0); Mean Corpuscular Volume 80.9 fL (80.0-98.0); Mean Platelet Volume 9.2 fL (9.4-12.4); Monocytes Absolute Auto 0.4 X10*3/uL (0.1-1.2); Monocytes Percent Auto 6.3 % (2-11); Neutrophils Absolute Auto 3.8 x10*3/uL (2.0-8.3); Neutrophils Percent Auto 62.6 % (45-73); Platelet Count 196 X10*3/uL (160-400); Red Blood Count 5.54 X10*6/uL (4.60-5.80); Red Cell Distribution Width 13.1 % (11.0-16.0); White Blood Count 6.1 X10*3/uL (4.8-10.8)
[2024-01-18 11:23] LABS: Alanine Aminotransferase 34 U/L (0-40); Alkaline Phosphatase 60 U/L (39-117); Anion Gap 11 (12-20); Aspartate Amino Transferase 26 U/L (5-37); Bilirubin Total 0.5 mg/dL (0.0-1.0); Blood Urea Nitrogen 17 mg/dL (9-16); Calcium 9.2 mg/dL (8.4-10.2); Carbon Dioxide 25 mmol/L (22-29); Chloride 108 mmol/L (96-108); Creatinine Clr Calc Pharmacy 88.6; Estimated Glomerular Filt Rate > 60; Glucose Random 110 mg/dL (60-115); Potassium 4.1 mmol/L (3.3-5.1); Sodium 140 mmol/L (135-145); Total Protein 6.9 g/dL (6.5-8.0)
[2024-01-18 11:30] LABS: Troponin-I High Sensitivity < 2.7 ng/L (<3.5-35.0)
[2024-01-18 11:40] LABS: Influenza A PCR NEGATIVE (Negative); Influenza B PCR NEGATIVE (Negative); Resp Syncy Virus RNA Qual PCR NEGATIVE (Negative); SARS COV2 PCR INHOUSE NEGATIVE (Negative)
--- NOTE | 2024-01-18 11:46 | ED_ITS ---
HPI - General Adult General Chief complaint: Headache Stated complaint: Headache 5 days Time Seen by Provider: 01/18/24 11:37 Source: patient and esthetician Mode of arrival: ambulatory Limitations: language barrier History of Present Illness HPI narrative: Patient is a 58-year-old [place] Islander-speaking male with history of GERD, BPH, renal calculi, partial SBO presenting to the emergency department with complaint of frontal headache for 6 days. States he is used Aleve and Tylenol with temporary relief but headache always returns. Denies any blurred vision, double vision or other changes in vision. Denies any dizziness or lightheadedness. Denies chest pain, palpitations, shortness of breath. Denies any abdominal pain, nausea, vomiting, diarrhea. States that he has been checking his blood pressures at home this week and has noted them to be elevated. Last saw his PCP 3 weeks ago but did not have headache at that time. He denies history of hypertension in his not on any antihypertensive medication. He also makes note that around 1 year ago after having intercourse with his he developed a sudden onset severe 10/10 headache which did resolve on its own, has not had this happen again since. MD complaint: Headache, elevated blood pressure Onset (ago): day(s) Location: head Radiation: non-radiation Severity: severe Severity scale (1-10): 9 Quality: aching Pain Consistency: constant Relieving factors: medication Exacerbating factors: none Associated symptoms: other (Measure) Treatments prior to arrival: NSAID and other Related Data Home Medications ?Medication ?Instructions ?Recorded ?Confirmed ascorbic acid (vitamin C) 500 mg 500 mg PO DAILY 08/27/20 08/14/23 tablet (Vitamin C) omega-3 fatty acids 1,000 mg PO DAILY 08/27/20 08/14/23 cholecalciferol (vitamin D3) 25 25 mcg PO DAILY 01/21/22 08/14/23 mcg (1,000 unit) capsule Previous Rx's ?Medication ?Instructions ?Recorded pentoxifylline 400 mg 400 mg PO BID 90 days #180 tabs 08/06/23 tablet,extended release tadalafil 5 mg tablet 5 mg PO DAILY sexual activity 90 08/06/23 days #90 tabs vitamin E (dl, acetate) 450 mg 450 mg PO DAILY 90 days #90 caps 08/06/23 (1,000 unit) capsule Allergies Allergy/AdvReac Type Severity Reaction Status Date / Time tramadol [From Ultram] Allergy Mild nervous Verified 01/18/24 10:41 system Review of Systems 2 Review of Systems: As per HPI Yes all other systems are reviewed and are negative Constitutional: Constitutional: Reports as per HPI [facility] Past Medical History Medical History (Updated 01/18/24 @ 13:54 by Lori Bhagat NP) Gallstones BPH without urinary obstruction Nephrolithiasis Umbilical hernia Left knee pain Renal calculi Left breast mass Mass of right elbow Partial small bowel obstruction Surgical History H/O lithotripsy History of laparoscopic cholecystectomy (10/16/22) History of excision of mass (03/07/22) History of esophagogastroduodenoscopy (EGD) Hx of colonoscopy H/O umbilical hernia repair H/O hemorrhoidectomy H/O lateral meniscus repair of left knee Family History Family History Father CAD (coronary artery disease) Mother Breast cancer Social History Social History Household Members: Spouse Housing: House Do you presently have visiting nurse or other home services: No Alcohol intake: never Patient Tobacco Use Status: Never used Tobacco Smoked in Last 30 Days: No e-Cigarette/Vaping Use: Never Used Second Hand Smoke Exposure: No Use of substances other than those prescribed or required for medical reasons: No Advance Directives: Yes Advance Directives on File: Yes Advance Directives Date on File: 09/02/20 service: No Current occupational status: employed Current occupation: [employer] - Right Handed Current occupational exposures/hazards: No Cognitive needs: No Hearing needs: No Vision needs: Yes Physical Exam ED Vital Signs: Vital Signs - 24 hr 01/18/24 10:37 01/18/24 12:03 01/18/24 13:28 Temperature 97 F 97.6 F Pulse Rate 93 74 Respiratory Rate 20 16 Blood Pressure 161/128 H 146/93 H 132/83 Pulse Oximetry 100 97 Oxygen Delivery Method Room Air Room Air BMI result Body Mass Index 26.6 Vital signs have been reviewed and appear to be correct. Blood pressure elevated. Heart rate normal. Respiratory rate normal. Temperature normal. Oxygen saturation normal. Const General: cooperative, healthy appearing and no acute distress Orientation/consciousness: oriented to person, oriented to place, oriented to time and patient oriented x3 Limitations: no limitations HENMT Head: Yes normocephalic and Yes atraumatic Ears: external ears normal General nose exam: Normal external nose present Face and sinus: Yes face symmetric Mouth: oropharynx normal and moist mucous membranes Throat: Yes uvula midline Eyes Pupils: Equal, round and reactive pupils present EOM: EOMs intact bilaterally Neck Neck: Yes normal visual inspection, Yes no meningeal signs and Yes supple Resp Effort & Inspection: normal respiratory effort and able to speak in complete sentences Auscultation: clear to auscultation bilaterally Cardio Rate: regular rate Rhythm: regular rhythm Heart sounds: S1 normal heart sound present and S2 normal heart sound present GI Palpation (GI): Soft to palpation and nontender Auscultation: normoactive bowel sounds General: Yes no CVA tenderness Back/Spine/Pelvis Back: no CVA tenderness Skin General skin exam: elasticity normal and turgor normal Neuro General: oriented to person, oriented to place, oriented to time, patient oriented x3, gait normal, tone normal, moves all extremities, Normal light touch and pain sensation, no meningeal signs, no focal motor deficits, CN's II-XI intact bilaterally and deep tendon reflexes 2+ bilaterally Cranial nerves: Yes Equal, round and reactive pupils present Cognition (Neuro): normal cognition Motor exam (neuro): 5/5 motor strength present throughout, Normal motor muscle tone present throughout and Motor abnormalities not present Extrem General: Yes full ROM, Yes no pedal edema and Yes no calf tenderness Psych Mental Status: mental status grossly normal Affect: normal affect Thought process: Normal thought process present NIH Stroke Scale Internal: Initial- Upon Arrival Time: 12:03 Level of Consciousness: Alert Level of Consciousness Questions: Answers both questions correctly Level of Consciousness Commands: Performs both tasks correctly Best Gaze: Normal Visual: No visual loss Facial Palsy: Normal Motor Arm (Right): No drift Motor Arm (Left): No drift Motor Leg (Right): No drift Motor Leg (Left): No drift Limb Ataxia: Absent Sensory: Normal Best Language: No aphasia Dysarthia: Normal Extinction and Inattention: No abnormality Score: 0 Medications Administered Discontinued Medications Generic Name Dose Route Start Last Admin Trade Name Freq PRN Reason Stop Dose Admin Diphenhydramine HCl 25 mg 01/18/24 11:59 01/18/24 12:13 Diphenhydramine Hcl 50 Mg/Ml Vial IVPUSH 01/18/24 12:00 25 mg ONCE ONE Administration Sodium Chloride 1,000 mls @ 999 mls/hr 01/18/24 12:00 01/18/24 13:33 Ns IV 01/18/24 13:00 Infused .Q1H1M VANCE Infusion Ketorolac Tromethamine 15 mg 01/18/24 12:27 01/18/24 12:45 Ketorolac Tromethamine 15 Mg/Ml Vial IVPUSH 01/18/24 12:28 15 mg ONCE ONE Administration Metoclopramide HCl 10 mg 01/18/24 11:59 01/18/24 12:13 Metoclopramide Hcl 10 Mg/2 Ml Vial IVPUSH 01/18/24 12:00 10 mg ONCE ONE Administration Medical Decision Making Medical Decision Making [facility] Narrative: Patient is a 58-year-old [place]er-speaking male with history of GERD, BPH, renal calculi, partial SBO presenting to the emergency department with complaint of frontal headache for 6 days. On exam patient is awake, A+Ox3, VS WNL, afebrile, normal neurological exam without focal deficits, physical exam findings as above. Given reported symptoms and physical exam findings, initial differential includes hypertension, ICH, migraine. Less likely malignancy/mass. Labs unremarkable, negative troponin. Viral swabs negative. EKG shows normal sinus rhythm with RBBB, no change from prior. CT head notable for no acute hemorrhage, infarct, or mass. My interpretation is in agreement with the radiologist's interpretation. Patient reports full resolution of pain after medications given in the emergency department. His blood pressure returned to normal limits after pain improved. Instructed patient to continue checking blood pressure daily at home and to record his readings, follow-up with primary care provider to discuss results. Return precautions discussed at bedside. Patient verbalized understanding of and agreement with plan. Differential Diagnosis Differential Diagnoses: The differential diagnosis associated with the presentation includes As per MDM. Admission/Observation Consideration of admission/observation: Escalation of care including admission/observation considered Patient would have been admitted to the hospital had their work up had any findings where hospital admission was appropriate and their clinical presentation warranted hospital admission. Lab Data [facility] Lab Attestation statement: I reviewed the patient's lab results. As per MDM. 01/18/24 10:52 01/18/24 10:52 Labs: Lab Results 01/18/24 Range/Units 10:52 WBC 6.1 (4.8-10.8) X10*3/uL RBC 5.54 (4.60-5.80) X10*6/uL Hgb 15.4 (14.0-18.0) g/dl Hct 44.8 (42.0-52.0) % MCV 80.9 (80.0-98.0) fL MCH 27.8 (27.0-33.0) pg MCHC 34.4 (31.0-36.0) g/dl RDW 13.1 (11.0-16.0) % Plt Count 196 (160-400) X10*3/uL MPV 9.2 L (9.4-12.4) fL Immature Gran % (Auto) 0.5 H (0.0-0.4) % Neut % (Auto) 62.6 (45-73) % Lymph % (Auto) 28.0 (20-40) % [place] % (Auto) 6.3 (2-11) % Eos % (Auto) 2.1 (0-4) % Baso % (Auto) 0.5 (0-2) % Lymph # (Auto) 1.7 (1.2-4.9) X10*3/uL [place] # (Auto) 0.4 (0.1-1.2) X10*3/uL Eos # (Auto) 0.1 (0.0-0.4) X10*3/uL Baso # (Auto) 0.0 (0.0-0.2) X10*3/uL Abs Immat Gran (auto) 0.03 (0.00-0.03) X10*3/uL Absolute Neuts (auto) 3.8 (2.0-8.3) x10*3/uL Absolute Nucleated RBC 0.000 (0.0-0.012) X10*3/uL Nucleated RBC % (auto) 0.0 (0.0-0.2) /100WBC Sodium 140 (135-145) mmol/L Potassium 4.1 (3.3-5.1) mmol/L Chloride 108 (96-108) mmol/L Carbon Dioxide 25 (22-29) mmol/L Anion Gap 11 L (12-20) BUN 17 H (9-16) mg/dL Creatinine 0.80 (0.5-1.4) mg/dL Estim Creat Clear Calc 88.6 Estimated GFR > 60 Random Glucose 110 (60-115) mg/dL Calcium 9.2 (8.4-10.2) mg/dL Magnesium 2.0 (1.6-2.6) mg/dL Total Bilirubin 0.5 (0.0-1.0) mg/dL AST 26 (5-37) U/L ALT 34 (0-40) U/L Alkaline Phosphatase 60 (39-117) U/L Troponin I High Sens < 2.7 (<3.5-35.0) ng/L Total Protein 6.9 (6.5-8.0) g/dL Albumin 4.0 (3.5-5.0) g/dL Influenza Type A (PCR) NEGATIVE (Negative) Influenza Type B (PCR) NEGATIVE (Negative) RSV RNA Qual (PCR) NEGATIVE (Negative) SARS-CoV-2 RNA (RT-PCR) NEGATIVE (Negative) Independent Interpretation I performed an independent interpretation of an: EKG (Normal sinus rhythm with RBBB, rate 77bpm, normal [place] interval, no change from prior) and CT Scan Interpretation: No evidence of ICH, infarct or mass on CT head Radiology Impression Discussion of test interpretation with radiology: I have reviewed the radiologist's reading. Radiologist Impression: CT/CT head/brain wo IV con IMPRESSION: No acute intracranial abnormality including hemorrhage, mass effect, hydrocephalus, or acute territorial edematous infarction. External Record Review External record reviewed: Inpatient record, Office record and Outpatient record Prescription Management I considered prescription management with: Pain Medication Critical Care Time Critical Care Time Critical Care Time: Yes Total Critical Care Time: 35 Attestation: I have personally provided critical care time exclusive of time spent on separately billable procedures. Time includes review of lab data, radiology results, discussion with consultants, and monitoring for potential decompensation. Intervention performed as documented. Discharge Plan Discharge Clinical Impression: Headache, Hypertension Patient Disposition: Home, Self-Care Instructions: Acute Headache (DC), Hypertension (ED), How to Take a Blood Pressure (ED) Additional Instructions: You have been evaluated in the emergency department today for headache and elevated blood pressure readings. Your evaluation did not show evidence of medical conditions requiring emergent intervention at this time, and your pain improved with medication in the ED. We recommend you take 600 mg ibuprofen every 6 hours or Tylenol 650 mg every 6 hours as needed for pain. If needed, you can alternate these medications so that you take 1 medication every 3 hours. For instance, at noon take ibuprofen, then at 3:00 p.m. take Tylenol, then at 6:00 p.m. take ibuprofen. Please follow-up with your primary care provider within 2 days. You should continue to check your blood pressure daily and record the readings. Please discuss you recently elevated blood pressure readings with your PCP. Return to the emergency department if you experience worsening or uncontrolled pain, vision changes, recurrent vomiting, difficulty with normal activities, abnormal behavior, difficulty walking, numbness, weakness, chest pain, shortness of breath or any other concerning symptoms. Prescriptions: No Action ascorbic acid (vitamin C) [Vitamin C] 500 mg Tablet 500 mg PO DAILY omega-3 fatty acids Capsule 1,000 mg PO DAILY cholecalciferol (vitamin D3) 25 mcg (1,000 unit) capsule 25 mcg PO DAILY tadalafil 5 mg tablet 5 mg PO DAILY 90 Days Qty: 90 1RF vitamin E (dl, acetate) 450 mg (1,000 unit) capsule 450 mg PO DAILY 90 Days Qty: 90 1RF pentoxifylline 400 mg tablet extended release 400 mg PO BID 90 Days Qty: 180 1RF Rx Instructions: administer with meals Print Language: [place]er
[2024-01-18 12:03] VITALS: BP 146/93; PULSE 74; RESP 16; TEMP 36.4; O2SAT 97
[2024-01-18] MEDS: diphenhydrAMINE HCL 50 MG/ML VIAL 25 MG IVPUSH (12:13)
[2024-01-18] MEDS: Metoclopramide HCl 10 MG/2 ML VIAL IVPUSH (12:13)
[2024-01-18] MEDS: 0.9 % Sodium Chloride 1,000 ML 999 ML IV (12:13)
--- NOTE | 2024-01-18 12:15 | PC.NURSE ---
pt a&ox4, hypertensive, other vss, pt reporting /10 headache - no other symptoms, 20G PIV placed R AC, medicated per DEC, 1L NS running. pt pending CT scan. no new orders at this time.
[2024-01-18] MEDS: Ketorolac Tromethamine 15 MG/ML VIAL IVPUSH (12:45)
[2024-01-18 13:28] VITALS: BP 132/83
[2024-01-18 14:39] VITALS: BP 131/85; PULSE 66; RESP 18; TEMP 36.8; O2SAT 96
== END 2024-01-18 14:40 | disposition home or self-care (01) ==
PROVIDERS: Emergency Provider Student in an Organized Health Care Education/Training Program; PCP Internal Medicine
DX: R51.9 Headache, unspecified (principal); R94.31 Abnormal electrocardiogram [ECG] [EKG]; I45.10 Unspecified right bundle-branch block; I10 Essential (primary) hypertension; R11.0 Nausea; Z79.899 Other long term (current) drug therapy; Z11.52 Encounter for screening for COVID-19; Z20.822 Contact with and (suspected) exposure to COVID-19
CPT/HCPCS: 0241U; 36415; 70450; 80053; 83735; 84484; 85025; 93005; 96361; 96374; 96375; 99284; 99285; J1200; J1885; J2765

== ENCOUNTER → 2024-01-18 10:46 | Outpatient (BNV) | payer OTHER, SELFPAY | PROVIDERS: Emergency Provider Student in an Organized Health Care Education/Training Program; PCP Internal Medicine; Visit Provider Internal Medicine Cardiovascular Disease | DX: I45.10 Unspecified right bundle-branch block (principal) | CPT/HCPCS: 93010 ==

== ENCOUNTER 2024-01-24 11:02 | Emergency (ER) | payer OTHER, SELFPAY ==
--- NOTE | ~2024-01-24 | CT_ITS ---
EXAMINATION: CT ABDOMEN AND PELVIS WITH CONTRAST CLINICAL INFORMATION: Left lower quadrant pain; question diverticulitis. COMPARISON: CT abdomen and pelvis dated 05/18/2023. TECHNIQUE: Multidetector volumetric images were obtained from the superior aspect of the liver through the pubic symphysis following administration 85 mL of Omnipaque 350 intravenous contrast. Sagittal and coronal reformatted images were obtained on the technologist's workstation. Oral contrast: No This CT examination was performed using dose optimization techniques as appropriate, variously including the following: *Automated exposure control *Adjustment of mA and/or kV according to patient size (this includes techniques or standardized protocols for targeted exams where dose is matched to indication/reason for exam; i.e. extremities or head) *Use of iterative reconstruction technique DLP: 509 mGy-cm FINDINGS: LUNG BASES: The visualized lung bases are unremarkable. LIVER, GALLBLADDER, AND BILIARY TREE: The liver is normal in size, shape, and attenuation. No focal hepatic lesion or biliary ductal dilatation is present. The gallbladder is surgically absent. PANCREAS: Unremarkable. SPLEEN: Unremarkable. ADRENAL GLANDS: Unremarkable. KIDNEYS AND URETERS: The kidneys are normal in size, shape, and attenuation. At the lower pole of the left kidney (2:36), a 3 mm nonobstructing calculus is seen. No further urinary calculus or obstructive uropathy is seen bilaterally. No perinephric stranding. A 2.7 cm mildly complex (Bosniak 2) left renal interpolar cyst is seen (2:27 and 6:64), with solitary fine septation. At the interpolar aspect of the right kidney (2:29), a 5 mm mildly complex (Bosniak 2) cyst is seen, with solitary fine septation. These are both likely benign and require no imaging follow-up. At the lower pole of the right kidney (3:325), a 1.1 cm ovoid benign, simple cyst is seen, which requires no imaging follow-up. BLADDER: Unremarkable. GASTROINTESTINAL TRACT: The small and large bowel are unremarkable. No obstruction, free intraperitoneal air or abscess is seen. There is no focal bowel wall thickening. No diverticulosis or diverticulitis seen. The appendix is unremarkable. ABDOMINAL WALL: There is a small fat-containing umbilical hernia. LYMPH NODES: Normal. VASCULAR: Unremarkable. PELVIC VISCERA: The prostate and seminal vesicles are unremarkable. There are coarse central prostate calcifications. OSSEOUS STRUCTURES: Unremarkable. CT/CT abdomen pelvis w IV con IMPRESSION: 1. A 3 mm nonobstructing left renal calculus is seen. No further urinary calculus is seen, and there is no obstructive uropathy. 2. No bowel obstruction, free intraperitoneal air or abscess is seen. There is no appendicitis or diverticulitis. 3. There is a small fat-containing umbilical hernia. 4. The gallbladder is surgically absent. Fleischner guidelines were followed.
--- NOTE | ~2024-01-24 | XR_ITS ---
EXAMINATION: XR ABDOMEN KUB CLINICAL INDICATION: Abdominal pain. History of small bowel 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 COMPARISON: Previous CT May 2023 TECHNIQUE: AP view of the abdomen. FINDINGS: The bowel gas pattern is normal with no evidence of ileus or 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 No unusual soft tissue calcifications are noted. The bones are unremarkable. XR/XR KUB IMPRESSION: Unremarkable examination.
[2024-01-24 11:06] VITALS: BP 113/78; PULSE 91; RESP 18; TEMP 36.8; O2SAT 99; BMI 25.1
--- NOTE | 2024-01-24 11:13 | ED.GENADULT ---
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 Abdominal pain is localized to LLQ. No radiation. States that he took Bentyl this morning which only worsened the pain. 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 He admits to eating peas yesterday which he is not supposed to do due to his history of diverticulitis. Last BM this morning and states it was his normal. Denies etoh consumption. No known sick contacts. He denies fevers, chills, sore throat, chest pain, SOB, vomiting, diarrhea, constipation. Related Data Home Medications ?Medication ?Instructions ?Recorded ?Confirmed ascorbic acid (vitamin C) 500 mg 500 mg PO DAILY 08/27/20 08/14/23 tablet (Vitamin C) omega-3 fatty acids 1,000 mg PO DAILY 08/27/20 08/14/23 cholecalciferol (vitamin D3) 25 25 mcg PO DAILY 01/21/22 08/14/23 mcg (1,000 unit) capsule Previous Rx's ?Medication ?Instructions ?Recorded pentoxifylline 400 mg 400 mg PO BID 90 days #180 tabs 08/06/23 tablet,extended release tadalafil 5 mg tablet 5 mg PO DAILY sexual activity 90 08/06/23 days #90 tabs vitamin E (dl, acetate) 450 mg 450 mg PO DAILY 90 days #90 caps 08/06/23 (1,000 unit) capsule ondansetron 4 mg disintegrating 4 mg PO DAILY PRN nausea and 01/24/24 tablet vomiting 5 days #14 tabs Allergies Allergy/AdvReac Type Severity Reaction Status Date / Time tramadol [From [facility]] Allergy Mild nervous Verified 01/24/24 11:12 system Review of Systems Review of Systems: Constitutional: No fever, chills, fatigue, night sweats, weight changes ENT/Mouth: No ear pain, hearing loss, nasal congestion, sinus pain, rhinorrhea, sore throat Eyes: No eye pain, swelling, redness, vision changes, discharge Cardio: No chest pain, palpitations, WATERS, orthopnea, peripheral edema Pulm: No SOB, cough, sputum, wheezing, dyspnea, hemoptysis GI: No vomiting, hematemesis, diarrhea, constipation, hematochezia, melena, +nausea,+abdominal pain, +flatus : No irregular bleeding, dysuria, frequency, urgency, hesitancy, hematuria, flank pain, urinary flow changes, urinary incontinence or retention MSK: No back pain, neck pain, joint pain, myalgias Skin: No lesions, rashes Neuro: No weakness, numbness, paresthesias, LOC, dizziness, headache Psych: No anxiety/panic, depression, SI/HI, AH/VH All other systems reviewed and are negative. [facility] Past Medical History Attestation statement: The following information was validated with the patient. Source: old records reviewed and nursing notes reviewed Medical History Gallstones BPH without urinary obstruction Nephrolithiasis Umbilical hernia Left knee pain Renal calculi Left breast mass Mass of right elbow Partial small bowel obstruction Surgical History H/O lithotripsy History of laparoscopic cholecystectomy (10/16/22) History of excision of mass (03/07/22) History of esophagogastroduodenoscopy (EGD) Hx of colonoscopy H/O umbilical hernia repair H/O hemorrhoidectomy H/O lateral meniscus repair of left knee Family History Family History Father CAD (coronary artery disease) Mother Breast cancer Social History Social History Household Members: Spouse Housing: House Do you presently have visiting nurse or other home services: No Alcohol intake: never Patient Tobacco Use Status: Never used Tobacco Smoked in Last 30 Days: No e-Cigarette/Vaping Use: Never Used Second Hand Smoke Exposure: No Use of substances other than those prescribed or required for medical reasons: No Advance Directives: Yes Advance Directives on File: Yes Advance Directives Date on File: 09/02/20 service: No Current occupational status: employed Current occupation: [employer] - Right Handed Current occupational exposures/hazards: No Cognitive needs: No Hearing needs: No Vision needs: Yes Physical Exam ED Vital Signs: Vital Signs - 24 hr 01/24/24 11:06 01/24/24 13:59 01/24/24 15:46 Temperature 98.3 F 99.0 F 98.7 F Pulse Rate 91 79 85 Respiratory Rate 18 16 14 Blood Pressure 113/78 109/74 119/79 Pulse Oximetry 99 96 98 Oxygen Delivery Method Room Air Room Air Room Air 01/24/24 18:31 01/24/24 22:08 Temperature 101.7 F H 99.0 F Pulse Rate 116 H 116 H Respiratory Rate 15 18 Blood Pressure 125/78 96/58 L Pulse Oximetry 94 93 Oxygen Delivery Method Room Air Room Air BMI result Body Mass Index 25.1 Vital signs stable, afebrile Const General: cooperative, healthy appearing, comfortable and no acute distress Orientation/consciousness: patient oriented x3 Limitations: no limitations HENMT Head: Yes normal to inspection, Yes No palpable skull fracture present, Yes normocephalic and Yes atraumatic Eyes General: appearance normal, both eyes and all related structures Conjunctivae: conjunctivae normal Sclerae: sclerae normal Pupils: Equal, round and reactive pupils present Neck Neck: Yes normal visual inspection, Yes full ROM and Yes no lymphadenopathy Resp Effort & Inspection: normal respiratory effort and able to speak in complete sentences Auscultation: clear to auscultation bilaterally Cardio Rate: regular rate Rhythm: regular rhythm GI Other: + abdomen soft, mildly distended, no nontender to palpation. No rebound tenderness or guarding. Normoactive bowel sounds x4. Inspection: Yes normal to inspection General: Yes no CVA tenderness Back/Spine/Pelvis Back: no CVA tenderness Skin General skin exam: no rashes or lesions noted Neuro General: patient oriented x3 and gait normal Cranial nerves: Yes Equal, round and reactive pupils present Course Course Course Narrative: This is an RME: Additional HPI, ROS, PE not included below will be deferred to primary provider. Patient is a 58-year-old [place]isian-speaking male with history of GERD, BPH, renal calculi, partial SBO presenting to the emergency department with complaint of abdominal pain, nausea, and flatulence since last night. Pt states that he ate pigeon peas yesterday and has had his symptoms since. VSS Plan: Labs, EKG, KUB Reevaluation(s) Reevaluation #1: 1709-- CBC without leukocytosis or anemia. H&H stable. Chemistry without acute electrolyte abnormality requiring intervention. KUB does not demonstrate constipation or bowel 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 Will obtain CT scan to rule out diverticulitis or other pathology. 1901-- Patient now febrile to 101.7F and tachycardic likely secondary to fever. As labs are wnl, patient does not meet sepsis criteria. Will obtain lactic and blood cultures in the mean time. Tylenol ordered for fever. CT abd/pelvis showing 3mm non-obstructing left renal calculi without obstructive uropathy. It does not demonstrate obstruction, free air or abscess. Gallbladder is surgically absent. Incidental finding of small fat-containing umbilical hernia. 1155-- UA does not demonstrate infection. Patient no longer febrile after receiving Tylenol. He is well-appearing. No episodes of vomiting. Abdominal pain somewhat improved with Toradol and IVFs. He is tolerating p.o. intake in ED. discussed all workup results with patient. He likely has a viral gastroenteritis. Will send Zofran to pharmacy. Patient has remained stable throughout ED visit today. Discussed worrisome signs and symptoms and when to return to the ED. All questions answered at this time. Patient is agreeable with disposition and stable for discharge. 0101-- on discharge, patient's blood pressure was noted to be 80s over 50s. When compared to previous vitals, patient's blood pressure has never been this soft. I discussed case with my attending physician, Dr. Hampton who has also evaluated patient. Patient has a blood pressure cuff appears to be too large, resulting in soft BP. will give 1 more liter of IVF. Patient continues to be nontoxic appearing and in no acute distress. Patient likely with viral syndrome as noted above. He is stable for discharge. Medications Administered Discontinued Medications Generic Name Dose Route Start Last Admin Trade Name Freq PRN Reason Stop Dose Admin Acetaminophen 650 mg 01/24/24 18:45 01/24/24 19:07 Acetaminophen 325 Mg Tablet PO 01/24/24 18:46 650 mg ONCE ONE Administration Sodium Chloride 1,000 mls @ 999 mls/hr 01/24/24 17:00 01/24/24 19:00 Ns IV 01/24/24 18:00 Infused .Q1H1M VANCE Infusion Sodium Chloride 1,000 mls @ 999 mls/hr 01/24/24 19:00 01/24/24 20:30 Ns IV 01/24/24 20:00 Infused .Q1H1M VANCE Infusion Sodium Chloride 1,000 mls @ 999 mls/hr 01/25/24 01:15 01/25/24 01:12 Ns IV 01/25/24 02:15 999 mls/hr .Q1H1M VANCE Administration Iohexol 100 ml 01/24/24 17:55 01/24/24 17:55 Iohexol 350 Mg/Ml 100 Ml Infus..Btl IV 01/24/24 17:56 85 ml ONCE ONE Administration Ketorolac Tromethamine 30 mg 01/24/24 16:58 01/24/24 17:29 Ketorolac Tromethamine 30 Mg/Ml Vial IVPUSH 01/24/24 16:59 30 mg ONCE ONE Administration Ondansetron HCl 4 mg 01/24/24 11:13 01/24/24 11:15 Ondansetron Odt 4 Mg Tab.Rapdis TRANSLINGU 01/24/24 11:14 4 mg ONCE ONE Administration Ondansetron HCl 4 mg 01/24/24 17:29 01/24/24 17:36 Ondansetron Hcl 4 Mg/2 Ml Vial IVPUSH 01/24/24 17:30 4 mg ONCE ONE Administration Medical Decision Making Medical Decision Making [facility] Narrative: 58 year old [place]isian speaking male with pmhx significant for GERD, BPH, renal calculi, partial SBO presents to the emergency department today with abdominal pain, nausea, and flatulence since 0600 this morning. Vital signs stable. Afebrile. He is nontoxic-appearing and in no acute distress. On exam, abdomen soft, mildly distended, nontender to palpation. No rebound tenderness or guarding. Normoactive bowel sounds x4. Differential diagnosis includes gastroenteritis, viral syndrome, diverticulosis/diverticulitis, IBS, IBD, SBO, anemia, electrolyte derangement. Unlikely appendicitis, cholecystitis, pancreatitis. Labs, KUB x-ray, and EKG obtained prior to my assumption of care. Will order COVID/flu/RSV, IV fluids, pain control, and CT abdomen pelvis with IV con Patient's blood culture showed 1/2 bottles positive for Gram-positive likely contaminated patient has normal WBC count and lactic acid patient will be discharged home. Differential Diagnosis Differential Diagnoses: The differential diagnosis associated with the presentation includes as above. Admission/Observation Consideration of admission/observation: Escalation of care including admission/observation considered Lab Data MDM Lab Attestation statement: I reviewed the patient's lab results. as above. 01/24/24 11:24 01/24/24 11:24 Labs: Lab Results 01/24/24 01/24/24 01/24/24 Range/Units 11:23 11:24 17:38 WBC 10.0 (4.8-10.8) X10*3/uL RBC 6.02 H (4.60-5.80) X10*6/uL Hgb 16.8 (14.0-18.0) g/dl Hct 48.6 (42.0-52.0) % MCV 80.7 (80.0-98.0) fL MCH 27.9 (27.0-33.0) pg MCHC 34.6 (31.0-36.0) g/dl RDW 13.2 (11.0-16.0) % Plt Count 213 (160-400) X10*3/uL MPV 9.3 L (9.4-12.4) fL Immature Gran % (Auto) 0.4 (0.0-0.4) % Neut % (Auto) 87.1 H (45-73) % Lymph % (Auto) 6.8 L (20-40) % [place] % (Auto) 4.2 (2-11) % Eos % (Auto) 1.2 (0-4) % Baso % (Auto) 0.3 (0-2) % Lymph # (Auto) 0.7 L (1.2-4.9) X10*3/uL [place] # (Auto) 0.4 (0.1-1.2) X10*3/uL Eos # (Auto) 0.1 (0.0-0.4) X10*3/uL Baso # (Auto) 0.0 (0.0-0.2) X10*3/uL Abs Immat Gran (auto) 0.04 H (0.00-0.03) X10*3/uL Absolute Neuts (auto) 8.8 H (2.0-8.3) x10*3/uL Absolute Nucleated RBC 0.000 (0.0-0.012) X10*3/uL Nucleated RBC % (auto) 0.0 (0.0-0.2) /100WBC ESR (0-15) MM/HR Sodium 138 (135-145) mmol/L Potassium 4.6 (3.3-5.1) mmol/L Chloride 105 (96-108) mmol/L Carbon Dioxide 28 (22-29) mmol/L Anion Gap 10 L (12-20) BUN 21 H (9-16) mg/dL Creatinine 0.78 (0.5-1.4) mg/dL Estim Creat Clear Calc 103.9 Estimated GFR > 60 Random Glucose 106 (60-115) mg/dL Lactic Acid (0.5-2.0) mmol/L Calcium 9.3 (8.4-10.2) mg/dL Magnesium 2.0 (1.6-2.6) mg/dL Total Bilirubin 0.7 (0.0-1.0) mg/dL Direct Bilirubin 0.2 (0.0-0.5) mg/dL AST 30 (5-37) U/L ALT 37 (0-40) U/L Alkaline Phosphatase 63 (39-117) U/L Troponin I High Sens < 2.7 (<3.5-35.0) ng/L C-Reactive Protein 0.54 H (< or = 0.50) mg/dL Total Protein 7.2 (6.5-8.0) g/dL Albumin 4.2 (3.5-5.0) g/dL Lipase 23 (8-78) U/L Urine Color Urine Appearance Urine pH (5.0-9.0) Ur Specific [place] (1.005-1.025) Urine Protein (Neg-Trace) mg/dL Urine Glucose (UA) (Negative) mg/dL Urine Ketones (Negative) mg/dL Urine Blood (Negative) Urine Nitrite (Negative) Ur Leukocyte Esterase (Negative) Urine RBC (0-2) /HPF Urine WBC (0-5) /HPF Ur Squamous Epith Cells (0-2) /HPF Urine Bacteria (None Seen) Hyaline Casts (0-2) /LPF Influenza Type A (PCR) NEGATIVE (Negative) Influenza Type B (PCR) NEGATIVE (Negative) RSV RNA Qual (PCR) NEGATIVE (Negative) SARS-CoV-2 RNA (RT-PCR) NEGATIVE (Negative) 01/24/24 01/25/24 01/25/24 Range/Units 19:57 00:40 11:24 WBC (4.8-10.8) X10*3/uL RBC (4.60-5.80) X10*6/uL Hgb (14.0-18.0) g/dl Hct (42.0-52.0) % MCV (80.0-98.0) fL MCH (27.0-33.0) pg MCHC (31.0-36.0) g/dl RDW (11.0-16.0) % Plt Count (160-400) X10*3/uL MPV (9.4-12.4) fL Immature Gran % (Auto) (0.0-0.4) % Neut % (Auto) (45-73) % Lymph % (Auto) (20-40) % [place] % (Auto) (2-11) % Eos % (Auto) (0-4) % Baso % (Auto) (0-2) % Lymph # (Auto) (1.2-4.9) X10*3/uL [place] # (Auto) (0.1-1.2) X10*3/uL Eos # (Auto) (0.0-0.4) X10*3/uL Baso # (Auto) (0.0-0.2) X10*3/uL Abs Immat Gran (auto) (0.00-0.03) X10*3/uL Absolute Neuts (auto) (2.0-8.3) x10*3/uL Absolute Nucleated RBC (0.0-0.012) X10*3/uL Nucleated RBC % (auto) (0.0-0.2) /100WBC ESR 2 (0-15) MM/HR Sodium (135-145) mmol/L Potassium (3.3-5.1) mmol/L Chloride (96-108) mmol/L Carbon Dioxide (22-29) mmol/L Anion Gap (12-20) BUN (9-16) mg/dL Creatinine (0.5-1.4) mg/dL Estim Creat Clear Calc Estimated GFR Random Glucose (60-115) mg/dL Lactic Acid 1.0 (0.5-2.0) mmol/L Calcium (8.4-10.2) mg/dL Magnesium (1.6-2.6) mg/dL Total Bilirubin (0.0-1.0) mg/dL Direct Bilirubin (0.0-0.5) mg/dL AST (5-37) U/L ALT (0-40) U/L Alkaline Phosphatase (39-117) U/L Troponin I High Sens (<3.5-35.0) ng/L C-Reactive Protein (< or = 0.50) mg/dL Total Protein (6.5-8.0) g/dL Albumin (3.5-5.0) g/dL Lipase (8-78) U/L Urine Color Dark Yellow Urine Appearance Clear Urine pH 6.0 (5.0-9.0) Ur Specific [place] >= 1.030 H (1.005-1.025) Urine Protein 30 (1+) H (Neg-Trace) mg/dL Urine Glucose (UA) Negative (Negative) mg/dL Urine Ketones 40 (Negative) mg/dL Urine Blood Negative (Negative) Urine Nitrite Negative (Negative) Ur Leukocyte Esterase Trace H (Negative) Urine RBC 0-2 (0-2) /HPF Urine WBC 0-5 (0-5) /HPF Ur Squamous Epith Cells 0-2 (0-2) /HPF Urine Bacteria None Seen (None Seen) Hyaline Casts 0-2 (0-2) /LPF Influenza Type A (PCR) (Negative) Influenza Type B (PCR) (Negative) RSV RNA Qual (PCR) (Negative) SARS-CoV-2 RNA (RT-PCR) (Negative) Independent Interpretation I performed an independent interpretation of an: EKG, Plain X-Ray and CT Scan Interpretation: EKG showing normal sinus rhythm with a rate of 84 beats per minute, with normal QT and QTC. There is a right bundle-branch block and left anterior fascicular block which were both exhibited on EKG obtained on January 18, 2024 (6 days ago). KUB x-ray does not demonstrate obstruction or stool burden, agree with radiologist's interpretation. Radiology Impression Discussion of test interpretation with radiology: I have reviewed the radiologist's reading. Radiologist Impression: EXAMINATION: XR ABDOMEN KUB CLINICAL INDICATION: Abdominal pain. History of small bowel 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 COMPARISON: Previous CT May 2023 TECHNIQUE: AP view of the abdomen. FINDINGS: The bowel gas pattern is normal with no evidence of ileus or 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 No unusual soft tissue calcifications are noted. The bones are unremarkable. XR/XR KUB IMPRESSION: Unremarkable examination. EXAMINATION: CT ABDOMEN AND PELVIS WITH CONTRAST CLINICAL INFORMATION: Left lower quadrant pain; question diverticulitis. COMPARISON: CT abdomen and pelvis dated 05/18/2023. TECHNIQUE: Multidetector volumetric images were obtained from the superior aspect of the liver through the pubic symphysis following administration 85 mL of Omnipaque 350 intravenous contrast. Sagittal and coronal reformatted images were obtained on the technologist's workstation. Oral contrast: No This CT examination was performed using dose optimization techniques as appropriate, variously including the following: *Automated exposure control *Adjustment of mA and/or kV according to patient size (this includes techniques or standardized protocols for targeted exams where dose is matched to indication/reason for exam; i.e. extremities or head) *Use of iterative reconstruction technique DLP: 509 mGy-cm FINDINGS: LUNG BASES: The visualized lung bases are unremarkable. LIVER, GALLBLADDER, AND BILIARY TREE: The liver is normal in size, shape, and attenuation. No focal hepatic lesion or biliary ductal dilatation is present. The gallbladder is surgically absent. PANCREAS: Unremarkable. SPLEEN: Unremarkable. ADRENAL GLANDS: Unremarkable. KIDNEYS AND URETERS: The kidneys are normal in size, shape, and attenuation. At the lower pole of the left kidney (2:36), a 3 mm nonobstructing calculus is seen. No further urinary calculus or obstructive uropathy is seen bilaterally. No perinephric stranding. A 2.7 cm mildly complex (Bosniak 2) left renal interpolar cyst is seen (2:27 and 6:64), with solitary fine septation. At the interpolar aspect of the right kidney (2:29), a 5 mm mildly complex (Bosniak 2) cyst is seen, with solitary fine septation. These are both likely benign and require no imaging follow-up. At the lower pole of the right kidney (3:325), a 1.1 cm ovoid benign, simple cyst is seen, which requires no imaging follow-up. BLADDER: Unremarkable. GASTROINTESTINAL TRACT: The small and large bowel are unremarkable. No obstruction, free intraperitoneal air or abscess is seen. There is no focal bowel wall thickening. No diverticulosis or diverticulitis seen. The appendix is unremarkable. ABDOMINAL WALL: There is a small fat-containing umbilical hernia. LYMPH NODES: Normal. VASCULAR: Unremarkable. PELVIC VISCERA: The prostate and seminal vesicles are unremarkable. There are coarse central prostate calcifications. OSSEOUS STRUCTURES: Unremarkable. CT/CT abdomen pelvis w IV con IMPRESSION: 1. A 3 mm nonobstructing left renal calculus is seen. No further urinary calculus is seen, and there is no obstructive uropathy. 2. No bowel obstruction, free intraperitoneal air or abscess is seen. There is no appendicitis or diverticulitis. 3. There is a small fat-containing umbilical hernia. 4. The gallbladder is surgically absent. Fleischner guidelines were followed. External Record Review External record reviewed: Inpatient record, Office record, Outpatient record, Prior outpatient labs, Prior outpatient radiology, Primary care record and Outside ED record Prescription Management I considered prescription management with: Pain Medication and Antibiotic Social Determinants Patient?s care significantly limited by Social Determinants of Health including: Other Social Determinant of Health Critical Care Time Critical Care Time Critical Care Time: Yes Total Critical Care Time: 120 Attestation: Critical care time in the amount of 120 minutes has been provided to the patient in terms of direct patient care, frequent reevaluation, review and interpretation of medical data and results, and management of potentially life-threatening conditions. This is all outside of any medical procedures. Discharge Plan Discharge Clinical Impression: Gastroenteritis Patient Disposition: Home, Self-Care Instructions: Gastroenteritis (ED) Additional Instructions: Your lab workup today was reassuring.? You tested negative for COVID, flu, RSV. Your urine test was negative for infection. The x-ray of your abdomen does not demonstrate constipation or stool burden. The CT scan of your abdomen and pelvis shows a 3 mm nonobstructing left renal stone without 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 This should pass on its own. There is no bowel obstruction or diverticulitis. Your appendix is normal. There is an incidental finding of small umbilical hernia which you can follow up with your PCP for. Your symptoms are most consistent with a viral stomach bug, also known as gastroenteritis.? The treatment for this is supportive care. Symptoms usually resolve on their own in 48-72 hours.? The recommendation is rest and lots of oral hydration.? Stick to a bland diet like soup and toast while you are not feeling well.? Zofran is an anti-nausea medication. This has been sent to your pharmacy for you to take as needed for nausea.? You can also try over the counter Pepto Bismol or Imodium as needed for upset stomach and diarrhea.? Follow up with your primary care provider as needed. If you develop new or worsening symptoms call 911 or come back to the ER for further evaluation. Prescriptions: New ondansetron 4 mg tablet,disintegrating 4 mg PO DAILY PRN (Reason: nausea and vomiting) 5 Days Qty: 14 0RF No Action ascorbic acid (vitamin C) [Vitamin C] 500 mg Tablet 500 mg PO DAILY omega-3 fatty acids Capsule 1,000 mg PO DAILY cholecalciferol (vitamin D3) 25 mcg (1,000 unit) capsule 25 mcg PO DAILY tadalafil 5 mg tablet 5 mg PO DAILY 90 Days Qty: 90 1RF vitamin E (dl, acetate) 450 mg (1,000 unit) capsule 450 mg PO DAILY 90 Days Qty: 90 1RF pentoxifylline 400 mg tablet extended release 400 mg PO BID 90 Days Qty: 180 1RF Rx Instructions: administer with meals Referrals: [facility] [Provider Group] Print Language: Tunisian
[2024-01-24] MEDS: Ondansetron ODT 4 MG TAB.RAPDIS TRANSLINGU (11:15)
--- NOTE | 2024-01-24 11:15 | ECG_ITS ---
Test Reason : EPIGASTRIC PAIN Blood Pressure : / mmHG Vent. Rate : 084 BPM Atrial Rate : 084 BPM P-R Int : 150 ms QRS Dur : 138 ms QT Int : 386 ms P-R-T Axes : 030 -49 013 degrees QTc Int : 456 ms Normal sinus rhythm Right bundle branch block Left anterior fascicular block Bifascicular block Abnormal ECG When compared with ECG of 18-JAN-2024 10:46, No significant change was found Referred By: Gloria Walls Electronically Signed By:Mario Montague
[2024-01-24 11:27] LABS: MANUAL DIFF FLAG NO
[2024-01-24 11:29] LABS: Basophils Percent Auto 0.3 % (0-2); Eosinophils Absolute Auto 0.1 X10*3/uL (0.0-0.4); Eosinophils Percent Auto 1.2 % (0-4); Hematocrit 48.6 % (42.0-52.0); Hemoglobin 16.8 g/dl (14.0-18.0); Imm Gran Abs Auto 0.04 X10*3/uL (0.00-0.03); Imm Gran Pct Auto 0.4 % (0.0-0.4); Lymphocytes Absolute Auto 0.7 X10*3/uL (1.2-4.9); Lymphocytes Percent Auto 6.8 % (20-40); Mean Corpuscular HGB Conc 34.6 g/dl (31.0-36.0); Mean Corpuscular Hemoglobin 27.9 pg (27.0-33.0); Mean Corpuscular Volume 80.7 fL (80.0-98.0); Mean Platelet Volume 9.3 fL (9.4-12.4); Monocytes Absolute Auto 0.4 X10*3/uL (0.1-1.2); Monocytes Percent Auto 4.2 % (2-11); Neutrophils Absolute Auto 8.8 x10*3/uL (2.0-8.3); Neutrophils Percent Auto 87.1 % (45-73); Platelet Count 213 X10*3/uL (160-400); Red Blood Count 6.02 X10*6/uL (4.60-5.80); Red Cell Distribution Width 13.2 % (11.0-16.0)
[2024-01-24 11:43] LABS: Alanine Aminotransferase 37 U/L (0-40); Albumin Level 4.2 g/dL (3.5-5.0); Alkaline Phosphatase 63 U/L (39-117); Anion Gap 10 (12-20); Aspartate Amino Transferase 30 U/L (5-37); Bilirubin Direct 0.2 mg/dL (0.0-0.5); Bilirubin Total 0.7 mg/dL (0.0-1.0); Blood Urea Nitrogen 21 mg/dL (9-16); Calcium 9.3 mg/dL (8.4-10.2); Carbon Dioxide 28 mmol/L (22-29); Chloride 105 mmol/L (96-108); Creatinine Clr Calc Pharmacy 103.9; Estimated Glomerular Filt Rate > 60; Glucose Random 106 mg/dL (60-115); Lipase 23 U/L (8-78); Potassium 4.6 mmol/L (3.3-5.1); Sodium 138 mmol/L (135-145); Total Protein 7.2 g/dL (6.5-8.0)
[2024-01-24 11:50] LABS: Troponin-I High Sensitivity < 2.7 ng/L (<3.5-35.0)
[2024-01-24 13:59] VITALS: BP 109/74; PULSE 79; RESP 16; TEMP 37.2; O2SAT 96
--- NOTE | 2024-01-24 14:15 | PC.NURSE ---
a&ox4. vss and up to date. pt presents to ED w/ 04/21 upper epigastric pain and nausea that started around 0600 this am. denies any episodes of v/d. abd slightly upon palpation. pt slightly tremulous - pt states he is not feeling well. oral temp of 99.0. no sob/wob noted. respirations even and unlabored. pt waiting to be seen by ED provider. plan of care ongoing. call saldivar placed within reach.
[2024-01-24 15:46] VITALS: BP 119/79; PULSE 85; RESP 14; TEMP 37.1; O2SAT 98
[2024-01-24] MEDS: Ketorolac Tromethamine 30 MG/ML VIAL IVPUSH (17:29)
[2024-01-24] MEDS: 0.9 % Sodium Chloride 1,000 ML 999 ML IV ×2 (17:29→19:09)
--- NOTE | 2024-01-24 17:30 | PC.NURSE ---
20gIV placed in the right AC - medication/IVF administered per provider order. effectiveness pending. pt slightly tremulous stating that he is cold. respirations remain even and unlabored. plan of care ongoing. call saldivar placed within reach.
[2024-01-24] MEDS: ondansetron HCL 4 MG/2 ML VIAL IVPUSH (17:36)
[2024-01-24] MEDS: iohexoL 350 MG/ML 100 ML INFUS..BTL IV (17:55)
[2024-01-24 18:24] LABS: Influenza A PCR NEGATIVE (Negative); Influenza B PCR NEGATIVE (Negative); Resp Syncy Virus RNA Qual PCR NEGATIVE (Negative); SARS COV2 PCR INHOUSE NEGATIVE (Negative)
[2024-01-24 18:31] VITALS: BP 125/78; PULSE 116; RESP 15; TEMP 38.7; O2SAT 94
--- NOTE | 2024-01-24 19:06 | PC.NURSE ---
pt CORINNA from home where she lives with family. per EMS pt has a hx of dementia. she was found face down on the floor covered in feces and urine. unknown mechanism of fall, unknown down time. pt feces caked to body, informed MD of ? care of pt at home. pt on thinners. VSS.
[2024-01-24] MEDS: Acetaminophen 325 MG TABLET 650 MG PO (19:07)
--- NOTE | 2024-01-24 19:15 | PC.NURSE ---
This RN assumed pt care @ 1900. Pt ca&ox4, no signs of distress. Pt medicated per dec. Pt requested and given blanket and light dimmed. Plan of care ongoing.
--- NOTE | 2024-01-24 20:01 | PC.NURSE ---
Labs collected and sent (1st set of cultures and lactic) Plan of care ongoing
[2024-01-24 22:08] VITALS: BP 96/58; PULSE 116; RESP 18; TEMP 37.2; O2SAT 93
--- NOTE | 2024-01-24 23:52 | PC.NURSE ---
Pt PO challenged per provider. Provider made aware PO challenge went well. Plan of care ongoing.
[2024-01-25 00:36] LABS: C Reactive Protein 0.54 mg/dL (< or = 0.50)
[2024-01-25 00:48] LABS: Appearance Urine Clear; Color Urine Dark Yellow; Glucose Urine UA Negative (Negative); Leukocyte Esterase Urine Trace (Negative); Nitrite Urine Negative (Negative); Specific Gravity - Urine >= 1.030 (1.005-1.025); UMIC TRIGGER UACC YES; Urine Blood Negative (Negative); Urine Ketones 40 mg/dL (Negative); Urine Protein 30 (1+) mg/dL (Neg-Trace)
[2024-01-25 00:53] LABS: Bacteria Urine None Seen (None Seen); Hyaline Casts Urine 0-2 /LPF (0-2); RBC Urine 0-2 /HPF (0-2); Squamous Epithelial Cell Urine 0-2 /HPF (0-2); WBC Urine 0-5 /HPF (0-5)
[2024-01-25 01:03] LABS: Erythrocyte Sedimentation Rate 2 MM/HR (0-15)
[2024-01-25] MEDS: 0.9 % Sodium Chloride 1,000 ML 999 ML IV (01:12)
--- NOTE | 2024-01-25 01:16 | PC.NURSE ---
Pt medicated per dec. Plan of care ongoing.
--- NOTE | 2024-01-25 02:59 | PC.NURSE ---
Stool collected and sent. Plan of care ongoing.
[2024-01-25 04:05] LABS: CDiff Gene PCR NEGATIVE (Negative)
[2024-01-25] MEDS: Dicyclomine HCl 10 MG CAPSULE 20 MG PO (04:10)
--- NOTE | 2024-01-25 04:13 | PC.NURSE ---
Pt medicated per dec. Plan of care ongoing.
[2024-01-25 04:19] VITALS: BP 95/59; BP 95/64; PULSE 83; PULSE 86
[2024-01-25 04:20] VITALS: BP 90/65; PULSE 81
--- NOTE | 2024-01-25 04:31 | PC.NURSE ---
Pt reported being lightheaded on standing orthos. Provider advised. Plan of care ongoing.
[2024-01-25 04:46] VITALS: BP 90/65; PULSE 81; RESP 12; TEMP 37; O2SAT 93
[2024-01-25 09:41] LABS: Adenovirus F 40/41 Not Detected (Not Detect.); Astrovirus Not Detected (Not Detect.); Campylobacter Not Detected (Not Detect.); Cryptosporidium Not Detected (Not Detect.); Cyclospora cayetanensis Not Detected (Not Detect.); E. coli EAEC Not Detected (Not Detect.); E. coli EPEC Not Detected (Not Detect.); E. coli ETEC Not Detected (Not Detect.); E. coli STEC Not Detected (Not Detect.); Entamoeba histolytica Not Detected (Not Detect.); Giardia lamblia Not Detected (Not Detect.); Plesiomonas shigelloides Not Detected (Not Detect.); Rotavirus A Not Detected (Not Detect.); Salmonella Not Detected (Not Detect.); Sapovirus Not Detected (Not Detect.); Shigella sp./EIEC Not Detected (Not Detect.); Vibrio Not Detected (Not Detect.); Vibrio Cholerae Not Detected (Not Detect.); Yersinia enterocolitica Not Detected (Not Detect.)
== END 2024-01-25 04:48 | disposition home or self-care (01) ==
PROVIDERS: Physician Assistant Medical; Emergency Provider Emergency Medicine; PCP Internal Medicine
DX: K52.9 Noninfective gastroenteritis and colitis, unspecified (principal); R11.2 Nausea with vomiting, unspecified; R10.13 Epigastric pain; I45.10 Unspecified right bundle-branch block; R10.32 Left lower quadrant pain; Z11.52 Encounter for screening for COVID-19; Z20.822 Contact with and (suspected) exposure to COVID-19; Z79.899 Other long term (current) drug therapy
CPT/HCPCS: 0241U; 36415; 51798; 74018; 74177; 80048; 80076; 81001; 83605; 83690; 83735; 84484; 85025; 85652; 86140; 87040; 87205; 87493; 87507; 93005; 96361; 96374; 96375; 99284; 99285; J1885; J2405; Q9967

== ENCOUNTER → 2024-01-24 11:15 | Outpatient (BNV) | payer OTHER, SELFPAY | PROVIDERS: Emergency Provider Emergency Medicine; PCP Internal Medicine; Visit Provider Internal Medicine Cardiovascular Disease | DX: I45.10 Unspecified right bundle-branch block (principal); I44.4 Left anterior fascicular block; I45.2 Bifascicular block | CPT/HCPCS: 93010 ==

== ENCOUNTER 2024-01-26 20:48 | Emergency (ER) | payer OTHER, SELFPAY ==
[2024-01-26 21:08] VITALS: BP 121/81; PULSE 65; RESP 16; TEMP 36.7; O2SAT 97; BMI 25.8
[2024-01-26 21:41] LABS: MANUAL DIFF FLAG NO
[2024-01-26 21:43] LABS: Basophils Percent Auto 0.6 % (0-2); Eosinophils Absolute Auto 0.1 X10*3/uL (0.0-0.4); Eosinophils Percent Auto 2.1 % (0-4); Hematocrit 43.7 % (42.0-52.0); Imm Gran Abs Auto 0.01 X10*3/uL (0.00-0.03); Imm Gran Pct Auto 0.2 % (0.0-0.4); Lymphocytes Absolute Auto 2.4 X10*3/uL (1.2-4.9); Lymphocytes Percent Auto 48.6 % (20-40); Mean Corpuscular HGB Conc 34.3 g/dl (31.0-36.0); Mean Corpuscular Hemoglobin 27.7 pg (27.0-33.0); Mean Corpuscular Volume 80.8 fL (80.0-98.0); Mean Platelet Volume 9.4 fL (9.4-12.4); Monocytes Absolute Auto 0.5 X10*3/uL (0.1-1.2); Monocytes Percent Auto 9.7 % (2-11); Neutrophils Absolute Auto 1.9 x10*3/uL (2.0-8.3); Neutrophils Percent Auto 38.8 % (45-73); Platelet Count 209 X10*3/uL (160-400); Red Blood Count 5.41 X10*6/uL (4.60-5.80); Red Cell Distribution Width 13.3 % (11.0-16.0); White Blood Count 4.9 X10*3/uL (4.8-10.8)
[2024-01-26 21:58] LABS: Anion Gap 12 (12-20); Blood Urea Nitrogen 13 mg/dL (9-16); Carbon Dioxide 22 mmol/L (22-29); Chloride 111 mmol/L (96-108); Potassium 3.5 mmol/L (3.3-5.1); Sodium 141 mmol/L (135-145)
[2024-01-26 21:59] LABS: Alanine Aminotransferase 91 U/L (0-40); Alkaline Phosphatase 51 U/L (39-117); Aspartate Amino Transferase 55 U/L (5-37); Bilirubin Total 0.5 mg/dL (0.0-1.0); Calcium 8.4 mg/dL (8.4-10.2); Creatinine Clr Calc Pharmacy 105.3; Estimated Glomerular Filt Rate > 60; Glucose Random 98 mg/dL (60-115); Total Protein 6.6 g/dL (6.5-8.0)
[2024-01-26 22:23] LABS: COVID-19 Test Negative (Negative); IDNOW Serial# 08D9AD1C; IDNOW Serial# 6674DD1D; Influenza A Negative (Negative); Influenza B2 Negative (Negative)
--- NOTE | 2024-01-27 02:09 | ED.NAVMDI ---
HPI - Nausea/Vomiting/Diarrhea General Chief complaint: Nausea/Vomiting/Diarrhea Stated complaint: diarrhea Time Seen by Provider: 01/27/24 02:08 Source: patient Mode of arrival: ambulatory Limitations: no limitations History of Present Illness HPI Narrative: Patient has been having diarrhea for last 3 days multiple times was seen here on 01/24 stool culture was negative for C diff and other viruses still having diarrhea about 10-15 times a day taking a Pepto-Bismol anybody without much relief no recent travels no nausea no vomiting patient had diffuse abdominal cramping no blood in the stool patient's CT scan on 01/24 which was negative for acute Related Data Home Medications ?Medication ?Instructions ?Recorded ?Confirmed ascorbic acid (vitamin C) 500 mg 500 mg PO DAILY 08/27/20 08/14/23 tablet (Vitamin C) omega-3 fatty acids 1,000 mg PO DAILY 08/27/20 08/14/23 cholecalciferol (vitamin D3) 25 25 mcg PO DAILY 01/21/22 08/14/23 mcg (1,000 unit) capsule Previous Rx's ?Medication ?Instructions ?Recorded pentoxifylline 400 mg 400 mg PO BID 90 days #180 tabs 08/06/23 tablet,extended release tadalafil 5 mg tablet 5 mg PO DAILY sexual activity 90 08/06/23 days #90 tabs vitamin E (dl, acetate) 450 mg 450 mg PO DAILY 90 days #90 caps 08/06/23 (1,000 unit) capsule ondansetron 4 mg disintegrating 4 mg PO DAILY PRN nausea and 01/24/24 tablet vomiting 5 days #14 tabs ciprofloxacin HCl 500 mg tablet 500 mg PO BID #14 tabs 01/27/24 (Cipro) metronidazole 500 mg tablet 500 mg PO TID #21 tabs 01/27/24 Allergies Allergy/AdvReac Type Severity Reaction Status Date / Time tramadol [From Ultram] Allergy Mild nervous Verified 01/26/24 21:08 system Review of Systems Review of Systems: Yes all other systems are reviewed and are negative PMFSH Past Medical History Medical History Gallstones BPH without urinary obstruction Nephrolithiasis Umbilical hernia Left knee pain Renal calculi Left breast mass Mass of right elbow Partial small bowel obstruction Surgical History H/O lithotripsy History of laparoscopic cholecystectomy (10/16/22) History of excision of mass (03/07/22) History of esophagogastroduodenoscopy (EGD) Hx of colonoscopy H/O umbilical hernia repair H/O hemorrhoidectomy H/O lateral meniscus repair of left knee Family History Family History Father CAD (coronary artery disease) Mother Breast cancer Social History Social History Household Members: Spouse Housing: House Do you presently have visiting nurse or other home services: No Alcohol intake: never Patient Tobacco Use Status: Never used Tobacco Smoked in Last 30 Days: No e-Cigarette/Vaping Use: Never Used Second Hand Smoke Exposure: No Use of substances other than those prescribed or required for medical reasons: No Advance Directives: Yes Advance Directives on File: Yes Advance Directives Date on File: 09/02/20 service: No Current occupational status: employed Current occupation: [employer] - Right Handed Current occupational exposures/hazards: No Cognitive needs: No Hearing needs: No Vision needs: Yes Physical Exam Vital Signs: Vital Signs: Last Vital Signs Temp 98.2 F 01/27/24 04:30 Pulse 62 01/27/24 04:30 Resp 16 01/27/24 04:30 BP 126/86 01/27/24 04:30 Pulse Ox 99 01/27/24 04:30 O2 Del Method Room Air 01/27/24 04:30 BMI result Body Mass Index 25.8 Appearance: Alert. Oriented X3. No acute distress. Eyes: No pallor or icterus ENT: Pharynx normal. Oral Mucosa moist Neck: Normal inspection. Neck supple. CVS: Normal heart rate and rhythm. Pulses normal. Respiratory: No respiratory distress. Equal air entry bilateral, no wheezing/rales/rhonchi Abdomen: Soft and nontender. Bowel sounds are present, no mass palpable, no CVA tenderness Skin: Skin warm and dry. Normal skin color. Normal skin turgor. Extremities: No lower extremity edema. No calf tenderness Neuro: Oriented X 3. No motor deficit. Medications Administered Discontinued Medications Generic Name Dose Route Start Last Admin Trade Name Freq PRN Reason Stop Dose Admin Levofloxacin 500 mg 01/27/24 02:31 01/27/24 02:36 Levofloxacin 500 Mg Tablet PO 01/27/24 02:32 500 mg ONCE ONE Administration Loperamide HCl 2 mg 01/27/24 02:10 01/27/24 02:33 Loperamide Hcl 2 Mg Capsule PO 01/27/24 02:11 2 mg ONCE ONE Administration Metronidazole 500 mg 01/27/24 02:31 01/27/24 02:36 Metronidazole 500 Mg Tablet PO 01/27/24 02:32 500 mg ONCE ONE Administration Medical Decision Making Medical Decision Making MDM Narrative: Patient with acute enteritis advised drink plenty of fluids give a short course of antibiotics Cipro and Flagyl Lab Data [facility] Lab Attestation statement: I reviewed the patient's lab results. 01/26/24 21:30 01/26/24 21:30 Labs: Lab Results 01/26/24 Range/Units 21:30 WBC 4.9 (4.8-10.8) X10*3/uL RBC 5.41 (4.60-5.80) X10*6/uL Hgb 15.0 (14.0-18.0) g/dl Hct 43.7 (42.0-52.0) % MCV 80.8 (80.0-98.0) fL MCH 27.7 (27.0-33.0) pg MCHC 34.3 (31.0-36.0) g/dl RDW 13.3 (11.0-16.0) % Plt Count 209 (160-400) X10*3/uL MPV 9.4 (9.4-12.4) fL Immature Gran % (Auto) 0.2 (0.0-0.4) % Neut % (Auto) 38.8 L (45-73) % Lymph % (Auto) 48.6 H (20-40) % Bureau % (Auto) 9.7 (2-11) % Eos % (Auto) 2.1 (0-4) % Baso % (Auto) 0.6 (0-2) % Lymph # (Auto) 2.4 (1.2-4.9) X10*3/uL Bureau # (Auto) 0.5 (0.1-1.2) X10*3/uL Eos # (Auto) 0.1 (0.0-0.4) X10*3/uL Baso # (Auto) 0.0 (0.0-0.2) X10*3/uL Abs Immat Gran (auto) 0.01 (0.00-0.03) X10*3/uL Absolute Neuts (auto) 1.9 L (2.0-8.3) x10*3/uL Absolute Nucleated RBC 0.000 (0.0-0.012) X10*3/uL Nucleated RBC % (auto) 0.0 (0.0-0.2) /100WBC Sodium 141 (135-145) mmol/L Potassium 3.5 D (3.3-5.1) mmol/L Chloride 111 H (96-108) mmol/L Carbon Dioxide 22 (22-29) mmol/L Anion Gap 12 (12-20) BUN 13 (9-16) mg/dL Creatinine 0.77 (0.5-1.4) mg/dL Estim Creat Clear Calc 105.3 Estimated GFR > 60 Random Glucose 98 (60-115) mg/dL Calcium 8.4 D (8.4-10.2) mg/dL Total Bilirubin 0.5 (0.0-1.0) mg/dL AST 55 H (5-37) U/L ALT 91 H (0-40) U/L Alkaline Phosphatase 51 (39-117) U/L Total Protein 6.6 (6.5-8.0) g/dL Albumin 4.0 (3.5-5.0) g/dL COVID-19 (OLY) Negative (Negative) COVID-19 Clin Com See Note Influenza Type A (ALANA) Negative (Negative) Influenza Type B (ALANA) Negative (Negative) Influenza A & B Note See Note Discharge Plan Discharge Clinical Impression: Enteritis Patient Disposition: Home, Self-Care Instructions: Acute Diarrhea (ED) Additional Instructions: Drink plenty of fluid Take antibiotic as prescribed Have probiotics/yogurt Imodium for severe diarrhea 3 - 4 times a day maximum Prescriptions: New ciprofloxacin HCl [Cipro] 500 mg tablet 500 mg PO BID Qty: 14 0RF metronidazole 500 mg tablet 500 mg PO TID Qty: 21 0RF No Action ascorbic acid (vitamin C) [Vitamin C] 500 mg Tablet 500 mg PO DAILY omega-3 fatty acids Capsule 1,000 mg PO DAILY ondansetron 4 mg tablet,disintegrating 4 mg PO DAILY PRN (Reason: nausea and vomiting) 5 Days Qty: 14 0RF cholecalciferol (vitamin D3) 25 mcg (1,000 unit) capsule 25 mcg PO DAILY tadalafil 5 mg tablet 5 mg PO DAILY 90 Days Qty: 90 1RF vitamin E (dl, acetate) 450 mg (1,000 unit) capsule 450 mg PO DAILY 90 Days Qty: 90 1RF pentoxifylline 400 mg tablet extended release 400 mg PO BID 90 Days Qty: 180 1RF Rx Instructions: administer with meals Interventions: ED Discharge Assessment Last Done: 01/27/24 04:30 Discharge Date/Time: 01/27/24 04:30 Print Language: Mongolian
[2024-01-27] MEDS: Loperamide HCl 2 MG CAPSULE PO (02:33)
[2024-01-27 02:34] VITALS: BP 126/86; PULSE 62; RESP 16; TEMP 36.8; O2SAT 99
[2024-01-27] MEDS: levoFLOXacin 500 MG TABLET PO (02:36)
[2024-01-27] MEDS: metroNIDAZOLE 500 MG TABLET PO (02:36)
[2024-01-27 04:30] VITALS: BP 126/86; PULSE 62; RESP 16; TEMP 36.8; O2SAT 99
== END 2024-01-27 04:30 | disposition home or self-care (01) ==
PROVIDERS: Emergency Provider Internal Medicine; PCP Internal Medicine
DX: K52.9 Noninfective gastroenteritis and colitis, unspecified (principal); Z11.52 Encounter for screening for COVID-19
CPT/HCPCS: 80053; 85025; 87502; 87635; 99283; 99284

== ENCOUNTER 2024-01-27 12:08 | Outpatient (AMB) | payer OTHER, SELFPAY ==
--- NOTE | 2024-01-27 12:11 | MHC.PC.OV ---
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 Required: No Accompanied by: Self / Same As Patient Allergies tramadol [From Ultram] Allergy (Mild, Verified 01/27/24 12:41) nervous system Medication List - Last Reconciled 01/27/24 by Luzma Riddle MD ascorbic acid (vitamin C) (Vitamin C) 500 mg PO DAILY cholecalciferol (vitamin D3) 25 mcg PO DAILY ciprofloxacin HCl (Cipro) 500 mg PO BID metronidazole 500 mg PO TID omega-3 fatty acids 1,000 mg PO DAILY ondansetron 4 mg PO DAILY PRN 5 days pentoxifylline ER 400 mg PO BID 90 days tadalafil 5 mg PO DAILY 90 days vitamin E (dl, acetate) 450 mg PO DAILY 90 days Tobacco use date assessed: 01/27/24 Dental Screening Dental Screen Date: 01/27/24 Did you have a dental visit in the last 12 months?: Yes Did you have a dental problem in the last 6 months where you did not have access to dental care?: No Was dental information given to patient?: Patient has dentist HPI HPI Comments History of Present Illness Details This is a 58-year-old male with nephrolithiasis, GERD and low vitamin-D that comes today as a hospital discharge follow-up with discharge date 01/26/2024 due to enteritis. He said that he had non quantified fever and diarrhea that started 3 days ago. Denies any recent travel. Went to ER for this matter multiple times starting 3 days ago and has CT scan of the abdomen and pelvis showing no reason for diarrhea. All still cultures have been negative up to this state and norovirus is still pending. Labs did not show any significant abnormality. He had cholecystectomy about a year ago and said that has been eating everything including fat food. I will prescribe cholestyramine as needed for diarrhea. He started today Cipro and Flagyl and said the last bowel movement was at 03:00 today. Use Pepto-Bismol in the past with no relief. He follows with urology for his nephrolithiasis. On vitamin-D supplements for his low vitamin-D. GERD stable with changes in diet. [facility] Medical History (Updated 01/27/24 @ 13:34 by Luzma Riddle MD) Gallstones BPH without urinary obstruction Nephrolithiasis Umbilical hernia Left knee pain Renal calculi Left breast mass Mass of right elbow Partial small bowel obstruction Surgical History H/O lithotripsy History of laparoscopic cholecystectomy (10/16/22) History of excision of mass (03/07/22) History of esophagogastroduodenoscopy (EGD) Hx of colonoscopy H/O umbilical hernia repair H/O hemorrhoidectomy H/O lateral meniscus repair of left knee Family History Father CAD (coronary artery disease) Mother Breast cancer Social History Household Members: Spouse Housing: House Do you presently have visiting nurse or other home services: No Alcohol intake: never Patient Tobacco Use Status: Never used Tobacco e-Cigarette/Vaping Use: Never Used Second Hand Smoke Exposure: No Advance Directives Date on File: 09/02/20 service: No Current occupational status: employed Current occupation: [employer] - Right Handed Current occupational exposures/hazards: No Cognitive needs: No Hearing needs: No Vision needs: Yes Questionnaire PHQ-9 Over the last 2 weeks, how often have you been bothered by any of the following problems? 1. Little interest or pleasure in doing things: not at all 2. Feeling down, depressed, or hopeless: not at all 3. Trouble falling or staying asleep, or sleeping too much: not at all 4. Feeling tired or having little energy: not at all 5. Poor appetite or overeating: not at all 6. Feeling bad about yourself - or that you are a failure or have let yourself or your family down: not at all 7. Trouble concentrating on things, such as reading the newspaper or watching television: not at all 8. Moving or speaking so slowly that other people could have noticed. Or the opposite - being so fidgety or restless that you have been moving around a lot more than usual: not at all 9. Thoughts that you would be better off or of hurting yourself in some way: not at all Total score: 0 Depression Screening Interpretation: Negative Depression Screening Done: Yes 77426 - PHQ-9 Billing: Yes Source: Developed by Drs. Augusto Raza, Laine Peck, Frank Parks and colleagues, with an educational viktoria from [employer]. Thrive Questionnaire Date Thrive assessed: 01/27/24 I am a: Patient What is your living situation today?: I have a steady place to live Within the past 12 months, did the food you bought not last and you didn't have the money to get more?: Never true Within the past 12 months, did you worry whether your food would run out before you got money to buy more?: Never true Do you have trouble paying for medicines?: No Do you have trouble getting transportation to medical appointments?: No Do you have trouble paying your heating and electricity bill?: No Do you have trouble taking care of your child, family member or friend?: No Do you have trouble with day-to-day activities such as bathing, preparing meals, shopping, managing finances, etc.?: No Are you currently unemployed and looking for a job?: No Are you interested in more education?: No Please select the resources that you would like help with: None Currently or been in a relationship where the following occur: no concerns reported THRIVE Score: 0 AUDIT C Alcohol Use Questionnaire (AUDIT-C) 1. How often do you have a drink containing alcohol?: Monthly or less 2. How many drinks containing alcohol do you have on a typical day when you are drinking?: 1 or 2 3. How often do you have six or more drinks on one occasion?: Never Total Score: 1 PINA-7 AMB Questionnaire PINA-7 Date PINA - 7 assessed: 01/27/24 Feeling nervous, anxious, or on edge: 0 = Not at all Not being able to stop or control worryin = Not at all Worrying too much about different things: 0 = Not at all Trouble relaxin = Not at all Being so restless that it is hard to sit still: 0 = Not at all Becoming easily annoyed or irritable: 0 = Not at all Feeling afraid as if something awful might happen: 0 = Not at all Total PINA-7 score (0-4 normal; 5-9 mild; 10-14 moderate; 15-21 severe): 0 Source: Developed by Drs. Augusto Raza, Laine Peck, Frank Parks and colleagues, with an educational viktoria from [employer]. PINA-7 Assessment Billing PINA-7 Assessment Tool: PINA-7 Assessment 07190 Review of Systems Const All systems reviewed & are unremarkable except as noted in HPI and below Eyes Reports no additional complaints, Denies change in vision and Denies other visual disturbances Card Denies chest pain at rest, Denies chest pain with activity, Denies edema, Denies irregular heart rhythm, Denies claudication, Denies dyspnea, Denies dyspnea on exertion, Denies orthopnea, Denies paroxysmal nocturnal dyspnea and Denies slow heart rate Resp Denies cough, Denies dyspnea and Denies dyspnea on exertion GI Reports abdominal pain, Denies change in bowel habits, Denies excessive flatus, Reports diarrhea, Reports nausea and Denies vomiting Denies urinary hesitancy, Denies urinary incontinence and Denies urinary urgency Musc Denies abnormal gait, Denies atrophy, Denies deformity and Denies limited range of motion Skin/Breast Denies bleeding lesions, Denies changing lesions and Denies rash Neuro Denies abnormal gait and Denies lack of coordination Physical exam (Primary Care) Vital Signs: Last Vital Signs BP 112/80 01/27/24 12:13 BMI result Body Mass Index 25.5 Tobacco/Smoking Status: Tobacco use Status Tobacco use date assessed 01/27/24 01/27/24 12:19 Patient Tobacco Use Status Never used Tobacco 01/27/24 12:19 e-Cigarette/Vaping Use Never Used 01/27/24 12:19 PHQ-9: PHQ-9 Score PHQ-9: Total score 0 01/27/24 12:42 Depression Screening Interpretation: Negative Thrive Assessment: Date of Thrive Assessment Date Thrive assessed 01/27/24 01/27/24 12:19 Currently or been in a relationship where the following occur: no concerns reported Eyes General: appearance normal, both eyes and all related structures Eyelids: Yes eyelids normal Conjunctivae: conjunctivae normal Neck Neck: Yes normal visual inspection and Yes supple Resp Effort & Inspection: normal respiratory effort Auscultation: clear to auscultation bilaterally Cardio Jugular venous distension: no JVD Rate: regular rate Rhythm: regular rhythm Heart sounds: S1 normal heart sound present and S2 normal heart sound present GI Inspection: Yes normal to inspection Palpation (GI): Soft to palpation and nontender Auscultation: normal bowel sounds Extrem General: Yes full ROM Assessment and Plan Assessment & Plan (1) Hospital discharge follow-up: Code(s): Z09 - Encounter for follow-up examination after completed treatment for conditions other than malignant neoplasm Plan: Discharge date 01/26/2024. CT of abdomen and pelvis show no acute findings. Was started on Cipro and Flagyl and feels markedly improved. Stool culture all negative except norovirus which is still pending. (2) Enteritis: Code(s): K52.9 - Noninfective gastroenteritis and colitis, unspecified Plan: Continue Cipro and Flagyl. Start cholestyramine as needed for diarrhea. (3) Nephrolithiasis: Code(s): N20.0 - Calculus of kidney Plan: Follow-up with Urology. (4) GERD (gastroesophageal reflux disease): Comment: Notes heartburn once a week - to continue Famotidine prn Code(s): K21.9 - Gastro-esophageal reflux disease without esophagitis Plan: Continue low acid diet. (5) Hypovitaminosis D: Code(s): E55.9 - Vitamin D deficiency, unspecified Plan: Continue vitamin-D supplement. Medications: New cholestyramine (with sugar) 4 gram administer w/meal; avoid other meds within 1hr before or 4-6hr after dose 4 grams PO DAILY PRN 378 grams 0RF diarrhea 30 days Coding Level of Care Code TCM Mod MDM <= 7 Days Diagnoses Hospital discharge follow-up Z09 Enteritis K52.9 Nephrolithiasis N20.0 GERD (gastroesophageal reflux disease) K21.9 Hypovitaminosis D E55.9 Additional Codes PINA-7 Assessment Billing - PINA-7 Assessment Tool: PINA-7 Assessment 14065 ([id number]) Time Spent (min) 22
[2024-01-27 12:13] VITALS: BP 112/80; BMI 25.5
== END 2024-01-27 12:53 | disposition home or self-care (01) ==
PROVIDERS: PCP Internal Medicine; Visit Provider Internal Medicine
DX: K52.9 Noninfective gastroenteritis and colitis, unspecified (principal); N20.0 Calculus of kidney; K21.9 Gastro-esophageal reflux disease without esophagitis; E55.9 Vitamin D deficiency, unspecified
CPT/HCPCS: 99214

== ENCOUNTER 2024-02-16 07:11 | Outpatient (AMB) | payer OTHER, SELFPAY ==
--- NOTE | 2024-02-16 07:18 | A.OFFVIS_ITS ---
Vital Signs 02/16/24 07:20 Height 5 ft 10 in Weight 180 lb BMI 25.8 BP 113/67 Blood Pressure Location Lt brachial Position Sitting Pulse 73 Intake Visit Reasons: ER follow up Enteritis Intake Note: Patient follow up for Enteritis from ED Patient cc: soft stool and gassy. Denies any other GI issues. Director Presales Required: Yes Accompanied by: Self / Same As Patient Allergies tramadol [From Ultra] Allergy (Mild, Verified 02/16/24 07:18) nervous system Medication List - Last Reconciled 02/16/24 by Turner Mayorga MD amoxicillin-pot clavulanate 875-125 mg 1 tab PO BID 7 days ascorbic acid (vitamin C) (Vitamin C) 500 mg PO DAILY cholecalciferol (vitamin D3) 25 mcg PO DAILY cholestyramine (with sugar) 4 gram 4 grams PO DAILY PRN 30 days omega-3 fatty acids 1,000 mg PO DAILY ondansetron 4 mg PO DAILY PRN 5 days pentoxifylline ER 400 mg PO BID 90 days tadalafil 5 mg PO DAILY 90 days vitamin E (dl, acetate) 450 mg PO DAILY 90 days HPI HPI ER follow up Enteritis: Details: GI CLINIC VISIT for this 58-year-old Vietnamese-speaking male for follow-up of abdominal pain. Patient was hospitalized with small bowel obstruction in 08/2020 which resolved with conservative management. Urgent follow-up for scheduled after patient was seen at [facility] ED on 01/23 and 01/27/2024 with gastroenteritis. IMAGING STUDIES:? 05/18/21 MR ENTEROGRAPHY SHOWED: 1. No bowel obstruction or focal inflammatory changes in bowel or mesentery. 2. Incidental cyst upper pole left kidney 2.1 cm. No additional imaging required. 3. Tiny cyst right hepatic lobe 0.6 cm. 4. Small solitary gallstone. No gallbladder wall thickening or ductal dilatation..? 08/26/[address] SCAN SHOWED:There are moderately dilated loops of mid small bowel, some contain stool. There is a distal small bowel transition point to decompressed small bowel. Otherwise, unremarkable unopacified loops of small and large bowel are identified. A normal appendix is identified. There is no pelvic free fluid. The urinary bladder is unremarkable. There is neither pelvic nor inguinal lymphadenopathy. Bone windows: Neither sclerotic nor lytic bone lesions are identified. IMPRESSION: ? 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 08/31/21 UGI WITH SBFT SHOWED:There is normal transit time of contrast material through the small bowel, with contrast present in the colon by 75 minutes. Small bowel loops are of normal caliber throughout the abdomen and pelvis. The jejunal and ileal fold patterns are normal, without evidence of abnormal thickening. No fixed regions of luminal narrowing are seen to suggest stricturing. The distal ileum demonstrates a normal appearance. ENDOSCOPIC STUDIES:? 05/06/23 COLONOSCOPY SHOWED: One medium sized and one small polyps removed Moderate diverticulosis seen in the sigmoid colon Moderate hemorrhoids on retroflexed exam. Plan: Repeat Colonoscopy was advised in 3 years. 11/26/19 EGD AND COLONOSCOPY SHOWED:? STOMACH: Diffuse gastritis with prominent and hemorrhagic appearing folds ? Colonoscopy Findings: Three polyps removed. ? Patchy erythema from 50 to 65 cms likely resolving ischemic or infectious colitis - biopsied ? Moderate diverticulosis seen in the sigmoid colon ? Moderate hemorrhoids on retroflexed exam. ? Rectal bleeding likely self limited diverticular bleed or from ischemic colitis - appears to be resolving. ? Plan: ? Await pathology results ? Patient has an appointment on 12/30/19 in the GI Clinic with Turner Mayorga M.D.- ? Repeat Colonoscopy interval based on path results - in 3-5 years if ? polyps are adenomatous and 10 years if polyps are hyperplastic. ? Above findings were reviewed with the patient and Gastritis, Colon polyps and ? Diverticulosis handouts were provided to the patient ? BIOPSIES SHOWED: ? A. Small bowel, biopsy: Small intestinal mucosa within normal limits. ? B. Stomach, antrum, biopsy: ? - Antral-type mucosa with severe chronic active inflammation. ? - Positive for H. pylori. ? C. Stomach, folds, biopsy: ? - Oxyntic mucosa with moderate chronic active inflammation. ? - No atrophy seen. ? - Positive for H. pylori. ? D. Colon, ascending, polypectomies: ? - Tubular adenoma(s); no high grade dysplasia or carcinoma seen. ? - Colonic mucosa with prominent lymphoid aggregate; no dysplasia seen. ? E. Colon, descending, polypectomies: Hyperplastic mucosal polyps with inflammatory changes. ? F. Rectum, polypectomy: Hyperplastic mucosal polyp. 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 Denies any other GI issues. He noted diarrhea several times a day. I have been feeling a lot better since I took antibiotics Pt was prescribed Cipro and metronidazole x 7 days Had diarrhea x 3 weeks Stool is soft and gets diarrhea when he eats. Has 2 -3 very soft BMs per day. PAST VISITS: Pt states he has been doing well since he had a Lap Fidelia. Abdominal pain has resolved. Everything is perfrect Notes heartburn once a week and takes Famotidine prn Nausea is better. He has noted two episodes of nausea after he ate in excess [place] digestion is slow Denies constipation or abdominal bloating. Has intermittent burping Continues to have nausea Abdominal bloating is better. Notes intense nausea after eating certain foods - greasy foods. Noted upper abdominal pain with nausea a week ago and concerned if his symptoms are related to gallstones. Denies radiation to the back or shoulder. Pain resolved after an hour. Bloating has improved. Has a good BM once a day - usually in the morning Even if I dont eat much, I feel like I am bloated. I have been having nausea - mostly when I eat Has a BM at least once a day. BMs are soft and without straining. Takes Bentyl 20 mg prn for intestinal spasms and is requesting a refill. MRE results were reviewed with the patient. Notes post prandial nausea which is rare. Complains of post prandial upper abdominal pain, nausea and burning sensation for the past 2 months. When I eat my stomach feels full My digestion seems to be very slow. Notes abdominal pain 5 to 10 min after he starts eating, also notes abd bloating, distension and excessive gas. Feels full for several hrs after he eats breakfast. Admits to heartburn and denies dysphagia. Decreased appetite since he feels full for several hours. Wt loss of 2-3 lbs.? Has a BM every with passage of small amounts of stools with incomplete evacuation. Taking an enema once a week for the past 2 weeks with good results and is feeling a little better. Denies diarrhea, black stools or rectal bleeding. Denies problems with anesthesia in the past, loud snoring or sleep apnea (has intermittent mild snoring). ? Denies major cardiac or pulmonary problems. ? Seen by Dog [facility]aiser 2 months ago for chest pain and had a stress test which was negative. ? Denies known FH of colon polyps or colon cancer or GI malignancy. ? Mom had breast cancer. ? Dad had skin cancer [facility] Medical History Gallstones BPH without urinary obstruction Nephrolithiasis Umbilical hernia Left knee pain Renal calculi Left breast mass Mass of right elbow Partial small bowel obstruction Surgical History H/O lithotripsy History of laparoscopic cholecystectomy (10/16/22) History of excision of mass (03/07/22) History of esophagogastroduodenoscopy (EGD) Hx of colonoscopy H/O umbilical hernia repair H/O hemorrhoidectomy H/O lateral meniscus repair of left knee Family History Father CAD (coronary artery disease) Mother Breast cancer Social History Household Members: Spouse Housing: House Do you presently have visiting nurse or other home services: No Alcohol intake: never Patient Tobacco Use Status: Never used Tobacco e-Cigarette/Vaping Use: Never Used Second Hand Smoke Exposure: No Advance Directives Date on File: 09/02/20 service: No Current occupational status: employed Current occupation: [employer] - Right Handed Current occupational exposures/hazards: No Cognitive needs: No Hearing needs: No Vision needs: Yes Review of Systems Const All systems reviewed & are unremarkable except as noted in HPI and below Physical Exam Vital Signs: Last Vital Signs Pulse 73 02/16/24 07:20 BP 113/67 02/16/24 07:20 BMI result Body Mass Index 25.8 Const General: healthy appearing and no acute distress Nutritional Appearance: overweight Orientation/consciousness: patient oriented x3 Limitations: language barrier HEENT Head: Yes normal to inspection Ears: hearing grossly normal bilaterally Eyes Sclerae: sclerae normal Pupils: Equal, round and reactive pupils present Neck Neck: Yes normal visual inspection Chest Chest palpation & inspection: normal inspection of the chest Resp Effort & Inspection: normal respiratory effort Auscultation: clear to auscultation bilaterally Cardio Palpation: normal PMI Rate: regular rate Rhythm: regular rhythm Heart sounds: S1 normal heart sound present, S2 normal heart sound present and no murmurs GI Palpation (GI): Soft to palpation, nontender and No hepatosplenomegaly present Auscultation: normal bowel sounds Rectal Exam - Male: Yes deferred Skin General skin exam: no rashes or lesions noted Neuro General: patient oriented x3, gait normal and moves all extremities Cranial nerves: Yes Equal, round and reactive pupils present Psych Appearance: grossly normal Mental Status: mental status grossly normal Assessment & Plan Assessment & Plan (1) Upper abdominal pain: Code(s): R10.10 - Upper abdominal pain, unspecified Category: Medical (2) Chronic constipation: Code(s): K59.09 - Other constipation Category: Medical (3) Abdominal bloating: Code(s): R14.0 - Abdominal distension (gaseous) Category: Medical (4) Hx of small bowel obstruction: Code(s): Z87.19 - Personal history of other diseases of the digestive system Category: Medical (5) History of colon polyps: Comment: Colonoscopy in December 02 showed diverticulosis and a 10 mm adenomatous polyp was removed from the ascending colon. 05/06/23 colonoscopy was performed and two polyps were removed. Repeat colon advised in 3 years. (due 04/2026). Code(s): Z86.010 - Personal history of colonic polyps Category: Medical (6) GERD (gastroesophageal reflux disease): Comment: Notes heartburn once a week - to continue Famotidine prn Code(s): K21.9 - Gastro-esophageal reflux disease without esophagitis Category: Medical (7) Postprandial diarrhea: Code(s): K52.9 - Noninfective gastroenteritis and colitis, unspecified Category: Medical Plan 58 YM with hyperlipidemia, kidney stones and lumbar spine disc herniation in [place] 10 yrs ago seen for evaluation nausea and left-sided abdominal pain for the past month. Patient has noted recent constipation followed by rectal bleeding after taking a laxative. 10/21/[address] scan showed moderate to large volume of stool in the colon, cholelithiasis and bilateral small nonobstructing renal stones. Patient is on a baby aspirin daily. Nausea and left upper quadrant pain can be related to peptic ulcer disease, gastritis or erosive esophagitis. Symptoms of constipation are more recent and likely related to decreased p.o. intake due to nausea. Rectal bleeding is likely due to rectal irritation from passage of hard stools after patient took a laxative. EGD showed Diffuse gastritis with prominent and hemorrhagic appearing folds, gastric biopsies were positive for Helicobacter pylori and patient was treated with triple therapy. He notes resolution of nausea and improvement in abdominal pain. A stool test for H pylori antigen was ordered and pt did not complete it. Same-day colonoscopy showed: Three polyps removed. Patchy erythema from 50 to 65 cms likely resolving ischemic or infectious colitis - biopsied Moderate diverticulosis seen in the sigmoid colon Moderate hemorrhoids on retroflexed exam. Past episode of small-bowel obstruction can be related to adhesions from prior hernia surgery.? MR enterography was normal. Patient was advised to take Zofran for nausea and Miralax three times a week for abdominal bloating 02/03/23 Abd pain and constipation has resolved and nausea improved since pt had GB surgery. 05/06/23 colonoscopy was performed and two polyps were removed. Repeat colon advised in 3 year 02/16/24 Pt seen with post prandial diarrhea after acute gastroenteritis Advised to use a fibre supplement daily and imodium 1/2 hour before meals prn To call if diarrhea does not resolve in the next 3-4 weeks. Patient has a follow-up appointment on 08/12/2024 Medications: New psyllium husk mix into at least 8 oz of water or juice before administering 1 tbsp PO DAILY 30 days 480 grams 1RF K52.9 - Noninfective gastroenteritis and colitis, unspecified Coding Level of Care Code Est Pt Level 3 (10371) Diagnoses Upper abdominal pain R10.10 Chronic constipation K59.09 Abdominal bloating R14.0 Hx of small bowel obstruction Z87.19 History of colon polyps Z86.010 GERD (gastroesophageal reflux disease) K21.9 Postprandial diarrhea K52.9 Time Spent (min) 20
[2024-02-16 07:20] VITALS: BP 113/67; PULSE 73; BMI 25.8
== END 2024-02-16 08:17 | disposition home or self-care (01) ==
PROVIDERS: PCP Internal Medicine; Visit Provider Internal Medicine Gastroenterology
DX: R10.10 Upper abdominal pain, unspecified (principal); K59.09 Other constipation; R14.0 Abdominal distension (gaseous); Z87.19 Personal history of other diseases of the digestive system; Z86.010 Personal history of colon polyps; K21.9 Gastro-esophageal reflux disease without esophagitis; K52.9 Noninfective gastroenteritis and colitis, unspecified
CPT/HCPCS: 99213

== ENCOUNTER → 2024-02-16 07:11 | Outpatient (BNVA) | payer OTHER, SELFPAY | PROVIDERS: PCP Internal Medicine; Visit Provider Internal Medicine Gastroenterology | DX: Z09 Encounter for follow-up examination after completed treatment for conditions other than malignant neoplasm (principal); K52.9 Noninfective gastroenteritis and colitis, unspecified; K21.9 Gastro-esophageal reflux disease without esophagitis; K59.09 Other constipation; R10.10 Upper abdominal pain, unspecified; R14.0 Abdominal distension (gaseous); Z90.49 Acquired absence of other specified parts of digestive tract; Z87.19 Personal history of other diseases of the digestive system; Z86.010 Personal history of colon polyps | CPT/HCPCS: 99212 ==

== ENCOUNTER 2024-02-25 12:47 | Outpatient (REF) | payer OTHER, SELFPAY ==
--- NOTE | ~2024-02-25 | XR_ITS ---
EXAMINATION: XR SHOULDER, RIGHT CLINICAL INFORMATION: Pain in the right shoulder COMPARISON: None available. TECHNIQUE: AP external rotation, Grashey, scapular Y, and axillary views of the right shoulder. FINDINGS: Tiny calcification adjacent to the superior glenoid. Glenohumeral joint otherwise normal. Acromial clavicular joint normal. Surrounding bone and soft tissues unremarkable. XR/XR shoulder RT min 2V IMPRESSION: Tiny calcification adjacent to the superior glenoid of uncertain etiology. This more likely reflect some reactive change related to degenerative changes of the capsule rather than avulsion fracture.
== END 2024-02-25 12:48 | disposition home or self-care (01) ==
LOC: HO.HOSX 12:47
PROVIDERS: PCP Internal Medicine; Visit Provider Physician Assistant
DX: M25.511 Pain in right shoulder (principal); M75.81 Other shoulder lesions, right shoulder
CPT/HCPCS: 20610; 73030; 99212; J1010

== ENCOUNTER 2024-02-25 12:47 | Outpatient (AMB) | payer OTHER, SELFPAY ==
--- NOTE | 2024-02-25 12:52 | MHC.OFFVIS ---
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 Patient reports his pain has been present for over a month. States difficulty with sleeping and pain with ROM. His pain is located at the posterior aspect of shoulder as well as tenderness. Denies injury. No previous tx. NO relief with Tylenol. Edger Automatic Name: Michael ID#[id number] Allergies tramadol [From Ultram] Allergy (Mild, Verified 02/25/24 13:01) nervous system HPI HPI New Problem - Right Shoulder Pain: Details: 58-year-old right hand dominant male who presents to the office today with an credentialing manager for evaluation of right shoulder pain for about a month. He states he has pain, tenderness and erythema at the posterior aspect of his shoulder that is aggravated with sleeping and ROM. He denies any injury and has not had any treatment in the past. He finds no relief with Tylenol. 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 He does not have a history of diabetes. [facility] Medical History Gallstones BPH without urinary obstruction Nephrolithiasis Umbilical hernia Left knee pain Renal calculi Left breast mass Mass of right elbow Partial small bowel obstruction Surgical History H/O lithotripsy History of laparoscopic cholecystectomy (10/16/22) History of excision of mass (03/07/22) History of esophagogastroduodenoscopy (EGD) Hx of colonoscopy H/O umbilical hernia repair H/O hemorrhoidectomy H/O lateral meniscus repair of left knee Family History Father CAD (coronary artery disease) Mother Breast cancer Social History Household Members: Spouse Housing: House Do you presently have visiting nurse or other home services: No Alcohol intake: never Patient Tobacco Use Status: Never used Tobacco e-Cigarette/Vaping Use: Never Used Second Hand Smoke Exposure: No Advance Directives Date on File: 09/02/20 service: No Current occupational status: employed Current occupation: [employer] - Right Handed Current occupational exposures/hazards: No Cognitive needs: No Hearing needs: No Vision needs: Yes Review of Systems Const All systems reviewed & are unremarkable except as noted in HPI and below Physical Exam Vital Signs: BMI result Body Mass Index 25.8 Extrem Other: Right shoulder normal to inspection. Tenderness over the bicipital groove and along the deltoid region of the shoulder. Forward flexion to 175, external rotation to 90, internal rotation to S1. He has significant pain with some weakness in belly press and lift off. Negative Estrada and cross body abduction. NVI. Office Procedures Joint Injection/Drain Joint Injection/Drain Primary Site: right shoulder Prep: site was prepped using aseptic technique, ethochloride spray was applied and injection warnings given Injected: 80 mg of, DepoMedrol, with 8 mL of, 1% plain lidocaine and in the subcromial space Approach Used: posterolateral Procedure: The patient tolerated the procedure well and there was some relief with the local anesthesia Coding 63031 - Glenohumeral/Tronchanteric Bursa/Intraarticular Procedure code (CPT) selection complete Results Reviewed Results Reviewed: Xrays were obtained in the office today and personally reviewed by me of the right shoulder show type two acromion Assessment & Plan Assessment & Plan (1) Tendinitis of right rotator cuff: Code(s): M75.81 - Other shoulder lesions, right shoulder Category: Medical Plan We discussed options today which include steroid injection. They did consent to move forward with the right shoulder injection, which was tolerated well. I recommended rest, ice and elevation and OTC anti-inflammatories PRN for discomfort. An MRI of the right shoulder was also ordered to further evaluate the integrity of RTC. Orders: Orders MR shoulder RT wo con 02/25/24 M77.8 - Other enthesopathies, not elsewhere classified XR shoulder RT min 2V 02/25/24 M25.511 - Pain in right shoulder Patient Instructions: Scribed for Johnson Hernández PA-C, by Nima Zhao medical receptionist medical assistant, on 02/25/2024 at 1:00 PM EST.? I, Johnson Hernández PA-C, have personally reviewed and agree with the information entered by the scribe. Coding Level of Care Code New Pt Level 3 (39827) Diagnoses Tendinitis of right rotator cuff M75.81 CPT Codes Coding - Joint 7: 68446 - Glenohumeral/Tronchanteric Bursa/Intraarticular ([id number])
[2024-02-25 12:54] VITALS: BMI 25.8
== END 2024-02-25 14:35 | disposition home or self-care (01) ==
LOC: HO.HOS 12:47
PROVIDERS: PCP Internal Medicine; Visit Provider Physician Assistant
DX: M75.81 Other shoulder lesions, right shoulder (principal)
CPT/HCPCS: 20610; 99213

== ENCOUNTER 2024-03-16 15:02 | Outpatient (AMB) | payer OTHER, SELFPAY ==
--- NOTE | 2024-03-16 15:23 | A.OFFVIS_ITS ---
Intake Visit Reasons: follow up Intake Note: Patient is Present for Follow Up Urology Medication: Pentoxifylline, Tadalafil Antibiotic Allergies: None Blood Thinners: None Allergies tramadol [From Ultram] Allergy (Mild, Verified 03/16/24 15:27) nervous system Medication List - Last Reconciled 03/16/24 by Manuel Owens MD amoxicillin-pot clavulanate 875-125 mg 1 tab PO BID 7 days ascorbic acid (vitamin C) (Vitamin C) 500 mg PO DAILY cholecalciferol (vitamin D3) 25 mcg PO DAILY cholestyramine (with sugar) 4 gram 4 grams PO DAILY PRN 30 days omega-3 fatty acids 1,000 mg PO DAILY ondansetron 4 mg PO DAILY PRN 5 days pentoxifylline ER 400 mg PO BID 90 days psyllium husk 1 tbsp PO DAILY 30 days tadalafil 5 mg PO DAILY 90 days vitamin E (dl, acetate) 450 mg PO DAILY 90 days HPI Comments Details: Tanner is a pleasant Latvian-speaking male. 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 Ocasio. He seen for the following urologic conditions - nephrolithiasis - Peyronie's disease Here for follow-up after Peyronie's Completed 6 months of antioxidant trial Still with significant curvature Discussed treatment options He would like to proceed with Peyronie's plication. Understands the main risks including adverse impact on erectile function Had bleeding on combination vitamin E and pentoxifylline Peyronie's Disease Mild curvature No pain Did not respond to trial of antioxidant Nephrolithiasis Hospital admission 06/04 Intervention - 06/04 Right [facility] Imaging - 06/04 CT - right renal hydronephrosis and hydroureter, stones remained lodged at the ureterovesicular junction - 08/04 renal ultrasound hydronephrosis has resolved, cyst on left kidney Recommendation - 12 month follow-up imaging [facility] Medical History Gallstones BPH without urinary obstruction Nephrolithiasis Umbilical hernia Left knee pain Renal calculi Left breast mass Mass of right elbow Partial small bowel obstruction Surgical History H/O lithotripsy History of laparoscopic cholecystectomy (10/16/22) History of excision of mass (03/07/22) History of esophagogastroduodenoscopy (EGD) Hx of colonoscopy H/O umbilical hernia repair H/O hemorrhoidectomy H/O lateral meniscus repair of left knee Family History Father CAD (coronary artery disease) Mother Breast cancer Social History Household Members: Spouse Housing: House Do you presently have visiting nurse or other home services: No Alcohol intake: never Patient Tobacco Use Status: Never used Tobacco e-Cigarette/Vaping Use: Never Used Second Hand Smoke Exposure: No Advance Directives Date on File: 09/02/20 service: No Current occupational status: employed Current occupation: [employer] - Right Handed Current occupational exposures/hazards: No Cognitive needs: No Hearing needs: No Vision needs: Yes Review of Systems Const Denies chills and Denies fever(s) Card Reports no additional complaints and Denies syncope Resp Denies cough GI Denies abdominal pain and Denies heartburn Reports as per HPI and Denies change in libido Neuro Denies syncope Psych Denies change in libido Endo Denies change in libido Physical Exam Const General: cooperative, healthy appearing, comfortable and no acute distress Orientation/consciousness: patient oriented x3 HEENT Face and sinus: Yes normal facial exam Mouth: moist mucous membranes Neck Neck: Yes normal visual inspection, Yes full ROM and Yes trachea midline Chest Chest palpation & inspection: normal inspection of the chest Resp Effort & Inspection: normal respiratory effort, able to speak in complete sentences and no respiratory distress GI Inspection: Yes normal to inspection Back/Spine/Pelvis Cervical Spine: normal cervical lordosis Thoracic/Lumbar Spine: thoracic and lumbar spine normal to inspection Skin General skin exam: no rashes or lesions noted Neuro General: patient oriented x3, gait normal, tone normal and moves all extremities Extrem General: Yes normal to inspection and Yes capillary refill normal Assessment & Plan Assessment & Plan (1) Peyronie's disease: Code(s): N48.6 - Induration penis plastica Category: Medical Plan Risks, benefits and alternatives to therapy were discussed. These include but are not limited to infection, bleeding, damage to local organs and tissues, need for further interventions. Anesthetic risks regarding cardiac arrhythmia, blood clots, and potential mort ality were discussed. The patient understands the typical recovery time and the outpatient nature of the procedure. After consideration of these risks the patient gives full informed consent and they wish to move ahead with the procedure. Penile plication with artificial erection Patient Instructions: Imaging studies, laboratory and physical exam results were discussed and reviewed in detail. No major barriers to patient understanding were identified. An opportunity to ask questions regarding the treatment plan was provided. All questions were answered. The patient expressed understanding and agreement with the above treatment plan. The patient is aware they should contact our office by phone for worsening of their current condition or the appearance of new urologic symptoms. Compliance is encouraged with any medications and followup testing that is ordered. It is a privilege to participate in the urologic care of your patient. If you have any questions or concerns regarding treatment for the above conditions, or other urologic issues, please do not hesitate to contact me. The office telephone contact is [phone]. This note is constructed using voice recognition software. While every effort has been made to ensure accuracy construction code administrator errors may have been included. Yours sincerely, Dr Manuel Owens MD, [facility] - Urology Providers of Expert, Compassionate Care for the Genitourinary System Coding Level of Care Code Est Pt Level 4 (68348) Diagnoses Peyronie's disease N48.6
== END 2024-03-16 16:02 | disposition home or self-care (01) ==
PROVIDERS: PCP Internal Medicine; Visit Provider Urology
DX: N48.6 Induration penis plastica (principal)
CPT/HCPCS: 99214

== ENCOUNTER → 2024-03-16 15:02 | Outpatient (BNVA) | payer OTHER, SELFPAY | PROVIDERS: PCP Internal Medicine; Visit Provider Urology | DX: N48.6 Induration penis plastica (principal) | CPT/HCPCS: 99212 ==

== ENCOUNTER 2024-03-24 19:59 | Outpatient (REF) | payer OTHER, SELFPAY ==
--- NOTE | ~2024-03-24 | MR_ITS ---
EXAMINATION: MR SHOULDER WITHOUT CONTRAST, RIGHT CLINICAL INFORMATION: Pain COMPARISON: X-ray 02/25/2024 TECHNIQUE: MRI of the shoulder without contrast was performed on a high-field scanner. FINDINGS: ROTATOR CUFF: Mild supraspinatus tendinosis. Possible linear intrasubstance tear in the middle fibers. No transverse tear or retraction. Mild infraspinatus tendinosis. Teres minor is intact. Mild-moderate subscapularis tendinosis, mild deep surface fraying. No muscle atrophy or fatty infiltration. BICEPS: Possible mild proximal biceps tendinosis. CORACOACROMIAL ARCH: The undersurface of the acromion is flat with no subacromial spur. Mild acromioclavicular arthritis. LABRUM/CAPSULE: Posterior labrum is small in caliber. No labral tear is seen.. GLENOHUMERAL JOINT/MARROW: No evidence of acute fracture. The tiny calcification seen on the prior x-ray is not clearly evident on MRI. There is a posterior glenoid hypertrophy/spurring, with the foci of chondral thinning. Findings correlate with mild glenohumeral joint osteoarthritis. No significant effusion. MR/MR shoulder RT wo con IMPRESSION: 1. Mild supraspinatus tendinosis. Possible linear intrasubstance tear. 2. Mild infraspinatus tendinosis. Mild-moderate subscapularis tendinosis, mild deep surface fraying. 3. Possible mild proximal biceps tendinosis. 4. Mild glenohumeral joint osteoarthritis. 5. Mild acromioclavicular arthritis.
== END 2024-03-24 20:00 | disposition home or self-care (01) ==
LOC: HO.MRI 19:59
PROVIDERS: PCP Internal Medicine; Visit Provider Physician Assistant
DX: M77.8 Other enthesopathies, not elsewhere classified (principal)
CPT/HCPCS: 73221

== ENCOUNTER 2024-04-22 14:10 | Outpatient (AMB) | payer OTHER, SELFPAY ==
--- NOTE | 2024-04-22 15:00 | A.OFFVIS_ITS ---
Intake Visit Reasons: OV - right shoulder MRI review Intake Note: Ministerio 58 year old right hand dominant male who presents today for a review of his right shoulder MRI. Patient states he is feeling slightly better after his last right shoulder injection on 02/25/24 w/ Johnson Hernández. Allergies tramadol [From Ultram] Allergy (Mild, Verified 04/22/24 15:03) nervous system HPI HPI OV - right shoulder MRI review: Details: Ministerio 58 year old right hand dominant male who presents today for a review of his right shoulder MRI. He describes pain with overhead activity and at night. This has been present for several months. He has not received PT but was injected at last visit. This was helpful for him. His pain is moderate. [facility] Medical History Gallstones BPH without urinary obstruction Nephrolithiasis Umbilical hernia Left knee pain Renal calculi Left breast mass Mass of right elbow Partial small bowel obstruction Surgical History H/O lithotripsy History of laparoscopic cholecystectomy (10/16/22) History of excision of mass (03/07/22) History of esophagogastroduodenoscopy (EGD) Hx of colonoscopy H/O umbilical hernia repair H/O hemorrhoidectomy H/O lateral meniscus repair of left knee Family History Father CAD (coronary artery disease) Mother Breast cancer Social History (Updated 04/22/24 @ 15:04 by Olivia Gonzalez [facility]) Household Members: Spouse Housing: House Do you presently have visiting nurse or other home services: No Alcohol intake: never Patient Tobacco Use Status: Never used Tobacco e-Cigarette/Vaping Use: Never Used Second Hand Smoke Exposure: No Advance Directives Date on File: 09/02/20 service: No Current occupational status: employed 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 1. Mild supraspinatus tendinosis. Possible linear intrasubstance tear. 2. Mild infraspinatus tendinosis. Mild-moderate subscapularis tendinosis, mild deep surface fraying. 3. Possible mild proximal biceps tendinosis. 4. Mild glenohumeral joint osteoarthritis. 5. Mild acromioclavicular arthritis. Assessment & Plan Assessment & Plan (1) Tendinitis of right rotator cuff: Code(s): M75.81 - Other shoulder lesions, right shoulder Category: Medical Plan: Bicipital tendonitis and RTC tendonitis. PT. I reviewed his MRI with him and we discussed surgery. I do not recommend surgery at this time. Orders: Orders PT Evaluation and Treatment Today M75.20 - Bicipital tendinitis, unspecified shoulder, M75.81 - Other shoulder lesions, right shoulder Coding Level of Care Code Est Pt Level 4 (53773) Diagnoses Tendinitis of right rotator cuff M75.81
== END 2024-04-22 15:30 | disposition home or self-care (01) ==
PROVIDERS: PCP Internal Medicine; Visit Provider Orthopaedic Surgery
DX: M75.81 Other shoulder lesions, right shoulder (principal)
CPT/HCPCS: 99214

== ENCOUNTER → 2024-04-22 14:10 | Outpatient (BNVA) | payer OTHER, SELFPAY | PROVIDERS: PCP Internal Medicine; Visit Provider Orthopaedic Surgery | DX: M75.81 Other shoulder lesions, right shoulder (principal) | CPT/HCPCS: 99212 ==

== ENCOUNTER 2024-05-10 09:45 | Day surgery (SDC) | payer OTHER, SELFPAY ==
--- NOTE | 2024-05-07 12:55 | P.CONAN_ITS ---
Documented by User: Tory Zheng NP 05/07/24 12:56 HPI - Anesthesia Eval Consult details Narrative: 58yo M for Plication For Peyronies Disease PMFSH Active Problems Active Problems: All Active Problems Biceps tendinitis (Acute) Tendinitis of right rotator cuff (Acute) Postprandial diarrhea (Acute) Hypovitaminosis D (Acute) Hospital discharge follow-up (Acute) GERD (gastroesophageal reflux disease) (Acute) Peyronie's disease (Acute) Blurry vision (Acute) Bursitis of elbow (Acute) Right elbow tendinitis (Acute) Arthritis of right elbow (Acute) Chest pain (Acute) Lateral epicondylitis, right elbow (Acute) Upper abdominal pain (Acute) Chronic constipation (Acute) Abdominal bloating (Acute) Hx of small bowel obstruction (Acute) History of colon polyps (Acute) Epidermal inclusion cyst (Acute) Osteoarthritis of right knee (Acute) Acute lateral meniscal injury of left knee (Acute) Acute lateral meniscal injury of right knee (Acute) Osteoarthritis of left knee (Acute) Lipoma of torso (Acute) Nausea (Acute) Abdominal bloating (Acute) Frequent headaches (Acute) Biliary colic (Acute) BPH without urinary obstruction (Acute) Physical exam (Acute) Nephrolithiasis (Acute) Umbilical hernia (Acute) Left knee pain (Acute) Renal calculi (Acute) Left breast mass (Acute) Past Medical History Medical History Gallstones BPH without urinary obstruction Nephrolithiasis Umbilical hernia Left knee pain Renal calculi Left breast mass Mass of right elbow Partial small bowel obstruction Family History Family History Father CAD (coronary artery disease) Mother Breast cancer Family history of problems with anesthesia: No Surgical History Surgical History H/O lithotripsy History of laparoscopic cholecystectomy (10/16/22) History of excision of mass (03/07/22) History of esophagogastroduodenoscopy (EGD) Hx of colonoscopy H/O umbilical hernia repair H/O hemorrhoidectomy H/O lateral meniscus repair of left knee History of Problems with Anesthesia: No Social History Social History Household Members: Spouse Housing: House Do you presently have visiting nurse or other home services: No Alcohol intake: never Patient Tobacco Use Status: Never used Tobacco e-Cigarette/Vaping Use: Never Used Second Hand Smoke Exposure: No Use of substances other than those prescribed or required for medical reasons: No Are you DNR?: No Advance Directives: No Advance Directives Information Provided: Yes Advance Directives Date on File: 09/02/20 service: No Current occupational status: employed Current occupation: [employer] - Right Handed Current occupational exposures/hazards: No Cognitive needs: No Hearing needs: No Vision needs: Yes Meds Allergies Allergy/AdvReac Type Severity Reaction Status Date / Time tramadol [From [facility]] Allergy Mild nervous Verified 05/10/24 10:07 system Home Medications ?Medication ?Instructions ?Recorded ?Confirmed ?Last Taken ?Type ascorbic acid (vitamin C) 500 mg 500 mg PO DAILY 08/27/20 05/10/24 08/26/20 History tablet (Vitamin C) omega-3 fatty acids 1,000 mg PO DAILY 08/27/20 05/10/24 05/09/24 History cholecalciferol (vitamin D3) 25 25 mcg PO DAILY 01/21/22 05/10/24 Unknown History mcg (1,000 unit) capsule Exam Pertinent Lab Results Pertinent Lab Results: Laboratory Tests 01/26/24 21:30 WBC 4.9 Hgb 15.0 Hct 43.7 Plt Count 209 Sodium 141 Potassium 3.5 D Chloride 111 H Carbon Dioxide 22 BUN 13 Creatinine 0.77 Narrative Narrative: EKG 01/2024 Vent. Rate : 084 BPM Atrial Rate : 084 BPM P-R Int : 150 ms QRS Dur : 138 ms QT Int : 386 ms P-R-T Axes : 030 -49 013 degrees QTc Int : 456 ms Normal sinus rhythm Right bundle branch block Left anterior fascicular block Bifascicular block Abnormal ECG When compared with ECG of 18-JAN-2024 10:46, No significant change was found Assessment and Plan Assessment Anesthesia Assessment: Chart Reviewed Final Anesthetic Review Family History of Problems with Anesthesia: No History of Problems with Anesthesia: No Documented by User: Grace Doe MD 05/10/24 11:12 [facility] Past Medical History Medical History Gallstones BPH without urinary obstruction Nephrolithiasis Umbilical hernia Left knee pain Renal calculi Left breast mass Mass of right elbow Partial small bowel obstruction Family History Family History Father CAD (coronary artery disease) Mother Breast cancer Surgical History Surgical History H/O lithotripsy History of laparoscopic cholecystectomy (10/16/22) History of excision of mass (03/07/22) History of esophagogastroduodenoscopy (EGD) Hx of colonoscopy H/O umbilical hernia repair H/O hemorrhoidectomy H/O lateral meniscus repair of left knee Social History Social History Household Members: Spouse Housing: House Do you presently have visiting nurse or other home services: No Alcohol intake: never Patient Tobacco Use Status: Never used Tobacco e-Cigarette/Vaping Use: Never Used Second Hand Smoke Exposure: No Use of substances other than those prescribed or required for medical reasons: No Are you DNR?: No Advance Directives: No Advance Directives Information Provided: Yes Advance Directives Date on File: 09/02/20 service: No Current occupational status: employed Current occupation: [employer] - Right Handed Current occupational exposures/hazards: No Cognitive needs: No Hearing needs: No Vision needs: Yes Meds Allergies Allergy/AdvReac Type Severity Reaction Status Date / Time tramadol [From Ultram] Allergy Mild nervous Verified 05/10/24 10:07 system Home Medications ?Medication ?Instructions ?Recorded ?Confirmed ?Last Taken ?Type ascorbic acid (vitamin C) 500 mg 500 mg PO DAILY 08/27/20 05/10/24 08/26/20 History tablet (Vitamin C) omega-3 fatty acids 1,000 mg PO DAILY 08/27/20 05/10/24 05/09/24 History cholecalciferol (vitamin D3) 25 25 mcg PO DAILY 01/21/22 05/10/24 Unknown History mcg (1,000 unit) capsule Exam Airway Mallampati Class: II TM Dist: >3cm Neck ROM: Limited Heart: rrr Lungs: cta Assessment and Plan Assessment Anesthesia Assessment: Anesthesia Plan Discussed Final Anesthetic Review NPO: Yes ASA Class: III Final Preanesthetic Review: No Changes in Pt Med Stat, Meds/Allgs Chart Reviewed, Consent Obtained/Reviewed and Anes Risks/Benef Reviewed Patient Risk: Intermediate Procedure Risk: Low Anesthetic Plan Anesthetic Plan: MAC: Disposition: Standard PACU
[2024-05-10] VITALS (12 sets, daily range): BP systolic 103–131; BP diastolic 74–88; PULSE 50–67; RESP 16–18; TEMP 36.1–36.4; O2SAT 96–99; BMI 26.5
[2024-05-10] MEDS: Lactated Ringers 1,000 ML 100 ML IVCONT (10:48)
--- NOTE | 2024-05-10 12:38 | MHC.SHP ---
Pre-Procedural Eval Section A - 24 Hr Update-Section A only Date of Service: 05/10/24 The patient is an INPATIENT: No Changes since office visit: No Cold of Flu in the past 2 weeks, No New Medical Problems, No Changes in Medication and No Patient answered all questions The patient has been examined within 24 hours of the surgical procedure. The History & Physical has been completed within 30 days and I have reviewed it.: Yes Section B - Complete if H&P > 30 days Chief Complaint: Induration penis plastica Details of Present Illness: Penile plication with artificial erection Relevant Social History: None Present Medications: see Short Stay Collaborative assessment Medical History: No relevant PMH History of Previous Operations: No relevant previous surgery Allergies: Allergies Allergy/AdvReac Type Severity Reaction Status Date / Time tramadol [From Ultram] Allergy Mild nervous Verified 05/10/24 10:07 system Plan I have reviewed the history and physical and performed a pertinent physical examination on my patient. No changes have occurred unless specified. Time Spent With Patient Time: Total time managing care of this patient today ____ minutes.
--- NOTE | 2024-05-10 13:39 | P.OP_ITS ---
Operative Note Operative Note Date of Service: 05/10/24 Narrative: PreOperative Diagnosis: Peyronie's disease with Ventral penile curvature Post Operative Diagnosis: Peyronie's disease with Ventral curvature Procedure: Artificial erection with Papaverine 60mg and penile plication Surgeon: Dr Manuel Owens Anesthesia: General Indications for procedure: Penile curvature that has failed conservative therapy. The patient had undergone intermittent vacuum pump therapy with failure of resolution. Current erection with 40 degree ventral curvature. 0 horizontal curvature. Curvature in distal half of penis when erect. Tanner understands available options including risks for erectile dysfunction, bruising, need for secondary procedure. at baseline has minimal erectile issues. Procedure: After informed consent was verified the patient was brought to the operating room and placed in a supine position. Anesthesia was administered per protocol. Papaverine 60mg was injected for artificial erection. Genital area was shaved. The patient was prepped and draped in a sterile fashion. Safety pause time-out was performed. Antibiotics have been given. Dorsal nerve block was performed and penile ring block with local anesthetic was completed for post procedure pain control. A 14 Fr kirby catheter was placed on the field. The 40 degree curvature was quite marked in the distal aspect of the shaft. This was at maximum inflection midway between [facility] and 3/[address] distal along the penile shaft. A 3-4 cm incision was marked along the ventral median raphe at midshaft. Local anesthetic was infiltrated and the incision taken down through the subcutaneous tissue to expose the corpora spongiosum. Dissection of [place] fascia was performed laterally on each side exposing the corpora cavernosa. The artificial erection was reinforced. Senz retractors were used to manipulate the incision over the full length of the penis. 2.0 Ethibon sutures were placed 4 mm from the boundary between the spongiosum and the corpora. The sutures were placed in a [id number] configuration with 7-8mm between each needle pass. 4 knots were placed for each suture. The penis was re-examined for curvature between each suture placement. Sutures were first placed on the left side. Two sutures were placed. Smelly on the right side. This is a total of 16 dots. Curvature was able to be corrected to between 5 and 10%. Excess suture material was removed. Each line of sutures was covered with a layer of tissue using a running 3-0 Vicryl reapproximatling Merritt's fascia. A 2nd layer of tissue was then placed over the suture lines using running 3.0 vicryl. Skin was closed with 4.0 monocryl with glue over the incision. A dressing was placed consisting of [place] wrap and Coban dressing. The patient tolerated the procedure well, was extubated in the operating room and transferred in stable condition to the recovery area. Pathology: Drains: 14 Kirby
[2024-05-10] MEDS: Acetaminophen 325 MG TABLET 975 MG PO (13:54)
[2024-05-10] MEDS: fentaNYL citrate/PF 100 MCG/2 ML VIAL 50 MCG IVPUSH ×3 (13:59→14:09)
[2024-05-10] MEDS: oxyCODONE HCl Immed Release 5 MG TABLET PO (14:26)
== END 2024-05-10 15:30 | disposition home or self-care (01) ==
PROVIDERS: PCP Internal Medicine; Visit Provider Urology
PROC: (CPT 54360; principal; 2024-05-10 12:00)
DX: N48.6 Induration penis plastica (principal); Q55.61 Curvature of penis (lateral); N40.0 Benign prostatic hyperplasia without lower urinary tract symptoms; N20.0 Calculus of kidney; Z79.899 Other long term (current) drug therapy; Z88.8 Allergy status to other drugs, medicaments and biological substances; Z98.890 Other specified postprocedural states
CPT/HCPCS: 54360; 54235; A4364; J0690; J1885; J2405; J2704; J2795; J3010

== ENCOUNTER → 2024-05-10 09:45 | Outpatient (BNV) | payer OTHER, SELFPAY | PROVIDERS: PCP Internal Medicine; Visit Provider Urology | DX: N48.6 Induration penis plastica (principal) | CPT/HCPCS: 54235; 54360 ==

== ENCOUNTER 2024-05-10 11:25 | Outpatient (RCR) | payer OTHER, SELFPAY | END 2024-07-16 12:02 | disposition home or self-care (01) | LOC: HO.PT 11:25 | PROVIDERS: PCP Internal Medicine; Visit Provider Orthopaedic Surgery | DX: M75.81 Other shoulder lesions, right shoulder (principal); M75.20 Bicipital tendinitis, unspecified shoulder ==

== ENCOUNTER → 2024-05-11 13:16 | Outpatient (BNVA) | payer OTHER, SELFPAY | PROVIDERS: PCP Internal Medicine; Visit Provider Urology ==

== ENCOUNTER 2024-06-09 12:39 | Outpatient (AMB) | payer OTHER, SELFPAY ==
--- NOTE | 2024-06-09 13:00 | A.OFFVIS_ITS ---
Intake Visit Reasons: Penile Plication- follow up Intake Note: Patient is Present for Follow Up Penile Plication Urology Medication: Tadalafil Antibiotic Allergies: None Blood Thinners: None Developer Programmer Analyst Required: Yes Developer Programmer Analyst Language: Cambodian Accompanied by: Self / Same As Patient Allergies tramadol [From Ultram] Allergy (Mild, Verified 06/09/24 13:08) nervous system HPI Comments Details: Tanner is a pleasant Cambodian-speaking male. 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 Ocasio. He seen for the following urologic conditions - nephrolithiasis - Peyronie's disease 6 week follow-up penile plication Very happy with outcome of procedure Penis is straight and functional Cleared for penetrative activity Continue with daily tadalafil Peyronie's Disease Mild curvature No pain Did not respond to trial of antioxidant Nephrolithiasis Hospital admission 06/04 Intervention - 06/04 Right [facility] Imaging - 06/04 CT - right renal hydronephrosis and hydroureter, stones remained lodged at the ureterovesicular junction - 08/04 renal ultrasound hydronephrosis has resolved, cyst on left kidney Recommendation - 12 month follow-up imaging [facility] Medical History Gallstones BPH without urinary obstruction Nephrolithiasis Umbilical hernia Left knee pain Renal calculi Left breast mass Mass of right elbow Partial small bowel obstruction Surgical History H/O lithotripsy History of laparoscopic cholecystectomy (10/16/22) History of excision of mass (03/07/22) History of esophagogastroduodenoscopy (EGD) Hx of colonoscopy H/O umbilical hernia repair H/O hemorrhoidectomy H/O lateral meniscus repair of left knee Family History Father CAD (coronary artery disease) Mother Breast cancer Social History Household Members: Spouse Housing: House Do you presently have visiting nurse or other home services: No Alcohol intake: never Patient Tobacco Use Status: Never used Tobacco e-Cigarette/Vaping Use: Never Used Second Hand Smoke Exposure: No Advance Directives Date on File: 09/02/20 service: No Current occupational status: employed 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 Current occupational exposures/hazards: No Cognitive needs: No Hearing needs: No Vision needs: Yes Review of Systems Const Denies chills and Denies fever(s) Card Reports no additional complaints and Denies syncope Resp Denies cough GI Denies abdominal pain and Denies heartburn Reports as per HPI and Denies change in libido Neuro Denies syncope Psych Denies change in libido Endo Denies change in libido Physical Exam Const General: cooperative, healthy appearing, comfortable and no acute distress Orientation/consciousness: patient oriented x3 HEENT Face and sinus: Yes normal facial exam Mouth: moist mucous membranes Neck Neck: Yes normal visual inspection, Yes full ROM and Yes trachea midline Chest Chest palpation & inspection: normal inspection of the chest Resp Effort & Inspection: normal respiratory effort, able to speak in complete sentences and no respiratory distress GI Inspection: Yes normal to inspection Back/Spine/Pelvis Cervical Spine: normal cervical lordosis Thoracic/Lumbar Spine: thoracic and lumbar spine normal to inspection Skin General skin exam: no rashes or lesions noted Neuro General: patient oriented x3, gait normal, tone normal and moves all extremities Extrem General: Yes normal to inspection and Yes capillary refill normal Assessment & Plan Assessment & Plan (1) Peyronie's disease: Code(s): N48.6 - Induration penis plastica Category: Medical (2) Renal calculi: Comment: 04/03 4 mm right stone Code(s): N20.0 - Calculus of kidney Category: Medical Plan Six-month follow-up Patient Instructions: Imaging studies, laboratory and physical exam results were discussed and reviewed in detail. No major barriers to patient understanding were identified. An opportunity to ask questions regarding the treatment plan was provided. All questions were answered. The patient expressed understanding and agreement with the above treatment plan. The patient is aware they should contact our office by phone for worsening of their current condition or the appearance of new urologic symptoms. Compliance is encouraged with any medications and followup testing that is ordered. It is a privilege to participate in the urologic care of your patient. If you have any questions or concerns regarding treatment for the above conditions, or other urologic issues, please do not hesitate to contact me. The office telephone contact is [phone]. This note is constructed using voice recognition software. While every effort has been made to ensure accuracy recruiting specialist errors may have been included. Yours sincerely, Dr Manuel Owens MD, [facility] - Urology Providers of Expert, Compassionate Care for the Genitourinary System Coding Level of Care Code Est Pt Level 3 (86258) Diagnoses Peyronie's disease N48.6 Renal calculi N20.0
== END 2024-06-09 13:33 | disposition home or self-care (01) ==
PROVIDERS: PCP Internal Medicine; Visit Provider Urology
DX: N48.6 Induration penis plastica (principal); N20.0 Calculus of kidney
CPT/HCPCS: 99024

== ENCOUNTER → 2024-06-09 12:39 | Outpatient (BNVA) | payer OTHER, SELFPAY | PROVIDERS: PCP Internal Medicine; Visit Provider Urology | DX: N48.6 Induration penis plastica (principal); N20.0 Calculus of kidney; Z79.899 Other long term (current) drug therapy | CPT/HCPCS: 99212 ==

== ENCOUNTER 2024-07-20 15:47 | Outpatient (AMB) | payer OTHER, SELFPAY ==
--- NOTE | 2024-07-20 15:50 | MHC.PC.OV ---
Vital Signs 07/20/24 15:53 Height 5 ft 10 in Weight 188 lb BMI 27.0 BP 120/80 Blood Pressure Location Lt brachial Position Sitting Intake Visit Reasons: annual exam Intake Note: Patient here for an Annual Physical Exam Laboratory Miller Required: No Accompanied by: Self / Same As Patient Allergies tramadol [From Ultram] Allergy (Mild, Verified 07/20/24 16:04) nervous system Medication List - Last Reconciled 07/20/24 by Luzma Riddle MD ascorbic acid (vitamin C) (Vitamin C) 500 mg PO DAILY cholecalciferol (vitamin D3) 25 mcg PO DAILY omega-3 fatty acids 1,000 mg PO DAILY ondansetron 4 mg PO DAILY PRN 5 days psyllium husk 1 tbsp PO DAILY 30 days Tobacco use date assessed: 01/27/24 Dental Screening Dental Screen Date: 07/20/24 Did you have a dental visit in the last 12 months?: Yes Did you have a dental problem in the last 6 months where you did not have access to dental care?: No Was dental information given to patient?: Patient has dentist HPI HPI Comments History of Present Illness Details This is a 58-year-old male that comes for his physical exam. Colonoscopy done 2022 showing tubular adenoma next colonoscopy should be in 3-5 years after. Complains of right knee pain that has been bothering him for years. He said the local injection does resolve the pain but then he played basketball and is with 9/10 in intensity pain that last 2 weeks. No chest pain or shortness on breath. [facility] Medical History (Updated 07/20/24 @ 16:29 by Luzma Riddle MD) Gallstones BPH without urinary obstruction Nephrolithiasis Umbilical hernia Left knee pain Renal calculi Left breast mass Mass of right elbow Partial small bowel obstruction Surgical History (Updated 07/20/24 @ 16:11 by Luzma Riddle MD) Peyronie's disease H/O lithotripsy History of laparoscopic cholecystectomy (10/16/22) History of excision of mass (03/07/22) History of esophagogastroduodenoscopy (EGD) Hx of colonoscopy H/O umbilical hernia repair H/O hemorrhoidectomy H/O lateral meniscus repair of left knee Family History Father CAD (coronary artery disease) Mother Breast cancer Social History (Updated 07/20/24 @ 16:10 by Luzma Riddle MD) Household Members: Spouse Housing: House Do you presently have visiting nurse or other home services: No Alcohol intake: current Alcohol intake frequency: holidays/special occasions only Alcohol type: beer and wine Patient Tobacco Use Status: Never used Tobacco e-Cigarette/Vaping Use: Never Used Second Hand Smoke Exposure: No Advance Directives Date on File: 09/02/20 service: No Current occupational status: employed 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 1. Little interest or pleasure in doing things: not at all 2. Feeling down, depressed, or hopeless: not at all 3. Trouble falling or staying asleep, or sleeping too much: more than half the days 4. Feeling tired or having little energy: several days 5. Poor appetite or overeating: not at all 6. Feeling bad about yourself - or that you are a failure or have let yourself or your family down: not at all 7. Trouble concentrating on things, such as reading the newspaper or watching television: not at all 8. Moving or speaking so slowly that other people could have noticed. Or the opposite - being so fidgety or restless that you have been moving around a lot more than usual: not at all 9. Thoughts that you would be better off or of hurting yourself in some way: not at all Total score: 3 Depression Screening Interpretation: Positive Depression Screening Follow-up: Existing condition and Follow-up Visit Requested Depression Screening Done: Yes 91453 - PHQ-9 Billing: Yes Source: Developed by Drs. Augusto Raza, Laine Peck, Frank Parks and colleagues, with an educational viktoria from [employer]. Thrive Questionnaire Date Thrive assessed: 01/27/24 I am a: Patient What is your living situation today?: I have a steady place to live Within the past 12 months, did the food you bought not last and you didn't have the money to get more?: Never true Within the past 12 months, did you worry whether your food would run out before you got money to buy more?: Never true Do you have trouble paying for medicines?: No Do you have trouble getting transportation to medical appointments?: No Do you have trouble paying your heating and electricity bill?: No Do you have trouble taking care of your child, family member or friend?: No Do you have trouble with day-to-day activities such as bathing, preparing meals, shopping, managing finances, etc.?: No Are you currently unemployed and looking for a job?: No Are you interested in more education?: I choose not to answer this question Please select the resources that you would like help with: None Currently or been in a relationship where the following occur: No concerns reported THRIVE Score: 0 AUDIT C Alcohol Use Questionnaire (AUDIT-C) 1. How often do you have a drink containing alcohol?: Monthly or less 2. How many drinks containing alcohol do you have on a typical day when you are drinking?: 1 or 2 3. How often do you have six or more drinks on one occasion?: Never Total Score: 1 Score Reviewed/Action Taken: No PINA-7 AMB Questionnaire PINA-7 Date PINA - 7 assessed: 07/20/24 Feeling nervous, anxious, or on edge: 0 = Not at all Not being able to stop or control worryin = Not at all Worrying too much about different things: 0 = Not at all Trouble relaxin = Not at all Being so restless that it is hard to sit still: 0 = Not at all Becoming easily annoyed or irritable: 0 = Not at all Feeling afraid as if something awful might happen: 0 = Not at all Total PINA-7 score (0-4 normal; 5-9 mild; 10-14 moderate; 15-21 severe): 0 Source: Developed by Drs. Augusto Raza, Laine Peck, Frank Parks and colleagues, with an educational viktoria from [employer]. PINA-7 Assessment Billing PINA-7 Assessment Tool: PINA-7 Assessment 69928 Review of Systems Const All systems reviewed & are unremarkable except as noted in HPI and below Card Denies chest pain at rest, Denies chest pain with activity, Denies edema, Denies irregular heart rhythm, Denies claudication, Denies dyspnea, Denies dyspnea on exertion, Denies orthopnea, Denies paroxysmal nocturnal dyspnea and Denies slow heart rate Resp Denies cough, Denies dyspnea and Denies dyspnea on exertion GI Denies abdominal pain, Denies change in bowel habits, Denies excessive flatus, Denies nausea and Denies vomiting Denies urinary hesitancy, Denies urinary incontinence and Denies urinary urgency Musc Denies abnormal gait, Denies atrophy, Denies deformity and Denies limited range of motion Skin/Breast Denies bleeding lesions, Denies changing lesions and Denies rash Neuro Denies abnormal gait and Denies lack of coordination Physical exam (Primary Care) Vital Signs: Last Vital Signs BP 120/80 07/20/24 15:53 BMI result Body Mass Index 27.0 Tobacco/Smoking Status: Tobacco use Status Tobacco use date assessed 01/27/24 07/20/24 15:54 Patient Tobacco Use Status Never used Tobacco 07/20/24 15:54 e-Cigarette/Vaping Use Never Used 07/20/24 15:54 PHQ-9: PHQ-9 Score PHQ-9: Total score 3 07/20/24 15:54 Depression Screening Interpretation: Positive Depression Screening Follow-up: Existing condition and Follow-up Visit Requested Thrive Assessment: Date of Thrive Assessment Date Thrive assessed 01/27/24 07/20/24 15:54 Currently or been in a relationship where the following occur: No concerns reported [facility] Head: Yes normal to inspection, Yes normocephalic and Yes atraumatic Ears: external ears normal Eyes General: appearance normal, both eyes and all related structures Eyelids: Yes eyelids normal Conjunctivae: conjunctivae normal Neck Neck: Yes normal visual inspection and Yes supple Resp Effort & Inspection: normal respiratory effort Auscultation: clear to auscultation bilaterally Cardio Jugular venous distension: no JVD Rate: regular rate Rhythm: regular rhythm Heart sounds: S1 normal heart sound present and S2 normal heart sound present GI Inspection: Yes normal to inspection Palpation (GI): Soft to palpation and nontender Auscultation: normal bowel sounds Skin General skin exam: no rashes or lesions noted Neuro General: no focal motor deficits Extrem General: Yes full ROM Psych Appearance: grossly normal Office Procedures Flu Questionnaire Does the patient have a severe egg allergy?: No Immunizations Fluarix Triv [id number] (PF) 45 mcg (15 mcg x 3)/0.5 mL IM syringe Performing Provider: Luzma Riddle MD [facility] Documented (not given) by: TANI Krueger on 07/20/24 15:55 Reason Not Given: Patient Refused Coding Level of Care Code Est Pt Level 3 (15777) Est Pt Prev Care 40-64y(97257) Diagnoses Physical exam Z00.00 Chronic pain of right knee M25.561; G89.29 Chronicity: chronic Additional Codes PINA-7 Assessment Billing - PINA-7 Assessment Tool: PINA-7 Assessment 32832 ([id number]) Time Spent (min) 31 Assessment & Plan Assessment & Plan (1) Physical exam: Code(s): Z00.00 - Encounter for general adult medical examination without abnormal findings Category: Medical Plan: Repeat in a year. (2) Right knee pain: Code(s): M25.561 - Pain in right knee Category: Medical Qualifiers: Chronicity: chronic Qualified Code(s): M25.561 - Pain in right knee; G89.29 - Other chronic pain Plan: Referred to Ortho. Orders: Orders Comprehensive Met. Panel Today Z00.00 - Encounter for general adult medical examination without abnormal findings T Spot TB Today Z11.1 - Encounter for screening for respiratory tuberculosis Influenza [id number] Immunization Today Z23 - Encounter for immunization Lipid Panel Today E78.5 - Hyperlipidemia, unspecified Hepatitis A,B,C Profile Today R74.01 - Elevation of levels of liver transaminase levels Referrals Orthopedics Referral M25.561 - Pain in right knee
[2024-07-20 15:53] VITALS: BP 120/80; BMI 27.0
== END 2024-07-20 16:21 | disposition home or self-care (01) ==
PROVIDERS: PCP Internal Medicine; Visit Provider Internal Medicine
DX: Z00.00 Encounter for general adult medical examination without abnormal findings (principal); M25.561 Pain in right knee; G89.29 Other chronic pain

== ENCOUNTER → 2024-07-20 15:47 | Outpatient (BNVA) | payer OTHER, SELFPAY | PROVIDERS: PCP Internal Medicine; Visit Provider Internal Medicine | DX: Z00.01 Encounter for general adult medical examination with abnormal findings (principal); M25.561 Pain in right knee; G89.29 Other chronic pain | CPT/HCPCS: 96127; 99396 ==

== ENCOUNTER → 2024-08-12 08:06 | Outpatient (BNVA) | payer OTHER, SELFPAY | PROVIDERS: PCP Internal Medicine; Visit Provider Internal Medicine Gastroenterology ==

== ENCOUNTER 2024-08-14 07:13 | Outpatient (REF) | payer OTHER, SELFPAY ==
[2024-08-14 08:11] LABS: Alanine Aminotransferase 58 U/L (0-40); Albumin Level 4.3 g/dL (3.5-5.0); Alkaline Phosphatase 54 U/L (39-117); Anion Gap 12 (12-20); Aspartate Amino Transferase 34 U/L (5-37); Bilirubin Total 0.6 mg/dL (0.0-1.0); Blood Urea Nitrogen 19 mg/dL (9-16); Carbon Dioxide 26 mmol/L (22-29); Chloride 106 mmol/L (96-108); Cholesterol 191 mg/dL (<200); Estimated Glomerular Filt Rate > 60; Glucose Random 97 mg/dL (60-115); HDL Cholesterol 45 mg/dL (>40); LDL Cholesterol Calculated 116 mg/dL (<100); Potassium 4.3 mmol/L (3.3-5.1); Sodium 140 mmol/L (135-145); Total Protein 7.1 g/dL (6.5-8.0); Triglycerides 151 mg/dL (<150)
[2024-08-14 09:08] LABS: HBS Num1 0.16 mIU/mL (0-7.99); HBc Num1 0.12 S/CO (0.00-0.79); HBsAGNum1 0.35 S/CO (0.00-0.99); Hepatitis A Antibody IgM 0.17 Index (0-0.79); Hepatitis B Core Antibody Nonreactive (Nonreactive); Hepatitis B Surface Antigen Negative (Negative); ~HepC Num1 0.14 S/CO (0.00-0.79); ~Hepatitis A Antibody IgM Nonreactive (Nonreactive); ~Hepatitis B Surface Antibody NONREACTIVE (Nonreactive); ~Hepatitis C Antibody Nonreactive (Nonreactive)
== END 2024-08-14 07:14 | disposition home or self-care (01) ==
LOC: HO.LAB 07:13
PROVIDERS: PCP Internal Medicine; Visit Provider Internal Medicine
DX: Z00.00 Encounter for general adult medical examination without abnormal findings (principal); R74.01 Elevation of levels of liver transaminase levels; E87.5 Hyperkalemia
CPT/HCPCS: 36415; 80053; 80061; 86704; 86706; 86709; 86803; 87340

== ENCOUNTER 2024-08-16 06:12 | Outpatient (REF) | payer OTHER, SELFPAY ==
[2024-08-19 13:44] LABS: TS Negative Control Passed; TS Panel A 0; TS Panel B 0; TS Positive Control Passed; TSpotTB Negative (Negative)
== END 2024-08-16 06:13 | disposition home or self-care (01) ==
LOC: HO.LAB 06:12
PROVIDERS: PCP Internal Medicine; Visit Provider Internal Medicine
DX: Z11.1 Encounter for screening for respiratory tuberculosis (principal)
CPT/HCPCS: 36415; 86481

== ENCOUNTER 2024-08-18 11:19 | Outpatient (REF) | payer OTHER, SELFPAY | END 2024-08-18 11:20 | disposition home or self-care (01) | LOC: HO.HOSX 11:19 | PROVIDERS: Visit Provider Physician Assistant | DX: M25.562 Pain in left knee (principal); M17.11 Unilateral primary osteoarthritis, right knee | CPT/HCPCS: 20610; 73560; 73562; 99212; J1010; J2003 ==

== ENCOUNTER 2024-08-18 13:09 | Outpatient (AMB) | payer OTHER, SELFPAY ==
--- NOTE | 2024-08-18 13:30 | MHC.OFFVIS ---
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 Patient reports constant pain has been present for over a month. States his pain increases with activity and is unable to bend his knee. His pain is located at the medial and lateral aspect of knee. Denies injury. Finds very little relief with Tylenol. He is interested in receiving an injection however he would like to discuss in an MRI is necessary. Patient was seen on 07/23/23 for left knee, cortisone injection was given. Allergies tramadol [From Ultra] Allergy (Mild, Verified 08/18/24 14:27) nervous system Medication List - Last Reconciled 08/18/24 by Johnson Hernández PA-C ascorbic acid (vitamin C) (Vitamin C) 500 mg PO DAILY cholecalciferol (vitamin D3) 25 mcg PO DAILY famotidine 20 mg PO DAILY 90 days omega-3 fatty acids 1,000 mg PO DAILY ondansetron 4 mg PO DAILY PRN 5 days psyllium husk 1 tbsp PO DAILY 30 days HPI HPI New prob- Right knee pain: Details: 58-year-old male who presents to the office today with an business support coordinator for an evaluation of right knee pain for about a month. He has not had any injury however he attributes his pain to playing basketball. He states he has constant pain at the medial aspect and lateral aspect of his knee that is aggravated with activities, laying down and bending. He also reports he has occasional weakness in knee. He finds minimal relief with Tylenol. He does not have a history of diabetes. [facility] Medical History (Updated 08/18/24 @ 14:41 by Johnson Hernández PA-C) Osteoarthritis of right knee Gallstones BPH without urinary obstruction Nephrolithiasis Umbilical hernia Left knee pain Renal calculi Left breast mass Mass of right elbow Partial small bowel obstruction Surgical History Peyronie's disease H/O lithotripsy History of laparoscopic cholecystectomy (10/16/22) History of excision of mass (03/07/22) History of esophagogastroduodenoscopy (EGD) Hx of colonoscopy H/O umbilical hernia repair H/O hemorrhoidectomy H/O lateral meniscus repair of left knee Family History Father CAD (coronary artery disease) Mother Breast cancer Social History Household Members: Spouse Housing: House Do you presently have visiting nurse or other home services: No Alcohol intake: current Alcohol intake frequency: holidays/special occasions only Alcohol type: beer and wine Patient Tobacco Use Status: Never used Tobacco e-Cigarette/Vaping Use: Never Used Second Hand Smoke Exposure: No Advance Directives Date on File: 09/02/20 Do you have a plan to hurt others: No Plan service: No Current occupational status: employed 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 Tenderness along the medial joint line. Full ROM with crepitus. Positive Albin?s. No ligamentous laxity. NVI. Office Procedures AMB Joint Injection/Aspiration Joint Injection/Aspiration Primary Site: right knee Prep: site was prepped using aseptic technique, ethochloride spray was applied and injection warnings given Injected: 80 mg of, DepoMedrol, with 8 mL of, 1% plain lidocaine and in the joint Approach Used: anterolateral Procedure: The patient tolerated the procedure well and there was some relief with the local anesthesia Coding 53178 - Glenohumeral/Tronchanteric Bursa/Intraarticular Procedure code (CPT) selection complete Results Reviewed Results Reviewed: Xrays were obtained in the office today and personally reviewed by me of the right knee show mild medial comartment oa Assessment & Plan Assessment & Plan (1) Osteoarthritis of right knee: Code(s): M17.11 - Unilateral primary osteoarthritis, right knee Category: Medical Plan We discussed options today, which include steroid injection. The patient did consent to move forward with the rightknee injection, which was tolerated well. I recommended rest, ice, and elevation and OTC anti-inflammatories as needed for discomfort. An MRI of the right knee was ordered to further evaluate the integrity of meniscus. If symptoms persist or worsens over the next 6-8 weeks, patient will contact the office, otherwise follow-up as needed. Orders: Orders XR knee LT 1V Today M25.562 - Pain in left knee MR knee RT wo con Today M17.11 - Unilateral primary osteoarthritis, right knee XR knee RT 3V Today M17.11 - Unilateral primary osteoarthritis, right knee Patient Instructions: Scribed for Johnson Hernández PA-C, by Nima Zhao phlebotomist medical lab assistant, on 08/18/2024 at 1:30 PM EST.? I, Johnson Hernández PA-C, have personally reviewed and agree with the information entered by the scribe. Coding Level of Care Code Est Pt Level 3 (18983) Complex EM visit Add On G2211 Diagnoses Osteoarthritis of right knee M17.11 CPT Codes Coding - Joint 7: 17411 - Glenohumeral/Tronchanteric Bursa/Intraarticular ([id number])
[2024-08-18 13:38] VITALS: BMI 26.8
== END 2024-08-18 14:20 | disposition home or self-care (01) ==
LOC: HO.HOS 13:10
PROVIDERS: PCP Internal Medicine; Visit Provider Physician Assistant
DX: M17.11 Unilateral primary osteoarthritis, right knee (principal)
CPT/HCPCS: 20610; 99213

== ENCOUNTER 2024-08-18 14:16 | Emergency (ER) | payer OTHER, SELFPAY ==
--- NOTE | ~2024-08-18 | CT_ITS ---
EXAMINATION: CT ANGIOGRAM CHEST CLINICAL INFORMATION: Shortness of breath COMPARISON: Chest 08/18/2024. CT abdomen pelvis 01/24/2024. TECHNIQUE: Multiple axial images were obtained through the chest after the administration of 65 mL of Omnipaque 350 intravenous contrast. Extensive vascular post-processing including two-dimensional and three-dimensional reformatted images were created and reviewed on an independent workstation. This CT examination was performed using dose optimization techniques as appropriate, variously including the following: *Automated exposure control *Adjustment of mA and/or kV according to patient size (this includes techniques or standardized protocols for targeted exams where dose is matched to indication/reason for exam; i.e. extremities or head) *Use of iterative reconstruction technique DLP: 290 mGy-cm FINDINGS: Pulmonary arteries: No intraluminal filling defects identified to suggest pulmonary embolism. The main and central pulmonary arteries are normal in caliber. Thoracic aorta: Normal in caliber and contour. Mediastinum: No lymphadenopathy. Normal heart size. Mild focal calcific plaque identified in the region of the proximal left anterior descending coronary artery. Lungs and pleura: Lungs clear. No pleural effusions or pneumothoraces. No endobronchial lesions identified. Visualized abdominal structures: Cholecystectomy clips noted. Osseous structures: No suspicious skeletal abnormalities identified. CT/CT angio chest PE protocol IMPRESSION: *CT pulmonary angiogram negative for pulmonary emboli. *No pulmonary abnormalities identified. Lungs clear. No pleural effusions. *Mild focal calcific atherosclerotic plaque within the proximal left anterior descending coronary artery. *Status post cholecystectomy. VTE: Negative Electronically signed by: Jacinto Reid MD 08/19/2024 12:17 AM [facility]
--- NOTE | ~2024-08-18 | XR_ITS ---
EXAMINATION: XR CHEST CLINICAL INFORMATION: Chest tightness COMPARISON: None available. TECHNIQUE: 2 views of the chest were obtained. FINDINGS: No significant abnormality is noted involving the heart, lungs, mediastinum, bony thorax or soft tissues. XR/XR chest 2V IMPRESSION: Unremarkable examination. Electronically signed by: Sandy Shepherd MD 08/18/2024 04:56 PM [facility]
[2024-08-18 14:21] VITALS: BP 135/96; PULSE 83; RESP 16; TEMP 36.8; O2SAT 98; BMI 36.2
--- NOTE | 2024-08-18 14:25 | ED_ITS ---
HPI - General Adult General Stated complaint: dizziness Related Data Home Medications ?Medication ?Instructions ?Recorded ?Confirmed ascorbic acid (vitamin C) 500 mg 500 mg PO DAILY 08/27/20 08/18/24 tablet (Vitamin C) omega-3 fatty acids 1,000 mg PO DAILY 08/27/20 08/18/24 cholecalciferol (vitamin D3) 25 25 mcg PO DAILY 01/21/22 08/18/24 mcg (1,000 unit) capsule Previous Rx's ?Medication ?Instructions ?Recorded ondansetron 4 mg disintegrating 4 mg PO DAILY PRN nausea and 01/24/24 tablet vomiting 5 days #14 tabs psyllium husk 2.6 gram/4.1 gram 1 tbsp PO DAILY 30 days #480 grams 02/16/24 oral powder famotidine 20 mg tablet 20 mg PO DAILY 90 days #90 tabs 08/12/24 Allergies Allergy/AdvReac Type Severity Reaction Status Date / Time tramadol [From Ultram] Allergy Mild nervous Verified 08/18/24 14:27 system [facility] Past Medical History Medical History (Updated 07/20/24 @ 16:29 by Luzma Riddle MD) Gallstones BPH without urinary obstruction Nephrolithiasis Umbilical hernia Left knee pain Renal calculi Left breast mass Mass of right elbow Partial small bowel obstruction Surgical History Peyronie's disease H/O lithotripsy History of laparoscopic cholecystectomy (10/16/22) History of excision of mass (03/07/22) History of esophagogastroduodenoscopy (EGD) Hx of colonoscopy H/O umbilical hernia repair H/O hemorrhoidectomy H/O lateral meniscus repair of left knee Family History Family History Father CAD (coronary artery disease) Mother Breast cancer Social History Social History Household Members: Spouse Housing: House Do you presently have visiting nurse or other home services: No Alcohol intake: current Alcohol intake frequency: holidays/special occasions only Alcohol type: beer and wine Patient Tobacco Use Status: Never used Tobacco e-Cigarette/Vaping Use: Never Used Second Hand Smoke Exposure: No Advance Directives Date on File: 09/02/20 service: No Current occupational status: employed 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 Full HPI, ROS, assessment and treatment plan per primary provider in the Main ED. 58 year old Afghan speaking male with pmhx significant for GERD, BPH, renal calculi, partial SBO here for eval of chest pain, RODRIGUEZ, dizziness, nausea w/o vomiting, and low back pain which began 10 minutes after receiving a corticosteroid injection in his right knee at [facility] [place]. Reports receiving the same injection 1 year ago without any reaction. no known allergies. Plan: ekg, labs Discharge Plan Discharge Prescriptions: No Action ascorbic acid (vitamin C) [Vitamin C] 500 mg Tablet 500 mg PO DAILY omega-3 fatty acids Capsule 1,000 mg PO DAILY ondansetron 4 mg tablet,disintegrating 4 mg PO DAILY PRN (Reason: nausea and vomiting) 5 Days Qty: 14 0RF cholecalciferol (vitamin D3) 25 mcg (1,000 unit) capsule 25 mcg PO DAILY famotidine 20 mg tablet 20 mg PO DAILY 90 Days Qty: 90 1RF psyllium husk 2.6 gram/4.1 gram powder 1 tbsp PO DAILY 30 Days Qty: 480 1RF Rx Instructions: mix into at least 8 oz of water or juice before administering Print Language: Afghan
--- NOTE | 2024-08-18 14:28 | ECG_ITS ---
Test Reason : CHEST PAIN Blood Pressure : / mmHG Vent. Rate : 071 BPM Atrial Rate : 071 BPM P-R Int : 178 ms QRS Dur : 142 ms QT Int : 404 ms P-R-T Axes : -05 -47 021 degrees QTc Int : 439 ms Normal sinus rhythm Right bundle branch block Left anterior fascicular block Bifascicular block Abnormal ECG When compared with ECG of 24-JAN-2024 11:20, No significant change was found Referred By: Tawnya Jovel Electronically Signed By:BAN JESUS MD
[2024-08-18 14:49] LABS: MANUAL DIFF FLAG NO
[2024-08-18 14:51] LABS: Basophils Percent Auto 0.4 % (0-2); Eosinophils Absolute Auto 0.1 X10*3/uL (0.0-0.4); Eosinophils Percent Auto 1.6 % (0-4); Hematocrit 45.4 % (42.0-52.0); Imm Gran Abs Auto 0.28 X10*3/uL (0.00-0.03); Imm Gran Pct Auto 4.2 % (0.0-0.4); Lymphocytes Absolute Auto 2.2 X10*3/uL (1.2-4.9); Lymphocytes Percent Auto 32.5 % (20-40); Mean Corpuscular HGB Conc 35.2 g/dl (31.0-36.0); Mean Corpuscular Hemoglobin 28.5 pg (27.0-33.0); Mean Corpuscular Volume 80.9 fL (80.0-98.0); Mean Platelet Volume 9.3 fL (9.4-12.4); Monocytes Absolute Auto 0.2 X10*3/uL (0.1-1.2); Monocytes Percent Auto 3.4 % (2-11); Neutrophils Absolute Auto 3.9 x10*3/uL (2.0-8.3); Neutrophils Percent Auto 57.9 % (45-73); Platelet Count 188 X10*3/uL (160-400); Red Blood Count 5.61 X10*6/uL (4.60-5.80); Red Cell Distribution Width 13.3 % (11.0-16.0); White Blood Count 6.7 X10*3/uL (4.8-10.8)
[2024-08-18 15:05] LABS: Alanine Aminotransferase 59 U/L (0-40); Albumin Level 4.3 g/dL (3.5-5.0); Alkaline Phosphatase 64 U/L (39-117); Anion Gap 10 (12-20); Aspartate Amino Transferase 44 U/L (5-37); Bilirubin Total 0.3 mg/dL (0.0-1.0); Blood Urea Nitrogen 21 mg/dL (9-16); Calcium 9.5 mg/dL (8.4-10.2); Carbon Dioxide 26 mmol/L (22-29); Chloride 106 mmol/L (96-108); Creatinine Clr Calc Pharmacy 86.4; Estimated Glomerular Filt Rate > 60; Glucose Random 106 mg/dL (60-115); Lipase 29 U/L (8-78); Magnesium 2.2 mg/dL (1.6-2.6); Sodium 138 mmol/L (135-145); Total Protein 7.2 g/dL (6.5-8.0)
[2024-08-18 15:12] LABS: Troponin-I High Sensitivity < 2.7 ng/L (<3.5-35.0)
[2024-08-18 15:33] LABS: Influenza A PCR NEGATIVE (Negative); Influenza B PCR NEGATIVE (Negative); Resp Syncy Virus RNA Qual PCR NEGATIVE (Negative); SARS COV2 PCR INHOUSE NEGATIVE (Negative)
[2024-08-18 17:59] VITALS: BP 127/87; PULSE 68; RESP 16; TEMP 36.5; O2SAT 98
--- NOTE | 2024-08-18 20:01 | ED.CHESTPAIN ---
HPI - Chest Pain General Chief Complaint: Chest Pain Stated Complaint: dizziness Time Seen by Provider: 08/18/24 18:34 History of Present Illness HPI narrative: Patient is a 58-year-old male with a history of having a steroid injection to the knee. Suddenly patient felt very short of breath. Had some tightness. Not feeling well. Patient from home. No fever no chills no diaphoresis. No history of diabetes, hypertension, high cholesterol, smoking, mi. no history of blood clots in the past. No leg pain. Patient from orthopedic clinic Related Data Home Medications ?Medication ?Instructions ?Recorded ?Confirmed ascorbic acid (vitamin C) 500 mg 500 mg PO DAILY 08/27/20 08/18/24 tablet (Vitamin C) omega-3 fatty acids 1,000 mg PO DAILY 08/27/20 08/18/24 cholecalciferol (vitamin D3) 25 25 mcg PO DAILY 01/21/22 08/18/24 mcg (1,000 unit) capsule Previous Rx's ?Medication ?Instructions ?Recorded ondansetron 4 mg disintegrating 4 mg PO DAILY PRN nausea and 01/24/24 tablet vomiting 5 days #14 tabs psyllium husk 2.6 gram/4.1 gram 1 tbsp PO DAILY 30 days #480 grams 02/16/24 oral powder famotidine 20 mg tablet 20 mg PO DAILY 90 days #90 tabs 08/12/24 Allergies Allergy/AdvReac Type Severity Reaction Status Date / Time tramadol [From Ultram] Allergy Mild nervous Verified 08/18/24 14:27 system Review of Systems Review of Systems: Positive episode of flushed and shortness of breath. Is related with having some chest tightness PMFSH Past Medical History Attestation statement: The following information was validated with the patient. Medical History Osteoarthritis of right knee Gallstones BPH without urinary obstruction Nephrolithiasis Umbilical hernia Left knee pain Renal calculi Left breast mass Mass of right elbow Partial small bowel obstruction Surgical History Peyronie's disease H/O lithotripsy History of laparoscopic cholecystectomy (10/16/22) History of excision of mass (03/07/22) History of esophagogastroduodenoscopy (EGD) Hx of colonoscopy H/O umbilical hernia repair H/O hemorrhoidectomy H/O lateral meniscus repair of left knee Family History Family History Father CAD (coronary artery disease) Mother Breast cancer Social History Social History Household Members: Spouse Housing: House Do you presently have visiting nurse or other home services: No Alcohol intake: current Alcohol intake frequency: holidays/special occasions only Alcohol type: beer and wine Patient Tobacco Use Status: Never used Tobacco Smoked in Last 30 Days: No e-Cigarette/Vaping Use: Never Used Second Hand Smoke Exposure: No Use of substances other than those prescribed or required for medical reasons: No Advance Directives: Yes Advance Directives on File: Yes Advance Directives Date on File: 09/02/20 Do you have a plan to hurt others: No Plan service: No Current occupational status: employed 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 Oriented X3. No acute distress. Eyes: Pupils equal, round and reactive to light. ENT: Pharynx normal. Neck: Normal inspection. Neck supple. No lymph nodes noted. No crepitus CVS: Normal heart rate and rhythm. Pulses normal. Normal S1 and S2 Respiratory: No respiratory distress. Breath sounds normal. No Wheezing. No rales Abdomen: Soft and nontender. No rigidity. No distention. good BS x4 Skin: Skin warm and dry. Normal skin color. Normal skin turgor. Extremities: No lower extremity edema. Neurovascular intact to all extremities. No Lacerations. No Rash Neuro: Oriented X 3. No motor deficit. No sensory deficit. Moving all extermities. No slurred speech Medications Administered Discontinued Medications Generic Name Dose Route Start Last Admin Trade Name Freq PRN Reason Stop Dose Admin Iohexol 65 ml 08/18/24 21:25 08/18/24 21:26 Iohexol 350 Mg/Ml 100 Ml Infus..Btl IV 08/18/24 21:26 65 ml ONCE ONE Administration Medical Decision Making Medical Decision Making [facility] Narrative: Positive shortness of breath. Happened after getting a steroid procedure to the knee. My interpretation of patient's EKG showed a sinus rhythm heart rate is 70 there is a incomplete right bundle-branch block flu there is no acute ST segment elevation. EKG is essentially unchanged from previous EKG. My interpretation of patient's chest x-ray is negative for pneumonia no pneumothorax. Patient's O2 sat on room air is 98%. First set of troponin is negative will get a 2nd set. Will get a CTA of the chest to rule out the possibility of PE. Patient in no distress O2 sat is normal. CTA of the chest was done. There was no evidence of PE there is no pneumonia there is no pneumothorax. No rib fracture. Patient well-appearing. Monitor in the ED. troponin x2 sets were negative. Patient's white count 6.7. Hemoglobin 16 is no evidence for anemia. In no distress. Question secondary to anxiety when patient received a needle. In stable condition with discharge home Differential Diagnosis Differential Diagnoses: The differential diagnosis associated with the presentation includes Anxiety, PE, pneumonia, pneumothorax Admission/Observation Consideration of admission/observation: Escalation of care including admission/observation considered Lab Data [facility] Lab Attestation statement: I reviewed the patient's lab results. 08/18/24 14:43 08/18/24 14:43 Labs: Lab Results 08/18/24 08/18/24 Range/Units 14:43 20:22 WBC 6.7 (4.8-10.8) X10*3/uL RBC 5.61 (4.60-5.80) X10*6/uL Hgb 16.0 (14.0-18.0) g/dl Hct 45.4 (42.0-52.0) % MCV 80.9 (80.0-98.0) fL MCH 28.5 (27.0-33.0) pg MCHC 35.2 (31.0-36.0) g/dl RDW 13.3 (11.0-16.0) % Plt Count 188 (160-400) X10*3/uL MPV 9.3 L (9.4-12.4) fL Immature Gran % (Auto) 4.2 H (0.0-0.4) % Neut % (Auto) 57.9 (45-73) % Lymph % (Auto) 32.5 (20-40) % Bureau % (Auto) 3.4 (2-11) % Eos % (Auto) 1.6 (0-4) % Baso % (Auto) 0.4 (0-2) % Lymph # (Auto) 2.2 (1.2-4.9) X10*3/uL Bureau # (Auto) 0.2 (0.1-1.2) X10*3/uL Eos # (Auto) 0.1 (0.0-0.4) X10*3/uL Baso # (Auto) 0.0 (0.0-0.2) X10*3/uL Abs Immat Gran (auto) 0.28 H (0.00-0.03) X10*3/uL Absolute Neuts (auto) 3.9 (2.0-8.3) x10*3/uL Absolute Nucleated RBC 0.000 (0.0-0.012) X10*3/uL Nucleated RBC % (auto) 0.0 (0.0-0.2) /100WBC Sodium 138 (135-145) mmol/L Potassium 4.0 (3.3-5.1) mmol/L Chloride 106 (96-108) mmol/L Carbon Dioxide 26 (22-29) mmol/L Anion Gap 10 L (12-20) BUN 21 H (9-16) mg/dL Creatinine 0.85 (0.5-1.4) mg/dL Estim Creat Clear Calc 86.4 Estimated GFR > 60 Random Glucose 106 (60-115) mg/dL Calcium 9.5 (8.4-10.2) mg/dL Magnesium 2.2 (1.6-2.6) mg/dL Total Bilirubin 0.3 (0.0-1.0) mg/dL AST 44 H (5-37) U/L ALT 59 H (0-40) U/L Alkaline Phosphatase 64 (39-117) U/L Troponin I High Sens < 2.7 < 2.7 (<3.5-35.0) ng/L Total Protein 7.2 (6.5-8.0) g/dL Albumin 4.3 (3.5-5.0) g/dL Lipase 29 (8-78) U/L Influenza Type A (PCR) NEGATIVE (Negative) Influenza Type B (PCR) NEGATIVE (Negative) RSV RNA Qual (PCR) NEGATIVE (Negative) SARS-CoV-2 RNA (RT-PCR) NEGATIVE (Negative) Independent Interpretation I performed an independent interpretation of an: EKG (Sinus heart rate is 70 [place], QTC. normal . Positive right bundle branch block. no acute ST segment elevation) Radiology Impression Discussion of test interpretation with radiology: I have reviewed the radiologist's reading. Discharge Plan Discharge Clinical Impression: Mild shortness of breath Patient Disposition: Home, Self-Care Instructions: Anxiety (ED) Prescriptions: No Action ascorbic acid (vitamin C) [Vitamin C] 500 mg Tablet 500 mg PO DAILY omega-3 fatty acids Capsule 1,000 mg PO DAILY ondansetron 4 mg tablet,disintegrating 4 mg PO DAILY PRN (Reason: nausea and vomiting) 5 Days Qty: 14 0RF cholecalciferol (vitamin D3) 25 mcg (1,000 unit) capsule 25 mcg PO DAILY famotidine 20 mg tablet 20 mg PO DAILY 90 Days Qty: 90 1RF psyllium husk 2.6 gram/4.1 gram powder 1 tbsp PO DAILY 30 Days Qty: 480 1RF Rx Instructions: mix into at least 8 oz of water or juice before administering Referrals: Luzma Marcelo MD [Primary Care Provider] - 08/23/24 Print Language: Burkinan
[2024-08-18 20:04] VITALS: BP 137/89; PULSE 80; RESP 16; TEMP 36.9; O2SAT 97
[2024-08-18 20:51] LABS: Troponin-I High Sensitivity < 2.7 ng/L (<3.5-35.0)
[2024-08-18] MEDS: iohexoL 350 MG/ML 100 ML INFUS..BTL 65 ML IV (21:26)
[2024-08-18 22:13] VITALS: BP 118/70; PULSE 72; RESP 16; TEMP 36.7; O2SAT 97
[2024-08-19 00:58] VITALS: BP 123/81; PULSE 73; RESP 20; TEMP 36.6; O2SAT 95
[2024-08-19 01:12] VITALS: BP 123/81; PULSE 73; RESP 20; TEMP 36.6; O2SAT 95
== END 2024-08-19 01:13 | disposition home or self-care (01) ==
PROVIDERS: Physician Assistant Medical; Emergency Provider Emergency Medicine Emergency Medical Services; PCP Internal Medicine
DX: R06.02 Shortness of breath (principal); Z03.818 Encounter for observation for suspected exposure to other biological agents ruled out; I45.19 Other right bundle-branch block; Z79.899 Other long term (current) drug therapy
CPT/HCPCS: 0241U; 36415; 71046; 71275; 80053; 83690; 83735; 84484; 85025; 93005; 99284; 99285; Q9967

== ENCOUNTER → 2024-08-18 14:28 | Outpatient (BNV) | payer OTHER, SELFPAY | PROVIDERS: PCP Internal Medicine; Visit Provider Internal Medicine Cardiovascular Disease | DX: R94.31 Abnormal electrocardiogram [ECG] [EKG] (principal) | CPT/HCPCS: 93010 ==

== ENCOUNTER 2024-09-27 17:42 | Outpatient (REF) | payer OTHER, SELFPAY ==
--- NOTE | ~2024-09-27 | MR_ITS ---
EXAMINATION: MR KNEE WITHOUT CONTRAST RIGHT CLINICAL INFORMATION: Unilateral primary osteoarthritis, right knee M17.11. Heavy pain that stays constant 1 year ongoing. No fall. COMPARISON: XR Right knee 08/18/2024 TECHNIQUE: MRI of the knee without contrast was performed using routine sequences on a high-field scanner. FINDINGS: MENISCI: Medial Meniscus: Horizontal and tibial articular surface tear in the posterior horn. Inner margin blunting present as well. Tibial articular surface tear in the posterior portion of the body. Lateral Meniscus: Intact LIGAMENTS: Cruciate: Intact Collateral: Intact EXTENSOR MECHANISM: Intact . Minimal distal quadriceps and proximal patellar tendinosis. ARTICULAR CARTILAGE/BONE: Patellofemoral Compartment: Medial patellar facet chondral heterogeneity and fissuring. Medial Compartment: Mild arthritis, with the patchy chondral heterogeneity and irregularity. Lateral Compartment: No significant chondral loss. No fracture. No aggressive marrow replacing lesion. JOINT FLUID AND BURSAE: Small effusion. No significant Harrington's cyst. Subcutaneous edema. MR/MR knee RT wo con IMPRESSION: 1. Tear of the medial meniscal posterior horn and body. 2. Minimal distal quadriceps and proximal patellar tendinosis. 3. Mild patellofemoral and medial compartment arthritis. 4. Small effusion. Electronically signed by: Brennen Henderson MD 09/30/2024 03:54 PM [facility]
== END 2024-09-27 17:43 | disposition home or self-care (01) ==
LOC: HO.MRI 17:42
PROVIDERS: PCP Internal Medicine; Visit Provider Physician Assistant
DX: M17.11 Unilateral primary osteoarthritis, right knee (principal)
CPT/HCPCS: 73721

== ENCOUNTER 2024-12-20 14:02 | Outpatient (AMB) | payer OTHER, SELFPAY ==
--- NOTE | 2024-12-20 14:03 | A.OFFVIS_ITS ---
Intake Visit Reasons: TEL- Right Knee MRI review Intake Note: Tanner is a 59 year old male who presents today for a telephone visit to review MRI of right knee. Patient was last seen on 08/18/24 and an injection was given. Crime Laboratory Analyst Required: Yes Crime Laboratory Analyst Services: Crime Laboratory Analyst Offered & Declined Accompanied by: Son Allergies tramadol [From Ultram] Allergy (Mild, Verified 12/20/24 14:03) nervous system HPI HPI TEL- Right Knee MRI review: Details: 59-year-old gentleman presents for telehealth MRI review right knee. He continues to have pain in the knee and feels as though it is tight with flexion. [facility] Medical History Osteoarthritis of right knee Gallstones BPH without urinary obstruction Nephrolithiasis Umbilical hernia Left knee pain Renal calculi Left breast mass Mass of right elbow Partial small bowel obstruction Surgical History Peyronie's disease H/O lithotripsy History of laparoscopic cholecystectomy (10/16/22) History of excision of mass (03/07/22) History of esophagogastroduodenoscopy (EGD) Hx of colonoscopy H/O umbilical hernia repair H/O hemorrhoidectomy H/O lateral meniscus repair of left knee Family History Father CAD (coronary artery disease) Mother Breast cancer Social History Household Members: Spouse Housing: House Do you presently have visiting nurse or other home services: No Alcohol intake: current Alcohol intake frequency: holidays/special occasions only Alcohol type: beer and wine Patient Tobacco Use Status: Never used Tobacco e-Cigarette/Vaping Use: Never Used Second Hand Smoke Exposure: No Advance Directives Date on File: 09/02/20 service: No Current occupational status: employed 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 Current occupational exposures/hazards: No Cognitive needs: No Hearing needs: No Vision needs: Yes Review of Systems Const All systems reviewed & are unremarkable except as noted in HPI and below Physical Exam Resp Effort & Inspection: normal respiratory effort and able to speak in complete sentences Telehealth Telehealth Telehealth Platform: Telephone Location of provider rendering services: practice address Location of patient: address on file Patient Identification confirmed using: Name, : Yes Telehealth method: voice only Patient verbally consented to treatment: Yes Patient verbally consented to billing insurance company: Yes Patient informed of any privacy concerns related to visit: Yes Minutes spent on Phone/Video with Pt.: 12 Results Reviewed Results Reviewed: MR knee RT wo con IMPRESSION: 1. Tear of the medial meniscal posterior horn and body. 2. Minimal distal quadriceps and proximal patellar tendinosis. 3. Mild patellofemoral and medial compartment arthritis. 4. Small effusion. Assessment & Plan Assessment & Plan (1) Acute lateral meniscal injury of left knee: Code(s): S83.8X2A - Sprain of other specified parts of left knee, initial encounter Category: Medical Plan: We discussed options today which include continued physical therapy. He states he continues to feel the stiffness in the knee which is limiting his ability to perform daily activities. I did recommend he make an appointment to see me for assessment and discuss possible aspiration if there is an effusion. He is content with this plan and we will book accordingly. Coding Level of Care Code Tele Est Pt Level 3 (07366) Complex EM visit Add On G2211 Diagnoses Acute lateral meniscal injury of left knee S83.8X2A
--- OUTSIDE RECORDS SUMMARY | 2024-12-20 15:55 | XMS_ITS | Clinical Summary ---
Author Organization [employer] Address [address] [place] [address] [address] [place] [address] Care Team Providers Care Carrot Tier Name Role Phone Unavailable Primary Care Provider Unavailabl e Allergies Active Allergy Reactions Criticality Noted Date Comments Tramadol Anxiety Low 04/08/2023 Medications No known medications Immunizations Name Administration Dates Next Due Moderna Covid-19 Vaccine 6+ Bivalent 11/29/2022 Social History Tobacco Use Types Packs/Day Years Used Date Smoking Tobacco: Never Passive Smoke Exposure: Never Smokeless Tobacco: Never Alcohol Use Standard Drinks/Week Comments Yes 1 (1 standard drink = 0.6 oz pur e alcohol) Sex and Gender Information Value Date Recorded Sex Assigned at Male 11/29/2022 1:40 PM EST Legal Sex Male 1:37 PM EST Gender Identity Male 11/29/2022 1:40 PM EST Sexual Orientation Straight 11/29/2022 1: 40 PM EST Last Filed Vital Signs Vital Sign Reading Time Taken Comments Blood Pressure 118/78 04/08/2023 7:59 AM EDT Pulse 76 04/08/2023 7:59 AM EDT Temperature - - Respiratory Rate - - Oxygen Saturation - - Inhaled Oxygen Concentration - - Weight - - Height - - Body Mass Index - - Plan of Treatment Health Maintenance Due Date Last Done Comments CT Colonography 1963 Colonoscopy 1963 Colorectal Cancer Screening 1963 Depression Screening 1963 FIT DNA/Cologuard 1963 FIT 1963 FOBT 1963 HIV Screening 1963 Lipid Panel 1963 SDOH Screening 1963 Sigmoidoscopy 1963 Alcohol/Substance Use Screening 1975 Hepatitis C Screening 1981 DTaP/Tdap/Td Vaccines (1 - Tdap) 1982 Pneumococcal Vaccine: 50+ Years (1 of 1 - PCV) 2013 Zoster Vaccines (1 of 2) 2013 Dental Oral Exam 10/09/2023 04/08/2023 Dental Prophylaxis 10/31/2023 04/29/2023 Tobacco Screening 04/08/2024 04/08/2023 Dental X-Ray: Bitewings 04/09/2024 04/08/2023 COVID-19 Vaccine (3 - 2023-2 5 season) 2024 11/29/2022, 10/11/2021 Influenza Vaccine (#1) 2024 Dental X-Ray: Full Mouth 04/09/2026 04/08/2023 RSV Patients and Patients Aged 60 years or older (1 - 1-dose 75+ series) 2038 HIB Vaccines Aged Out No longer eligi ble based on patient's age to complete this topic HPV Vaccines Aged Out No longer eligi ble based on patient's age to complete this topic Hepatitis A Vaccines Aged Out No long er eligible based on patient's age to complete this topic Hepatitis B Vaccines Aged Out No long er eligible based on patient's age to complete this topic IPV Vaccines Aged Out No longer eligi ble based on patient's age to complete this topic Meningococcal Vaccine Aged Out No mingo carina eligible based on patient's age to complete this topic Pneumococcal Vaccine: Pediatrics (0 to 5 Years) and At-Risk Patients (6 to 49) Years) Aged Out No longer eligible b ased on patient's age to complete this topic RSV under 20 months Aged Out No longe r eligible based on patient's age to complete this topic Rotavirus Vaccines Aged Out No longer eligible based on patient's age to complete this topic Procedures Procedure Name Priority Date/Time Associated Diagnosis Comments PROPHYLAXIS - ADULT Routine 04/29/2023 8 :00 AM EDT INTRAORAL - COMPLETE SERIES OF RADIOGRAPHIC IMAGES Routine 04/08/2023 8:00 AM EDT COMPREHENSIVE ORAL EVALUATION - NEW OR ESTABLISHED PATIENT Routine 04/08/2023 8:00 AM EDT from Last 3 Months or Most Recently Relevant to Health Maintenance Insurance [facility] MEDICAID STAND ADULT
== END 2024-12-20 16:12 | disposition home or self-care (01) ==
LOC: HO.HOS 14:02
PROVIDERS: PCP Internal Medicine; Visit Provider Physician Assistant
DX: S83.241A Other tear of medial meniscus, current injury, right knee, initial encounter (principal); S83.8X2A Sprain of other specified parts of left knee, initial encounter
CPT/HCPCS: 99213; G2211

== ENCOUNTER 2025-01-06 13:26 | Outpatient (AMB) | payer OTHER, SELFPAY ==
--- NOTE | 2025-01-06 13:32 | A.OFFVIS_ITS ---
Vital Signs 01/06/25 13:38 Height 5 ft 10 in Weight 182 lb BMI 26.1 Intake Visit Reasons: OV- R knee OA pain Intake Note: Tanner is a 59 year old male who presents today for a follow up of his right knee. His last visit was a telephone visit to review the MRI, but due to his continued limitations it was recommended that he have a physical exam for possible aspiration. Last injection of 80 mg Depo was administered to the right knee on 08/18/24. He states that the last injection didn't give him relief and he got a bad reaction to the injection. Patient wondering if PT is going to help him. Vineyardist Required: Yes Vineyardist Language: Publishing Specialist Services: Vineyardist Present Vineyardist Name: Rip ID#[id number] Allergies tramadol [From Ultram] Allergy (Mild, Verified 01/06/25 13:36) nervous system Medication List - Last Reconciled 01/06/25 by Johnson Hernández PA-C ascorbic acid (vitamin C) (Vitamin C) 500 mg PO DAILY cholecalciferol (vitamin D3) 25 mcg PO DAILY famotidine 20 mg PO DAILY 90 days omega-3 fatty acids 1,000 mg PO DAILY ondansetron 4 mg PO DAILY PRN 5 days psyllium husk 1 tbsp PO DAILY 30 days HPI HPI OV- R knee OA pain: Details: 59-year-old male presenting with ongoing pain and disability associated with the right knee, which he describes as persistent x1 year. He had an MRI of the right knee. This imaging study confirmed both a meniscal tear and quadriceps tendinitis. His pain is primarily medial and sharp in nature, exacerbated by twisting and pivoting actions, while stair climbing remains largely unaffected. In the past, the patient underwent an injection intended for pain relief in August, which provoked a severe reaction leading to chest discomfort and dizziness, necessitating an emergency room visit. The patient experiences exacerbations in pain when engaging in recreational activities such as basketball, which further worsens his knee condition for several days. This has been a longstanding issue resulting in over a year of discomfort and limitations on his active lifestyle, specifically sports activities. [facility] Medical History Osteoarthritis of right knee Gallstones BPH without urinary obstruction Nephrolithiasis Umbilical hernia Left knee pain Renal calculi Left breast mass Mass of right elbow Partial small bowel obstruction Surgical History Peyronie's disease H/O lithotripsy History of laparoscopic cholecystectomy (10/16/22) History of excision of mass (03/07/22) History of esophagogastroduodenoscopy (EGD) Hx of colonoscopy H/O umbilical hernia repair H/O hemorrhoidectomy H/O lateral meniscus repair of left knee Family History Father CAD (coronary artery disease) Mother Breast cancer Social History Household Members: Spouse Housing: House Do you presently have visiting nurse or other home services: No Alcohol intake: current Alcohol intake frequency: holidays/special occasions only Alcohol type: beer and wine Patient Tobacco Use Status: Never used Tobacco e-Cigarette/Vaping Use: Never Used Second Hand Smoke Exposure: No Advance Directives Date on File: 09/02/20 service: No Current occupational status: employed 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 Tenderness along the medial joint line. Full ROM with crepitus. Positive Albin?s. No ligamentous laxity. NVI. Assessment & Plan Assessment & Plan (1) Acute meniscal tear of right knee: Code(s): S83.206A - Unspecified tear of unspecified meniscus, current injury, right knee, initial encounter Category: Medical Plan We discussed arthroscopic surgery for the correction of the meniscus tear in the right knee, intending to alleviate the acute sharp pain associated with the tear. The patient understands that while addressing the meniscal injury may help in managing pain, it might temporarily irritate underlying osteoarthritis. The procedure will involve general anesthesia, and a formal preoperative appointment is needed. Following surgery, we anticipate a recovery period involving phased rehabilitation with restricted movements for initial weeks. Adjustments at work to accommodate this recovery period have been communicated, and the patient has acknowledged the requisite follow-up care. At this time the patient would like to proceed with right knee arthroscopy with Dr. Nascimento. Risks benefits and alternatives were discussed. Risks including but not limited to ongoing pain, stiffness, infection, blood clots, nerve tissue damage. All questions have been answered and he will be booked accordingly. Patient was informed and verbally consented to the use of an ambient scribe for clinic note documentation during this visit. Coding Level of Care Code Est Pt Level 3 (86641) Complex EM visit Add On G2211 Diagnoses Acute meniscal tear of right knee S83.206K
[2025-01-06 13:38] VITALS: BMI 26.1
== END 2025-01-06 14:24 | disposition home or self-care (01) ==
LOC: HO.HOS 13:28
PROVIDERS: PCP Internal Medicine; Visit Provider Physician Assistant
DX: S83.206A Unspecified tear of unspecified meniscus, current injury, right knee, initial encounter (principal)
CPT/HCPCS: 99213; G2211

== ENCOUNTER → 2025-01-06 13:26 | Outpatient (BNVA) | payer OTHER, SELFPAY | PROVIDERS: PCP Internal Medicine; Visit Provider Physician Assistant | DX: S83.206A Unspecified tear of unspecified meniscus, current injury, right knee, initial encounter (principal); M17.11 Unilateral primary osteoarthritis, right knee; X58.XXXA Exposure to other specified factors, initial encounter; Y93.9 Activity, unspecified; Y92.9 Unspecified place or not applicable; Y99.9 Unspecified external cause status | CPT/HCPCS: 99212 ==

== ENCOUNTER 2025-01-13 06:41 | Outpatient (REF) | payer OTHER, SELFPAY ==
--- OUTSIDE RECORDS SUMMARY | 2025-01-13 06:43 | XMS_ITS | Clinical Summary ---
Author Organization [employer] Address [address] [place] [address] [address] [place] [address] Care Team Providers Care Trace Evidence Technician Name Role Phone Unavailable Primary Care Provider [...] Recently Relevant to Health Maintenance Insurance [facility] MEDICAID STAND ADULT
[2025-01-13 08:01] LABS: Alanine Aminotransferase 51 U/L (0-40); Albumin Level 4.1 g/dL (3.5-5.0); Alkaline Phosphatase 58 U/L (39-117); Anion Gap 10 (12-20); Aspartate Amino Transferase 31 U/L (5-37); Bilirubin Total 0.5 mg/dL (0.0-1.0); Blood Urea Nitrogen 16 mg/dL (9-16); Calcium 9.3 mg/dL (8.4-10.2); Carbon Dioxide 28 mmol/L (22-29); Chloride 108 mmol/L (96-108); Cholesterol 181 mg/dL (<200); Estimated Glomerular Filt Rate > 60; Glucose Fasting 96 mg/dL (60-99); HDL Cholesterol 39 mg/dL (>40); LDL Cholesterol Calculated 114 mg/dL (<100); Potassium 4.5 mmol/L (3.3-5.1); Sodium 141 mmol/L (135-145); Total Protein 6.7 g/dL (6.5-8.0); Triglycerides 141 mg/dL (<150)
[2025-01-13 08:19] LABS: Vitamin D 25-OH Total 41.1 ng/mL (>30)
== END 2025-01-13 06:42 | disposition home or self-care (01) ==
LOC: HO.LAB 06:41
PROVIDERS: PCP Internal Medicine; Visit Provider Internal Medicine
DX: R07.9 Chest pain, unspecified (principal); E78.5 Hyperlipidemia, unspecified; E55.9 Vitamin D deficiency, unspecified
CPT/HCPCS: 36415; 80053; 80061; 82306

== ENCOUNTER 2025-01-18 12:38 | Outpatient (AMB) | payer OTHER, SELFPAY ==
--- NOTE | 2025-01-18 12:55 | MHC.PC.OV ---
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 Required: No Accompanied by: Self / Same As Patient Allergies tramadol [From Ultram] Allergy (Mild, Verified 01/18/25 13:19) nervous system Medication List - Last Reconciled 01/18/25 by Luzma Riddle MD ascorbic acid (vitamin C) (Vitamin C) 500 mg PO DAILY cholecalciferol (vitamin D3) 25 mcg PO DAILY omega-3 fatty acids 1,000 mg PO DAILY ondansetron 4 mg PO DAILY PRN 5 days psyllium husk 1 tbsp PO DAILY 30 days Tobacco use date assessed: 01/18/25 Dental Screening Dental Screen Date: 01/18/25 Did you have a dental visit in the last 12 months?: Yes Did you have a dental problem in the last 6 months where you did not have access to dental care?: No Was dental information given to patient?: Patient has dentist HPI HPI Comments History of Present Illness Details The patient is a 59-year-old male presenting for follow-up on depression which is in remission and knee arthritis. The patient has a history of imaging confirmed meniscal tear with arthritis, planning for surgical intervention while avoiding invasive procedures on the arthritis itself. Recent laboratory evaluations indicate stable glucose levels at 96 mg/dL and cholesterol levels at 181 mg/dL, with normal renal function. The patient reports a modest weight increase attributed to cold weather limiting his typical walking regimen. Overall health status is positive, with all pertinent vitamin levels including vitamin D reportedly normal. [facility] Medical History Osteoarthritis of right knee Gallstones BPH without urinary obstruction Nephrolithiasis Umbilical hernia Left knee pain Renal calculi Left breast mass Mass of right elbow Partial small bowel obstruction Surgical History Peyronie's disease H/O lithotripsy History of laparoscopic cholecystectomy (10/16/22) History of excision of mass (03/07/22) History of esophagogastroduodenoscopy (EGD) Hx of colonoscopy H/O umbilical hernia repair H/O hemorrhoidectomy H/O lateral meniscus repair of left knee Family History Father CAD (coronary artery disease) Mother Breast cancer Social History Household Members: Spouse Housing: House Do you presently have visiting nurse or other home services: No Alcohol intake: current Alcohol intake frequency: holidays/special occasions only Alcohol type: beer and wine Patient Tobacco Use Status: Never used Tobacco e-Cigarette/Vaping Use: Never Used Second Hand Smoke Exposure: No Advance Directives Date on File: 09/02/20 service: No Current occupational status: employed 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 1. Little interest or pleasure in doing things: not at all 2. Feeling down, depressed, or hopeless: not at all 3. Trouble falling or staying asleep, or sleeping too much: not at all 4. Feeling tired or having little energy: not at all 5. Poor appetite or overeating: not at all 6. Feeling bad about yourself - or that you are a failure or have let yourself or your family down: not at all 7. Trouble concentrating on things, such as reading the newspaper or watching television: not at all 8. Moving or speaking so slowly that other people could have noticed. Or the opposite - being so fidgety or restless that you have been moving around a lot more than usual: not at all 9. Thoughts that you would be better off or of hurting yourself in some way: not at all Total score: 0 Depression Screening Interpretation: Negative Depression Screening Done: Yes 17796 - PHQ-9 Billing: Yes Source: Developed by Drs. Augusto Raza, Laine Peck, Frank Parks and colleagues, with an educational viktoria from [employer]. Thrive Questionnaire Date Thrive assessed: 01/18/25 I am a: Patient What is your living situation today?: I have a steady place to live Within the past 12 months, did the food you bought not last and you didn't have the money to get more?: Never true Within the past 12 months, did you worry whether your food would run out before you got money to buy more?: Never true Do you have trouble paying for medicines?: No Do you have trouble getting transportation to medical appointments?: No Do you have trouble paying your heating and electricity bill?: No Do you have trouble taking care of your child, family member or friend?: No Do you have trouble with day-to-day activities such as bathing, preparing meals, shopping, managing finances, etc.?: No Are you currently unemployed and looking for a job?: No Are you interested in more education?: I choose not to answer this question Please select the resources that you would like help with: None Currently or been in a relationship where the following occur: No concerns reported THRIVE Score: 0 AUDIT C Alcohol Use Questionnaire (AUDIT-C) 1. How often do you have a drink containing alcohol?: Monthly or less 2. How many drinks containing alcohol do you have on a typical day when you are drinking?: 1 or 2 3. How often do you have six or more drinks on one occasion?: Never Total Score: 1 Score Reviewed/Action Taken: No PINA-7 AMB Questionnaire PINA-7 Date PINA - 7 assessed: 01/18/25 Feeling nervous, anxious, or on edge: 0 = Not at all Not being able to stop or control worryin = Not at all Worrying too much about different things: 0 = Not at all Trouble relaxin = Not at all Being so restless that it is hard to sit still: 0 = Not at all Becoming easily annoyed or irritable: 0 = Not at all Feeling afraid as if something awful might happen: 0 = Not at all Total PINA-7 score (0-4 normal; 5-9 mild; 10-14 moderate; 15-21 severe): 0 Source: Developed by Drs. Augusto Raza, Laine Peck, Frank Parks and colleagues, with an educational viktoria from [employer]. PINA-7 Assessment Billing PINA-7 Assessment Tool: PINA-7 Assessment 12657 Review of Systems Const All systems reviewed & are unremarkable except as noted in HPI and below Card Denies chest pain at rest, Denies chest pain with activity, Denies edema, Denies irregular heart rhythm, Denies claudication, Denies dyspnea, Denies dyspnea on exertion, Denies orthopnea, Denies paroxysmal nocturnal dyspnea and Denies slow heart rate Resp Denies cough, Denies dyspnea and Denies dyspnea on exertion GI Denies abdominal pain, Denies change in bowel habits, Denies excessive flatus, Denies nausea and Denies vomiting Physical exam (Primary Care) Vital Signs: Last Vital Signs BP 116/82 01/18/25 12:57 BMI result Body Mass Index 26.7 Tobacco/Smoking Status: Tobacco use Status Tobacco use date assessed 01/18/25 01/18/25 13:01 Patient Tobacco Use Status Never used Tobacco 01/18/25 13:01 e-Cigarette/Vaping Use Never Used 01/18/25 13:01 PHQ-9: PHQ-9 Score PHQ-9: Total score 0 01/18/25 13:21 Depression Screening Interpretation: Negative Thrive Assessment: Date of Thrive Assessment Date Thrive assessed 01/18/25 01/18/25 13:01 Currently or been in a relationship where the following occur: No concerns reported Resp Effort & Inspection: normal respiratory effort Auscultation: clear to auscultation bilaterally Cardio Jugular venous distension: no JVD Rate: regular rate Rhythm: regular rhythm Heart sounds: S1 normal heart sound present and S2 normal heart sound present Extrem General: Yes full ROM Coding Level of Care Code Est Pt Level 3 (10574) Complex EM visit Add On G2211 Diagnoses Acute meniscal tear of right knee S83.206A Hypovitaminosis D E55.9 Additional Codes PINA-7 Assessment Billing - PINA-7 Assessment Tool: PINA-7 Assessment 95126 ([id number]) PHQ-9 - 99397 - PHQ-9 Billing: Yes ([id number]) Time Spent (min) 19 Assessment & Plan Assessment & Plan (1) Acute meniscal tear of right knee: Code(s): S83.206A - Unspecified tear of unspecified meniscus, current injury, right knee, initial encounter Category: Medical (2) Hypovitaminosis D: Code(s): E55.9 - Vitamin D deficiency, unspecified Category: Medical Plan The patient's comprehensive care plan includes scheduled surgery to address the meniscal tear, with careful avoidance of the arthritic area during the procedure. Current laboratory results demonstrate satisfactory control of his lipid profile and renal function. Allergy to tramadol is noted for precaution during surgical management. The patient will maintain his current regimen of vitamins and supplements, utilizing psyllium as necessary. A follow-up laboratory evaluation and concurrent physical examination will be conducted in six months. Patient was informed and verbally consented to the use of an ambient scribe for clinic note documentation during this visit. During our discussion, I confirmed the plan to proceed with surgery on February 16 to address the meniscal tear while avoiding the arthritic region. Risks and benefits of the procedure were reviewed, emphasizing potential flare-ups if the arthritic area was treated. Laboratory results were shared, highlighting stability in renal and metabolic functions. Dietary and activity habits were discussed, including challenges presented by the cold weather, and an agreement was reached to reassess his weight and laboratory parameters in six months. We discussed steering clear of tramadol due to prior allergic reactions. Orders: Orders Vitamin D 25-OH Total 6 Months E55.9 - Vitamin D deficiency, unspecified [facility]. Panel Fast 6 Months R74.01 - Elevation of levels of liver transaminase levels Lipid Panel 6 Months E78.5 - Hyperlipidemia, unspecified Patient Instructions: - Prepare for surgery on February 16 as scheduled. - Avoid tramadol due to allergy. - Continue current vitamins and supplements as discussed. - Increase activity levels as weather permits to manage weight. - Expect a follow-up laboratory evaluation and physical in six months. - Utilize psyllium when necessary for episodes of constipation. - Maintain alcohol intake within occasional and moderate levels. - Be aware of any postoperative instructions relating to the knee surgery and follow accordingly.
[2025-01-18 12:57] VITALS: BP 116/82; BMI 26.7
--- OUTSIDE RECORDS SUMMARY | 2025-01-18 15:13 | XMS_ITS | Clinical Summary ---
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
== END 2025-01-18 13:27 | disposition home or self-care (01) ==
LOC: HO.HMCH 12:39
PROVIDERS: PCP Internal Medicine; Visit Provider Internal Medicine
DX: S83.206A Unspecified tear of unspecified meniscus, current injury, right knee, initial encounter (principal); E55.9 Vitamin D deficiency, unspecified

== ENCOUNTER → 2025-01-18 12:38 | Outpatient (BNVA) | payer OTHER, SELFPAY | PROVIDERS: PCP Internal Medicine; Visit Provider Internal Medicine | DX: E55.9 Vitamin D deficiency, unspecified (principal); M17.10 Unilateral primary osteoarthritis, unspecified knee; R74.01 Elevation of levels of liver transaminase levels; E78.5 Hyperlipidemia, unspecified; S83.206A Unspecified tear of unspecified meniscus, current injury, right knee, initial encounter; X58.XXXA Exposure to other specified factors, initial encounter; Y93.9 Activity, unspecified; Y92.9 Unspecified place or not applicable; Y99.9 Unspecified external cause status | CPT/HCPCS: 96127; 99212 ==

== ENCOUNTER 2025-02-11 12:16 | Outpatient (AMB) | payer OTHER, SELFPAY ==
--- NOTE | 2025-02-11 12:40 | MHC.OFFVIS ---
Vital Signs 02/11/25 12:41 Height 5 ft 10 in Weight 186 lb BMI 26.7 Intake Visit Reasons: Preop RT knee 02/16/25 NE Intake Note: Tanner is a 59 year old male who presents today for a pre op appointment for his right knee arthroscopy 02/16/25 NE. Allergies tramadol [From Ultram] Allergy (Mild, Verified 02/11/25 12:40) nervous system HPI HPI Preop RT knee 02/16/25 NE: Details: Mr. Miguel A Jacobsen is a 59-year-old male who presents to the office today for his preoperative history and physical examination pending right knee arthroscopy on 02/16/[address] Nascimento. [facility] Medical History Osteoarthritis of right knee Gallstones BPH without urinary obstruction Nephrolithiasis Umbilical hernia Left knee pain Renal calculi Left breast mass Mass of right elbow Partial small bowel obstruction Surgical History Peyronie's disease H/O lithotripsy History of laparoscopic cholecystectomy (10/16/22) History of excision of mass (03/07/22) History of esophagogastroduodenoscopy (EGD) Hx of colonoscopy H/O umbilical hernia repair H/O hemorrhoidectomy H/O lateral meniscus repair of left knee Family History Father CAD (coronary artery disease) Mother Breast cancer Social History Household Members: Spouse Housing: House Do you presently have visiting nurse or other home services: No Alcohol intake: current Alcohol intake frequency: holidays/special occasions only Alcohol type: beer and wine Patient Tobacco Use Status: Never used Tobacco e-Cigarette/Vaping Use: Never Used Second Hand Smoke Exposure: No Advance Directives Date on File: 09/02/20 service: No Current occupational status: employed 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 Tenderness along the medial joint line. Full ROM with crepitus. Positive Albin?s. No ligamentous laxity. NVI. Assessment & Plan Assessment & Plan (1) Tear of medial meniscus of right knee: Code(s): S83.241A - Other tear of medial meniscus, current injury, right knee, initial encounter Category: Medical Plan I discussed in detail the procedure and what to expect pre and post operatively. We discussed the risks, benefits and alternatives to the surgery as well as the rehabilitation course. The risks; which include, but are not limited to infection, bleeding, nerve injury, ongoing pain, swelling, and stiffness, perioperative risk of injury to bones and soft tissues, and blood clots. I?ve answered all questions and with their understanding they have consented to move forward with right knee arthroscopy with Dr. Nascimento. MRI right knee obtained on 09/27/2024 IMPRESSION: 1. Tear of the medial meniscal posterior horn and body. 2. Minimal distal quadriceps and proximal patellar tendinosis. 3. Mild patellofemoral and medial compartment arthritis. 4. Small effusion. Medications: New hydrocodone-acetaminophen 5-325 mg Partial Fill upon patient request. 1 tab PO Q8H PRN 21 tabs 0RF pain 7 days Coding Level of Care Code Global (48457) Diagnoses Tear of medial meniscus of right knee S83.241A
[2025-02-11 12:41] VITALS: BMI 26.7
--- OUTSIDE RECORDS SUMMARY | 2025-02-11 12:54 | XMS_ITS | Clinical Summary ---
Author Organization [email or web address] Address [address] [place] [address] [address] [place] [address] Care Team Providers Care Supervisor Claims Name Role Phone Unavailable Primary Care Provider [...] Recently Relevant to Health Maintenance Insurance [facility] MEDICAID STAND ADULT
== END 2025-02-11 15:27 | disposition home or self-care (01) ==
LOC: HO.HOS 12:16
PROVIDERS: PCP Internal Medicine; Visit Provider Physician Assistant
DX: S83.241A Other tear of medial meniscus, current injury, right knee, initial encounter (principal)
CPT/HCPCS: 99024

== ENCOUNTER → 2025-02-11 12:16 | Outpatient (BNVA) | payer OTHER, SELFPAY | PROVIDERS: PCP Internal Medicine; Visit Provider Physician Assistant | DX: Z01.818 Encounter for other preprocedural examination (principal); S83.241A Other tear of medial meniscus, current injury, right knee, initial encounter; X58.XXXA Exposure to other specified factors, initial encounter; Y93.9 Activity, unspecified; Y92.9 Unspecified place or not applicable; Y99.9 Unspecified external cause status | CPT/HCPCS: 99212 ==

== ENCOUNTER 2025-02-16 05:46 | Day surgery (SDC) | payer OTHER, SELFPAY ==
[2025-02-14 16:03] VITALS: BMI 26.7
--- NOTE | 2025-02-15 08:59 | HO.ANESPROP2 ---
Documented by User: Tory Zheng NP 02/15/25 09:02 HPI - Anesthesia Eval Consult details Narrative: 59yo M for Right Knee Arthroscopy PMFSH Active Problems Active Problems: All Active Problems Tear of medial meniscus of right knee (Acute) Acute meniscal tear of right knee (Acute) Transaminitis (Acute) Right knee pain (Acute) Biceps tendinitis (Acute) Tendinitis of right rotator cuff (Acute) Postprandial diarrhea (Acute) Hypovitaminosis D (Acute) Hospital discharge follow-up (Acute) GERD (gastroesophageal reflux disease) (Acute) Blurry vision (Acute) Bursitis of elbow (Acute) Right elbow tendinitis (Acute) Arthritis of right elbow (Acute) Chest pain (Acute) Lateral epicondylitis, right elbow (Acute) Upper abdominal pain (Acute) Chronic constipation (Acute) Abdominal bloating (Acute) Hx of small bowel obstruction (Acute) History of colon polyps (Acute) Epidermal inclusion cyst (Acute) Osteoarthritis of right knee (Acute) Acute lateral meniscal injury of left knee (Acute) Acute lateral meniscal injury of right knee (Acute) Osteoarthritis of left knee (Acute) Lipoma of torso (Acute) Nausea (Acute) Abdominal bloating (Acute) Frequent headaches (Acute) Biliary colic (Acute) BPH without urinary obstruction (Acute) Physical exam (Acute) Nephrolithiasis (Acute) Umbilical hernia (Acute) Left knee pain (Acute) Renal calculi (Acute) Left breast mass (Acute) Past Medical History Medical History Osteoarthritis of right knee Gallstones BPH without urinary obstruction Nephrolithiasis Umbilical hernia Left knee pain Renal calculi Left breast mass Mass of right elbow Partial small bowel obstruction Family History Family History Father CAD (coronary artery disease) Mother Breast cancer Family history of problems with anesthesia: No Surgical History Surgical History Peyronie's disease H/O lithotripsy History of laparoscopic cholecystectomy (10/16/22) History of excision of mass (03/07/22) History of esophagogastroduodenoscopy (EGD) Hx of colonoscopy H/O umbilical hernia repair H/O hemorrhoidectomy H/O lateral meniscus repair of left knee History of Problems with Anesthesia: No Social History Social History Household Members: Spouse Housing: House Do you presently have visiting nurse or other home services: No Alcohol intake: current Alcohol intake frequency: holidays/special occasions only Alcohol type: beer and wine Patient Tobacco Use Status: Never used Tobacco e-Cigarette/Vaping Use: Never Used Second Hand Smoke Exposure: No Use of substances other than those prescribed or required for medical reasons: No Are you DNR?: No Advance Directives: No Advance Directives Information Provided: Yes Advance Directives Date on File: 09/02/20 Poor oral hygiene: No service: No Current occupational status: employed 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 Current occupational exposures/hazards: No Cognitive needs: No Hearing needs: No Vision needs: Yes Meds Allergies Allergy/AdvReac Type Severity Reaction Status Date / Time tramadol [From Ultram] Allergy Mild nervous Verified 02/11/25 12:40 system Home Medications ?Medication ?Instructions ?Recorded ?Confirmed ?Last Taken ?Type ascorbic acid (vitamin C) 500 mg 500 mg PO DAILY 08/27/20 01/18/25 08/26/20 History tablet (Vitamin C) omega-3 fatty acids 1,000 mg PO DAILY 08/27/20 01/18/25 05/09/24 History cholecalciferol (vitamin D3) 25 25 mcg PO DAILY 01/21/22 01/18/25 Unknown History mcg (1,000 unit) capsule Exam Height,Weight and Vital Signs: Height 5 ft 10 in Weight 84.368 kg Pertinent Lab Results Pertinent Lab Results: Laboratory Tests 08/18/24 01/13/25 14:43 06:55 WBC 6.7 Hgb 16.0 Hct 45.4 Plt Count 188 Sodium 141 Potassium 4.5 Chloride 108 Carbon Dioxide 28 BUN 16 Creatinine 0.75 Narrative Narrative: EKG 2023 Vent. Rate : 071 BPM Atrial Rate : 071 BPM P-R Int : 178 ms QRS Dur : 142 ms QT Int : 404 ms P-R-T Axes : -05 -47 021 degrees QTc Int : 439 ms Normal sinus rhythm Right bundle branch block Left anterior fascicular block Bifascicular block Abnormal ECG When compared with ECG of 24-JAN-2024 11:20, No significant change was found Assessment and Plan Assessment Anesthesia Assessment: Chart Reviewed Final Anesthetic Review Family History of Problems with Anesthesia: No History of Problems with Anesthesia: No Documented by User: Lori Alexander MD 02/16/25 07:46 PMF Past Medical History Medical History Osteoarthritis of right knee Gallstones BPH without urinary obstruction Nephrolithiasis Umbilical hernia Left knee pain Renal calculi Left breast mass Mass of right elbow Partial small bowel obstruction Family History Family History Father CAD (coronary artery disease) Mother Breast cancer Surgical History Surgical History Peyronie's disease H/O lithotripsy History of laparoscopic cholecystectomy (10/16/22) History of excision of mass (03/07/22) History of esophagogastroduodenoscopy (EGD) Hx of colonoscopy H/O umbilical hernia repair H/O hemorrhoidectomy H/O lateral meniscus repair of left knee Social History Social History Household Members: Spouse Housing: House Do you presently have visiting nurse or other home services: No Alcohol intake: current Alcohol intake frequency: holidays/special occasions only Alcohol type: beer and wine Patient Tobacco Use Status: Never used Tobacco e-Cigarette/Vaping Use: Never Used Second Hand Smoke Exposure: No Use of substances other than those prescribed or required for medical reasons: No Are you DNR?: No Advance Directives: No Advance Directives Information Provided: Yes Advance Directives Date on File: 09/02/20 Poor oral hygiene: No service: No Current occupational status: employed 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 Current occupational exposures/hazards: No Cognitive needs: No Hearing needs: No Vision needs: Yes Meds Allergies Allergy/AdvReac Type Severity Reaction Status Date / Time tramadol [From Ultram] Allergy Mild nervous Verified 02/11/25 12:40 system Home Medications ?Medication ?Instructions ?Recorded ?Confirmed ?Last Taken ?Type ascorbic acid (vitamin C) 500 mg 500 mg PO DAILY 08/27/20 01/18/25 08/26/20 History tablet (Vitamin C) omega-3 fatty acids 1,000 mg PO DAILY 08/27/20 01/18/25 05/09/24 History cholecalciferol (vitamin D3) 25 25 mcg PO DAILY 01/21/22 01/18/25 Unknown History mcg (1,000 unit) capsule Exam Narrative Narrative: 2023 Vent. Rate : 071 BPM Atrial Rate : 071 BPM P-R Int : 178 ms QRS Dur : 142 ms QT Int : 404 ms P-R-T Axes : -05 -47 021 degrees QTc Int : 439 ms Normal sinus rhythm Right bundle branch block Left anterior fascicular block Bifascicular block Abnormal ECG When compared with ECG of 24-JAN-2024 11:20, No significant change was found Airway Mallampati Class: II TM Dist: >3cm Neck ROM: Full Assessment and Plan Assessment Anesthesia Assessment: Anesthesia Plan Discussed Final Anesthetic Review NPO: Yes ASA Class: II Final Preanesthetic Review: No Changes in Pt Med Stat, Meds/Allgs Chart Reviewed, Consent Obtained/Reviewed, Anes Risks/Benef Reviewed and DNR Form (If Appl.) Patient Risk: Low Procedure Risk: Low Anesthetic Plan Anesthetic Plan: GA Disposition: Standard PACU
[2025-02-16] VITALS (8 sets, daily range): BP systolic 122–145; BP diastolic 77–90; PULSE 52–64; RESP 14–17; TEMP 36–36.1; O2SAT 93–98; BMI 26.6
[2025-02-16] MEDS: Lactated Ringers 1,000 ML 100 ML IVCONT (06:37)
--- NOTE | 2025-02-16 07:30 | MHC.SHP ---
Pre-Procedural Eval Section A - 24 Hr Update-Section A only Date of Service: 02/16/25 The patient is an INPATIENT: No Changes since office visit: No Cold of Flu in the past 2 weeks, No New Medical Problems, No Changes in Medication and No Patient answered all questions The patient has been examined within 24 hours of the surgical procedure. The History & Physical has been completed within 30 days and I have reviewed it.: Yes Section B - Complete if H&P > 30 days Chief Complaint: Other tear of medial meniscus, current injury, Allergies: Allergies Allergy/AdvReac Type Severity Reaction Status Date / Time tramadol [From Ultram] Allergy Mild nervous Verified 02/11/25 12:40 system Plan I have reviewed the history and physical and performed a pertinent physical examination on my patient. No changes have occurred unless specified. Time Spent With Patient Time: Total time managing care of this patient today ____ minutes.
[2025-02-16] MEDS: ceFAZolin Sodium/Dextrose,Iso 2 GM/50 ML PIGGYBACK IV (07:40)
[2025-02-16] MEDS: Acetaminophen 1,000 MG/100 ML PIGGYBACK 400 MG IV (07:50)
--- NOTE | 2025-02-16 08:17 | P.BOP_ITS ---
Brief Operative Note Date of Service: 02/16/25 Pre-op diagnosis: Righgt knee MMT Post-op diagnosis: other (1) Right knee MMT 23) medial compartment osteoarthritis 3) Plica) Procedure: Partial medial meniscectomy right knee with chondroplasty and plica resection Implants: none Surgeon: Rustam Nascimento MD Anesthesia: GLMA and local Was an Veterinary Medical Officer used for this Procedure?: No Estimated blood loss (mL): 5 Tourniquet time (min): 18 IV fluids (mL): 500 Pathology: none sent Condition: stable Disposition: PACU
--- NOTE | 2025-02-16 08:19 | W.PM.OPN ---
Operative Note Operative Note Date of Service: 02/16/25 Narrative: Date of Service: 02/16/25 Pre-op diagnosis: Righgt knee MMT Post-op diagnosis: other (1) Right knee MMT 23) medial compartment osteoarthritis 3) Plica) Procedure: Partial medial meniscectomy right knee with chondroplasty and plica resection Implants: none Surgeon: Rustam Nascimento MD Anesthesia: GLMA and local Was an Garbage Truck Helper used for this Procedure?: No Estimated blood loss (mL): 5 Tourniquet time (min): 18 IV fluids (mL): 500 Pathology: none sent Condition: stable Disposition: PACU Procedure in detail: Patient was brought to the operating room placed supine on the arthroscopic table and prepped and draped in standard sterile fashion. A time-out was called to identify proper site proper procedure proper surgeon and IV antibiotics per weight were administered. I began by exsanguinating the limb and insufflating tourniquet to 300 mm Hg. Then made a standard anterolateral stab incision. The knee was insufflated with water and 30 degree arthroscope was placed. There was grade 1 fibrillations of the patella but overall suprapatellar pouch and the gutters were clean. I descended into the medial compartment where I made my medial portal under direct visualization. There was a plica medially. There was a complex tear of the posterior horn of the medial meniscus. The root was intact and there was grade 1 changes in the tibial plateau but minimal. There was a G3 lesion approximately 1 cm by 1 cm in the anterior portion of the MFC with more G1/2 changes extending posteriorly to include the ernst bearing portion of the MFC. I used a combination of biter shaver to remove unstable portions of the meniscus. Approximately 25% meniscal volume was removed. Once I was satisfied with this the ACL was examined and found to be intact and the lateral compartment also was without the need for intervention. I then removed all instrumentation and closed the portals with nylon. 25 mL of 2% Marcaine with epinephrine was injected into the joint and the surrounding soft tissues. Patient was then placed in sterile dressing extubated brought recovery room stable condition. There were no known complications.
[2025-02-16] MEDS: fentaNYL citrate/PF 100 MCG/2 ML VIAL 50 MCG IVPUSH ×2 (08:35→08:45)
== END 2025-02-16 09:42 | disposition home or self-care (01) ==
LOC: HO.SSS 05:46
PROVIDERS: PCP Internal Medicine; Visit Provider Orthopaedic Surgery
PROC: (CPT 29870; principal; 2025-02-16 07:30)
DX: S83.241A Other tear of medial meniscus, current injury, right knee, initial encounter (principal); M17.11 Unilateral primary osteoarthritis, right knee; M67.50 Plica syndrome, unspecified knee; X58.XXXA Exposure to other specified factors, initial encounter; Y93.9 Activity, unspecified; Y92.9 Unspecified place or not applicable; Y99.9 Unspecified external cause status; E55.9 Vitamin D deficiency, unspecified; E78.5 Hyperlipidemia, unspecified; R74.01 Elevation of levels of liver transaminase levels; Z87.442 Personal history of urinary calculi; Z79.899 Other long term (current) drug therapy; Z88.5 Allergy status to narcotic agent; Z90.49 Acquired absence of other specified parts of digestive tract; Z98.890 Other specified postprocedural states
CPT/HCPCS: 29881; J0131; J0171; J0690; J1100; J2003; J2250; J2405; J2704; J2795; J3010

== ENCOUNTER → 2025-02-16 05:46 | Outpatient (BNV) | payer OTHER, SELFPAY | PROVIDERS: PCP Internal Medicine; Visit Provider Orthopaedic Surgery | DX: S83.231A Complex tear of medial meniscus, current injury, right knee, initial encounter (principal) | CPT/HCPCS: 29881 ==

== ENCOUNTER 2025-02-24 09:49 | Outpatient (AMB) | payer OTHER, SELFPAY ==
--- NOTE | 2025-02-24 10:08 | MHC.OFFVIS ---
Intake Visit Reasons: PO RT knee 02/16/25 NE Intake Note: Tanner is a 59 year old male who presents today for a post op appointment s/p right knee partial medial meniscectomy with chondroplasty and plica resection 02/16/25 NE. Patient reports he is having pain on his thigh and around his knee. he has been putting ice on his knee and using the pain medication when he needs it. Allergies tramadol [From Ultram] Allergy (Mild, Verified 02/24/25 10:09) nervous system HPI HPI PO RT knee 02/16/25 NE: Details: Mr. Miguel A Jacobsen is a 59-year-old male who presents to the office today status post right knee arthroscopy for partial medial meniscectomy, chondroplasty and plica excision performed on 02/16/[address] Nascimento. Patient presents to the office today with mild to moderate discomfort with ambulation. He is using crutches to assist with ambulation. [facility] Medical History Osteoarthritis of right knee Gallstones BPH without urinary obstruction Nephrolithiasis Umbilical hernia Left knee pain Renal calculi Left breast mass Mass of right elbow Partial small bowel obstruction Surgical History Peyronie's disease H/O lithotripsy History of laparoscopic cholecystectomy (10/16/22) History of excision of mass (03/07/22) History of esophagogastroduodenoscopy (EGD) Hx of colonoscopy H/O umbilical hernia repair H/O hemorrhoidectomy H/O lateral meniscus repair of left knee Family History Father CAD (coronary artery disease) Mother Breast cancer Social History Household Members: Spouse Housing: House Do you presently have visiting nurse or other home services: No Alcohol intake: current Alcohol intake frequency: holidays/special occasions only Alcohol type: beer and wine Patient Tobacco Use Status: Never used Tobacco e-Cigarette/Vaping Use: Never Used Second Hand Smoke Exposure: No Advance Directives Date on File: 09/02/20 service: No Current occupational status: employed 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 No surrounding erythema or drainage. No signs of infection. Sutures intact. Range of motion 10-90 degrees. Calf is supple and nontender. Negative Homans. NVI. Assessment & Plan Assessment & Plan (1) Tear of medial meniscus of right knee: Code(s): S83.241A - Other tear of medial meniscus, current injury, right knee, initial encounter Category: Medical Plan Mr. Miguel A Jacobsen is a 59-year-old male who presents to the office today status post right knee arthroscopy for partial medial meniscectomy, chondroplasty and plica excision performed on 02/16/[address] Nascimento. Patient presents to the office today with mild to moderate discomfort with ambulation. He is using crutches to assist with ambulation. While in the office today, sutures are removed and Steri-Strips were applied. We discussed the role of physical therapy as the patient is having an arthritic flare-up after arthroscopy and has developed some stiffness. Patient will attend 1 physical therapy session with instruction on home exercise program. Should he have difficulty progressing over the next week or 2 with range of motion and/or weight-bearing he will contact the office for follow up appointment otherwise he will follow up PRN, sooner if needed. Coding Level of Care Code Global (91771) Diagnoses Tear of medial meniscus of right knee S83.241A
--- OUTSIDE RECORDS SUMMARY | 2025-02-24 10:42 | XMS_ITS | Clinical Summary ---
Author Organization [email or web address] Address [address] [place] [address] [place] [address] Care Team Providers Care Flight Line Mechanic Name Role Phone Unavailable Primary Care Provider Unavailabl e Allergies Active Allergy Reactions Criticality Noted Date Comments Tramadol Anxiety Low 04/08/2023 Medications No known medications Immunizations Immunization Administration Dates Next Due Moderna Covid-19 Vaccine [...] patient's age to complete this topic Meningococcal B Vaccine Aged Out No l onger eligible based on patient's age to complete [...] Recently Relevant to Health Maintenance Insurance ACO [facility] MEDICAID STAND ADULT
== END 2025-02-24 10:11 | disposition home or self-care (01) ==
LOC: HO.HOS 09:50
PROVIDERS: PCP Internal Medicine; Visit Provider Physician Assistant
DX: S83.241A Other tear of medial meniscus, current injury, right knee, initial encounter (principal)
CPT/HCPCS: 99024

== ENCOUNTER → 2025-02-24 09:49 | Outpatient (BNVA) | payer OTHER, SELFPAY | PROVIDERS: PCP Internal Medicine; Visit Provider Physician Assistant | DX: S83.241D Other tear of medial meniscus, current injury, right knee, subsequent encounter (principal); X58.XXXD Exposure to other specified factors, subsequent encounter; Z98.890 Other specified postprocedural states | CPT/HCPCS: 99212 ==

== ENCOUNTER 2025-03-01 14:38 | Outpatient (AMB) | payer OTHER, SELFPAY ==
--- NOTE | 2025-03-01 14:55 | A.OFFVIS_ITS ---
Intake Visit Reasons: 6m followup Intake Note: Patient is present for 6M F/U Urology Medication:VITAMIN C Antibiotic Allergy:NONE Blood Thinner:NONE Ironworker Foreman Required: No Allergies tramadol [From Ultram] Allergy (Mild, Verified 03/01/25 14:56) nervous system HPI Comments Details: Tanner is a pleasant Kazakh-speaking male. 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 Ocasio. He seen for the following urologic conditions - nephrolithiasis - Peyronie's disease Six-month follow-up Minimal issues Plication still with good result Follow-up 12 month Peyronie's Disease Mild curvature No pain Did not respond to trial of antioxidant Penile plication 09/05 with good result Nephrolithiasis Hospital admission 06/04 Intervention - 06/04 Right [facility] Imaging - 06/04 CT - right renal hydronephrosis and hydroureter, stones remained lodged at the ureterovesicular junction - 08/04 renal ultrasound hydronephrosis has resolved, cyst on left kidney Recommendation - 12 month follow-up imaging [facility] Medical History Osteoarthritis of right knee Gallstones BPH without urinary obstruction Nephrolithiasis Umbilical hernia Left knee pain Renal calculi Left breast mass Mass of right elbow Partial small bowel obstruction Surgical History Peyronie's disease H/O lithotripsy History of laparoscopic cholecystectomy (10/16/22) History of excision of mass (03/07/22) History of esophagogastroduodenoscopy (EGD) Hx of colonoscopy H/O umbilical hernia repair H/O hemorrhoidectomy H/O lateral meniscus repair of left knee Family History Father CAD (coronary artery disease) Mother Breast cancer Social History Household Members: Spouse Housing: House Do you presently have visiting nurse or other home services: No Alcohol intake: current Alcohol intake frequency: holidays/special occasions only Alcohol type: beer and wine Patient Tobacco Use Status: Never used Tobacco e-Cigarette/Vaping Use: Never Used Second Hand Smoke Exposure: No Advance Directives Date on File: 09/02/20 service: No Current occupational status: employed 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 Current occupational exposures/hazards: No Cognitive needs: No Hearing needs: No Vision needs: Yes Review of Systems Const Denies chills and Denies fever(s) Card Reports no additional complaints and Denies syncope Resp Denies cough GI Denies abdominal pain and Denies heartburn Reports as per HPI and Denies change in libido Neuro Denies syncope Psych Denies change in libido Endo Denies change in libido Physical Exam Const General: cooperative, healthy appearing, comfortable and no acute distress Orientation/consciousness: patient oriented x3 HEENT Face and sinus: Yes normal facial exam Mouth: moist mucous membranes Neck Neck: Yes normal visual inspection, Yes full ROM and Yes trachea midline Chest Chest palpation & inspection: normal inspection of the chest Resp Effort & Inspection: normal respiratory effort, able to speak in complete sentences and no respiratory distress GI Inspection: Yes normal to inspection Back/Spine/Pelvis Cervical Spine: normal cervical lordosis Thoracic/Lumbar Spine: thoracic and lumbar spine normal to inspection Skin General skin exam: no rashes or lesions noted Neuro General: patient oriented x3, gait normal, tone normal and moves all extremities Extrem General: Yes normal to inspection and Yes capillary refill normal Assessment & Plan Assessment & Plan (1) Renal calculi: Comment: 04/03 4 mm right stone Code(s): N20.0 - Calculus of kidney Category: Medical (2) BPH without urinary obstruction: Code(s): N40.0 - Benign prostatic hyperplasia without lower urinary tract symptoms Category: Medical Plan Twelve month follow-up check PVR Patient Instructions: This note is constructed using voice recognition software. While every effort has been made to ensure accuracy chauffeur motorbus errors may have been included. Imaging studies, laboratory and physical exam results were discussed and reviewed in detail. No major barriers to patient understanding were identified. An opportunity to ask questions regarding the treatment plan was provided. All questions were answered. The patient expressed understanding and agreement with the above treatment plan. The patient is aware they should contact our office by phone for worsening of their current condition or the appearance of new urologic symptoms. Compliance is encouraged with any medications and followup testing that is ordered. It is a privilege to participate in the urologic care of your patient. If you have any questions or concerns regarding treatment for the above conditions, or other urologic issues, please do not hesitate to contact me. The office telephone contact is [phone]. Sincerely, Dr Manuel Owens MD, IR[facility] - Urology Compassionate Specialist Care for the Genitourinary System Coding Level of Care Code Est Pt Level 3 (10799) Diagnoses Renal calculi N20.0 BPH without urinary obstruction N40.0
--- OUTSIDE RECORDS SUMMARY | 2025-03-01 15:59 | XMS_ITS | Clinical Summary ---
Author Organization [employer] Address [address] [place] [address] [address] [place] [address] Care Team Providers Care Linemarker Name Role Phone Unavailable Primary Care Provider [...] Panel 1963 SDOH Screening 1963 Sigmoidoscopy 1963 Disability Screening 1963 Alcohol/Substance Use Screening 1975 Hepatitis C [...] Recently Relevant to Health Maintenance Insurance ACO [facility] MEDICAID STAND ADULT
== END 2025-03-01 15:34 | disposition home or self-care (01) ==
LOC: HO.HUSH 14:39
PROVIDERS: PCP Internal Medicine; Visit Provider Urology
DX: N20.0 Calculus of kidney (principal); N40.0 Benign prostatic hyperplasia without lower urinary tract symptoms
CPT/HCPCS: 99213

== ENCOUNTER → 2025-03-01 14:38 | Outpatient (BNVA) | payer OTHER, SELFPAY | PROVIDERS: PCP Internal Medicine; Visit Provider Urology | DX: N20.0 Calculus of kidney (principal); N40.0 Benign prostatic hyperplasia without lower urinary tract symptoms; N48.6 Induration penis plastica | CPT/HCPCS: 99212 ==

== ENCOUNTER 2025-03-11 09:07 | Outpatient (REF) | payer OTHER, SELFPAY ==
--- OUTSIDE RECORDS SUMMARY | 2025-03-11 09:15 | XMS_ITS | Clinical Summary ---
Author Organization [employer] Address [address] [place] [address] [address] [place] [address] Care Team Providers Care Metal Trim Erector Name Role Phone Unavailable Primary Care Provider [...] Recently Relevant to Health Maintenance Insurance ACO DENTAL-[facility] MEDICAID STAND ADULT
[2025-03-14 12:34] LABS: TS Negative Control Passed; TS Panel A 0; TS Panel B 0; TS Positive Control Passed; TSpotTB Negative (Negative)
== END 2025-03-11 09:08 | disposition home or self-care (01) ==
LOC: HO.LAB 09:07
PROVIDERS: PCP Internal Medicine; Visit Provider Internal Medicine
DX: Z11.1 Encounter for screening for respiratory tuberculosis (principal)
CPT/HCPCS: 36415; 86481

== ENCOUNTER 2025-05-31 13:39 | Outpatient (RCR) | payer OTHER, SELFPAY ==
--- NOTE | 2025-05-05 17:15 | MHC.PT.EP ---
[facility] [place] Office [place] Office [place] Office [address] [phone] F: [phone] F: [phone] F: [phone] F: [phone] Physical Therapy Plan of Care Date of Evaluation: 05/03/25 Date of Surgery: Diagnosis: Tear of medial meniscus R knee, OA R knee. 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 Pt is deemed an appropriate candidate to receive skilled PT services to address their physical impairments in order to improve their functional ability. Frequency and Duration: The patient will be seen 2 x/ wk x 4 wks. Short Term Goals: Initiate home program. Pt will improve baseline pain at most 0-5/10; initial: 2-8/10. Technical Specialist Goals: I with home program. Pt will improve LEI outcome measure by at least 9 points. Pt will be able to walk 2 blocks without difficulty; initial: moderate difficulty. Pt will be able to sit for > 1 hour with managed knee pain; initial < 1/2 hour. Improve R knee extension MMT by 1/2 MMT grade. Treatment Plan: Modalities to reduce pain, spasms and effusion. Manual therapy to restore motion and function. Therapeutic exercise to improve strength and flexibility. Neuromuscular re-education for posture and balance. Therapeutic activities to return to functional activities of daily living. Electronically signed by: Ko Eubanks PT Please sign and return to therapist. Thank you for your referral.
--- NOTE | 2025-09-12 07:35 | MHC.PT.DC ---
[facility] [place] Office [place] Office [place] [facility] [address] [place] [address] [facility] [place] [phone] F: [phone] F: [phone] F: [phone] F: [phone] Physical Therapy Discharge Report Diagnosis: Tear of medial meniscus R knee, OA R knee. Date of Surgery: Date of Evaluation: 05/03/25 Date of Discharge: 09/12/25 Treatments to Date: 6 Cancellations to Date: No Shows to Date: Discharge Status: Achieved Goals Improved Function Independent with HEP Discharge Summary: Pt did not attend his last visit for final assessment though had reported he's achieved his goals. Electronically signed by: Ko Eubanks PT. Please sign and return to therapist. Thank you for your referral.
== END 2025-09-12 07:36 | disposition home or self-care (01) ==
LOC: HO.PT 13:39
PROVIDERS: PCP Internal Medicine; Visit Provider Physician Assistant
DX: S83.241D Other tear of medial meniscus, current injury, right knee, subsequent encounter (principal); M17.11 Unilateral primary osteoarthritis, right knee
CPT/HCPCS: 97110; 97161; 97530

== ENCOUNTER 2025-07-23 06:53 | Outpatient (REF) | payer OTHER, SELFPAY ==
--- OUTSIDE RECORDS SUMMARY | 2025-07-23 06:57 | XMS_ITS | Clinical Summary ---
Author Organization [employer] Address [address] [place] [address] [place] [address] Care Team Providers Care Salmon Gillnet Vessel Operator Name Role Phone Unavailable Primary Care Provider [...] Bitewings 04/09/2024 04/08/2023 COVID-19 Vaccine (3 - 2024-2 6 season) 2025 11/29/2022, 10/11/2021 Influenza Vaccine (#1) 2025 Dental X-Ray: Full Mouth 04/09/2026 04/08/2023 RSV [...] Recently Relevant to Health Maintenance Insurance [facility] MEDICAID STAND ADULT
[2025-07-23 09:19] LABS: Alanine Aminotransferase 49 U/L (0-40); Albumin Level 4.5 g/dL (3.5-5.0); Alkaline Phosphatase 63 U/L (39-117); Anion Gap 10 (12-20); Aspartate Amino Transferase 34 U/L (5-37); Blood Urea Nitrogen 17 mg/dL (9-16); Calcium 9.2 mg/dL (8.4-10.2); Carbon Dioxide 29 mmol/L (22-29); Chloride 105 mmol/L (96-108); Cholesterol 180 mg/dL (<200); Estimated Glomerular Filt Rate > 60; HDL Cholesterol 38 mg/dL (>40); Potassium 4.1 mmol/L (3.3-5.1); Sodium 140 mmol/L (135-145); Total Protein 6.7 g/dL (6.5-8.0); Triglycerides 125 mg/dL (<150)
== END 2025-07-23 06:54 | disposition home or self-care (01) ==
LOC: HO.LAB 06:53
PROVIDERS: PCP Internal Medicine; Visit Provider Internal Medicine
DX: R74.01 Elevation of levels of liver transaminase levels (principal); E78.5 Hyperlipidemia, unspecified; E55.9 Vitamin D deficiency, unspecified
CPT/HCPCS: 36415; 80053; 80061; 82306

== ENCOUNTER 2025-07-26 17:17 | Outpatient (AMB) | payer OTHER, SELFPAY ==
[2025-07-26 17:20] VITALS: BP 110/80; PULSE 83; O2SAT 96; BMI 26.8
--- NOTE | 2025-07-26 17:20 | MHC.PC.OV ---
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 Required: No Accompanied by: Self / Same As Patient Allergies tramadol (From Ultram) Allergy (Mild, Verified 07/26/25 17:28) nervous system Medication List - Last Reconciled 07/26/25 by Luzma Riddle MD ascorbic acid (vitamin C) (Vitamin C) 500 mg PO DAILY cholecalciferol (vitamin D3) 25 mcg PO DAILY hydrocodone-acetaminophen 5-325 mg 1 tab PO Q8H PRN 7 days omega-3 fatty acids 1,000 mg PO DAILY ondansetron 4 mg PO DAILY PRN 5 days psyllium husk 1 tbsp PO DAILY 30 days Tobacco use date assessed: 07/26/25 Dental Screening Dental Screen Date: 07/26/25 Did you have a dental visit in the last 12 months?: Yes Did you have a dental problem in the last 6 months where you did not have access to dental care?: No Was dental information given to patient?: Patient has dentist HPI HPI Comments History of Present Illness Details The patient is a 59-year-old male presenting with an annual physical examination. A colonoscopy performed in 2022 revealed tubular adenoma, hemorrhoids, and diverticulosis. The patient reports a history of diverticulitis, which he can recognize by symptoms such as abdominal pain and nausea following certain dietary triggers. He manages these episodes by modifying his diet, which typically results in symptom improvement within a few days. Laboratory tests indicate an elevated liver enzyme, with a level of 49 compared to the normal range of up to 40. The patient has a history of vitamin D deficiency, currently managed with supplementation, maintaining a level of 35, which is within the normal range. The patient denies smoking and reports consuming alcohol, specifically beer, once a month. He is allergic to tramadol and occasionally uses vitamin C, vitamin D, and omega-3 supplements. [facility] Medical History Osteoarthritis of right knee Gallstones BPH without urinary obstruction Nephrolithiasis Umbilical hernia Left knee pain Renal calculi Left breast mass Mass of right elbow Partial small bowel obstruction Surgical History (Updated 07/26/25 @ 17:33 by Luzma Riddle MD) H/O lateral meniscus repair of right knee Peyronie's disease H/O lithotripsy History of laparoscopic cholecystectomy (10/16/22) History of excision of mass (03/07/22) History of esophagogastroduodenoscopy (EGD) Hx of colonoscopy H/O umbilical hernia repair H/O hemorrhoidectomy H/O lateral meniscus repair of left knee Family History Father CAD (coronary artery disease) Mother Breast cancer Social History Household Members: Spouse Housing: House Do you presently have visiting nurse or other home services: No Alcohol intake: current Alcohol intake frequency: holidays/special occasions only Alcohol type: beer and wine Patient Tobacco Use Status: Never used Tobacco e-Cigarette/Vaping Use: Never Used Second Hand Smoke Exposure: No Advance Directives Date on File: 09/02/20 service: No Current occupational status: employed 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 1. Little interest or pleasure in doing things: not at all 2. Feeling down, depressed, or hopeless: not at all 3. Trouble falling or staying asleep, or sleeping too much: not at all 4. Feeling tired or having little energy: not at all 5. Poor appetite or overeating: not at all 6. Feeling bad about yourself - or that you are a failure or have let yourself or your family down: not at all 7. Trouble concentrating on things, such as reading the newspaper or watching television: not at all 8. Moving or speaking so slowly that other people could have noticed. Or the opposite - being so fidgety or restless that you have been moving around a lot more than usual: not at all 9. Thoughts that you would be better off or of hurting yourself in some way: not at all Total score: 0 Depression Screening Interpretation: Negative Depression Screening Done: Yes 99938 - PHQ-9 Billing: Yes Source: Developed by Drs. Augusto Raza, Laine Peck, Frank Parks and colleagues, with an educational viktoria from [employer]. Thrive Questionnaire Date Thrive assessed: 01/18/25 I am a: Patient What is your living situation today?: I have a steady place to live Within the past 12 months, did the food you bought not last and you didn't have the money to get more?: Never true Within the past 12 months, did you worry whether your food would run out before you got money to buy more?: Never true Do you have trouble paying for medicines?: No Do you have trouble getting transportation to medical appointments?: No Do you have trouble paying your heating and electricity bill?: No Do you have trouble taking care of your child, family member or friend?: No Do you have trouble with day-to-day activities such as bathing, preparing meals, shopping, managing finances, etc.?: No Are you currently unemployed and looking for a job?: No Are you interested in more education?: I choose not to answer this question Please select the resources that you would like help with: None Currently or been in a relationship where the following occur: I choose not to answer THRIVE Score: 0 AUDIT C Alcohol Use Questionnaire (AUDIT-C) 1. How often do you have a drink containing alcohol?: Monthly or less 2. How many drinks containing alcohol do you have on a typical day when you are drinking?: 1 or 2 3. How often do you have six or more drinks on one occasion?: Never Total Score: 1 PINA-7 AMB Questionnaire PINA-7 Date PINA - 7 assessed: 01/18/25 Feeling nervous, anxious, or on edge: 0 = Not at all Not being able to stop or control worryin = Several days Worrying too much about different things: 1 = Several days Trouble relaxin = Several days Being so restless that it is hard to sit still: 0 = Not at all Becoming easily annoyed or irritable: 0 = Not at all Feeling afraid as if something awful might happen: 0 = Not at all Total PINA-7 score (0-4 normal; 5-9 mild; 10-14 moderate; 15-21 severe): 3 Source: Developed by Drs. Augusto Raza, Laine Peck, Frank Parks and colleagues, with an educational viktoria from [employer]. PINA-7 Assessment Billing PINA-7 Assessment Tool: PINA-7 Assessment 51348 Review of Systems Const All systems reviewed & are unremarkable except as noted in HPI and below Card Denies chest pain at rest, Denies chest pain with activity, Denies edema, Denies irregular heart rhythm, Denies claudication, Denies dyspnea, Denies dyspnea on exertion, Denies orthopnea, Denies paroxysmal nocturnal dyspnea and Denies slow heart rate Resp Denies cough, Denies dyspnea and Denies dyspnea on exertion GI Denies abdominal pain, Denies change in bowel habits, Denies excessive flatus, Denies nausea and Denies vomiting Denies urinary hesitancy, Denies urinary incontinence and Denies urinary urgency Neuro Denies lack of coordination Physical exam (Primary Care) Vital Signs: Last Vital Signs Pulse 83 07/26/25 17:20 BP 110/80 07/26/25 17:20 Pulse Ox 96 07/26/25 17:20 Oxygen Delivery Method Room Air 07/26/25 17:20 BMI result Body Mass Index 26.8 Tobacco/Smoking Status: Tobacco use Status Tobacco use date assessed 07/26/25 07/26/25 17:23 Patient Tobacco Use Status Never used Tobacco 07/26/25 17:23 e-Cigarette/Vaping Use Never Used 07/26/25 17:23 PHQ-9: PHQ-9 Score PHQ-9: Total score 0 07/26/25 17:23 Depression Screening Interpretation: Negative Thrive Assessment: Date of Thrive Assessment Date Thrive assessed 01/18/25 07/26/25 17:23 Currently or been in a relationship where the following occur: I choose not to answer HENMT Head: Yes normal to inspection, Yes normocephalic and Yes atraumatic Ears: external ears normal Eyes General: appearance normal, both eyes and all related structures Eyelids: Yes eyelids normal Conjunctivae: conjunctivae normal Neck Neck: Yes normal visual inspection and Yes supple Resp Effort & Inspection: normal respiratory effort Auscultation: clear to auscultation bilaterally Cardio Jugular venous distension: no JVD Rate: regular rate Rhythm: regular rhythm Heart sounds: S1 normal heart sound present and S2 normal heart sound present GI Inspection: Yes distended Palpation (GI): Soft to palpation and Tenderness to palpation present (GI) in the epigastrum, in the LLQ, in the RLQ, in the LUQ, in the RUQ and periumbilically Auscultation: Hypoactive bowel sounds present Skin General skin exam: no rashes or lesions noted Neuro General: no focal motor deficits Extrem General: Yes full ROM Psych Appearance: grossly normal Coding Level of Care Code Est Pt Level 3 (76751) Est Pt Prev Care 40-64y(93228) Diagnoses Physical exam Z00.00 Generalized abdominal pain R10.84 Additional Codes PHQ-9 - 38234 - PHQ-9 Billing: Yes ([id number]) PINA-7 Assessment Billing - PINA-7 Assessment Tool: PINA-7 Assessment 58032 ([id number]) Time Spent (min) 33 Assessment & Plan Assessment & Plan (1) Physical exam: Code(s): Z00.00 - Encounter for general adult medical examination without abnormal findings Category: Medical (2) Generalized abdominal pain: Code(s): R10.84 - Generalized abdominal pain Category: Medical Plan Plan Patient was informed and verbally consented to the use of an ambient scribe for clinic note documentation during this visit. 1. Physical exam Preventative care measures include discussing tetanus and influenza vaccinations. 2. Generalized abdominal pain The patient experiences recurrent episodes of diverticulitis, characterized by abdominal pain and nausea, typically triggered by dietary factors. Management includes dietary modifications to alleviate symptoms, which generally improve within a few days. Orders: Orders H pylori Ag Stool Today R19.7 - Diarrhea, unspecified Lipase Today R10.84 - Generalized abdominal pain Complete Blood Count Auto Diff Today R10.84 - Generalized abdominal pain CT abdomen w IV con Today R10.84 - Generalized abdominal pain
--- OUTSIDE RECORDS SUMMARY | 2025-07-26 18:50 | XMS_ITS | Clinical Summary ---
Author Organization [employer] Address [address] [place] [address] [place] [address] Care Team Providers Care Rn Occupational Name Role Phone Unavailable Primary Care Provider [...] Recently Relevant to Health Maintenance Insurance [facility] MEDICAID STAND ADULT
== END 2025-07-26 17:42 | disposition home or self-care (01) ==
LOC: HO.HMCH 17:18
PROVIDERS: PCP Internal Medicine; Visit Provider Internal Medicine
DX: Z00.00 Encounter for general adult medical examination without abnormal findings (principal); R10.84 Generalized abdominal pain

== ENCOUNTER → 2025-07-26 17:17 | Outpatient (BNVA) | payer OTHER, SELFPAY | PROVIDERS: PCP Internal Medicine; Visit Provider Internal Medicine | DX: Z00.00 Encounter for general adult medical examination without abnormal findings (principal); R10.84 Generalized abdominal pain; K64.9 Unspecified hemorrhoids; K57.90 Diverticulosis of intestine, part unspecified, without perforation or abscess without bleeding; R19.7 Diarrhea, unspecified | CPT/HCPCS: 96127; 99396 ==

== ENCOUNTER 2025-07-28 05:59 | Outpatient (REF) | payer OTHER, SELFPAY ==
--- OUTSIDE RECORDS SUMMARY | 2025-07-28 06:03 | XMS_ITS | Clinical Summary ---
Author Organization [employer] Address [address] [place] [address] [place] [address] Care Team Providers Care Magnetic Testing Technician Name Role Phone Unavailable Primary Care [...] Recently Relevant to Health Maintenance Insurance [facility] MEDICAID STAND ADULT
[2025-07-28 06:15] LABS: MANUAL DIFF FLAG NO
[2025-07-28 07:39] LABS: Hematocrit 44.6 % (42.0-52.0); Hemoglobin 15.1 g/dl (14.0-18.0); Imm Gran Abs Auto 0.02 X10*3/uL (0.00-0.03); Imm Gran Pct Auto 0.3 % (0.0-0.4); Lymphocytes Absolute Auto 2.1 X10*3/uL (1.2-4.9); Mean Corpuscular HGB Conc 33.9 g/dl (31.0-36.0); Mean Corpuscular Hemoglobin 27.9 pg (27.0-33.0); Mean Corpuscular Volume 82.4 fL (80.0-98.0); NRBC Abs Auto 0.000 X10*3/uL (0.0-0.012); NRBC Pct Auto 0.0 /100WBC (0.0-0.2); Platelet Count 199 X10*3/uL (160-400); Red Blood Count 5.41 X10*6/uL (4.60-5.80); White Blood Count 5.8 X10*3/uL (4.8-10.8)
[2025-07-28 07:47] LABS: Lipase 20 U/L (8-78)
== END 2025-07-28 06:00 | disposition home or self-care (01) ==
LOC: HO.LAB 05:59
PROVIDERS: PCP Internal Medicine; Visit Provider Internal Medicine
DX: R10.84 Generalized abdominal pain (principal); R19.7 Diarrhea, unspecified
CPT/HCPCS: 36415; 83690; 85025; 87338

== ENCOUNTER 2025-07-31 16:39 | Emergency (ER) | payer OTHER, SELFPAY ==
--- NOTE | 2025-07-31 16:41 | ED.GENADULT ---
HPI - General Adult General Chief complaint: Back Pain/Injury Stated complaint: SUDDEN SEVERE LUMBAR/SACRAL PAIN, NO INJURY Time Seen by Provider: 07/31/25 16:41 Source: patient Mode of arrival: ambulatory Limitations: no limitations History of Present Illness ED Provider: Dr. Enriquez HPI narrative: 59-year-old male history of small-bowel obstruction, nephrolithiasis, herniated lumbar disc presented hospital today for evaluation of sudden onset of low back pain. Patient stated that he was trying take off his pants he was bending over and when he stood back up he felt a pop. He has sudden onset of numbness around his groin area and down his legs bilaterally. He denies any bowel incontinence or urinary retention. Denies any fall. Patient stated this pain is excruciating especially if he moves his legs. EMS did give some IV fentanyl in route. Related Data Home Medications ?Medication ?Instructions ?Recorded ?Confirmed ascorbic acid (vitamin C) 500 mg 500 mg PO DAILY 08/27/20 07/26/25 tablet (Vitamin C) omega-3 fatty acids 1,000 mg PO DAILY 08/27/20 07/26/25 cholecalciferol (vitamin D3) 25 25 mcg PO DAILY 01/21/22 07/26/25 mcg (1,000 unit) capsule Previous Rx's ?Medication ?Instructions ?Recorded ondansetron 4 mg disintegrating 4 mg PO DAILY PRN nausea and 01/24/24 tablet vomiting 5 days #14 tabs psyllium husk 2.6 gram/4.1 gram 1 tbsp PO DAILY 30 days #480 grams 02/16/24 oral powder hydrocodone 5 mg-acetaminophen 325 1 tab PO Q8H PRN pain 7 days #21 02/25 mg tablet tabs Allergies Allergy/AdvReac Type Severity Reaction Status Date / Time tramadol (From Ultram) Allergy Mild nervous Verified 07/31/25 17:08 system Review of Systems Review of Systems: Pertinent review of systems as mentioned in HPI. All other system otherwise negative. [facility] Past Medical History [facility] Narrative: Medical history as mentioned in HPI Medical History Osteoarthritis of right knee Gallstones BPH without urinary obstruction Nephrolithiasis Umbilical hernia Left knee pain Renal calculi Left breast mass Mass of right elbow Partial small bowel obstruction Surgical History (Updated 07/26/25 @ 17:33 by Luzma Riddle MD) H/O lateral meniscus repair of right knee Peyronie's disease H/O lithotripsy History of laparoscopic cholecystectomy (10/16/22) History of excision of mass (03/07/22) History of esophagogastroduodenoscopy (EGD) Hx of colonoscopy H/O umbilical hernia repair H/O hemorrhoidectomy H/O lateral meniscus repair of left knee Family History Family History Father CAD (coronary artery disease) Mother Breast cancer Social History Social History Household Members: Spouse Housing: House Do you presently have visiting nurse or other home services: No Alcohol intake: never Patient Tobacco Use Status: Never used Tobacco Smoked in Last 30 Days: No e-Cigarette/Vaping Use: Never Used Second Hand Smoke Exposure: No Use of substances other than those prescribed or required for medical reasons: No Advance Directives: Yes Advance Directives on File: Yes Advance Directives Date on File: 09/02/20 service: No Current occupational status: employed 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 Current occupational exposures/hazards: No Cognitive needs: No Hearing needs: No Vision needs: Yes Physical Exam ED Exam Exam: General: Pleasant, no distress, interacting appropriately Head: Normacephalic, atraumatic ENT: oral mucosa moist, neck supple, no tracheal deviation Cardiovascular: regular rate, regular rhythm, no murmurs, rubbing, gallops Extremities: Numbness in the groin area, numbness in legs bilaterally, tenderness on straight leg raise bilaterally Neurological: Awake and alert, no facial droop noted Skin: Warm and dry Psychiatric: Appropriate mood and thoughts Vital Signs: Vital Signs - 24 hr 07/31/25 17:07 Temperature 98 F Pulse Rate 82 Respiratory Rate 18 Blood Pressure 134/70 Pulse Oximetry 99 Oxygen Delivery Method Room Air BMI result Body Mass Index 24.4 Medications Administered Discontinued Medications Generic Name Dose Route Start Last Admin Trade Name Freq PRN Reason Stop Dose Admin Dexamethasone Sodium Phosphate 6 mg 07/31/25 18:15 07/31/25 18:30 Dexamethasone Sod Phosphate 4 Mg/Ml Vial IVPUSH 07/31/25 18:16 6 mg ONCE ONE Administration Hydromorphone HCl 0.5 mg 07/31/25 17:12 07/31/25 17:25 Hydromorphone Hcl 0.5 Mg/0.5 Ml Syringe IVPUSH 07/31/25 17:13 0.5 mg ONCE ONE Administration Protocol Medical Decision Making Medical Decision Making [facility] Narrative: This is a 59-year-old male presented hospital today for low back pain. Patient is complaining of saddle paresthesia, paresthesia down his legs bilaterally, he does have excruciating pain when he lifts both his leg up. He has difficulty flexing his hip. Patient did notify me that he attempted to urinate he is unable to urinate. Patient has 700 cc of urine in his bladder on bladder scan. He requires an emergent MRI. I did place a transfer call out to [facility]. Unfortunately they are over capacity at this time unable to take transfer. I did put a call out to [facility]. They are unsure whether they have neurosurgery insurance sales professional we will plan to reach back to de. I did discuss with the patient. He stated he prefers [facility] we will attempt [facility] at this time. I did contact [facility]. They would like us to as the patient is okay to go into [facility]. Patient does not want to go that far for care. I did received returning called from [facility]. They do have neurosurgery capability. Recommended transfer to their ER for MRI. Discussed the case with neurosurgery VICKIE Zacarias we suspect this is likely a herniated disc. Patient is able to urinate. Post residual void volume is 97 cc. Patient is able to ambulate to the bathroom to void. IV Decadron will be given to the patient as well. Discussed the plan with the patient at this time. Using full time staff interpreter. We will plan to transfer the patient to [facility]. For MRI. Patient accepted by Dr. Richard for ED to ED transfer. Differential Diagnosis Differential Diagnoses: The differential diagnosis associated with the presentation includes Cauda equina, paraspinal muscle spasm, lumbar strain, fracture Consult Healthcare Provider Management of the patient was discussed with: Fire Behavior Analyst (Deann Brennan (Neurosurgery)) Independent Interpretation I performed an independent interpretation of an: MRI Discharge Plan Discharge Clinical Impression: Low back pain, Paresthesia of saddle area Patient Disposition: er Acute Care Hospital Transfer Details: [facility] Prescriptions: No Action ascorbic acid (vitamin C) [Vitamin C] 500 mg Tablet 500 mg PO DAILY omega-3 fatty acids Capsule 1,000 mg PO DAILY ondansetron 4 mg tablet,disintegrating 4 mg PO DAILY PRN (Reason: nausea and vomiting) 5 Days Qty: 14 0RF cholecalciferol (vitamin D3) 25 mcg (1,000 unit) capsule 25 mcg PO DAILY psyllium husk 2.6 gram/4.1 gram powder 1 tbsp PO DAILY 30 Days Qty: 480 1RF Rx Instructions: mix into at least 8 oz of water or juice before administering hydrocodone-acetaminophen 5-325 mg tablet 1 tab PO Q8H PRN (Reason: pain) 7 Days Qty: 21 0RF Rx Instructions: Partial Fill upon patient request. Print Language: Greenlandic
[2025-07-31 17:05] VITALS: BP 134/70; PULSE 82; O2SAT 99
[2025-07-31 17:07] VITALS: BP 134/70; PULSE 82; RESP 18; TEMP 36.6; O2SAT 99; BMI 24.4
--- OUTSIDE RECORDS SUMMARY | 2025-07-31 17:26 | XMS_ITS | Clinical Summary ---
Author Organization [employer] Address [address] [place] [address] [place] [address] Care Team Providers Care Combat Information Center Officer Name Role Phone Unavailable Primary Care Provider [...] Recently Relevant to Health Maintenance Insurance [facility] MEDICAID STAND ADULT
--- NOTE | 2025-07-31 17:55 | PC.NURSE ---
bladder scanned for 771 mls, MD aware. Ambulated patient to bathroom , voided large amount. MD aware, plan is to transfer to [facility] for MRI
--- NOTE | 2025-07-31 17:58 | PC.NURSE ---
post void residual 98, MD aware
[2025-07-31 19:44] VITALS: BP 128/76; PULSE 60; TEMP 36.6; O2SAT 95
--- NOTE | 2025-07-31 20:39 | PC.NURSE ---
late entry report given to dora vásquez at [facility] approx 1940. pt medicated per dec and transported via ems at 1947.
== END 2025-07-31 19:51 | disposition short-term general hospital (02) ==
PROVIDERS: Emergency Provider Student in an Organized Health Care Education/Training Program; PCP Internal Medicine
DX: M54.50 Low back pain, unspecified (principal); R20.2 Paresthesia of skin
CPT/HCPCS: 96374; 96375; 96376; 99284; 99285; J1100; J1171

== ENCOUNTER 2025-08-23 06:58 | Outpatient (REF) | payer OTHER, SELFPAY ==
--- NOTE | ~2025-08-23 | CT_ITS ---
EXAMINATION: CT ABDOMEN AND PELVIS WITH CONTRAST CLINICAL INFORMATION: R10.84 - Generalized abdominal pain COMPARISON: January 24 2024 TECHNIQUE: Multidetector volumetric images were obtained from the superior aspect of the liver through the pubic symphysis following administration 85 mL of Omnipaque 350 intravenous contrast. Sagittal and coronal reformatted images were obtained on the technologist's workstation. Oral contrast: Present This CT examination was performed using dose optimization techniques as appropriate, variously including the following: *Automated exposure control *Adjustment of mA and/or kV according to patient size (this includes techniques or standardized protocols for targeted exams where dose is matched to indication/reason for exam; i.e. extremities or head) *Use of iterative reconstruction technique FINDINGS: LUNG BASES: The visualized lung bases are unremarkable. LIVER, GALLBLADDER, AND BILIARY TREE: There is a 5 mm hypoattenuating region in the posterior inferior right hepatic segment that is stable. It is too small character as before probably represents a simple hepatic cyst. The gallbladder is surgically absent. There are clips in the gallbladder fossa. There is stable extrahepatic bile duct dilation. PANCREAS: Unremarkable. SPLEEN: Unremarkable. ADRENAL GLANDS: Unremarkable KIDNEYS AND URETERS: Simple cyst in the superior left kidney that previously demonstrated hairline thin septation has decreased in size. It measures 1.5 x 2.0 cm, previously 2.1 x 2.8 cm. 3 mm stone that was previously seen in the lower pole the left kidney is no longer present. 6 mm low attenuating lesion in the mid to upper left kidney is too small to characterize, probably representing a cyst or small angiomyolipoma. There is a second smaller similar cyst in the anterior inferior right kidney. It is also unchanged. BLADDER: Unremarkable. GASTROINTESTINAL TRACT: The small and large bowel are unremarkable. The appendix is unremarkable. ABDOMINAL WALL: Stable small focal hernia containing adipose tissue is again noted. There are areas of increased attenuation in the subcutaneous soft tissues of the abdomen right of the umbilicus that have been present since at least October 21, 2019 and show slow interval increase in size. The largest nodular density (CT 3, Image 49/104 is 12 mm and was 8 mm in 2020. LYMPH NODES: No adenopathy VASCULAR: Unremarkable. PELVIC VISCERA: Unremarkable. OSSEOUS STRUCTURES: There are bridging osteophytes across the anterosuperior SI joints bilaterally. CT/CT abdomen pelvis w IV con IMPRESSION: No acute abnormality to explain the patient's abdominal pain. There are nodular densities in the subcutaneous soft tissues in the anterior abdomen right of the umbilicus that have been present since at least 2019 and are enlarging. The etiology and significance is uncertain. These could be related to injections, for example the patient is diabetic and using insulin. Correlate with physical exam to see if these are palpable or apparent under visual inspection. The largest is located 13 cm right of the umbilicus. Fleischner guidelines were followed. Electronically signed by: Jef Luna MD 08/23/2025 10:23 AM [place]
--- OUTSIDE RECORDS SUMMARY | 2025-08-23 07:01 | XMS_ITS | Clinical Summary ---
Author Organization [employer] Address [address] [place] [address] [place] [address] Care Team Providers Care Optometric Tech Name Role Phone Unavailable Primary Care Provider [...] Recently Relevant to Health Maintenance Insurance [facility] MEDICAID STAND ADULT
--- OUTSIDE RECORDS SUMMARY | 2025-08-23 07:01 | XMS_ITS | Clinical Summary ---
Author Organization [facility] Address [address] [place] [address] Phone Care Team Providers Care Sports Team Marketing Intern Name Role Phone Luzma Riddle MD Primary Care Provider [phone] Allergies Active Allergy Reactions Criticality Noted Date Comments Tramadol Anaphylaxis High 07/31/2025 Medications ascorbic acid (VITAMIN C) 500 mg CR capsule Take 1 capsule (500 mg total) by mouth 1 (one) time each day. Active cholecalciferol (VITAMIN D-3) 25 mcg (1,000 unit) tablet Take 1 tablet (1,000 Units total) by mouth 1 (one) time each day. Active omega-3 acid ethyl esters (LOVAZA) 1 gram capsule Take 1 capsule (1 g total) by mouth 2 (two) times a day. Active dexAMETHasone (DECADRON) 4 mg tablet Take 1 tablet (4 mg total) by mouth 3 (three) times a day for 4 days. 12 each Active Additional Information Patient not taking.Reported on 08/09/2025 Active Problems Problem Noted Date Diagnosed Date Lumbar spondylosis 08/09/2025 Assessment & Plan (08/09/2025 3:23 PM EDT): Patient follows up from hospital consult 08/01/2025. He is happy to report that he has been feeling good for the last 4 days, feels very good today without any pain. He was admitted for severe back pain flareup, started on Decadron which was continued 4 days after discharge. He states he finished the steroids on Friday, Friday felt odd like he might pass out. Around that time he was also having a lot of anxiety and chest pain, was taking lorazepam 2 mg as needed. On L/S MRI he was noted to have L4-5 annular tear and small disc bulge, No nerve root compression or stenosis. Mild disc bulge at L2-[address] Stewart was not recommending any surgical intervention at the time. Mr. Miguel A Jacobsen has relief of his acute back pain, likely from the L4-5 annular tear. We talked about trying physical therapy for core strengthening, hopefully help prevent future back pain flareups. I asked him if he has another episode where he feels like he might pass out, check his blood pressure at home and call his PCP. He has not had an episode since that 1 time on Friday. I asked him to call with any concerns or questions. All questions answered. We used [employer] japanese interpreter Devendra #[id number]. Intractable low back pain 07/31/2025 Encounters Date Type Department Care Team Description 08/09/2025 2:45 PM EDT Office Visit Neurosurgery [facility] [address] [place] [address] Deann Brennan PA Lumbar spondylosis (Primary Dx) 07/31/2025 8:20 PM EDT - 08/01/2025 4:46 PM EDT Hospital Encounter [facility] [address] [place] [address] Franco Richard MD Jones, Christopher, MD Santoyo-Pacheco, Omar D, MD Intractable low back pain (Primary Dx) Discharge Disposition: Home or Self Care from Last 3 Months Surgical History Surgery Date Site/Laterality Comments KNEE SURGERY Left PENIS SURGERY peyronie's disease CHOLECYSTECTOMY UMBILICAL HERNIA REPAIR TONSILLECTOMY KIDNEY STONE SURGERY Medical History Medical History Date Comments High blood pressure Family History Medical History Relation Name Comments Coronary artery disease Father Cancer Mother Cancer Paternal Grandfather Relation Name Status Comments Father Mother Paternal Grandfather Social History Tobacco Use Types Packs/Day Years Used Date Smoking Tobacco: Never Smokeless Tobacco: Never Tobacco Cessation:Counseling Given: Not Answered Alcohol Use Standard Drinks/Week Comments Not Currently 0 (1 standard drink = 0.6 oz pur e alcohol) Very rare consumption Housing Instability Answer Date Recorde d Are you worried that in the next 2 months you may not have stable housing? No 08/01/2025 Food Access & Nutrition Answer Date Rec orded Do you have access to a vari ety of food including fruits and vegetables? No 08/01/2025 Access to Healthcare Answer Date Record ed Within the last 3 months, ho w many times did you visit the emergency department for your medical care? 1 08/01/2025 Health Literacy Answer Date Recorded How often do you need to hav e someone help you when you read instructions, pamphlets, or other written material from your doctor or pharmacy? Sometimes 08/01/2025 Caregiver: How often do you need to have someone help you when you read instructions, pamphlets, or other written material from your doctor or pharmacy? Not on file 08/01/2025 Financial Risk Answer Date Recorded How hard is it for you to pa y for the very basics like food, housing, medical care, and air conditioning / heating? Not very hard 08/01/2025 Transportation Answer Date Recorded Has the lack of transportati on kept you from meetings, work, or from getting things needed for daily living? No Has the lack of transportati on kept you from medical appointments or from getting medications? No 08/01/2025 Social Isolation Answer Date Recorded How often do you feel lonely or isolated from th ose around you? Rarely 08/01/2025 Food Risk Answer Date Recorded Within the past 12 months we worried whether our food would run out before we got money to buy more. Never true 08/01/2025 Within the past 12 months th e food we bought just didn't last and we didn't have money to get more. Never true 08/01/2025 Dependent Care Answer Date Recorded Do you need help finding or paying for care for your loved ones. For example, children's author or elderly care for an older adult? No 08/01/2025 Education Answer Date Recorded Do you think completing more education or training, like finishing a GED, going to college, or learning a trade, would be helpful for you? No 08/01/2025 Employment and Income Answer Date Recor ded During the last four weeks, have you been actively looking for work? No 08/01/2025 Living Situation Answer Date Recorded What is your living situation? Unrecognized valu e 08/01/2025 Interpersonal Safety Answer Date Record ed Physical Abuse Unrecognized value 08/01/2025 Verbal Abuse Unrecognized value 08/01/2025 Sex and Gender Information Value Date Recorded Sex Assigned at Not on file Legal Sex Male 10:55 PM EST Gender Identity Not on file Sexual Orientation Not on file Obstetrics History Last Filed Vital Signs Vital Sign Reading Time Taken Comments Blood Pressure 133/89 08/01/2025 8:31 AM EDT Pulse 68 08/01/2025 8:31 AM EDT Temperature 36.6 C (97.8 F) 08/01/2025 8:31 AM EDT Respiratory Rate 15 08/01/2025 8:31 AM EDT Oxygen Saturation 96% 08/01/2025 8:31 AM EDT Inhaled Oxygen Concentration - - Weight 84.8 kg (187 lb) 08/09/2025 2:50 PM EDT Height 177.8 cm (5' 10 ) 08/09/2025 2:50 PM EDT Body Mass Index 26.83 08/09/2025 2:50 PM EDT Plan of Treatment Health Maintenance Due Date Last Done Comments Colorectal Cancer Screening: Colonoscopy 1963 DTaP,Tdap,and Td Vaccines (1 - Tdap) 1982 Pneumococcal Vaccine: 50+ Ye ars (1 of 1 - PCV) 2013 Zoster Vaccines (1 of 2) 2013 Depression Screening 10/13/2024 COVID-19 Vaccine (2 - 2024-2 6 season) 2025 11/29/2022 Influenza Vaccine (#1) 2025 Cholesterol Screening (Lipid Panel) 07/31/2025 HIV Screening 07/31/2025 Hepatitis C Screening 07/31/2025 Social Influencers of Health Screening 08/01/2026 08/01/2025 RSV Immunization Adult Patie nts (1 - 1-dose 75+ series) 2038 HIB [...] on patient's age to complete this topic MMR Vaccines Aged Out No longer eligi ble based on patient's age to complete this topic Meningococcal ACWY Vaccine Aged Out N o longer eligible based on patient's age to complete this topic Meningococcal B Vaccine Aged Out No l onger eligible based on patient's age to complete this topic RSV Immunization Patients Un mireya 20 months Aged Out No longer eligible b ased on patient's age to complete this topic Varicella Vaccines Aged Out No longer eligible based on patient's age to complete this topic Procedures Procedure Name Priority Date/Time Associated Diagnosis Comments CBC WITH AUTO DIFFERENTIAL Routine 08/01/2025 5:18 AM EDT BASIC METABOLIC PANEL Routine 08/01/2025 5:18 AM EDT CBC AND DIFFERENTIAL Routine 08/01/2025 5:18 AM EDT US [facility] COMPLETE Routine 08/01/2025 2:05 AM EDT PROTHROMBIN TIME WITH INR STAT Add-on 07/31/2025 10:54 PM EDT ACTIVATED PARTIAL THROMBOPLASTIN TIME STAT 07/31/2025 10:54 PM EDT MR LUMBAR SPINE WO CONTRAST STAT 07/31/2025 10:14 PM EDT CBC WITH AUTO DIFFERENTIAL STAT 07/31/2025 9:14 PM EDT CBC AND DIFFERENTIAL STAT 07/31/2025 9:14 PM EDT PROTHROMBIN TIME WITH INR STAT 07/31/2025 9:14 PM EDT COMPREHENSIVE METABOLIC PANEL STAT 07/31/2025 9:14 PM EDT from Last 3 Months Results * (ABNORMAL) CBC auto differential (08/01/2025 5:18 AM EDT) Only the most recent of2 resultswithin the time period is included. WBC 8.0 4.8 - 10.8 K/[facility] LAB HEMETOLOGY METHOD 08/01/2025 8:02 AM [facility] RBC 5.80(H) 4.50 - 5.50 M/mcL LAB HEMETOLOGY METHOD 08/01/2025 8:02 AM [facility] Hemoglobin 16.1 13.5 - 17.5 g/dL LAB HEMETOLOGY METHOD 08/01/2025 8:02 AM [facility] Hematocrit 47.7 42.0 - 54.0 % LAB HEMETOLOGY METHOD 08/01/2025 8:02 AM [facility] MCV 82.2 79.0 - 98.0 FL LAB HEMETOLOGY METHOD 08/01/2025 8:02 AM [facility] MCH 27.8 27.0 - 32.0 pcg LAB HEMETOLOGY METHOD 08/01/2025 8:02 AM [facility] MCHC 33.8 32.0 - 37.0 g/dL LAB HEMETOLOGY METHOD 08/01/2025 8:02 AM [facility] RDW 13.3 11.0 - 15.0 % LAB HEMETOLOGY METHOD 08/01/2025 8:02 AM [facility] Platelets 214 130 - 400 K/mcL LAB HEMETOLOGY METHOD 08/01/2025 8:02 AM [facility] MPV 9.9 7.0 - 11.0 FL LAB HEMETOLOGY METHOD 08/01/2025 8:02 AM [facility] NRBC 0.0 <1.0 % LAB HEMETOLOGY METHOD 08/01/2025 8:02 AM [facility] NRBC Absolute 0.00 <0.10 K/mcL LAB HEMETOLOGY METHOD 08/01/2025 8:02 AM [facility] Neutrophils Relative 89.4 % LAB HEMETOLOGY METHOD 08/01/2025 8:02 AM [facility] Lymphocytes Relative 9.0 % LAB HEMETOLOGY METHOD 08/01/2025 8:02 AM [facility] Monocytes Relative 0.9 % LAB HEMETOLOGY METHOD 08/01/2025 8:02 AM [facility] Eosinophils Relative 0.0 % LAB HEMETOLOGY METHOD 08/01/2025 8:02 AM [facility] Basophils Relative 0.1 % LAB HEMETOLOGY METHOD 08/01/2025 8:02 AM [facility] Immature Granulocytes Relative 0.6 % LAB HEMETOLOGY METHOD 08/01/2025 8:02 AM [facility] Neutrophils Absolute 7.18(H) 1.50 - 7.00 K/mcL LAB HEMETOLOGY METHOD 08/01/2025 8:02 AM [facility] Lymphocytes Absolute 0.72(L) 1.00 - 5.00 K/mcL LAB HEMETOLOGY METHOD 08/01/2025 8:02 AM [facility] Monocytes Absolute 0.07(L) 0.20 - 1.00 K/mcL LAB HEMETOLOGY METHOD 08/01/2025 8:02 AM [facility] Eosinophils Absolute 0.00 0.00 - 0.50 K/mcL LAB HEMETOLOGY METHOD 08/01/2025 8:02 AM [facility] Basophils Absolute 0.01 0.00 - 0.20 K/mcL LAB HEMETOLOGY METHOD 08/01/2025 8:02 AM [facility] Immature Granulocytes Absolute 0.05(H) 0.00 - 0.03 K/mcL LAB HEMETOLOGY METHOD 08/01/2025 8:02 AM [facility] Blood Venous blood specimen / Unknown Venipuncture / Unknown 08/01/2025 5:18 AM EDT 08/01/2025 6:55 AM EDT us Rosalia JOHNSTON LAB BLOOD ORDERABLES Final Resu lt [facility] [address] [place] [address], [place] [phone] * (ABNORMAL) Basic metabolic panel (08/01/2025 5:18 AM EDT) Sodium 136 133 - 145 mmol/L LAB CHEMISTRY METHOD 08/01/2025 8:22 AM [facility] Potassium 4.3 3.5 - 5.5 mmol/L LAB CHEMISTRY METHOD 08/01/2025 8:22 AM [facility] Chloride 105 96 - 110 mmol/L LAB CHEMISTRY METHOD 08/01/2025 8:22 AM [facility] CO2 22 21 - 32 mmol/L LAB CHEMISTRY METHOD 08/01/2025 8:22 AM [facility] Anion Gap 9 3 - 11 LAB CHEMISTRY METHOD 08/01/2025 8:22 AM [facility] Glucose 142(H) 70 - 100 mg/dL LAB CHEMISTRY METHOD 08/01/2025 8:22 AM [facility] BUN 14 5 - 25 mg/dL LAB CHEMISTRY METHOD 08/01/2025 8:22 AM [facility] Creatinine 0.76 0.70 - 1.30 mg/dL LAB CHEMISTRY METHOD 08/01/2025 8:22 AM [facility] eGFR 102 >=60 mL/min/1. 73m2 LAB CHEMISTRY METHOD 08/01/2025 8:22 AM [facility] Comment:Calculation based on the Chronic Kidney Disease Epidemiology Collaboration (CKD-EPI) equation refit without adjustment for race. BUN/Creatinine Ratio 18.4 LAB CHEMISTRY METHOD 08/01/2025 8:22 AM [facility] Calcium 9.2 8.5 - 10.5 mg/dL LAB CHEMISTRY METHOD 08/01/2025 8:22 AM EDT [facility] Blood Venous blood specimen / Unknown Venipuncture / Unknown 08/01/2025 5:18 AM EDT 08/01/2025 6:17 AM EDT us Rosalia JOHNSTON LAB BLOOD ORDERABLES Final Resu lt [facility] [address] [place] [address], [place] [phone] * US Retroperitoneal Complete (08/01/2025 2:05 AM EDT) Anatomical Region Laterality Modality Body Ultrasound 08/01/2025 3:13 AM EDT Impressions 08/01/2025 3:13 AM EDT 1. No hydronephrosis or nephrolithiasis. Normal size of the bilateral kidneys. 2. Predominantly anechoic cyst within the superior cortex of the left kidney measuring 1.4 x 1.5 x 1.3 cm. 3. The bilateral ureteral jets are identified. This document has been electronically signed by: Chiki Pickering DO on 08/01/2025 03:13:41 Narrative 08/01/2025 3:13 AM EDT INDICATION: Renal US for ? hemorrhagic cyst as reproted in MRI US Renal Comparison: MR - MR L SPINE WO CONTRAST - 07/31/25 21:45 EDT Findings: Right kidney normal size and echotexture, 10.3 cm in length. Left kidney normal size and echotexture, 11.0 cm. Predominantly anechoic cyst within the superior cortex of the left kidney measuring up to 1.4 x 1.5 x 1.3 cm. No collecting system dilatation of either kidney. Normal color Doppler. Urinary bladder is unremarkable. Bilateral ureteral jets are visualized. Procedure Note Chiki Pickering MD - 08/01/2025 INDICATION: Renal US for ? hemorrhagic cyst as reproted in MRI US Renal Comparison: MR - MR L SPINE WO CONTRAST - 07/31/25 21:45 EDT Findings: Right kidney normal size and echotexture, 10.3 cm in length. Left kidney normal size and echotexture, 11.0 cm. Predominantly anechoic cyst within the superior cortex of the left kidney measuring up to 1.4 x 1.5 x 1.3 cm. No collecting system dilatation of either kidney. Normal color Doppler. Urinary bladder is unremarkable. Bilateral ureteral jets are visualized. IMPRESSION: 1. No hydronephrosis or nephrolithiasis. Normal size of the bilateral kidneys. 2. Predominantly anechoic cyst within the superior cortex of the left kidney measuring 1.4 x 1.5 x 1.3 cm. 3. The bilateral ureteral jets are identified. This document has been electronically signed by: Chiki Pickering DO on 08/01/2025 03:13:41 Rosalia JOHNSTON IMG US PROCEDURES Final Result * APTT (07/31/2025 10:54 PM EDT) aPTT 33.9 24.1 - 39.3 sec LAB COAGULATION METHOD 07/31/2025 11:18 PM EDT [facility] Blood Venous blood specimen / Unknown Venipuncture / Unknown 07/31/2025 10:54 PM EDT 07/31/2025 10:57 PM EDT Franco Richard MD LAB BLOOD ORDERABLES Laurie l Result [facility] [address] [place] [address], * Prothrombin time with INR (07/31/2025 10:54 PM EDT) Only the most recent of2 resultswithin the time period is included. Protime 12.4 10.6 - 13.9 sec LAB COAGULATION METHOD 08/01/2025 1:28 AM EDT [facility] INR 1.0 LAB COAGULATION METHOD 08/01/2025 1:28 AM EDT [facility] Blood Venous blood specimen / Unknown Venipuncture / Unknown 07/31/2025 10:54 PM EDT 07/31/2025 10:57 PM EDT us Rosalia JOHNSTON LAB BLOOD ORDERABLES Final Resu lt [facility] [address] [place] [address], * MR Lumbar Spine wo Contrast (07/31/2025 10:14 PM EDT) Anatomical Region Laterality Modality L-spine, Spine Magnetic Resonan ce 07/31/2025 11:2 4 PM EDT Impressions 07/31/2025 11:24 PM EDT 1. Mild spondylosis of the lumbar spine as detailed above. 2. At L2-L3: Shallow disc bulge with left central disc protrusion resulting in minimal left subarticular narrowing. No lumbar canal stenosis or foraminal narrowing. 3. At L4-L5: Shallow broad-based disc bulge with small central disc protrusion containing an annular fissure. Mild flattening of the ventral thecal sac with mild lumbar canal stenosis. No foraminal narrowing. 4. Small T2 bright cysts within the bilateral kidneys. A T1 bright likely proteinaceous/hemorrhagic cyst of the left kidney measures 1.6 cm. Recommend nonemergent renal ultrasound for improved characterization. This document has been electronically signed by: Chiki Pickering DO on 07/31/2025 23:24:25 Narrative 07/31/2025 11:24 PM EDT INDICATION: ?cauda equina MR lumbar spine without gadolinium Comparison: None Findings: No scoliosis or spondylolisthesis. Preservation of the normal lumbar lordosis. No acute fracture or pathologic bone lesion. Cauda equina and conus medullaris within normal limits. L1-L2: Normal. L2-L3: Mild loss of disc height. Shallow disc bulge with left central disc protrusion. Minimal left subarticular narrowing. No lumbar canal stenosis. No foraminal narrowing. L3-L4: Normal. L4-L5: Shallow broad-based disc bulge with small central protrusion containing annular fissure. Partial flattening of the ventral thecal sac with mild lumbar canal stenosis. No foraminal stenosis. L5-S1: Minimal loss of disc height. Shallow broad-based disc bulge with central annular fissure at the posterior margin of the disc. Minimal flattening of the ventral thecal sac without lumbar canal stenosis. No foraminal narrowing. Paraspinous musculature intact. Small T2 bright cysts within the bilateral kidneys. A T1 bright likely proteinaceous or hemorrhagic cyst of the left kidney measures up to 1.6 cm. Recommend nonemergent renal ultrasound for improved characterization. Procedure Note Chiki Pickering MD - 07/31/2025 INDICATION: ?cauda equina MR lumbar spine without gadolinium Comparison: None Findings: No scoliosis or spondylolisthesis. Preservation of the normal lumbar lordosis. No acute fracture or pathologic bone lesion. Cauda equina and conus medullaris within normal limits. L1-L2: Normal. L2-L3: Mild loss of disc height. Shallow disc bulge with left centraldisc protrusion. Minimal left subarticular narrowing. No lumbar canalstenosis. No foraminal narrowing. L3-L4: Normal. L4-L5: Shallow broad-based disc bulge with small central protrusion containing annular fissure. Partial flattening of the ventral thecal sac with mild lumbar canal stenosis. No foraminal stenosis. L5-S1: Minimal loss of disc height. Shallow broad-based disc bulge with central annular fissure at the posterior margin of the disc. Minimal flattening of the ventral thecal sac without lumbar canal stenosis. No foraminal narrowing. Paraspinous musculature intact. Small T2 bright cysts within the bilateral kidneys. A T1 bright likely proteinaceous or hemorrhagic cyst of the left kidney measures up to 1.6 cm. Recommend nonemergent renal ultrasound for improvedcharacterization. IMPRESSION: 1. Mild spondylosis of the lumbar spine as detailed above. 2. At L2-L3: Shallow disc bulge with left central disc protrusion resulting in minimal left subarticular narrowing. No lumbar canalstenosis or foraminal narrowing. 3. At L4-L5: Shallow broad-based disc bulge with small central disc protrusion containing an annular fissure. Mild flattening of the ventral thecal sac with mild lumbar canal stenosis. No foraminal narrowing. 4. Small T2 bright cysts within the bilateral kidneys. A T1 brightlikely proteinaceous/hemorrhagic cyst of the left kidney measures 1.6 cm. Recommend nonemergent renal ultrasound for improved characterization. This document has been electronically signed by: Chiki Pickering DO on 07/31/2025 23:24:25 Franco Richard MD IMG MRI PROCEDURES Final Result * (ABNORMAL) Comprehensive Metabolic Panel (CMP) (07/31/2025 9:14 PM EDT) Sodium 139 133 - 145 mmol/L LAB CHEMISTRY METHOD 07/31/2025 9:52 PM [facility] Potassium 3.9 3.5 - 5.5 mmol/L LAB CHEMISTRY METHOD 07/31/2025 9:52 PM [facility] Chloride 108 96 - 110 mmol/L LAB CHEMISTRY METHOD 07/31/2025 9:52 PM [facility] CO2 26 21 - 32 mmol/L LAB CHEMISTRY METHOD 07/31/2025 9:52 PM [facility] Anion Gap 5 3 - 11 LAB CHEMISTRY METHOD 07/31/2025 9:52 PM [facility] Glucose 112(H) 70 - 100 mg/dL LAB CHEMISTRY METHOD 07/31/2025 9:52 PM [facility] BUN 16 5 - 25 mg/dL LAB CHEMISTRY METHOD 07/31/2025 9:52 PM [facility] Creatinine 0.78 0.70 - 1.30 mg/dL LAB CHEMISTRY METHOD 07/31/2025 9:52 PM [facility] eGFR 101 >=60 mL/min/1. 73m2 LAB CHEMISTRY METHOD 07/31/2025 9:52 PM [facility] Comment:Calculation based on the Chronic Kidney Disease Epidemiology Collaboration (CKD-EPI) equation refit without adjustment for race. BUN/Creatinine Ratio 20.5 LAB CHEMISTRY METHOD 07/31/2025 9:52 PM [facility] Calcium 8.5 8.5 - 10.5 mg/dL LAB CHEMISTRY METHOD 07/31/2025 9:52 PM EDT [facility] AST (SGOT) 36 10 - 42 unit/L LAB CHEMISTRY METHOD 07/31/2025 9:52 PM EDT [facility] ALT (SGPT) 57 10 - 60 unit/L LAB CHEMISTRY METHOD 07/31/2025 9:52 PM EDT [facility] Alkaline Phosphatase 64 42 - 121 unit/L LAB CHEMISTRY METHOD 07/31/2025 9:52 PM EDT [facility] Total Protein 6.0 6.0 - 8.0 g/dL LAB CHEMISTRY METHOD 07/31/2025 9:52 PM EDT [facility] Albumin 3.6 3.2 - 5.0 g/dL LAB CHEMISTRY METHOD 07/31/2025 9:52 PM EDT [facility] Total Bilirubin 0.3 0.0 - 1.4 mg/dL LAB CHEMISTRY METHOD 07/31/2025 9:52 PM EDT [facility] Blood Venous blood specimen / Unknown Venipuncture / Unknown 07/31/2025 9:14 PM EDT 07/31/2025 9:28 PM EDT us Franco Richard MD LAB BLOOD ORDERABLES Laurie duncan Result [facility] [address] [place] [address], from Last 3 Months Insurance [employer] Advance Directives Documents on File Type Date 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 Do not modify or discontinue any currently active code status orders. Care Teams Sports Team Marketing Intern Relationship Specialty Start Date End Date Luzma Riddle MD [address] [place] [address] , [address] [facility] D/B/A: [facility] GILBERT Alonso PCP - General Internal Medicine 08/09/25
[2025-08-23] MEDS: Barium Sulfate Oral (Mocha) 450 ML ORAL.SUSP 900 ML PO (09:58)
[2025-08-23] MEDS: iohexoL 350 MG/ML 100 ML INFUS..BTL IV (09:58)
== END 2025-08-23 06:59 | disposition home or self-care (01) ==
LOC: HO.CT 06:58
PROVIDERS: PCP Internal Medicine; Visit Provider Internal Medicine
DX: R10.84 Generalized abdominal pain (principal)
CPT/HCPCS: 74177; Q9967

== ENCOUNTER → 2025-08-23 07:00 | Outpatient (BNV) | payer OTHER, SELFPAY | PROVIDERS: PCP Internal Medicine; Visit Provider Radiology Diagnostic Radiology | DX: R10.84 Generalized abdominal pain (principal) | CPT/HCPCS: 74177 ==